=== PATIENT | female | born 1955 | race Hispanic/Latino ===

== ENCOUNTER 2019-04-10 11:15 | Emergency (ER) | payer OTHER ==
--- OUTSIDE RECORDS SUMMARY | 2019-04-10 11:18 | XMS REPORT ---
:1955 [facility] [address] [place] [address] Care Team Providers Name Role Phone HINA CAMACHO Primary Care Provider Unavailable HINA CAMACHO Unavailable Unavailable Problems This patient has no known problems. Allergies, Adverse Reactions, Alerts This patient has no known allergies or adverse reactions. Medications This patient has no known medications. Results Test Description Test Time Test Comments Text Results Atomic Results Result Comments Pro-Bnp 2017-05-02 22:42:00 Test Item Value Reference Range Comments NT ProBnp (test code=PBNP) SEE COMMENT pg/mL 0-124 PBNP=5.00 <Test..../OG Lipid [id number] 22:40:00 Test Item Value Reference Range Comments Cholesterol (test 124 mg/dL 0-200 code=CHOL) Triglycerides (test 100 mg/dL 9-200 code=TRIG) HDL (test code=HDL) 46 mg/dL 50-60 Chol/HDL (test 2.7 Ratio 0.0-4.4 code=CHOLPHDL) LDL, Calculated (test 58 mg/dL 0-130 (NOTE)RISK OF HEART code=LDLC) DISEASEPublished by Bulgar[place] Heart AssociationAnalyte Optimal Boderline Increased RiskCHOL <200 200-239 >240TRIG <150 150-199 >200HDL Male: >60 <40HDL Female: >60 <50LDL <100 130-159 >160LDL NEAR OPTIMAL IS 100-129 VLDL (test code=VLDL) 20 mg/dL 5-40 LDL/HDL (test code=LDLPHDL) 1 Comprehensive Metabolic [id number] 22:40:00 Test Item Value Reference Range Comments Sodium (test code=NA) 137 mmol/L 135-145 Potassium (test code=K) 4.4 mmol/L 3.5-5.1 Chloride (test code=CL) 98 mmol/L 98-105 Carbon Dioxide (test 26 mmol/L 22-29 code=CO2) Glucose (test code=GLU) 133 mg/dL 70-115 Blood Urea Nitrogen 11 mg/dL 8-23 (test code=BUN) Creatinine (test 0.5 mg/dL 0.5-0.9 code=CREAT) Calcium (test code=CA) 9.9 mg/dL 8.3-10.5 Prot Total (test 7.5 g/dL 6.4-8.3 code=TP) Albumin (test code=ALB) 4.7 g/dL 3.5-5.2 A/G Ratio (test 1.7 Ratio code=AGRATIO) Globulin (test 2.8 2.9-3.1 code=GLOB) Bili Total (test 0.4 mg/dL 0.1-0.9 code=TBIL) Alk Phos (test 87 U/L 35-104 code=APHOS) AST (test code=AST) 13 U/L 1-32 ALT (test code=ALT) 17 U/L 1-33 BUN/Creatinine Ratio 22.0 (test code=BCRATIO) Anion Gap (test 13 mmol/L 7-16 code=AGAP) Estimated GFR (test >60 mL/min/1.73m2 eGFR (estimated Glomerular code=GFR) Filtration Rate) is an estimated value,calculated from the patient's serum creatinine using the MDRD equation.It is NOT the patient's actual GFR. The eGFR provides a more clinicallyuseful measure of kidney disease than serum creatinine alone.This calculation takes sex and race into account, if the informationis provided. If the race is not provided, and the patient isAfrican-Bulgarian, multiply by 1.212. If sex is not provided, and thepatient is female, multiply by 0.742. Results for patients <18 years ofage have not been validated by the MDRD study and should be interpretedwith caution.eGFR Result Interpretation:eGFR > or=60 is in the Normal RangeeGFR < 60 may mean kidney diseaseeGFR < 15 may mean kidney failureRanges recommended by the National Kidney Foundation,http://nkdep.nih .gov Glycosylated [id number] 22:38:00 Test Item Value Reference Range Comments HBA1c (test code=HBA1C) 7.0 % 4.8-5.9 CBC with [id number] 22:17:00 Test Item Value Reference Range Comments WBC (test code=WBC) 8.6 K/cumm 4.4-10.5 RBC (test code=RBC) 4.06 M/cumm 3.75-5.20 Hemoglobin (test code=HGB) 12.6 gm/dL 12.2-14.8 Hematocrit (test code=HCT) 36.9 % 36.5-44.4 MCV (test code=MCV) 90.9 fL 80-100 MCH (test code=MCH) 30.9 pg 27.0-32.5 MCHC (test code=MCHC) 34.0 g/dL 32.0-37.5 RDW (test code=RDW) 12.3 % 11.5-14.5 Platelet Count (test code=PLTCT) 402 K/cumm 140-440 MPV (test code=MPV) 8.2 fL Diff Method (test code=DIFFM) Auto Neutrophil (test code=NEUT) 54.0 % 36-70 Lymphocyte (test code=LYMPH) 37.6 % 12-44 Monocyte (test code=MONO) 5.1 % 0-11 Eosinophil (test code=EOS) 2.5 % 0-7 Basophil (test code=BASO) 0.8 % 0-2 Neutro Abs (test code=ANEUT) 4.6 K/cumm 1.6-7.4 Lymph Abs (test code=ALYMPH) 3.2 K/cumm 0.5-4.6 Emmet Abs (test code=AMONO) 0.4 K/cumm 0.0-1.2 Eos Abs (test code=AEOS) 0.22 K/cumm 0.00-0.74 Baso Abs (test code=ABASO) 0.1 K/cumm 0.00-0.21
--- OUTSIDE RECORDS SUMMARY | 2019-04-10 11:18 | XMS REPORT ---
:1955 Author Organization eClinicalWorks Care Team Providers Name Role Phone Alex Crawford Provider Role Unavailable Allergies, Adverse Reactions, Alerts Substance Reaction Event Type N.K.D.A. Info Not Available Non Drug Allergy Problems Problem Type Condition Code Onset Dates Condition Status Assessment Cerebrovascular accident (CVA), I63.9 Active unspecified mechanism Assessment Type 2 diabetes mellitus without E11.9 Active complication, unspecified whether senior care insulin use Assessment Seasonal allergies J30.2 Active Assessment Hyperlipidemia, unspecified E78.5 Active hyperlipidemia type Problem Other chronic pain G89.29 Active Problem History of CVA with residual deficit I69.30 Active Problem Seasonal allergies J30.2 Active Problem Type 2 diabetes mellitus without E11.9 Active complication, unspecified whether senior care insulin use Problem Anxiety F41.9 Active Problem Cerebrovascular accident (CVA), I63.9 Active unspecified mechanism Problem Hyperlipidemia, unspecified E78.5 Active hyperlipidemia type Medications Medication Code Code Instructions Start End Status Dosage System Date Date Clopidogrel Bisulfate [facility] 36065622644 75 MG Orally Active 1 tablet Once a day Simvastatin [facility] 75442862337 40 MG Oral Active 1 tablet Once a day in the evening BD Pen Needle Gina [facility] 74578951873 32G X 4 MM SQ Active Use with U/F three times a insulin day Tresiba FlexTouch [facility] 47698758039 100 UNIT/ML Active INJECT 40 Subcutaneous UNITS UNDER THE SKIN QAM Metformin HCl [facility] 12655341711 500 MG Oral Active tk 1 t po Once a day at noon [facility] Victoza [facility] [address]-58 18 MG/3ML Nov Active 0.6mg Subcutaneous 18, daily 2018 OneTouch Delica [facility] 16335795369 - for Active TEST QID. Lancets 33G diabetes Fluticasone ND 58418418811 50 MCG/ACT Mar 20, Active 1 spray Propionate Nasally Once a 2018 in each day nostril Montelukast Sodium ND 36593007415 10 MG Orally Mar 20, Active 1 tablet Once a day 2018 Hydrochlorothiazide [facility] 82067938020 25 MG Oral Active TK 1 T PO QD IN THE MORNING Amitriptyline HCl [facility] 90853679940 25 MG Orally Active 1 tablet Once a day at bedtime Lisinopril [facility] 06662272858 30 MG Oral Active TK 1 T PO QD OneTouch Ultra Test [facility] 68124906884 - In Vitro Active TEST BS QID Results No Known Results Summary Purpose eClinicalWorks Submission
[2019-04-10] MEDS ORDERED: MORPHINE 2 MG/ML SYR ONE (11:59)
--- NOTE | 2019-04-10 12:08 | RAD REPORT ---
EXAM DESCRIPTION: RAD - Chest Single View - 04/10/2019 11:59 am CLINICAL HISTORY: CHEST PAIN Chest pain. COMPARISON: Chest Single View dated 04/03/2016; CHEST SINGLE VIEW dated 04/23/2013; CHEST SINGLE VIEW d ated 10/30/2012; CHEST SINGLE VIEW dated 12/20/2011 FINDINGS: Portable technique limits examination quality. The lungs are grossly clear. The heart is normal in size. No displaced fractures. IMPRESSION: No acute intrathoracic process suspected.
[2019-04-10 12:30] LABS: Absolute Lymphocytes (CBC) 2.5 K/uL (0.7-4.9); Basophils % 0.8 % (0-1.3); Hematocrit 35.7 % (36.0-45.0); MPV 8.6 fL (7.6-11.3); RBC Red Blood Cell Count 4.05 M/uL (3.86-4.86)
[2019-04-10 12:32] LABS: Protime INR 0.96
[2019-04-10 12:46] LABS: ALT/SGPT 27 U/L (12-78); AST/SGOT 18 U/L (15-37); Albumin 3.8 g/dL (3.4-5.0); Alkaline Phosphatase 77 U/L (45-117); BUN Blood Urea Nitrogen 12 mg/dL (7-18); Bicarbonate 28 mmol/L (21-32); Bilirubin Direct 0.1 mg/dL (0-0.2); Bilirubin Total 0.5 mg/dL (0.2-1.0); Glucose Level 101 mg/dL (74-106); Lipase 271 U/L (73-393); Magnesium 2.3 mg/dL (1.8-2.4); NT PRO-BNP 36 pg/mL (<125); Potassium 3.9 mmol/L (3.5-5.1); Protein, Total 7.3 g/dL (6.4-8.2); Sodium Level 141 mmol/L (136-145); Troponin (Emerg Dept Use Only) < 0.02 ng/mL (0.0-0.045)
--- NOTE | 2019-04-10 14:55 | ER ---
Nurse's Notes [facility] Name: Christa Spakrs Age: 64 yrs Sex: Female : 1955 Arrival Date: 04/10/2019 Time: 11:16 Bed 13 Private MD: Diagnosis: Chest pain, unspecified;Radiculopathy, cervical region Presentation: 04/10 11:21 Presenting complaint: Patient states: chest pain since this morning, midsternal through iw back, arms feel weak, hx of CVA, c/o nausea. Transition of care: patient was not received from another setting of care. Onset of symptoms was April 10, 2019. Risk Assessment: Do you want to hurt yourself or someone else? Patient reports no desire to harm self or others. Initial Sepsis Screen: Does the patient meet any 2 criteria? No. Patient's initial sepsis screen is negative. Does the patient have a suspected source of infection? No. Patient's initial sepsis screen is negative. Care prior to arrival: None. 11:21 Method Of Arrival: Ambulatory iw 11:21 Acuity: NICK 2 iw Historical: - Allergies: 11:24 NKA; iw - Home Meds: 11:24 aspirin 81 mg Oral TbEC 1 tab once daily [Active]; Novolog 100 unit/mL Sub-Q soln after iw meals and before bedtime [Active]; lisinopril-hydrochlorothiazide 20-25 mg Oral tab 1 tab once daily [Active]; simvastatin 40 mg Oral tab 1 tab once daily [Active]; - PMHx: 11:24 CVA; Diabetes - IDDM; High Cholesterol; Hypertension; iw - PSHx: 11:25 None; iw - Immunization history:: Adult Immunizations not up to date. - Social history:: Smoking status: Patient uses tobacco products, denies chronic smoking, but will smoke occasionally. - Ebola Screening: : Patient negative for fever greater than or equal to 101.5 degrees Fahrenheit, and additional compatible Ebola Virus Disease symptoms Patient denies exposure to infectious person Patient denies travel to an Ebola-affected area in the 21 days before illness onset No symptoms or risks identified at this time. Screenin:42 Abuse screen: Denies threats or abuse. Nutritional screening: No deficits noted. rb1 Tuberculosis screening: No symptoms or risk factors identified. Fall Risk None identified. Assessment: 11:42 Pain: Complains of pain in chest Pain radiates to right arm and back of neck Pain rb1 currently is 9 out of 10 on a pain scale. Pain began this morning. Neuro: Level of Consciousness is awake, alert, obeys commands, Oriented to person, place, time, situation, Lumber Buyer are equal bilaterally Moves all extremities. Gait is steady, Speech is normal, Facial symmetry appears normal, Pupils are PERRLA. Cardiovascular: Capillary refill < 3 seconds is brisk in bilateral fingers. Respiratory: Reports shortness of breath cough that is non-productive, Airway is patent Respiratory effort is even, unlabored, Respiratory pattern is regular, symmetrical. GI: Reports nausea. : No signs and/or symptoms were reported regarding the genitourinary system. Derm: Skin is pink, warm \T\ dry. Musculoskeletal: Range of motion: intact in all extremities. 11:42 Neuro: Reports headache frontal area. rb1 11:45 General: Appears in no apparent distress. comfortable, Behavior is calm, cooperative, rb1 Denies fever. 12:40 Reassessment: Patient appears in no apparent distress at this time. Patient and/or rb1 family updated on plan of care and expected duration. Pain level reassessed. Patient is alert, oriented x 3, equal unlabored respirations, skin warm/dry/pink. Patient denies pain at this time. 13:30 Reassessment: Patient appears in no apparent distress at this time. No changes from rb1 previously documented assessment. 14:30 Reassessment: Patient appears in no apparent distress at this time. Patient and/or rb1 family updated on plan of care and expected duration. Pain level reassessed. Patient is alert, oriented x 3, equal unlabored respirations, skin warm/dry/pink. Vital Signs: 11:24 BP 127 / 80; Pulse 73; Resp 16; Temp 98.4; Pulse Ox 97% on R/A; Weight 75.75 kg; Height iw 5 ft. 2 in. (157.48 cm); Pain 9/10; 12:40 BP 128 / 70; Pulse 72; Resp 14; Temp 98.1(O); Pulse Ox 97% on R/A; rb1 13:30 BP 140 / 65; Pulse 66; Resp 15; Pulse Ox 100% ; Pain 0/10; rb1 14:30 BP 136 / 64; Pulse 69; Resp 17; Pulse Ox 99% on R/A; Pain 0/10; rb1 11:24 Body Mass Index 30.54 (75.75 kg, 157.48 cm) ED Course: 11:16 Patient arrived in ED. as 11:22 Triage completed. iw 11:24 Arm band placed on. iw 11:42 Patient has correct armband on for positive identification. Bed in low position. Call rb1 light in reach. Side rails up X2. frog farmer on. Pulse ox on. NIBP on. Warm blanket given. 11:42 Patient maintains SpO2 saturation greater than 95% on room air. rb1 11:44 Bina Aguilar FNP-C is [facility]. snw 11:44 Rosaline Nieto MD is Attending Physician. snw 11:52 Anisa Gastelum, RN is Primary Nurse. rb1 11:52 EKG done, by ED staff, reviewed by Bina CINTRON. [facility] 11:59 XRAY Chest (1 view) In Process Unspecified. EDMS 12:02 Initial lab(s) drawn, by ia, sent to lab. Inserted saline lock: 20 gauge in right 3 antecubital area, using aseptic technique. Blood collected. 15:07 No provider procedures requiring assistance completed. IV discontinued, intact, rb1 bleeding controlled, No redness/swelling at site. Pressure dressing applied. Administered Medications: 12:07 Drug: morphine 2 mg Route: IVP; Site: right antecubital; rb1 12:30 Follow up: Response: No adverse reaction; Pain is decreased rb1 Point of Care Testing: Blood Glucose: 12:01 Blood Glucose: 110 mg/dL; rb1 Ranges: Outcome: 14:54 Discharge ordered by . snw 15:07 Discharged to home ambulatory, with family. rb1 15:07 Condition: stable 15:07 Discharge instructions given to patient, Instructed on discharge instructions, follow up and referral plans. medication usage, Demonstrated understanding of instructions, follow-up care, medications, Prescriptions given X 1. 15:09 Patient left the ED. rb1 Signatures: Dispatcher [employer] EDMS Bina Aguilar FNP-C FNP-Demetria Vela Irene, RN RN Anisa Gastelum, RN RN [facility] Corrections: (The following items were deleted from the chart) Presenting complaint: Patient states: chest pain since this morning, midsternal iw through back, arms feel weak, hx of CVA iw Acuity: NICK 3 iw iw
--- NOTE | 2019-04-10 14:55 | EDPHYS ---
Physician Documentation [facility] Name: Christa Sparks Age: 64 yrs Sex: Female : 1955 Arrival Date: 04/10/2019 Time: 11:16 Bed 13 Private MD: ED Physician Rosaline Nieto HPI: 04/10 11:49 This 64 yrs old Female presents to ER via Ambulatory with complaints of Chest snw Pain. 11:49 Onset: The symptoms/episode began/occurred gradually, this morning, and became snw persistent. Associated signs and symptoms: Pertinent positives: nausea, right arm and shoulder pain. Modifying factors: the patient symptoms are aggravated by smoking a whole pack of cigarettes last pm. It is unknown whether or not the patient has had similar symptoms in the past. The patient has been recently seen by a physician: the patient's primary care provider, Dr. Crawford. Pt states Dr. Crawford recently told her that her HbgA1c is high. Historical: - Allergies: 11:24 NKA; iw - Home Meds: 11:24 aspirin 81 mg Oral TbEC 1 tab once daily [Active]; Novolog 100 unit/mL Sub-Q soln after iw meals and before bedtime [Active]; lisinopril-hydrochlorothiazide 20-25 mg Oral tab 1 tab once daily [Active]; simvastatin 40 mg Oral tab 1 tab once daily [Active]; - PMHx: 11:24 CVA; Diabetes - IDDM; High Cholesterol; Hypertension; iw - PSHx: 11:25 None; iw - Immunization history:: Adult Immunizations not up to date. - Social history:: Smoking status: Patient uses tobacco products, denies chronic smoking, but will smoke occasionally. - Ebola Screening: : Patient negative for fever greater than or equal to 101.5 degrees Fahrenheit, and additional compatible Ebola Virus Disease symptoms Patient denies exposure to infectious person Patient denies travel to an Ebola-affected area in the 21 days before illness onset No symptoms or risks identified at this time. ROS: 11:49 Constitutional: Negative for fever, chills, and weight loss, Eyes: Negative for injury, snw pain, redness, and discharge, ENT: Negative for injury, pain, and discharge, Neck: Negative for injury, pain, and swelling. 11:49 Respiratory: Negative for shortness of breath, cough, wheezing, and pleuritic chest pain, Abdomen/GI: Negative for abdominal pain, nausea, vomiting, diarrhea, and constipation. 11:49 : Negative for injury, bleeding, discharge, and swelling. 11:49 Skin: Negative for injury, rash, and discoloration, Neuro: Negative for headache, weakness, numbness, tingling, and seizure, Psych: Negative for depression, anxiety, suicide ideation, homicidal ideation, and hallucinations. 11:49 Cardiovascular: Positive for chest pain, of the anterior aspect of left upper chest. 11:49 Back: Positive for radiated pain. 11:49 MS/extremity: Positive for c/o right arm pain with radiation to back. Exam: 11:49 Head/Face: Normocephalic, atraumatic. Eyes: Pupils equal round and reactive to light, snw extra-ocular motions intact. Lids and lashes normal. Conjunctiva and sclera are non-icteric and not injected. Cornea within normal limits. Periorbital areas with no swelling, redness, or edema. ENT: Nares patent. No nasal discharge, no septal abnormalities noted. Tympanic membranes are normal and external auditory canals are clear. Oropharynx with no redness, swelling, or masses, exudates, or evidence of obstruction, uvula midline. Mucous membranes moist. Neck: Trachea midline, no thyromegaly or masses palpated, and no cervical lymphadenopathy. Supple, full range of motion without nuchal rigidity, or vertebral point tenderness. No Meningismus. Chest/axilla: Normal chest wall appearance and motion. Nontender with no deformity. No lesions are appreciated. Cardiovascular: Regular rate and rhythm with a normal S1 and S2. No gallops, murmurs, or rubs. Normal PMI, no JVD. No pulse deficits. Respiratory: Lungs have equal breath sounds bilaterally, clear to auscultation and percussion. No rales, rhonchi or wheezes noted. No increased work of breathing, no retractions or nasal flaring. Abdomen/GI: Soft, non-tender, with normal bowel sounds. No distension or tympany. No guarding or rebound. No evidence of tenderness throughout. Back: No spinal tenderness. No costovertebral tenderness. Full range of motion. Skin: Warm, dry with normal turgor. Normal color with no rashes, no lesions, and no evidence of cellulitis. MS/ Extremity: Pulses equal, no cyanosis. Neurovascular intact. Full, normal range of motion. Neuro: Awake and alert, GCS 15, oriented to person, place, time, and situation. Cranial nerves II-XII grossly intact. Motor strength 5/5 in all extremities. Sensory grossly intact. Cerebellar exam normal. Normal gait. 11:49 Constitutional: The patient appears alert, awake, calm 11:49 Psych: pt states these s/s were probably brought on because she smoked a pack of cigarettes last pm, . 11:49 ECG was reviewed by the Attending Physician. snw Vital Signs: 11:24 BP 127 / 80; Pulse 73; Resp 16; Temp 98.4; Pulse Ox 97% on R/A; Weight 75.75 kg; Height iw 5 ft. 2 in. (157.48 cm); Pain 9/10; 12:40 BP 128 / 70; Pulse 72; Resp 14; Temp 98.1(O); Pulse Ox 97% on R/A; rb1 13:30 BP 140 / 65; Pulse 66; Resp 15; Pulse Ox 100% ; Pain 0/10; rb1 14:30 BP 136 / 64; Pulse 69; Resp 17; Pulse Ox 99% on R/A; Pain 0/10; rb1 11:24 Body Mass Index 30.54 (75.75 kg, 157.48 cm) iw MDM: 11:44 Patient medically screened. snw 14:41 Data reviewed: vital signs, nurses notes. Data interpreted: Pulse oximetry: on room air snw is 100 %. Interpretation: normal. Counseling: I had a detailed discussion with the patient and/or guardian regarding: the historical points, exam findings, and any diagnostic results supporting the discharge/admit diagnosis, lab results, radiology results. 14:42 ECG:. The patient was not given aspirin in the Emergency Department. Patient reports snw taking aspirin within the past 24 hours. 04/10 11:45 Order name: Basic Metabolic Panel; Complete Time: 12:48 snw 04/10 11:45 Order name: CBC with Diff; Complete Time: 12:34 snw 04/10 11:45 Order name: LFT's; Complete Time: 12:48 snw 04/10 11:45 Order name: Magnesium; Complete Time: 12:48 snw 04/10 11:45 Order name: NT PRO-BNP; Complete Time: 12:48 04/10 11:45 Order name: PT-INR; Complete Time: 12:34 04/10 11:45 Order name: Troponin (emerg Dept Use Only); Complete Time: 12:48 04/10 11:45 Order name: XRAY Chest (1 view); Complete Time: 12:10 04/10 11:45 Order name: EKG; Complete Time: 11:46 04/10 11:45 Order name: Cardiac monitoring; Complete Time: 11:53 04/10 11:45 Order name: EKG - Nurse/Tech; Complete Time: 11:53 04/10 11:45 Order name: IV Saline Lock; Complete Time: 12:06 04/10 11:45 Order name: Lipase; Complete Time: 12:48 04/10 11:45 Order name: Labs collected and sent; Complete Time: 12:06 04/10 11:45 Order name: O2 Per Protocol; Complete Time: 11:53 04/10 11:45 Order name: O2 Sat Monitoring; Complete Time: 11:53 04/10 11:45 Order name: FSBS; Complete Time: 12:05 04/10 14:00 Order name: Repeat Cardiac Enzymes at: 1445, repeat EKG at that time as well snw Administered Medications: 12:07 Drug: morphine 2 mg Route: IVP; Site: right antecubital; rb1 12:30 Follow up: Response: No adverse reaction; Pain is decreased rb1 Point of Care Testing: Blood Glucose: 12:01 Blood Glucose: 110 mg/dL; rb1 Ranges: Critical Glucose Levels:Adult <50 mg/dl or >400 mg/dl <40 mg/dl or >180 mg/dl Disposition: 18:50 Co-signature as Attending Physician, Rosaline Nieto MD. ma2 Disposition: 04/10/19 14:54 Discharged to Home. Impression: Chest pain, unspecified, Radiculopathy, cervical region. - Condition is Stable. - Discharge Instructions: Cervical Radiculopathy, Nonspecific Chest Pain, Gastroesophageal Reflux Disease, Adult, Hypertension, Aspirin and Your Heart. - Prescriptions for Protonix 40 mg Oral Tablet - take 1 tablet by ORAL route once daily; 30 tablet. - Work release form, Medication Reconciliation Form, Thank You Letter, Antibiotic Education, Prescription Opioid Use form. - Follow up: Private Physician; When: 2 - 3 days; Reason: Recheck today's complaints, Continuance of care, Re-evaluation by your physician. Follow up: Emergency Department; When: As needed; Reason: Worsening of condition. Signatures: Dispatcher [employer] EDFL Bina Aguilar, MELISA-C OPTICAL DESIGN ENGINEER-Csnw Mariya Fontenot, ZBIGNIEW RN iw Anisa Gastelum RN RN rb1 Rosaline Nieto MD MD ma2 Corrections: (The following items were deleted from the chart) 15:09 14:54 04/10/2019 14:54 Discharged to Home. Impression: Chest pain, unspecified; rb1 Radiculopathy, cervical region. Condition is Stable. Forms are Medication Reconciliation Form, Thank You Letter, Antibiotic Education, Prescription Opioid Use. Follow up: Private Physician; When: 2 - 3 days; Reason: Recheck today's complaints, Continuance of care, Re-evaluation by your physician. Follow up: Emergency Department; When: As needed; Reason: Worsening of condition. snw
[2019-04-10 15:31] VITALS: TEMP 98.1
[2019-04-10 15:35] VITALS: BP 136/64; O2SAT 99
--- NOTE | 2019-04-11 07:42 | EKG ---
Test Date: 2019-04-10 Test Time: 11:52:32 Systems Software Specialist: RANDOLPH MEASUREMENT RESULTS: Intervals: Rate: 73 MI: 152 QRSD: 84 QT: 390 QTc: 429 [place]: P: 30 MI: 152 QRS: 55 T: 52 INTERPRETIVE STATEMENTS: Normal sinus rhythm Normal ECG No previous ECG available for comparison Electronically Signed On 04-11-19 07:38:29 CDT by Parvez Hook
== END 2019-04-10 15:09 | disposition home or self-care (01) ==
LOC: ER 11:15
DX: M54.12 Radiculopathy, cervical region (principal); I10 Essential (primary) hypertension; E11.9 Type 2 diabetes mellitus without complications; E78.00 Pure hypercholesterolemia, unspecified
CPT/HCPCS: 93005; 85025; 80048; 36415; 83735; 85610; 82962; 80076; 84484; 83690; 83880; 71045; 96374; 99285; J2270

== ENCOUNTER 2019-10-05 20:24 | Emergency (ER) | payer OTHER ==
--- OUTSIDE RECORDS SUMMARY | 2019-10-05 20:25 | XMS REPORT ---
:1955 Author Organization eClinicalWorks Care Team Providers Name Role Phone Winnie Miller Provider Role Unavailable Allergies No Known Allergies Problems Problem Type Condition Code Onset Dates Condition Status Assessment Type 2 diabetes mellitus without E11.9 Active complication, unspecified whether fpc insulin use Problem Other chronic pain G89.29 Active Problem History of CVA with residual deficit I69.30 Active Problem Seasonal allergies J30.2 Active Problem Type 2 diabetes mellitus without E11.9 Active complication, unspecified whether fpc insulin use Problem Anxiety F41.9 Active Problem Cerebrovascular accident (CVA), I63.9 Active unspecified mechanism Problem Hyperlipidemia, unspecified E78.5 Active hyperlipidemia type Medications Medication Code Code Instructions Start End Date Status Dosage System Date Metformin HCl [facility] [id number] 500 MG Oral Once Active tk 1 t po a day at noon [facility] Results No Known Results Summary Purpose eClinicalWorks Submission
--- OUTSIDE RECORDS SUMMARY | 2019-10-05 20:25 | XMS REPORT ---
:1955 Author Organization eClinicalWorks Care Team Providers Name Role Phone Winnie Miller Provider Role Unavailable Allergies, Adverse Reactions, Alerts Substance Reaction Event Type Amitriptyline HCl hallucinations Drug Allergy Problems Problem Type Condition Code Onset Dates Condition Status Problem Type 2 diabetes mellitus without E11.9 Active complication, unspecified whether nursing home insulin use Problem Anxiety F41.9 Active Assessment Type 2 diabetes mellitus without E11.9 Active complication, unspecified whether nursing home insulin use Assessment Insomnia, unspecified type G47.00 Active Assessment Acquired hypothyroidism E03.9 Active Problem Insomnia, unspecified type G47.00 Active Problem Seasonal allergies J30.2 Active Problem Acquired hypothyroidism E03.9 Active Problem Cerebrovascular accident (CVA), I63.9 Active unspecified mechanism Problem Hyperlipidemia, unspecified E78.5 Active hyperlipidemia type Problem Other chronic pain G89.29 Active Problem History of CVA with residual deficit I69.30 Active Medications Medication Code Code Instructions Start End Status Dosage System Date Date Simvastatin [facility] 12196324396 40 MG Oral Active 1 tablet Once a day in the evening Trazodone HCl ND 76433146100 50 MG Orally Jun 17, Active 1 tablet Once a day 2018 at bedtime as needed Levothyroxine Sodium ND 74790404465 25 MCG Orally Jun 17, Active 1 tablet Once a day 2018 in the morning on an empty stomach Victoza [facility] 27942011102 18 MG/3ML October Active 0.6mg Subcutaneous , daily 2019 Montelukast Sodium ND 79355269848 10 MG Orally Mar 20, Active 1 tablet Once a day 2018 Amitriptyline HCl ND 06485750728 25 MG Orally Active 1 tablet Once a day at bedtime Mora Humphrey [facility] 81462582153 - for Active TEST QID. Lancets 33G diabetes Fluticasone ND 60025681028 50 MCG/ACT Mar 20, Active 1 spray Propionate Nasally Once a 2019 in each day nostril Lisinopril [facility] 62466843085 30 MG Orally Active 1 tablet Once a day Clonazepam [facility] 26098835896 1 MG Oral Active (Schedule IV Drug) TK 1 T PO BID Metformin HCl [facility] 06363138203 500 MG Oral Active tk 1 t po Once a day at noon [facility] Tresiba FlexTouch [facility] 98540208087 100 UNIT/ML Active inject 40 Subcutaneous units daily under the skin qam OneTouch Ultra Test [facility] 34375414319 - In Vitro Active TEST BS QID BD Pen Needle Gina [facility] 62409228175 32G X 4 MM SQ Active Use with U/F three times a insulin day Clopidogrel Bisulfate [facility] 61642203945 75 MG Orally Active 1 tablet Once a day Hydrochlorothiazide [facility] 06001389004 25 MG Orally Active tk 1 t po Once a day qd in the morning Results Name Result Date Reference Range Unit Abnormality Flag HEMOGLOBIN A1C ----A1C 6.4 [id number] Summary Purpose eClinicalWorks Submission
--- OUTSIDE RECORDS SUMMARY | 2019-10-05 20:25 | XMS REPORT ---
:1955 Author Organization e[employer]Works Care Team Providers Name Role Phone Alex Crawford Provider Role Unavailable Allergies, Adverse Reactions, Alerts Substance Reaction Event Type N.K.D.A. Info Not Available Non Drug Allergy Problems Problem Type Condition Code Onset Dates Condition Status Assessment Cerebrovascular accident (CVA), I63.9 Active unspecified mechanism Assessment Hyperlipidemia, unspecified E78.5 Active hyperlipidemia type Assessment Anxiety F41.9 Active Assessment History of CVA with residual deficit I69.30 Active Assessment Type 2 diabetes mellitus without E11.9 Active complication, unspecified whether [facility] insulin use Problem Other chronic pain G89.29 Active Problem History of CVA with residual deficit I69.30 Active Problem Seasonal allergies J30.2 Active Problem Type 2 diabetes mellitus without E11.9 Active complication, unspecified whether [facility] insulin use Problem Anxiety F41.9 Active Problem Cerebrovascular accident (CVA), I63.9 Active unspecified mechanism Problem Hyperlipidemia, unspecified E78.5 Active hyperlipidemia type Medications Medication Code Code Instructions Start End Status Dosage System Date Date OneTouch Ultra Test [facility] 78988632713 - In Vitro Active TEST BS QID Clopidogrel Bisulfate [facility] 00818312578 75 MG Orally Active 1 tablet Once a day BD Pen Needle Gina [facility] 54234892416 32G X 4 MM SQ Active Use with U/F three times a insulin day Montelukast Sodium ND 63420393259 10 MG Orally Mar 20, Active 1 tablet Once a day 2018 Amitriptyline HCl ND 85630337513 25 MG Orally Active 1 tablet Once a day at bedtime Simvastatin ND 19087787007 40 MG Oral Active 1 tablet Once a day in the evening OneTouch Delica [facility] 34860786342 - for Active TEST QID. Lancets 33G diabetes Lisinopril [facility] 57847474994 30 MG Orally Active 1 tablet Once a day Hydrochlorothiazide ND 39536497108 25 MG Orally Active tk 1 t po Once a day qd in the morning Fluticasone ND 15897865374 50 MCG/ACT Mar 20, Active 1 spray Propionate Nasally Once a 2018 in each day nostril Tresiba FlexTouch [facility] 93088849948 100 UNIT/ML Active inject 40 Subcutaneous units daily under the skin qam Victoza [facility] 84622867893 18 MG/3ML October Active 0.6mg Subcutaneous , daily 2019 Metformin HCl [facility] 70253177707 500 MG Oral Active tk 1 t po Once a day at noon [facility] Results No Known Results Summary Purpose eClinicalWorks Submission
--- OUTSIDE RECORDS SUMMARY | 2019-10-05 20:25 | XMS REPORT ---
:1955 [facility] Address [address] [place] [address] Care Team Providers Name Role Phone HINA [...] SEE COMMENT pg/mL 0-124 PBNP=5.00 <Test..../OG Lipid [id number] 22:40:00 Test Item Value Reference Range Comments Cholesterol (test 124 mg/dL 0-200 code=CHOL) Triglycerides (test 100 mg/dL 9-200 code=TRIG) HDL (test code=HDL) 46 mg/dL 50-60 Chol/HDL (test 2.7 Ratio 0.0-4.4 code=CHOLPHDL) LDL, Calculated (test 58 mg/dL 0-130 (NOTE)RISK OF HEART code=LDLC) DISEASEPublished by Mexican Heart AssociationAnalyte Optimal Boderline Increased RiskCHOL <200 200-239 >240TRIG <150 150-199 >200HDL Male: >60 <40HDL Female: >60 <50LDL <100 130-159 >160LDL NEAR OPTIMAL IS 100-129 VLDL (test code=VLDL) 20 mg/dL 5-40 LDL/HDL (test code=LDLPHDL) 1 Comprehensive Metabolic [id number] 22:40:00 Test Item Value Reference Range Comments [...] race is not provided, and the patient isAfrican-Mexican, multiply by 1.212. If sex is not provided, and thepatient is female, multiply by 0.742. Results for patients <18 years ofage have not been validated by the MDRD study and should be interpretedwith caution.eGFR Result Interpretation:eGFR > or=60 is in the Normal RangeeGFR < 60 may mean kidney diseaseeGFR < 15 may mean kidney failureRanges recommended by the National Kidney Foundation,http://nkdep.nih .gov Glycosylated [id number] 22:38:00 Test Item Value Reference Range Comments HBA1c (test code=HBA1C) 7.0 % 4.8-5.9 CBC with [id number] 22:17:00 Test Item Value Reference Range Comments [...] Lymph Abs (test code=ALYMPH) 3.2 K/cumm 0.5-4.6 Hemphill Abs (test code=AMONO) 0.4 K/cumm 0.0-1.2 Eos Abs (test code=AEOS) 0.22 K/cumm 0.00-0.74 Baso Abs (test code=ABASO) 0.1 K/cumm 0.00-0.21
--- OUTSIDE RECORDS SUMMARY | 2019-10-05 20:25 | XMS REPORT ---
:1955 Author Organization eClinicalWorks Care Team Providers Name Role Phone Winnie Miller Provider Role Unavailable Allergies, Adverse Reactions, Alerts Substance Reaction Event Type Amitriptyline HCl hallucinations Drug Allergy Problems Problem Type Condition Code Onset Dates Condition Status Problem Hyperlipidemia, unspecified E78.5 Active hyperlipidemia type Problem History of CVA with residual deficit I69.30 Active Problem Cerebrovascular accident (CVA), I63.9 Active unspecified mechanism Problem Reflux gastritis K29.60 Active Problem Acquired hypothyroidism E03.9 Active Problem Palpitations R00.2 Active Problem Other chronic pain G89.29 Active Problem Anxiety F41.9 Active Problem Insomnia, unspecified type G47.00 Active Problem Seasonal allergies J30.2 Active Assessment Reflux gastritis K29.60 Active Assessment Anxiety F41.9 Active Assessment Palpitations R00.2 Active Assessment Cerebrovascular accident (CVA), I63.9 Active unspecified mechanism Problem Type 2 diabetes mellitus without E11.9 Active complication, 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 65853210408 30 MG Orally Active 1 tablet Once a day BD Pen Needle Gina [facility] 01870299408 32G X 4 MM SQ Active Use with U/F three times a insulin day Tresiba FlexTouch [facility] 16804818316 100 UNIT/ML Active inject 40 Subcutaneous units daily under the skin qam Metformin HCl [facility] 61097480473 500 MG Oral Active tk 1 t po Once a day at noon [facility] Trazodone HCl ND 47764488935 50 MG Orally Jun 17, Active 1 tablet Once a day 2018 at bedtime as needed Clopidogrel Bisulfate ND 78138144913 75 MG Orally Active 1 tablet Once a day Montelukast Sodium ND 81828845423 10 MG Orally Mar 20, Active 1 tablet Once a day 2018 Fluticasone ND 32085246914 50 MCG/ACT Mar 20, Active 1 spray Propionate Nasally Once a 2019 in each day nostril Victoza [facility] 56657451413 18 MG/3ML October Active 0.6mg Subcutaneous 28, daily 2019 Hydrochlorothiazide ND 18654331806 25 MG Orally Active tk 1 t po Once a day qd in the morning Clonazepam [facility] 07973989894 1 MG Oral Active (Schedule IV Drug) TK 1 T PO BID Levothyroxine Sodium [facility] 15472856775 25 MCG Orally Jun 17, Active 1 tablet Once a day 2018 in the morning on an empty stomach OneTouch Delica [facility] 34935296025 - for Active TEST QID. Lancets 33G diabetes OneTouch Ultra Test [facility] 29851047389 - In Vitro Active TEST BS QID Simvastatin [facility] 42093599562 40 MG Oral Active 1 tablet Once a day in the evening Results Name Result Date Reference Range Unit Abnormality Flag EKG Complete Summary Purpose eClinicalWorks Submission
--- OUTSIDE RECORDS SUMMARY | 2019-10-05 20:26 | XMS REPORT ---
[...] Active Problem Seasonal allergies J30.2 Active Assessment Acquired hypothyroidism E03.9 Active Assessment Type 2 diabetes mellitus without E11.9 Active complication, unspecified whether manager long term care insulin use Assessment History of CVA with residual deficit I69.30 Active Assessment Insomnia, unspecified type G47.00 Active Problem Type 2 diabetes mellitus without E11.9 Active complication, unspecified whether manager long term care insulin use Medications Medication Code Code Instructions Start End Status Dosage System Date Date Tresiba FlexTouch [facility] 10172613741 100 UNIT/ML Active inject 40 Subcutaneous units daily under the skin qa Victoza [facility] 10361466052 18 MG/3ML October Active 0.6mg Subcutaneous 28, daily 2019 OneTouch Ultra Test [facility] 72004449874 - In Vitro Active TEST BS QID OneTouch Delica [facility] 21039112385 - for Active TEST QID. Lancets 33G diabetes Hydrochlorothiazide [facility] 51122656987 25 MG Orally Active tk 1 t po Once a day qd in the morning Lisinopril [facility] 54711281112 30 MG Orally Active 1 tablet Once a day Clopidogrel Bisulfate [facility] 57092645898 75 MG Orally Active 1 tablet Once a day Metformin HCl [facility] 66410546746 500 MG Oral Active tk 1 t po Once a day at noon [facility] Trazodone HCl [facility] 89047660267 100 MG Orally Edward 14, Active 1 tablet Once a day 2019 at bedtime BD Pen Needle Gina [facility] 19777935670 32G X 4 MM SQ Active Use with U/F three times a insulin day Simvastatin [facility] 31029908503 40 MG Oral Active 1 tablet Once a day in the evening Results Name Result Date Reference Range Unit Abnormality Flag TSH ----TSH 2.310 [id number] 0.450-4.500 uIU/mL Lipid Panel ----LDL Cholesterol Calc 48 49689234 0-99 mg/dL ----Cholesterol, Total 115 20190812 100-199 mg/dL ----Triglycerides 121 20190812 0-149 mg/dL ----HDL Cholesterol 43 59849804 >39 mg/dL ----VLDL Cholesterol Sergio 24 88197935 5-40 mg/dL Comp. Metabolic Panel (14) (CMP) ----Sodium 142 34396660 134-144 mmol/L ----BUN/Creatinine Ratio 15 20190812 12-28 ----Chloride 99 09550770 96-106 mmol/L ----Potassium 4.3 08511127 3.5-5.2 mmol/L ----Calcium 9.9 24518632 8.7-10.3 mg/dL ----Protein, Total 7.3 53911581 6.0-8.5 g/dL ----Carbon Dioxide, 24 03454961 20-29 mmol/L Total ----A/G Ratio 1.8 70124791 1.2-2.2 ----eGFR If NonAfricn Am 93 60311485 >59 mL/min/1.73 ----Bilirubin, Total 0.5 03064110 0.0-1.2 mg/dL ----eGFR If Africn Am 108 66183700 >59 mL/min/1.73 ----Albumin 4.7 21852685 3.6-4.8 g/dL ----BUN 10 62054428 8-27 mg/dL ----Globulin, Total 2.6 55182480 1.5-4.5 g/dL ----Creatinine 0.68 95659173 0.57-1.00 mg/dL ----ALT (SGPT) 11 20190812 0-32 IU/L ----Glucose 121 20190812 65-99 mg/dL H ----Alkaline Phosphatase 76 20190812 39-117 IU/L ----AST (SGOT) 13 20190812 0-40 IU/L Summary Purpose eClinicalWorks Submission
[2019-10-05] MEDS ORDERED: LORazepam 2 MG/ML VIAL ONE (20:40)
[2019-10-05 21:11] LABS: Basophils % 0.7 % (0-1.3); Hematocrit 37.3 % (36.0-45.0); Lymphocytes % 40.2 % (15.3-44.8); MPV 8.2 fL (7.6-11.3); RBC Red Blood Cell Count 4.16 M/uL (3.86-4.86)
[2019-10-05 21:12] LABS: Protime INR 0.99
[2019-10-05 21:22] LABS: ALT/SGPT 22 U/L (12-78); AST/SGOT 14 U/L (15-37); Albumin 3.8 g/dL (3.4-5.0); Alkaline Phosphatase 86 U/L (45-117); BUN Blood Urea Nitrogen 16 mg/dL (7-18); Bicarbonate 26 mmol/L (21-32); Bilirubin Direct < 0.1 mg/dL (0-0.2); Bilirubin Total 0.3 mg/dL (0.2-1.0); Glucose Level 203 mg/dL (74-106); NT PRO-BNP 47 pg/mL (<125); Potassium 3.7 mmol/L (3.5-5.1); Protein, Total 7.7 g/dL (6.4-8.2); Sodium Level 139 mmol/L (136-145); Troponin (Emerg Dept Use Only) < 0.02 ng/mL (0.0-0.045)
--- NOTE | 2019-10-05 21:59 | ER ---
Nurse's Notes [facility] Name: Christa Sparks Age: 64 yrs Sex: Female : 1955 Arrival Date: 10/05/2019 Time: 20:26 Bed 4 Private MD: Diagnosis: Emotional lability Presentation: 10/04 20:30 Chief complaint: EMS states: patient complaint of right sided non radiating chest pain, rr5 hyperventilating, syncopal episode after hearing bad news (family matter). V/S stable. 20:30 Coronavirus screen: The patient has NOT traveled to a country currently being monitored rr5 by the [facility] within the last 14 days. Proceed with normal triage procedures. Ebola Screen: Patient negative for fever greater than or equal to 101.5 degrees Fahrenheit, and additional compatible Ebola Virus Disease symptoms Patient denies exposure to infectious person. Patient denies travel to an Ebola-affected area in the 21 days before illness onset. Initial Sepsis Screen: Does the patient meet any 2 criteria? RR > 20 per min. No. Patient's initial sepsis screen is negative. Does the patient have a suspected source of infection? No. Patient's initial sepsis screen is negative. Risk Assessment: Do you want to hurt yourself or someone else? Patient reports no desire to harm self or others. 20:30 Method Of Arrival: EMS: [facility] rr5 20:30 Acuity: NICK 3 rr5 20:30 Onset of symptoms was October 05, 2019. rr5 Historical: - Allergies: 20:30 NKA; rr5 - Home Meds: 20:30 amitriptyline 50 mg Oral tab 1 tab once daily [Active]; aspirin 81 mg Oral TbEC 1 tab rr5 once daily [Active]; levamir insulin [Active]; lisinopril-hydrochlorothiazide 20-25 mg Oral tab 1 tab once daily [Active]; simvastatin 40 mg Oral tab 1 tab once daily [Active]; Nexium 40 mg Oral cpDR 1 cap once daily [Active]; Novolog 100 unit/mL Sub-Q soln after meals and before bedtime [Active]; Plavix Oral [Active]; Furosemide Oral [Active]; - PMHx: 20:30 CVA; Diabetes - IDDM; High Cholesterol; Hypertension; Anxiety; CHF; rr5 - PSHx: 20:30 breast cyst removal; Heart stents; rr5 - Immunization history:: Adult Immunizations not up to date. - Social history:: Smoking status: Patient reports the use of cigarette tobacco products, 1-2 sticks occasional, Patient uses alcohol, occasionally. stated drank 2 beers tonight. Patient/guardian denies using street drugs, Patient/guardian denies using alcohol, The patient lives with family. - Family history:: not pertinent. Screenin:42 Abuse screen: Denies threats or abuse. Denies injuries from another. Nutritional rr5 screening: No deficits noted. Tuberculosis screening: No symptoms or risk factors identified. Fall Risk IV access (20 points). Total Garcia Fall Scale indicates No Risk (0-24 pts). Assessment: 20:30 General: Appears in no apparent distress. uncomfortable, Behavior is anxious, crying. rr5 Pain: Complains of pain in anterior aspect of right upper chest Pain does not radiate. Pain currently is 8 out of 10 on a pain scale. Quality of pain is described as aching, Pain began suddenly, Is continuous. 20:30 Neuro: Level of Consciousness is awake, alert, obeys commands, Oriented to person, rr5 place, time, situation, Appropriate for age Reports a syncopal episode. Cardiovascular: Reports chest pain, Capillary refill < 3 seconds Patient's skin is warm and dry. Rhythm is sinus rhythm. Respiratory: Airway is patent Respiratory effort is even, Respiratory pattern is hyperventilation. GI: No signs and/or symptoms were reported involving the gastrointestinal system. : No signs and/or symptoms were reported regarding the genitourinary system. EENT: No signs and/or symptoms were reported regarding the EENT system. Derm: Skin is intact, is healthy with good turgor, Skin temperature is warm. Musculoskeletal: Circulation, motion, and sensation intact. Capillary refill < 3 seconds. 21:02 Neuro: Reports daughter of the patient reported did not hit patients head. when she rr5 fell down. able to catch her when she fell.. 21:05 Reassessment: NRM removed patient feels better. rr5 21:30 Reassessment: Patient appears in no apparent distress at this time. Patient is alert, rr5 oriented x 3, equal unlabored respirations, skin warm/dry/pink. Patient states feeling better. Patient states symptoms have improved. 22:05 Reassessment: Patient appears in no apparent distress at this time. Patient is alert, rr5 oriented x 3, equal unlabored respirations, skin warm/dry/pink. discharge instruction given and explained without complaints made. accompanied by family member. Vital Signs: 20:30 BP 186 / 76; Pulse 99; Resp 28; Temp 98; Pulse Ox 100% on Non-rebreather mask; Weight rr5 72.57 kg; Height 5 ft. 3 in. (160.02 cm); Pain 8/10; 20:44 BP 161 / 73; Pulse 93; Resp 20; Pulse Ox 100% ; rr5 21:40 BP 128 / 77; Pulse 80; Resp 16; Pulse Ox 99% on R/A; rr5 22:05 BP 136 / 79; Pulse 85; Resp 17; Temp 98; Pulse Ox 99% on R/A; rr5 20:30 Body Mass Index 28.34 (72.57 kg, 160.02 cm) rr5 20:30 hyperventilating, attached to non rebreather mask not hooked to oxygen rr5 ED Course: 20:26 Patient arrived in ED. ds1 20:26 Rosaline Nieto MD is Attending Physician. ma2 20:30 Patient has correct armband on for positive identification. Placed in gown. Bed in low rr5 position. Call light in reach. Side rails up X2. registered dental assistant on. Pulse ox on. NIBP on. 20:30 Warm blanket given. rr5 20:33 Daniel Donahue RN is Primary Nurse. rr5 20:35 Arm band placed on right wrist. EKG completed in triage. Results shown to MD. rr5 20:38 Triage completed. rr5 20:50 Inserted saline lock: 20 gauge in left antecubital area, using aseptic technique. rr5 ,using aseptic technique. inserted by rachel machine tool technology instructor. 22:06 No provider procedures requiring assistance completed. IV discontinued, intact, rr5 bleeding controlled, No redness/swelling at site. Pressure dressing applied. Administered Medications: 20:46 Drug: Ativan 1 mg Route: IVP; Site: left antecubital; rr5 21:30 Follow up: Response: No adverse reaction; RASS: Alert and Calm (0) rr5 Point of Care Testing: Blood Glucose: 20:42 Blood Glucose: 181 mg/dL; rr5 Ranges: Outcome: 21:58 Discharge ordered by . ma2 22:06 Discharged to home via wheelchair, with family. rr5 22:06 Discharge instructions given to patient, family, Instructed on discharge instructions, follow up and referral plans. Demonstrated understanding of instructions, follow-up care. 22:06 Condition: stable rr5 22:08 Patient left the ED. rr5 Signatures: Carly Krishna1 Rosaline Nieto MD MD ma2 Max Adame, RN RN rv Daniel Donahue RN RN rr5 Corrections: (The following items were deleted from the chart) 20:38 20:30 BP 186 / 76; Pulse 99bpm; Resp 28bpm; Pulse Ox 100% Non-rebreather mask; Temp rr5 98F; Pain 8/10; hyperventilating, attached to non rebreather mask not hooked to oxygen ; rr5 20:46 20:37 BP 186 / 76; Pulse 88bpm; Resp 17bpm; Pulse Ox 99% RA; Temp 98F; rv rr5
--- NOTE | 2019-10-05 21:59 | EDPHYS ---
Physician Documentation [facility] Name: Christa Sparks Age: 64 yrs Sex: Female : 1955 Arrival Date: 10/05/2019 Time: 20:26 Bed 4 Private MD: ED Physician Rosaline Nieto HPI: 10/04 21:56 This 64 yrs old Female presents to ER via EMS with complaints of Syncope. ma2 21:56 This 64 yrs old Female presents to ER via EMS with complaints of NERVUS ma2 BREAKDOWN. 21:56 Onset: The symptoms/episode began/occurred suddenly, 1 hour(s) ago. Associated signs ma2 and symptoms: Pertinent negatives: ataxia, chest pain, diaphoresis, diarrhea. Current symptoms: Currently, the patient is not experiencing any symptoms. The patient has not experienced similar symptoms in the past. her brother , she became nervus and hyperventilating, no chest pain or syncope or pressure . Historical: - Allergies: 20:30 NKA; rr5 - Home Meds: 20:30 amitriptyline 50 mg Oral tab 1 tab once daily [Active]; aspirin 81 mg Oral TbEC 1 tab rr5 once daily [Active]; levamir insulin [Active]; lisinopril-hydrochlorothiazide 20-25 mg Oral tab 1 tab once daily [Active]; simvastatin 40 mg Oral tab 1 tab once daily [Active]; Nexium 40 mg Oral cpDR 1 cap once daily [Active]; Novolog 100 unit/mL Sub-Q soln after meals and before bedtime [Active]; Plavix Oral [Active]; Furosemide Oral [Active]; - PMHx: 20:30 CVA; Diabetes - IDDM; High Cholesterol; Hypertension; Anxiety; CHF; rr5 - PSHx: 20:30 breast cyst removal; Heart stents; rr5 - Immunization history:: Adult Immunizations not up to date. - Social history:: Smoking status: Patient reports the use of cigarette tobacco products, 1-2 sticks occasional, Patient uses alcohol, occasionally. stated drank 2 beers tonight. Patient/guardian denies using street drugs, Patient/guardian denies using alcohol, The patient lives with family. - Family history:: not pertinent. ROS: 21:56 Constitutional: Negative for fever, chills, and weight loss. ma2 21:56 All other systems are negative. Exam: 21:56 Constitutional: This is a well developed, well nourished patient who is awake, alert, ma2 and in no acute distress. Eyes: Pupils equal round and reactive to light, extra-ocular motions intact. Lids and lashes normal. Conjunctiva and sclera are non-icteric and not injected. Cornea within normal limits. Periorbital areas with no swelling, redness, or edema. ENT: Nares patent. No nasal discharge, no septal abnormalities noted. Tympanic membranes are normal and external auditory canals are clear. Oropharynx with no redness, swelling, or masses, exudates, or evidence of obstruction, uvula midline. Mucous membranes moist. Neck: Trachea midline, no thyromegaly or masses palpated, and no cervical lymphadenopathy. Supple, full range of motion without nuchal rigidity, or vertebral point tenderness. No Meningismus. Chest/axilla: Normal chest wall appearance and motion. Nontender with no deformity. No lesions are appreciated. Cardiovascular: Regular rate and rhythm with a normal S1 and S2. No gallops, murmurs, or rubs. Normal PMI, no JVD. No pulse deficits. Respiratory: Lungs have equal breath sounds bilaterally, clear to auscultation and percussion. No rales, rhonchi or wheezes noted. No increased work of breathing, no retractions or nasal flaring. Abdomen/GI: Soft, non-tender, with normal bowel sounds. No distension or tympany. No guarding or rebound. No evidence of tenderness throughout. MS/ Extremity: Pulses equal, no cyanosis. Neurovascular intact. Full, normal range of motion. Neuro: Awake and alert, GCS 15, oriented to person, place, time, and situation. Cranial nerves II-XII grossly intact. Motor strength 5/5 in all extremities. Sensory grossly intact. Cerebellar exam normal. Normal gait. Vital Signs: 20:30 BP 186 / 76; Pulse 99; Resp 28; Temp 98; Pulse Ox 100% on Non-rebreather mask; Weight rr5 72.57 kg; Height 5 ft. 3 in. (160.02 cm); Pain 8/10; 20:44 BP 161 / 73; Pulse 93; Resp 20; Pulse Ox 100% ; rr5 21:40 BP 128 / 77; Pulse 80; Resp 16; Pulse Ox 99% on R/A; rr5 22:05 BP 136 / 79; Pulse 85; Resp 17; Temp 98; Pulse Ox 99% on R/A; rr5 20:30 Body Mass Index 28.34 (72.57 kg, 160.02 cm) rr5 20:30 hyperventilating, attached to non rebreather mask not hooked to oxygen rr5 MDM: 20:26 Patient medically screened. ma2 21:56 Differential Diagnosis: emotional response, pseudo seizure, vasovagal episode. Data ma2 reviewed: vital signs, nurses notes. Counseling: I had a detailed discussion with the patient and/or guardian regarding: the historical points, exam findings, and any diagnostic results supporting the discharge/admit diagnosis, the presence of at least one elevated blood pressure reading (>120/80) during this emergency department visit, the need for outpatient follow up. Response to treatment: the patient's symptoms have resolved after treatment. 10/04 20:26 Order name: Basic Metabolic Panel; Complete Time: 21:37 ma2 10/04 20:26 Order name: CBC with Diff; Complete Time: 21:37 ma2 10/04 20:26 Order name: LFT's; Complete Time: 21:37 ma2 10/04 20:26 Order name: Magnesium; Complete Time: 21:37 ma2 10/04 20:26 Order name: NT PRO-BNP; Complete Time: 21:37 ma2 10/04 20:26 Order name: PT-INR; Complete Time: 21:37 ma2 10/04 20:26 Order name: Troponin (emerg Dept Use Only); Complete Time: 21:37 ma2 10/04 20:26 Order name: EKG; Complete Time: 20:28 ma2 10/04 20:26 Order name: Cardiac monitoring; Complete Time: 20:33 ma2 10/04 20:26 Order name: EKG - Nurse/Tech; Complete Time: 20:33 ma2 10/04 20:26 Order name: IV Saline Lock; Complete Time: 20:33 ma2 10/04 20:26 Order name: Labs collected and sent; Complete Time: 20:33 ma2 10/04 20:56 Order name: Glucose, Ancillary Testing; Complete Time: 21:37 EDMS 10/04 20:26 Order name: O2 Per Protocol; Complete Time: 20:33 ma2 10/04 20:27 Order name: O2 Sat Monitoring; Complete Time: 20:33 ma2 Administered Medications: 20:46 Drug: Ativan 1 mg Route: IVP; Site: left antecubital; rr5 21:30 Follow up: Response: No adverse reaction; RASS: Alert and Calm (0) rr5 Point of Care Testing: Blood Glucose: 20:42 Blood Glucose: 181 mg/dL; rr5 Ranges: Critical Glucose Levels:Adult <50 mg/dl or >400 mg/dl <40 mg/dl or >180 mg/dl Disposition: 10/05/19 21:58 Discharged to Home. Impression: Emotional lability. - Condition is Stable. - Discharge Instructions: Generalized Anxiety Disorder. - Medication Reconciliation Form, Thank You Letter, Antibiotic Education, Prescription Opioid Use form. - Follow up: Private Physician; When: Tomorrow; Reason: Continuance of care. Signatures: Dispatcher [employer] EDMS Rosaline Nieto MD MD ma2 Daniel Donahue RN RN rr5 Corrections: (The following items were deleted from the chart) 22:08 21:58 10/05/2019 21:58 Discharged to Home. Impression: Emotional lability. Condition is rr5 Stable. Forms are Medication Reconciliation Form, Thank You Letter, Antibiotic Education, Prescription Opioid Use. Follow up: Private Physician; When: Tomorrow; Reason: Continuance of care. ma2
[2019-10-05 22:35] VITALS: TEMP 98
[2019-10-05 22:38] VITALS: O2SAT 99
[2019-10-05 22:39] VITALS: BP 136/79
--- NOTE | 2019-10-06 07:29 | EKG ---
Test Date: 2019-10-05 Test Time: 19:30:02 Mall Manager: RV MEASUREMENT RESULTS: Intervals: Rate: 83 TN: 134 QRSD: 80 QT: 366 QTc: 430 [place]: P: 32 TN: 134 QRS: 66 T: 57 INTERPRETIVE STATEMENTS: Normal sinus rhythm Normal ECG Compared to ECG 04/10/2019 11:52:32 No significant changes Electronically Signed On 10-06-19 07:28:43 CDT by Dimitri Gilmore
== END 2019-10-05 22:08 | disposition home or self-care (01) ==
LOC: ER 20:24
DX: R45.86 Emotional lability (principal); I10 Essential (primary) hypertension; E11.9 Type 2 diabetes mellitus without complications; E78.00 Pure hypercholesterolemia, unspecified; F41.9 Anxiety disorder, unspecified; I50.9 Heart failure, unspecified; Z72.0 Tobacco use; Z79.01 Long term (current) use of anticoagulants; Z79.82 Long term (current) use of aspirin; Z79.4 Long term (current) use of insulin; Z95.818 Presence of other cardiac implants and grafts
CPT/HCPCS: 36415; 80048; 80076; 82947; 83735; 83880; 84484; 85025; 85610; 93005; 96374; 99284

== ENCOUNTER 2021-12-16 10:54 | Emergency (ER) | payer OTHER ==
--- OUTSIDE RECORDS SUMMARY | 2021-12-16 10:56 | XMS REPORT | Continuity of Care Document ---
:1955 Author Organization [facility] t Address [address] [place] [address] Care Team Providers Name Role Phone HINA CAMACHO Primary Care Physician Unavailable Winnie Miller Attending Clinician Unavailable HALEY Attending Clinician Unavailable JESSICA ARAUZ Attending Clinician Unavailable Pob, Lab Main Attending Clinician Unavailable Aleks Arauz MD Attending Clinician Doctor Unassigned, Name Attending Clinician Unavailable Nic VINCENT Attending Clinician NIC Attending Clinician Unavailable DOUG Attending Clinician Unavailable HALEY Admitting Clinician Unavailable DOUG Admitting Clinician Unavailable Payers Payer Name Policy Type Policy Number Effective Date Expiration Date S [facility] [id number] 2015 00:00:00 PLUS Problems Condition Condition Condition Status Onset Resolution Last Treating Co mments Source Name Details Category Date Date Treatment Clinician Date Right arm Right arm Disease Active Uni vers pain pain 4-20 ity of 00:00: [address] Right Right Disease Active Univers ankle pain ankle pain 4-20 it y of 00:00: [address] Allergies, Adverse Reactions, Alerts Allergy Allergy Status Severity Reaction(s) Onset Inactive Treating Comm ents Source Name Type Date Date Clinician NO KNOWN Drug Active Univers ALLERGIE Class ity of S [facility] Amitript Adverse Active hallucinatio C ommon yline Reaction ns Spirit HCl - [facility] Social History Social Habit Start Date Stop Date Quantity Comments Source Exposure to Not sure [facility] SARS-CoV-2 (event) Medica l Branch Alcohol intake 2015-11-17 2015-11-17 [facility] 00:00:00 00:00:00 [facility] Branch Sex Ass[birth year] At [birth year] [facility] 00:00:00 00:00:00 [facility] Branch Smoking Status Start Date Stop Date Source Never smoker [facility] Medications Ordered Filled Start Stop Current Ordering Indication Dosage Frequency Signature Comments Components Source Medication Medication Date Date Medication? Clinician (SIG) Name Name acetaminoph 2019-07 2020- No 1{tbl} 1 tablet, Univers en-codeine 08-04 Oral, ity of (TYLENOL 19:00: 18:04 ONCE, 1 [place] #3) 300-30 00 :00 dose, Fri Medi pineda mg tablet 1 06/04/20 at anch tablet 1300, MINERVA cephALEXin 2019-07- No 500mg 500 mg, Un niko (KEFLEX) 08-04 Oral, ONCE ity of capsule 500 19:00: 18:04 NOW, 1 [place] as mg 00 :00 dose, Fri Medical 06/04/20 at Branch 1300, MINERVA
Re ason for Anti-Infec tive: Empiric Therapy for Suspected Infection< br>Empiric Therapy Site: Skin / Soft tissue
Duration of therapy: 7 days acetaminoph 2019-07- No 4647 1{tbl} Take 1 U nivers en-codeine 08-04 tablet by ity of 300-30 mg 00:00: 05:59 mouth [place] tablet 00 :00 every 6 Medical (six) Branch hours as needed for Pain (scale 4-6) for up to 7 days. Indication s: acute pain cephALEXin 2019-07- No [id number] 500mg Take 1 Univers (KEFLEX) 08-04 [id number] capsule by it y of 500 mg 00:00: 05:59 mouth 4 [place] capsule 00 :00 (four) Medical times Branch daily for 5 days. KISHA 100 Yes Univer s mg tablet -11 ity of 00:00: [place] 00 Medical Branch JANUVIA 100 Yes Univer s mg tablet 4-11 ity of 00:00: [place] 00 Medical Branch JANUVIA 100 Yes Univer s mg tablet 4-11 ity of 00:00: [place] 00 Medical Branch HYDROcodone Yes Univer s -acetaminop 4-04 ity of hen (NORCO) 00:00: [place] 10-325 mg 00 Medical tablet Branch naproxen Yes Univers (NAPROSYN) 4-04 ity of 500 mg 00:00: [place] tablet 00 Medical Branch HYDROcodone Yes Univer s -acetaminop 4-04 ity of hen (NORCO) 00:00: [place] 10-325 mg 00 Medical tablet Branch naproxen Yes Univers (NAPROSYN) 4-04 ity of 500 mg 00:00: [place] tablet 00 Medical Branch HYDROcodone Yes Univer s -acetaminop 4-04 ity of hen (NORCO) 00:00: [place] 10-325 mg 00 Medical tablet Branch naproxen Yes Univers (NAPROSYN) 4-04 ity of 500 mg 00:00: [place] tablet 00 Medical Branch fluticasone Yes Univer s 50 4-01 ity of mcg/actuati 00:00: [place] on nasal 00 Medical spray Branch fluticasone Yes Univer s 50 4-01 ity of mcg/actuati 00:00: [place] on nasal 00 Medical spray Branch fluticasone Yes Univer s 50 4-01 ity of mcg/actuati 00:00: [place] on nasal 00 Medical spray Branch amitriptyli Yes Univer s ne (ELAVIL) 3-31 ity of 50 mg 00:00: [place] tablet 00 Medical Branch clopidogrel Yes Univer s (PLAVIX) 75 3-31 ity of mg tablet 00:00: [place] 00 Medical Branch lisinopril- Yes Univer s hydrochloro 3-31 ity of thiazide 00:00: [place] (PRINZIDE,Z 00 Medical ESTORETIC) Branch 20-25 mg per tablet simvastatin Yes Univer s (ZOCOR) 40 3-31 ity of mg tablet 00:00: [place] 00 Medical Branch amitriptyli Yes Univer s ne (ELAVIL) 3-31 ity of 50 mg 00:00: [place] tablet 00 Medical Branch clopidogrel Yes Univer s (PLAVIX) 75 3-31 ity of mg tablet 00:00: [place] 00 Medical Branch lisinopril- Yes Univer s hydrochloro 3-31 ity of thiazide 00:00: [place] (PRINZIDE,Z 00 Medical ESTORETIC) Branch 20-25 mg per tablet simvastatin Yes Univer s (ZOCOR) 40 3-31 ity of mg tablet 00:00: [place] Medical [facility] amitriptyli Yes Univer s ne (ELAVIL) 3-31 ity of 50 mg 00:00: [place] tablet 00 Medical Branch clopidogrel Yes Univer s (PLAVIX) 75 3-31 ity of mg tablet 00:00: [place] [facility] lisinopril- Yes Univer s hydrochloro 3-31 ity of thiazide 00:00: [place] (PRINZIDE,Z 00 Medical ESTORETIC) Branch 20-25 mg per tablet simvastatin Yes Univer s (ZOCOR) 40 3-31 ity of mg tablet 00:00: [place] 00 Medical Branch metFORMIN Yes Univers (GLUCOPHAGE 3-05 ity of ) 500 mg 00:00: [place] tablet 00 Medical Branch metFORMIN Yes Univers (GLUCOPHAGE 3-05 ity of ) 500 mg 00:00: [place] tablet 00 Medical Branch metFORMIN Yes Univers (GLUCOPHAGE 3-05 ity of ) 500 mg 00:00: [place] tablet 00 Medical Branch NOVOLOG 0 Yes Univers FLEXPEN 100 2-02 ity of unit/mL 00:00: [place] injection 00 Medical Branch LEVEMIR 0 Yes Univers FLEXTOUCH 2-02 ity of 100 unit/mL 00:00: [place] (3 mL) 00 Medical injection Branch NOVOLOG 0 Yes Univers FLEXPEN 100 2-02 ity of unit/mL 00:00: [place] injection 00 Medical Branch LEVEMIR 0 Yes Univers FLEXTOUCH 2-02 ity of 100 unit/mL 00:00: [place] (3 mL) 00 Medical injection Branch NOVOLOG 0 Yes Univers FLEXPEN 100 2-02 ity of unit/mL 00:00: [place] injection 00 Medical Branch LEVEMIR 2016-0 Yes Univers FLEXTOUCH 2-02 ity of 100 unit/mL 00:00: [place] (3 mL) 00 Medical injection Branch Tresiba Tresiba Yes Winnie inject 40 Com mon FlexTouch FlexTouch [facility] units Spi rit under the - [facility] skin qam [facility] Simvastatin Simvastatin Yes Winnie 1 tablet Common [facility] in the Spirit evening [facility] Metformin Metformin Yes Winnie 1 tablet Common HCl HCl [facility] with a Spirit meal - [facility] Immunizations Ordered Filled Immunization Date Status Comments Sour e Immunization Name Name SARS-COV-2 COVID-19 2020-10-24 Completed Unive rsity of MODERNA VACCINE 00:00:00 [facility] [place] [facility] SARS-COV-2 COVID-19 2020-10-24 Completed Unive rsity of MODERNA VACCINE 00:00:00 [facility] [place] [facility] SARS-COV-2 COVID-19 2020-09-26 Completed Unive rsity of MODERNA VACCINE 00:00:00 [facility] [place] [facility] SARS-COV-2 COVID-19 2020-09-26 Completed Unive rsity of MODERNA VACCINE 00:00:00 [facility] [place] [facility] Vital Signs Vital Name Observation Time Observation Value Comments Source Systolic blood 2020-06-04 16:58:00 170 mm[Hg] Univer sity of pressure [facility] Diastolic blood 2020-06-04 16:58:00 87 mm[Hg] Unive rsity of pressure [facility] Heart rate 2020-06-04 16:58:00 73 /min [facility] Body temperature 2020-06-04 16:58:00 36.94 Apple [facility] Respiratory rate 2020-06-04 16:58:00 18 /min [facility] Body weight 2020-06-04 16:58:00 74.39 kg [facility] BMI 2020-06-04 16:58:00 30.00 kg/m2 [facility] Oxygen saturation in 2020-06-04 16:58:00 98 /min [facility] Arterial blood by [facility] Pulse oximetry Branch Systolic blood 2020-06-04 16:58:00 170 mm[Hg] Univer sity of pressure [facility] Diastolic blood 2020-06-04 16:58:00 87 mm[Hg] Unive rsity of [facility] Heart rate 2020-06-04 16:58:00 73 /min [facility] Body temperature 2020-06-04 16:58:00 36.94 Apple [facility] Respiratory rate 2020-06-04 16:58:00 18 /min [facility] Body weight 2020-06-04 16:58:00 74.39 kg [facility] BMI 2020-06-04 16:58:00 30.00 kg/m2 [facility] Oxygen saturation in 2020-06-04 16:58:00 98 /min [facility] Arterial blood by [facility] Pulse oximetry [place] Procedures Procedure Date / Time Performed Performing Clinician [facility] e ASSIGNMENT OF BENEFITS 2021-01-07 17:37:08 Doctor Unassigned, No General acute hospital XR SHOULDER <2 VW LEFT 2020-06-04 17:40:36 Elvis Lucero [facility] XR ELBOW >3 VW LEFT 2020-06-04 17:26:57 Elvis Lucero [facility] XR FOREARM 2 VW LEFT 2020-06-04 17:26:57 Elvis Lucero [facility] Encounters Start End Encounter Admission Attending Care Care Encounter Source Date/Time Date/Time Type Type Clinicians Facility Department ID 2021-12-07 Out[facility] STLMLC STLMLC [id number] Common 10:44:01 Winnie [facility] 2021-12-02 Outpatient [facility], STLMLC STLMLC [id number] Common 10:03:02 Winnie [facility] 2021-10-10 [facility], STLMLC STLMLC [id number] Common 13:33:01 Winnie [facility] 2021-08-24 Outpatient [facility], STLMLC STLMLC [id number] Common 14:25:22 Winnie [facility] 2021-08-24 Outpatient [facility], STLMLC STLMLC [id number] Common 12:53:57 Winnie 11884 [facility] 2021-08-24 Outpatient [facility], STLMLC STLMLC [id number] Common 12:22:21 Winnie 01211 [facility] 2021-08-24 Outpatient [facility], STLMLC STLMLC [id number] Common 11:35:37 Winnie 50048 [facility] 2021-08-24 Outpatient [facility], STLMLC STLMLC [id number] Common 11:17:39 Winnie 25089 [facility] 2021-08-24 Outpatient [facility], STLMLC STLMLC [id number] Common 11:01:31 Winnie [id number] [facility] 2021-08-24 Outpatient [facility], STLMLC STLMLC [id number] Common 11:00:26 Winnie [id number] [facility] 2021-08-24 Outpatient [facility], STLMLC STLMLC [id number] Common 10:58:28 Winnie 49324 [facility] 2021-12-14 2021-12-14 ambulatory STLMLC STLMLC [id number] Common 00:00:00 00:00:00 [facility] 2021-12-14 2021-12-14 ambulatory STLMLC STLMLC [id number] Common 00:00:00 00:00:00 [facility] 2021-12-06 2021-12-06 ambulatory STLMLC STLMLC [id number] Common 00:00:00 00:00:00 [facility] 2021-11-30 2021-11-30 ambulatory STLMLC STLMLC [id number] Common 00:00:00 00:00:00 [facility] 2021-11-02 2021-11-02 ambulatory STLMLC STLMLC [id number] Common 00:00:00 00:00:00 [facility] 2021-09-08 2021-09-08 ambulatory STLMLC STLMLC [id number] Common 00:00:00 00:00:00 [facility] 2021-07-11 2021-07-11 ambulatory STLMLC STLMLC [id number] Common 00:00:00 00:00:00 [facility] 2021-06-22 2021-06-22 Outpatient JESSI RAINES [address] [place] 04:57:00 04:57:00 HN 1124 da [facility] 2021-06-10 2021-06-10 ambulatory STLMLC STLMLC [id number] Common 00:00:00 00:00:00 [facility] 2021-04-13 2021-04-13 Outpatient STLMLC STLMLC [id number] Common 00:00:00 00:00:00 [facility] 2021-04-11 2021-04-11 Outpatient STLMLC STLMLC [id number] Common 00:00:00 00:00:00 [facility] 2021-04-05 2021-04-05 Outpatient STLMLC STLMLC [id number] Common 00:00:00 00:00:00 [facility] 2021-03-24 2021-03-24 Outpatient STLMLC STLMLC [id number] Common 00:00:00 00:00:00 [facility] 2021-03-24 2021-03-24 Outpatient STLMLC STLMLC [id number] Common 00:00:00 00:00:00 [facility] 2021-03-07 2021-03-07 Outpatient STLMLC STLMLC [id number] Common 00:00:00 00:00:00 [facility] 2021-01-07 2021-01-07 Outpatient R [facility] [id number] Univers 14:00:00 14:00:[id number] [facility] 2021-01-07 2021-01-07 Outpatient R REGLA [facility] [id number] Univers 14:00:00 14:00:00 JESSICA bebe [facility] 2021-01-07 2021-01-07 Relationship Associate Eleanor Mckeon Lab Main [facility] [id number] [facility] 12:44:37 12:59:37 Visit Jessica Arauz 350.1.1 3.10 [id number] Profess[place] [id number] Al dical [facility] [address] [facility] 2021-01-07 2021-01-07 Orders Doctor JACQUIE [id number] Univers 00:00:00 00:00:00 Only Unassigned, [place] [id number] ity of [facility] [id number] [place] as [id number] [facility] 009 Branch 2021-01-05 2021-01-05 Outpatient STLMLC STLMLC [id number] Common 00:00:00 00:00:00 [facility] 2020-12-08 2020-12-08 Outpatient STLMLC STLMLC [id number] Common 00:00:00 00:00:00 [facility] 2020-11-18 2020-11-18 Outpatient STLMLC STLMLC [id number] Common 00:00:00 00:00:00 [facility] 2020-11-15 2020-11-15 Outpatient STLMLC STLMLC [id number] Common 00:00:00 00:00:00 [facility] 2020-10-06 2020-10-06 Outpatient STLMLC STLMLC [id number] Common 00:00:00 00:00:00 [facility] 2020-09-29 2020-09-29 Outpatient STLMLC STLMLC [id number] Common 00:00:00 00:00:00 [facility] 2020-09-29 2020-09-29 Outpatient STLMLC STLMLC [id number] Common 00:00:00 00:00:00 [facility] 2020-08-17 2020-08-17 Outpatient STLMLC STLMLC [id number] Common 00:00:00 00:00:00 [facility] 2020-07-01 2020-07-01 Outpatient STLMLC STLMLC [id number] Common 00:00:00 00:00:00 [facility] 2020-06-04 2020-06-04 Emergency [facility] [id number] 11:01:00 12:17:00 Elvis Rascon [id number] [place] [id number] [place] [id number] [facility] 2020-06-04 2020-06-04 [facility] [id number] Univers 11:01:00 12:17:00 Elvis Rascon [id number] i ty of [place] [id number] [facility] [id number] [place] [id number] Branch 2020-06-04 2020-06-04 Emergency [facility] [id number] Univers 11:01:00 11:01:00 ELVIS ferrara [facility] 2020-05-12 2020-05-12 Outpatient STLMLC STLMLC [id number] Common 00:00:00 00:00:00 [facility] 2020-03-16 2020-03-16 [facility] [id number] Common 14:33:00 14:33:[address] [facility] 2020-03-10 2020-03-10 [facility] [id number] Common 17:01:00 17:01:00 [address] [employer] [address] [facility] 2020-02-10 2020-02-10 [facility] [id number] Common 10:40:00 10:40:[address] [facility] 2019-11-11 2019-11-11 [facility] [id number] Common 10:40:00 10:40:[address] [facility] 2019-08-12 2019-08-12 [facility] [id number] Common 13:00:00 13:00:[address] [facility] 2019-07-01 2019-07-01 [facility] [id number] Common 10:00:00 10:00:[address] [facility] 2019-06-17 2019-06-17 Outpatient Pelon Birdt [id number] Common 14:40:00 14:40:[address] [facility] [address] [facility] 2019-06-13 2019-06-13 Outpatient Pelon Foote [id number] Common 15:24:00 15:24:[address] [facility] [address] [facility] 2019-05-29 2019-05-29 Outpatient Pelon Foote [id number] Common 10:00:00 10:00:[address] [facility] [address] [facility] 2019-05-22 2019-05-22 Outpatient Pelon Foote [id number] Common 13:45:00 13:45:00 [facility] it Road [facility] 2019-03-20 2019-03-20 Outpatient Pelon Foote [id number] Common 10:00:00 10:00:00 [facility] it Road [facility] Results Test Description Test Time Test Comments Results Result Sour e Comments XR ELBOW >3 VW No acute bony Univer sity of LEFT 6 abnormality is [place] Med[facility] 17:55:25 present. EXAM: XR Branch SHOULDER <2 VW LEFT, EXAM: XR FOREARM 2 VW LEFT, EXAM: XR ELBOW >3 VW LEFT HISTORY: pain COMPARISON: None FINDINGS: Imaging of the shoulder, forearm and elbow demonstrates maintenance ofalignment. Joint spaces are preserved. A remote triquetral fracture causescortical irregularity over the dorsal proximal carpus.Osteopenia ispresent. [facility], Radiant Results Inft User - 06/04/2020 11:56 AM CSTEXAM:XR SHOULDER <2 VW LEFT,EXAM:XR FOREARM 2 VW LEFT,EXAM:XR ELBOW >3 VW LEFTHISTORY:pain COMPARISON:NoneFIND INGS: Imaging of the shoulder, forearm and elbow demonstrates maintenance ofalignment. Joint spaces are preserved. A remote triquetral fracture causescortical irregularity over the dorsal proximal carpus.Osteopenia ispresent.IMPRESSIO NNo acute bony abnormality is present. XR FOREARM 2 VW No acute bony Unive rsity of LEFT 6 abnormality is [place] Medi pined[facility] 17:55:25 present. EXAM: XR Branch SHOULDER <2 VW LEFT, EXAM: XR FOREARM 2 VW LEFT, EXAM: XR ELBOW >3 VW LEFT HISTORY: pain COMPARISON: None FINDINGS: Imaging of the shoulder, forearm and elbow demonstrates maintenance ofalignment. Joint spaces are preserved. A remote triquetral fracture causescortical irregularity over the dorsal proximal carpus.Osteopenia ispresent. [facility], Radiant Results Inft User - 06/04/2020 11:56 AM CSTEXAM:XR SHOULDER <2 VW LEFT,EXAM:XR FOREARM 2 VW LEFT,EXAM:XR ELBOW >3 VW LEFTHISTORY:pain COMPARISON:NoneFIND INGS: Imaging of the shoulder, forearm and elbow demonstrates maintenance ofalignment. Joint spaces are preserved. A remote triquetral fracture causescortical irregularity over the dorsal proximal carpus.Osteopenia ispresent.IMPRESSIO NNo acute bony abnormality is present. XR SHOULDER <2 No acute bony Univer sity of VW LEFT 6 abnormality is [facility] 17:55:25 present. EXAM: XR Branch SHOULDER <2 VW LEFT, EXAM: XR FOREARM 2 VW LEFT, EXAM: XR ELBOW >3 VW LEFT HISTORY: pain COMPARISON: None FINDINGS: Imaging of the shoulder, forearm and elbow demonstrates maintenance ofalignment. Joint spaces are preserved. A remote triquetral fracture causescortical irregularity over the dorsal proximal carpus.Osteopenia ispresent. [facility], Radiant Results Inft User - 06/04/2020 11:56 AM CSTEXAM:XR SHOULDER <2 VW LEFT,EXAM:XR FOREARM 2 VW LEFT,EXAM:XR ELBOW >3 VW LEFTHISTORY:pain COMPARISON:NoneFIND INGS: Imaging of the shoulder, forearm and elbow demonstrates maintenance ofalignment. Joint spaces are preserved. A remote triquetral fracture causescortical irregularity over the dorsal proximal carpus.Osteopenia ispresent.IMPRESSIO NNo acute bony abnormality is present. Pro-[facility] 2017-05-02 22:42:00 Test Item Value Reference Range Interpretation Comme nts NT ProBnp (test code = PBNP) SEE COMMENT pg/mL 0-124 N PBNP=5.00 <Test..../OG Comprehensive Metabolic [id number] 22:40:00 Test Item Value Reference Range Interpretation Comments Sodium (test code = 137 mmol/L 135-145 N NA) Potassium (test 4.4 mmol/L 3.5-5.1 N code = K) Chloride (test code 98 mmol/L 98-105 N = CL) Carbon Dioxide 26 mmol/L 22-29 N (test code = CO2) Glucose (test code 133 mg/dL 70-115 H = GLU) Blood Urea Nitrogen 11 mg/dL 8-23 N (test code = BUN) Creatinine (test 0.5 mg/dL 0.5-0.9 N code = CREAT) Calcium (test code 9.9 mg/dL 8.3-10.5 N = CA) Prot Total (test 7.5 g/dL 6.4-8.3 N code = TP) Albumin (test code 4.7 g/dL 3.5-5.2 N = ALB) A/G Ratio (test 1.7 Ratio code = AGRATIO) Globulin (test code 2.8 2.9-3.1 L = GLOB) Bili Total (test 0.4 mg/dL 0.1-0.9 N code = TBIL) Alk Phos (test code 87 U/L 35-104 N = APHOS) AST (test code = 13 U/L 1-32 N AST) ALT (test code = 17 U/L 1-33 N ALT) BUN/Creatinine 22.0 Ratio (test code = BCRATIO) Anion Gap (test 13 mmol/L 7-16 N code = AGAP) Estimated GFR (test >60 eGFR (es timated code = GFR) mL/min/1.73m2 Glomerular Shakir tration Rate) is an est imated value,calculate d from the patient's s bacilio creatinine usin g the MDRD equation.I t is NOT the patient 's actual GFR. The eGFR provides a more clinicallyusefu l measure of kidn ey disease than se rum creatinine alone.This calculation ruthann es sex and race into account, if the informationis provided. If th e race is not provided , and the patient isAfrican-Ameri can, multiply by 1.2 12. If sex is not prov ided, and thepatient is female, multipl y by 0.742. Results for patients <18 ye ars ofage have not been validated by th e MDRD study and shoul d be interpretedwith caution.eGFR Re sult Interpretation: eGFR > or = 60 is in t he Normal RangeeGF R < 60 may mean kidney diseaseeGFR < 1 5 may mean kidney failureRange s recommended by the National Kidney Foundation,http ://nkd ep.nih.gov Lipid [id number] 22:40:00 Test Item Value Reference Range Interpretation Comments Cholesterol (test 124 mg/dL 0-200 N code = CHOL) Triglycerides (test 100 mg/dL 9-200 N code = TRIG) HDL (test code = 46 mg/dL 50-60 L HDL) Chol/HDL (test code 2.7 Ratio 0.0-4.4 N = CHOLPHDL) LDL, Calculated 58 mg/dL 0-130 N (NOTE)RISK O F HEART (test code = LDLC) DISEASEPu blished by Citizen Of [place] Heart AssociationAnal yte Optim al Boderline Increased RiskC HOL <200 200-239 >240TRI G <150 150-199 >200HDL Male: >60 <40HDL Female: >60 <50 LDL < 100 130-15 9 >160 LDL NEAR OPTIMAL IS 100- 129 VLDL (test code = 20 mg/dL 5-40 N VLDL) LDL/HDL (test code = 1 LDLPHDL) Glycosylated [id number] 22:38:00 Test Item Value Reference Range Interpretation Comments HBA1c (test code = HBA1C) 7.0 % 4.8-5.9 H CBC with [id number] 22:17:00 Test Item Value Reference Range Interpretation Comments WBC (test code = WBC) 8.6 K/cumm 4.4-10.5 N RBC (test code = RBC) 4.06 M/cumm 3.75-5.20 N Hemoglobin (test code = HGB) 12.6 gm/dL 12.2-14.8 N Hematocrit (test code = HCT) 36.9 % 36.5-44.4 N MCV (test code = MCV) 90.9 fL 80-100 N MCH (test code = MCH) 30.9 pg 27.0-32.5 N MCHC (test code = MCHC) 34.0 g/dL 32.0-37.5 N RDW (test code = RDW) 12.3 % 11.5-14.5 N Platelet Count (test code = 402 K/cumm 140-440 N PLTCT) MPV (test code = MPV) 8.2 fL Diff Method (test code = DIFFM) Auto Neutrophil (test code = NEUT) 54.0 % 36-70 N Lymphocyte (test code = LYMPH) 37.6 % 12-44 N Monocyte (test code = MONO) 5.1 % 0-11 N Eosinophil (test code = EOS) 2.5 % 0-7 N Basophil (test code = BASO) 0.8 % 0-2 N Neutro Abs (test code = ANEUT) 4.6 K/cumm 1.6-7.4 N Lymph Abs (test code = ALYMPH) 3.2 K/cumm 0.5-4.6 N [place] Abs (test code = AMONO) 0.4 K/cumm 0.0-1.2 N Eos Abs (test code = AEOS) 0.22 K/cumm 0.00-0.74 N Baso Abs (test code = ABASO) 0.1 K/cumm 0.00-0.21 N
--- NOTE | 2021-12-16 13:11 | RAD REPORT ---
EXAM DESCRIPTION: RAD - Foot Right 3 View - 12/16/2021 12:34 pm CLINICAL HISTORY: traumato the first toe, history of diabetes COMPARISON: No comparisons FINDINGS: No fracture of the first toe identified. No fracture or acute finding elsewhere in the rig ht foot. No significant joint space degenerative change. No acute bone or joint finding identifiable. No plantar spur seen. Soft tissues of the first or not grossly abnormal. No air or foreign body seen. IMPRESSION: Negative right foot examination.
--- NOTE | 2021-12-16 13:20 | ER ---
Nurse's Notes [facility] Name: Christa Sparks Age: 66 yrs Sex: Female : 1955 Arrival Date: 12/16/2021 Time: 10:57 Bed 9 Private MD: Winnie Miller Diagnosis: Contusion of great toe without damage to nail-Right foot Presentation: 12/16 11:26 Chief complaint: Patient states: she was at the store yesterday when she dropped a ap3 bottle of Worcestershire sauce on her right great toe. patient is concerned about the toe injury due to being a diabetic. no open wound noted on nurses assessment, bruising is present on the right great toe. Coronavirus screen: At this time, the client does not indicate any symptoms associated with coronavirus-19. Ebola Screen: No symptoms or risks identified at this time. Initial Sepsis Screen: Does the patient meet any 2 criteria? No. Patient's initial sepsis screen is negative. Does the patient have a suspected source of infection? No. Patient's initial sepsis screen is negative. Risk Assessment: Do you want to hurt yourself or someone else? Patient reports no desire to harm self or others. Onset of symptoms was December 15, 2021. 11:26 Method Of Arrival: Ambulatory ap3 11:26 Acuity: NICK 4 ap3 Triage Assessment: 11:28 General: Appears in no apparent distress. Behavior is calm, cooperative. Pain: ap3 Complains of pain in right first toe Pain began suddenly, 1 day ago. Neuro: Level of Consciousness is awake, alert, obeys commands, Oriented to person, place, time, situation. Cardiovascular: Patient's skin is warm and dry. Respiratory: Airway is patent. Derm: Bruising that is dark purple, yellow, on right first toe. Historical: - Allergies: 11:27 NKA; ap3 - PMHx: 11:27 Anxiety; CHF; CVA; Diabetes - IDDM; High Cholesterol; Hypertension; ap3 - Immunization history:: Client reports receiving the 2nd dose of the Covid vaccine. - Social history:: Smoking status: Patient denies any tobacco usage or history of. Patient/guardian denies using alcohol, street drugs, The patient lives with family. - Family history:: not pertinent. Screenin:28 Abuse screen: Denies threats or abuse. Nutritional screening: No deficits noted. ap3 Tuberculosis screening: No symptoms or risk factors identified. 11:29 Fall Risk None identified. ap3 Assessment: 11:35 Reassessment: Patient appears in no apparent distress at this time. ss Vital Signs: 11:26 BP 140 / 61; Pulse 71; Temp 97.8; Pulse Ox 100% ; Weight 74.84 kg; Height 5 ft. 2 in. ap3 (157.48 cm); 11:26 Body Mass Index 30.18 (74.84 kg, 157.48 cm) ap3 ED Course: 10:57 Patient arrived in ED. mr 10:57 Winnie Miller is Private Physician. mr 11:27 Triage completed. ap3 11:29 Arm band placed on right wrist. ap3 11:29 Patient has correct armband on for positive identification. Bed in low position. Call ap3 light in reach. Pulse ox on. NIBP on. 11:31 Rosaline Nieto MD is Attending Physician. ma 11:35 Amanda Garcias, ZBIGNIEW is Primary Nurse. ss 12:38 XRAY Foot RIGHT 3 View In Process Unspecified. EDMS 13:48 No provider procedures requiring assistance completed. Patient did not have IV access ss during this emergency room visit. Administered Medications: No medications were administered Medication: 11:29 VIS not applicable for this client. ap3 Outcome: 13:19 Discharge ordered by . ma2 13:48 Discharged to home ambulatory. ss 13:48 Condition: good 13:48 Discharge instructions given to patient, Instructed on discharge instructions, follow up and referral plans. medication usage, Demonstrated understanding of instructions, follow-up care, medications, Prescriptions given X 1. 13:49 Patient left the ED. ss Signatures: Dispatcher [employer] EDOH Lilibeth Nassar mr Amanda Garcias, RN RN Rosaline Nieto MD MD ma2 Fani Arias RN RN ap3
--- NOTE | 2021-12-16 13:20 | EDPHYS ---
Physician Documentation [facility] Name: Christa Sparks Age: 66 yrs Sex: Female : 1955 Arrival Date: 12/16/2021 Time: 10:57 Bed 9 Private MD: Winnie Miller ED Physician Rosaline Nieto HPI: 12/16 12:28 This 66 yrs old Female presents to ER via Ambulatory with complaints of Toe ma2 Injury. 12:28 66-year-old female dropped a bottle on her right great toe 2 days ago presents with ma2 contusion to right great toe there is no abrasion or skin cuts, here with right toe pain for few days constant.. Historical: - Allergies: 11:27 NKA; ap3 - PMHx: 11:27 Anxiety; CHF; CVA; Diabetes - IDDM; High Cholesterol; Hypertension; ap3 - Immunization history:: Client reports receiving the 2nd dose of the Covid vaccine. - Social history:: Smoking status: Patient denies any tobacco usage or history of. Patient/guardian denies using alcohol, street drugs, The patient lives with family. - Family history:: not pertinent. ROS: 12:28 MS/extremity: Negative for abrasion, decreased range of motion, ecchymosis, laceration, ma2 tenderness, warmth. 12:28 All other systems are negative. 13:20 Constitutional: Negative for fever, chills, and weight loss. ma2 Exam: 12:28 Constitutional: This is a well developed, well nourished patient who is awake, alert, ma2 and in no acute distress. Head/Face: Normocephalic, atraumatic. Eyes: Pupils equal round and reactive to light, extra-ocular motions intact. Lids and lashes normal. Conjunctiva and sclera are non-icteric and not injected. Cornea within normal limits. Periorbital areas with no swelling, redness, or edema. ENT: Nares patent. No nasal discharge, no septal abnormalities noted. Tympanic membranes are normal and external auditory canals are clear. Oropharynx with no redness, swelling, or masses, exudates, or evidence of obstruction, uvula midline. Mucous membranes moist. Neck: Trachea midline, no thyromegaly or masses palpated, and no cervical lymphadenopathy. Supple, full range of motion without nuchal rigidity, or vertebral point tenderness. No Meningismus. Chest/axilla: Normal chest wall appearance and motion. Nontender with no deformity. No lesions are appreciated. Cardiovascular: Regular rate and rhythm with a normal S1 and S2. No gallops, murmurs, or rubs. Normal PMI, no JVD. No pulse deficits. Respiratory: Lungs have equal breath sounds bilaterally, clear to auscultation and percussion. No rales, rhonchi or wheezes noted. No increased work of breathing, no retractions or nasal flaring. Abdomen/GI: Soft, non-tender, with normal bowel sounds. No distension or tympany. No guarding or rebound. No evidence of tenderness throughout. Skin: Warm, dry with normal turgor. Normal color with no rashes, no lesions, and no evidence of cellulitis. MS/ Extremity: Lesion at DIP, no skin cuts or abrasion. Pulses equal, no cyanosis. Neurovascular intact. Full, normal range of motion. Neuro: Awake and alert, GCS 15, oriented to person, place, time, and situation. Cranial nerves II-XII grossly intact. Motor strength 5/5 in all extremities. Sensory grossly intact. Cerebellar exam normal. Normal gait. Vital Signs: 11:26 BP 140 / 61; Pulse 71; Temp 97.8; Pulse Ox 100% ; Weight 74.84 kg; Height 5 ft. 2 in. ap3 (157.48 cm); 11:26 Body Mass Index 30.18 (74.84 kg, 157.48 cm) ap3 MDM: 11:48 Patient medically screened. ga2 12:28 Differential diagnosis: fracture, sprain, foreign body, arthritis. Data reviewed: vital ma2 signs, nurses notes. Counseling: I had a detailed discussion with the patient and/or guardian regarding: the historical points, exam findings, and any diagnostic results supporting the discharge/admit diagnosis, the presence of at least one elevated blood pressure reading (>120/80) during this emergency department visit, the need for outpatient follow up. Response to treatment: the patient's symptoms have markedly improved after treatment. 12/16 11:32 Order name: XRAY Foot RIGHT 3 View; Complete Time: 13:19 ma2 Administered Medications: No medications were administered Disposition Summary: 12/16/21 13:19 Discharge Ordered Location: Home ma2 Condition: Stable ma2 Diagnosis - Contusion of great toe without damage to nail - Right foot ma2 Followup: ma2 - With: Private Physician - When: Tomorrow - Reason: If symptoms return, Continuance of care Discharge Instructions: - Discharge Summary Sheet ma2 - Contusion, [id number] ma2 Forms: - Medication Reconciliation Form ma2 - Thank You Letter ma2 - Antibiotic Education ma2 - Prescription Opioid Use ma2 Prescriptions: - Toradol 10 mg - take 1 tablet by ORAL route 3 times per day; 21 tablet; Refills: 0, Product ma2 Selection Permitted Signatures: Dispatcher [employer] EDRosaline Turner MD MD ma2 Fani Arias RN RN ap3
[2021-12-16 13:55] VITALS: BP 140/61; TEMP 97.8; O2SAT 100
== END 2021-12-16 13:49 | disposition home or self-care (01) ==
LOC: ER 10:54
DX: S90.111A Contusion of right great toe without damage to nail, initial encounter (principal); W22.8XXA Striking against or struck by other objects, initial encounter; E11.9 Type 2 diabetes mellitus without complications; I10 Essential (primary) hypertension
CPT/HCPCS: 99283

== ENCOUNTER 2022-11-21 13:44 | Observation (INO) | payer OTHER ==
--- OUTSIDE RECORDS SUMMARY | 2022-11-21 13:51 | XMS REPORT | Continuity of Care Document ---
:1955 Author Organization [facility] t Address [address] [place] [address] Care Team Providers Name Role Phone HINA CAMACHO Primary Care Physician Unavailable Winnie Miller Attending Clinician Unavailable HALEY Attending Clinician Unavailable JESSICA ARAUZ Attending Clinician Unavailable Pob, [facility] Attending Clinician Unavailable Jessica Arauz MD Attending Clinician Doctor Unassigned, [place] Attending Clinician Unavailable Elvis Pineda Attending Clinician ELVIS LUCERO Attending Clinician Unavailable HINA CAMACHO Attending Clinician Unavailable HALEY Admitting Clinician Unavailable HINA CAMACHO Admitting Clinician Unavailable Payers Payer Name Policy Type Policy Number Effective Date Expiration Date S [place] [address] [id number] 2020 Common HEALTHCARE 00:00:00 [facility] - [facility] MEDICARE NOVITAS MB [id number] [facility] MEDICARE NOVITAS MB [id number] [facility] MEDICARE NOVITAS MB [id number] [facility] MEDICARE NOVITAS MB [id number] [facility] MEDICARE NOVITAS MB [id number] [facility] MEDICARE NOVITAS MB [id number] [facility] MEDICARE NOVITAS [id number] [facility] [id number] 2015 PLUS 00:00:00 Problems Condition Condition Condition Status Onset Resolution Last Treating Co mments Source Name Details Category Date Date Treatment Clinician Date Right arm Right arm Disease Active Uni vers pain pain 4-20 ity of 00:00: [place] [address] Medical Branch Right Right Disease Active Univers ankle pain ankle pain 4-20 it y of 00:00: [address] Acquired Acquired Problem Commo n hypothyroi hypothyroi Sp janey dism dism [facility] [id number] Vertigo Problem Commo n [facility] Anxiety Anxiety Problem Common [facility] [id number] Other Problem Common chronic Spirit pain [facility] [id number] Seasonal Problem Comm on allergies [facility] [id number] Unsteady Problem Commo n gait [facility] [id number] Type 2 Problem Common diabetes Spirit mellitus - [facility] with other [facility] Medical complicati Center ons [id number] History of Problem Co mmon CVA with Spirit residual - [facility] deficit [facility] [id number] Essential Problem Comm on hypertensi Spirit on [facility] [id number] Hyperlipid Problem Com mon emia, Spirit unspecifie - CHI d hyperlipid [facility] emia [facility] [id number] Insomnia, Problem Com mon unspecifie Spirit d type [facility] [id number] Palpitatio Problem Com mon ns Spirit [facility] [id number] Reflux Problem Common gastritis [facility] [id number] 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 SARS-CoV-2 (event) Medica l Branch History of Tobacco [facility] - [facility] Use [facility] Sex Assigned At Common Sp janey - [facility] Alcohol intake 2015-11-17 2015-11-17 [facility] 00:00:00 00:00:00 Medical Branch Smoking Status Start Date Stop Date Source Former Smoker 2022-06-16 00:00:00 2022-06-16 00:00:00 Common S pirit - [facility] Never smoker [facility] Medications Ordered Filled Start Stop Current Ordering Indication Dosage Frequency Signature Comments Components Source Medication Medication Date Date Medication? Clinician (SIG) Name Name Jonathan Castillo 2021-07 No Jonathan Ganga 14 Ganga 14 1-18 Ganga 14 Day Sensor Day Sensor 00:00: Day Sensor - - 00 - Levothyroxi Levothyroxi No QD Levothyrox ne Sodium ne Sodium 2-15 ine Sodium 25 MCG 25 MCG 00:00: 25 MCG 00 Docusate Docusate 2021- No 1{capsu QD Docusate Sodium 100 Sodium 100 2-15 03-17 le_as_n Sodium 100 MG MG 00:00: 00:00 eeded} MG 00 :00 Montelukast Montelukast No 1{table QD Montelukas Sodium 10 Sodium 10 9-15 t} t Sodium MG MG 00:00: 10 MG 00 Montelukast Montelukast 0 No 1{table QD Montelukas Sodium 10 Sodium 10 9-15 t} t Sodium MG MG 00:00: 10 MG 00 Montelukast Montelukast 0 No 1{table QD Montelukas Sodium 10 Sodium 10 9-15 t} t Sodium MG MG 00:00: 10 MG 00 Montelukast Montelukast 2020-0 No 1{table QD Montelukas Sodium 10 Sodium 10 9-15 t} t Sodium MG MG 00:00: 10 MG 00 Montelukast Montelukast 0 No 1{table QD Montelukas Sodium 10 Sodium 10 9-15 t} t Sodium MG MG 00:00: 10 MG 00 Montelukast Montelukast 2020-0 No 1{table QD Montelukas Sodium 10 Sodium 10 9-15 t} t Sodium MG MG 00:00: 10 MG 00 Montelukast Montelukast 2020-0 No 1{table QD Montelukas Sodium 10 Sodium 10 9-15 t} t Sodium MG MG 00:00: 10 MG 00 Montelukast Montelukast 2020-0 No 1{table QD Montelukas Sodium 10 Sodium 10 9-15 t} t Sodium MG MG 00:00: 10 MG 00 Montelukast Montelukast 2020-0 No 1{table QD Montelukas Sodium 10 Sodium 10 9-15 t} t Sodium MG MG 00:00: 10 MG 00 Montelukast Montelukast 2020-0 No 1{table QD Montelukas Sodium 10 Sodium 10 9-15 t} t Sodium MG MG 00:00: 10 MG 00 Montelukast Montelukast 2020-0 No 1{table QD Montelukas Sodium 10 Sodium 10 9-15 t} t Sodium MG MG 00:00: 10 MG 00 Montelukast Montelukast 2020-0 No 1{table QD Montelukas Sodium 10 Sodium 10 9-15 t} t Sodium MG MG 00:00: 10 MG 00 Montelukast Montelukast 2020-0 No 1{table QD Montelukas Sodium 10 Sodium 10 9-15 t} t Sodium MG MG 00:00: 10 MG 00 Montelukast Montelukast 2020-0 No 1{table QD Montelukas Sodium 10 Sodium 10 9-15 t} t Sodium MG MG 00:00: 10 MG 00 Montelukast Montelukast 2020-0 No 1{table QD Montelukas Sodium 10 Sodium 10 9-15 t} t Sodium MG MG 00:00: 10 MG 00 Montelukast Montelukast 2020-0 No 1{table QD Montelukas Sodium 10 Sodium 10 9-15 t} t Sodium MG MG 00:00: 10 MG 00 acetaminoph 2019-07 2020- No 1{tbl} 1 tablet, Univers en-codeine - 11-06 Oral, ity of (TYLENOL 19:00: 18:04 ONCE, 1 [place] #3) 300-30 00 :00 dose, Fri Medi pineda mg tablet 1 06/04/20 at Br anch tablet 1300, MINERVA cephALEXin 2019-07 No 500mg 500 mg, Un niko (KEFLEX) [...] Indication s: acute pain cephALEXin 2019-07- No [id number] 500mg Take 1 Univers (KEFLEX) 08-04 [id number] capsule by it y of 500 mg 00:00: 05:59 mouth 4 [place] capsule 00 :00 (four) Medical times Branch daily for 5 days. NovoLOG 100 NovoLOG 100 2020-0 No NovoLOG UNIT/ML UNIT/ML 11-10 100 00:00: UNIT/ML 00 NovoLOG 100 NovoLOG 100 2020-0 No NovoLOG UNIT/ML UNIT/ML 11-10 100 00:00: UNIT/ML 00 NovoLOG 100 NovoLOG 100 2020-0 No NovoLOG UNIT/ML UNIT/ML 11-10 100 00:00: UNIT/ML 00 NovoLOG 100 NovoLOG 100 2020-0 No NovoLOG UNIT/ML UNIT/ML - 100 00:00: UNIT/ML 00 NovoLOG 100 NovoLOG 100 2020-0 No TID NovoLOG UNIT/ML UNIT/ML - 100 00:00: UNIT/ML 00 NovoLOG 100 NovoLOG 100 2020-0 No TID NovoLOG UNIT/ML UNIT/ML - 100 00:00: UNIT/ML 00 NovoLOG 100 NovoLOG 100 2020-0 No TID NovoLOG UNIT/ML UNIT/ML 11-10 100 00:00: UNIT/ML 00 NovoLOG 100 NovoLOG 100 2020-0 No TID NovoLOG UNIT/ML UNIT/ML 11-10 100 00:00: UNIT/ML 00 NovoLOG 100 NovoLOG 100 2020-0 No TID NovoLOG UNIT/ML UNIT/ML 11-10 100 00:00: UNIT/ML 00 NovoLOG 100 NovoLOG 100 2020-0 No TID NovoLOG UNIT/ML UNIT/ML 11-10 100 00:00: UNIT/ML 00 NovoLOG 100 NovoLOG 100 2020-0 No TID NovoLOG UNIT/ML UNIT/ML 11-10 100 00:00: UNIT/ML 00 NovoLOG 100 NovoLOG 100 2020-0 No TID NovoLOG UNIT/ML UNIT/ML 11-10 100 00:00: UNIT/ML 00 NovoLOG 100 NovoLOG 100 2020-0 No TID NovoLOG UNIT/ML UNIT/ML 11-10 100 00:00: UNIT/ML 00 NovoLOG 100 NovoLOG 100 2020-0 No TID NovoLOG UNIT/ML UNIT/ML 11-10 100 00:00: UNIT/ML 00 NovoLOG 100 NovoLOG 100 2020-0 No TID NovoLOG UNIT/ML UNIT/ML 11-10 100 00:00: UNIT/ML 00 NovoLOG 100 NovoLOG 100 2020-0 No TID NovoLOG UNIT/ML UNIT/ML 11-10 100 00:00: UNIT/ML 00 NovoLOG 100 NovoLOG 100 2020-0 No TID NovoLOG UNIT/ML UNIT/ML 11-10 100 00:00: UNIT/ML 00 NovoLOG 100 NovoLOG 100 2020-0 No TID NovoLOG UNIT/ML UNIT/ML 11-10 100 00:00: UNIT/ML 00 NovoLOG 100 NovoLOG 100 2020-0 No TID NovoLOG UNIT/ML UNIT/ML 11-10 100 00:00: UNIT/ML 00 NovoLOG 100 NovoLOG 100 2020-0 No TID NovoLOG UNIT/ML UNIT/ML 11-10 100 00:00: UNIT/ML 00 NovoLOG 100 NovoLOG 100 2020-0 No NovoLOG UNIT/ML UNIT/ML 11-10 100 00:00: UNIT/ML JANUVIA 100 2015-0 Yes Univer s mg tablet 4- ity of 00:00: [address] 100 2015-0 Yes Univer s mg tablet 4-11 ity of 00:00: [place] [facility] 100 2016-0 Yes Univer s mg tablet 4-11 ity [...] [place] on nasal 00 Medical spray Branch lisinopril- Yes Univer s hydrochloro 3-31 [...] 00:00: [place] tablet 00 Medical Branch NOVOLOG Yes Univers FLEXPEN 100 2-02 ity of unit/mL 00:00: [place] injection 00 Medical Branch LEVEMIR Yes Univers FLEXTOUCH 2-02 ity of 100 unit/mL 00:00: [place] (3 mL) 00 Medical injection Branch NOVOLOG Yes Univers FLEXPEN 100 2-02 ity of unit/mL 00:00: [place] injection 00 Medical Branch LEVEMIR Yes Univers FLEXTOUCH 2-02 ity of 100 unit/mL 00:00: [place] (3 mL) 00 Medical injection Branch NOVOLOG Yes Univers FLEXPEN 100 2-02 ity of unit/mL 00:00: [place] injection 00 Medical Branch LEVEMIR Yes Univers FLEXTOUCH 2-02 ity of 100 unit/mL 00:00: [place] (3 mL) 00 Medical injection Branch Tresiba Tresiba Yes [place] inject 40 Com mon FlexTouch FlexTouch [place] units Spi rit under the - CHI skin qam [facility] Simvastatin Simvastatin Yes [place] 1 tablet Common [place] in the Spirit evening - [facility] Metformin Metformin Yes [place] 1 tablet Common HCl HCl [place] with a Spirit meal - [facility] BD Pen BD Pen No TID BD Pen Needle Gina Needle Gina Needle U/F 32G X 4 U/F 32G X 4 Gina U/F MM MM 32G X 4 MM Victoza 18 Victoza 18 No QD Victoza 18 MG/3ML MG/3ML MG/3ML OneTouch OneTouch No BID OneTouch Ultra Test Ultra Test Ultra Test - - - Tresiba Tresiba No QD Tresiba FlexTouch FlexTouch FlexTouch 100 UNIT/ML 100 UNIT/ML 100 UNIT/ML OneTouch OneTouch No OneTouch Delica Delica Delica Lancets 33G Lancets 33G Lancets - - 33G - Clopidogrel Clopidogrel No 1{table QD Clopidogre Bisulfate Bisulfate t} l 75 MG 75 MG Bisulfate 75 MG OneTouch OneTouch No OneTouch Delica Plus Delica Plus Delica Amsezq70B - Tghhwe85B - Plus Vhokdz39X - Lisinopril Lisinopril No 1{table QD Lisinopril 30 MG 30 MG t} 30 MG metFORMIN metFORMIN No 1{table BID metFORMIN HCl 500 MG HCl 500 MG t_with_ HCl 500 MG a_meal} Simvastatin Simvastatin No Simvastati 40 MG 40 MG n 40 MG BD Pen BD Pen No TID BD Pen Needle Gina Needle Gina Needle U/F 32G X 4 U/F 32G X 4 Gina U/F MM MM 32G X 4 MM Victoza 18 Victoza 18 No QD Victoza 18 MG/3ML MG/3ML MG/3ML OneTouch OneTouch No BID OneTouch Ultra Test Ultra Test Ultra Test - - - Tresiba Tresiba No QD Tresiba FlexTouch FlexTouch FlexTouch 100 UNIT/ML 100 UNIT/ML 100 UNIT/ML OneTouch OneTouch No OneTouch Delica Delica Delica Lancets 33G Lancets 33G Lancets - - 33G - Clopidogrel Clopidogrel No 1{table QD Clopidogre Bisulfate Bisulfate t} l 75 MG 75 MG Bisulfate 75 MG OneTouch OneTouch No OneTouch Delica Plus Delica Plus Delica Jmntyk13R - Ozuwhr14O - Plus Unmglo46X - Tresiba Tresiba No QD Tresiba FlexTouch FlexTouch FlexTouch 100 UNIT/ML 100 UNIT/ML 100 UNIT/ML Lisinopril Lisinopril No Lisinopril 30 MG 30 MG 30 MG Simvastatin Simvastatin No Simvastati 40 MG 40 MG n 40 MG OneTouch OneTouch No OneTouch Delica Plus Delica Plus Delica Azmhoo72X - Aaxvtm12T - Plus Nysyxs50V - BD Pen BD Pen No TID BD Pen Needle Gina Needle Gina Needle U/F 32G X 4 U/F 32G X 4 Gina U/F MM MM 32G X 4 MM metFORMIN metFORMIN No 1{table BID metFORMIN HCl 500 MG HCl 500 MG t_with_ HCl 500 MG a_meal} Clopidogrel Clopidogrel No 1{table QD Clopidogre Bisulfate Bisulfate t} l 75 MG 75 MG Bisulfate 75 MG OneTouch OneTouch No OneTouch Delica Delica Delica Lancets 33G Lancets 33G Lancets - - 33G - Victoza 18 Victoza 18 No QD Victoza 18 MG/3ML MG/3ML MG/3ML OneTouch OneTouch No BID OneTouch Ultra Test Ultra Test Ultra Test - - - Tresiba Tresiba No QD Tresiba FlexTouch FlexTouch FlexTouch 100 UNIT/ML 100 UNIT/ML 100 UNIT/ML metFORMIN metFORMIN No 1{table BID metFORMIN HCl 500 MG HCl 500 MG t_with_ HCl 500 MG a_meal} Simvastatin Simvastatin No Simvastati 40 MG 40 MG n 40 MG BD Pen BD Pen No TID BD Pen Needle Gina Needle Gina Needle U/F 32G X 4 U/F 32G X 4 Gina U/F MM MM 32G X 4 MM Victoza 18 Victoza 18 No QD Victoza 18 MG/3ML MG/3ML MG/3ML OneTouch OneTouch No BID OneTouch Ultra Test Ultra Test Ultra Test - - - Lisinopril Lisinopril No Lisinopril 30 MG 30 MG 30 MG OneTouch OneTouch No OneTouch Delica Delica Delica Lancets 33G Lancets 33G Lancets - - 33G - Clopidogrel Clopidogrel No 1{table QD Clopidogre Bisulfate Bisulfate t} l 75 MG 75 MG Bisulfate 75 MG OneTouch OneTouch No OneTouch Delica Plus Delica Plus Delica Powusd34H - Trhvfm99N - Plus Sjfvpx18J - Lisinopril Lisinopril No QD Lisinopril 30 MG 30 MG 30 MG Clopidogrel Clopidogrel No 1{table QD Clopidogre Bisulfate Bisulfate t} l 75 MG 75 MG Bisulfate 75 MG Simvastatin Simvastatin No QD Simvastati 40 MG 40 MG n 40 MG OneTouch OneTouch No BID OneTouch Delica Plus Delica Plus Delica Bjjaox48H - Pwfmgd13E - Plus Bnqelq14P - BD Pen BD Pen No TID BD Pen Needle Gina Needle Gina Needle U/F 32G X 4 U/F 32G X 4 Gina U/F MM MM 32G X 4 MM Tresiba Tresiba No QD Tresiba FlexTouch FlexTouch FlexTouch 100 UNIT/ML 100 UNIT/ML 100 UNIT/ML metFORMIN metFORMIN No 1{table BID metFORMIN HCl 500 MG HCl 500 MG t_with_ HCl 500 MG a_meal} OneTouch OneTouch No OneTouch Delica Delica Delica Lancets 33G Lancets 33G Lancets - - 33G - OneTouch OneTouch No BID OneTouch Ultra Test Ultra Test Ultra Test - - - Simvastatin Simvastatin No Simvastati 40 MG 40 MG n 40 MG Clopidogrel Clopidogrel No Clopidogre Bisulfate Bisulfate l 75 MG 75 MG Bisulfate 75 MG Tresiba Tresiba No Tresiba FlexTouch FlexTouch FlexTouch 100 UNIT/ML 100 UNIT/ML 100 UNIT/ML BD Pen BD Pen No TID BD Pen Needle Gina Needle Gina Needle U/F 32G X 4 U/F 32G X 4 Gina U/F MM MM 32G X 4 MM Lisinopril Lisinopril No QD Lisinopril 30 MG 30 MG 30 MG metFORMIN metFORMIN No 1{table BID metFORMIN HCl 500 MG HCl 500 MG t_with_ HCl 500 MG a_meal} OneTouch OneTouch No OneTouch Delica Delica Delica Lancets 33G Lancets 33G Lancets - - 33G - OneTouch OneTouch No BID OneTouch Ultra Test Ultra Test Ultra Test - - - OneTouch OneTouch No OneTouch Delica Plus Delica Plus Delica Aiuwxw91I - Ehtqsn21J - Plus Zzmmoc01U - OneTouch OneTouch No OneTouch Delica Delica Delica Lancets 33G Lancets 33G Lancets - - 33G - Victoza 18 Victoza 18 No Victoza 18 MG/3ML MG/3ML MG/3ML OneTouch OneTouch No OneTouch Delica Plus Delica Plus Delica Ponkzo82H - Hpnwov05V - Plus Naczwl25L - Tresiba Tresiba No Tresiba FlexTouch FlexTouch FlexTouch 100 UNIT/ML 100 UNIT/ML 100 UNIT/ML metFORMIN metFORMIN No 1{table BID metFORMIN HCl 500 MG HCl 500 MG t_with_ HCl 500 MG a_meal} Simvastatin Simvastatin No Simvastati 40 MG 40 MG n 40 MG Lisinopril Lisinopril No Lisinopril 30 MG 30 MG 30 MG BD Pen BD Pen No TID BD Pen Needle Gina Needle Gina Needle U/F 32G X 4 U/F 32G X 4 Gina U/F MM MM 32G X 4 MM Clopidogrel Clopidogrel No Clopidogre Bisulfate Bisulfate l 75 MG 75 MG Bisulfate 75 MG OneTouch OneTouch No OneTouch Ultra - Ultra - Ultra - Simvastatin Simvastatin No Simvastati 40 MG 40 MG n 40 MG Clopidogrel Clopidogrel No Clopidogre Bisulfate Bisulfate l 75 MG 75 MG Bisulfate 75 MG metFORMIN metFORMIN No metFORMIN HCl 500 MG HCl 500 MG HCl 500 MG Tresiba Tresiba No Tresiba FlexTouch FlexTouch FlexTouch 100 UNIT/ML 100 UNIT/ML 100 UNIT/ML OneTouch OneTouch No OneTouch Delica Delica Delica Lancets 33G Lancets 33G Lancets - - 33G - Victoza 18 Victoza 18 No Victoza 18 MG/3ML MG/3ML MG/3ML OneTouch OneTouch No OneTouch Ultra - Ultra - Ultra - OneTouch OneTouch No OneTouch Delica Plus Delica Plus Delica Irizrd20R - Jdmnyn15S - Plus Yegrnv21X - BD Pen BD Pen No BD Pen Needle Gina Needle Gina Needle 2nd Gen 32G 2nd Gen 32G Gina 2nd X 4 MM X 4 MM Gen 32G X 4 MM Lisinopril Lisinopril No Lisinopril 30 MG 30 MG 30 MG OneTouch OneTouch No OneTouch Delica Delica Delica Lancets 33G Lancets 33G Lancets - - 33G - Lisinopril Lisinopril No Lisinopril 30 MG 30 MG 30 MG Simvastatin Simvastatin No 1{table QD Simvastati 40 MG 40 MG t_in_th n 40 MG e_eveni ng} Victoza 18 Victoza 18 No Victoza 18 MG/3ML MG/3ML MG/3ML Microlet Microlet No Microlet Lancets - Lancets - Lancets - OneTouch OneTouch No OneTouch Delica Plus Delica Plus Delica Mcojbb75C - Gdarhy51T - Plus Cmgnpf23K - metFORMIN metFORMIN No metFORMIN HCl 500 MG HCl 500 MG HCl 500 MG OneTouch OneTouch No OneTouch Ultra - Ultra - Ultra - BD Pen BD Pen No BD Pen Needle Gina Needle Gina Needle 2nd Gen 32G 2nd Gen 32G Gina 2nd X 4 MM X 4 MM Gen 32G X 4 MM Tresiba Tresiba No Tresiba FlexTouch FlexTouch FlexTouch 100 UNIT/ML 100 UNIT/ML 100 UNIT/ML Clopidogrel Clopidogrel No Clopidogre Bisulfate Bisulfate l 75 MG 75 MG Bisulfate 75 MG Levothyroxi Levothyroxi No QD Levothyrox ne Sodium ne Sodium ine Sodium 25 MCG 25 MCG 25 MCG BD Pen BD Pen No BD Pen Needle Gina Needle Gina Needle 2nd Gen 32G 2nd Gen 32G Gina 2nd X 4 MM X 4 MM Gen 32G X 4 MM OneTouch OneTouch No OneTouch Delica Plus Delica Plus Delica Sduzpq91X - Txnoxb11R - Plus Mxbwvi00G - Lisinopril Lisinopril No Lisinopril 30 MG 30 MG 30 MG OneTouch OneTouch No OneTouch Ultra - Ultra - Ultra - metFORMIN metFORMIN No metFORMIN HCl 500 MG HCl 500 MG HCl 500 MG OneTouch OneTouch No OneTouch Delica Delica Delica Lancets 33G Lancets 33G Lancets - - 33G - Levothyroxi Levothyroxi No QD Levothyrox ne Sodium ne Sodium ine Sodium 25 MCG 25 MCG 25 MCG Victoza 18 Victoza 18 No Victoza 18 MG/3ML MG/3ML MG/3ML Simvastatin Simvastatin No 1{table QD Simvastati 40 MG 40 MG t_in_th n 40 MG e_eveni ng} Tresiba Tresiba No Tresiba FlexTouch FlexTouch FlexTouch 100 UNIT/ML 100 UNIT/ML 100 UNIT/ML Microlet Microlet No Microlet Lancets - Lancets - Lancets - Clopidogrel Clopidogrel No 1{table QD Clopidogre Bisulfate Bisulfate t} l 75 MG 75 MG Bisulfate 75 MG OneTouch OneTouch No OneTouch Ultra - Ultra - Ultra - Lisinopril Lisinopril No Lisinopril 30 MG 30 MG 30 MG OneTouch OneTouch No OneTouch Delica Plus Delica Plus Delica Qnwadf07J - Tixsfb31Z - Plus Mbdnee70L - Microlet Microlet No Microlet Lancets - Lancets - Lancets - Tresiba Tresiba No Tresiba FlexTouch FlexTouch FlexTouch 100 UNIT/ML 100 UNIT/ML 100 UNIT/ML Victoza 18 Victoza 18 No Victoza 18 MG/3ML MG/3ML MG/3ML BD Pen BD Pen No BD Pen Needle Gina Needle Gina Needle 2nd Gen 32G 2nd Gen 32G Gina 2nd X 4 MM X 4 MM Gen 32G X 4 MM OneTouch OneTouch No OneTouch Delica Delica Delica Lancets 33G Lancets 33G Lancets - - 33G - Clopidogrel Clopidogrel No 1{table QD Clopidogre Bisulfate Bisulfate t} l 75 MG 75 MG Bisulfate 75 MG Levothyroxi Levothyroxi No QD Levothyrox ne Sodium ne Sodium ine Sodium 25 MCG 25 MCG 25 MCG metFORMIN metFORMIN No metFORMIN HCl 500 MG HCl 500 MG HCl 500 MG Simvastatin Simvastatin No 1{table QD Simvastati 40 MG 40 MG t_in_th n 40 MG e_eveni ng} metFORMIN metFORMIN No metFORMIN HCl 500 MG HCl 500 MG HCl 500 MG Victoza 18 Victoza 18 No Victoza 18 MG/3ML MG/3ML MG/3ML Microlet Microlet No Microlet Lancets - Lancets - Lancets - OneTouch OneTouch No OneTouch Ultra - Ultra - Ultra - OneTouch OneTouch No OneTouch Delica Plus Delica Plus Delica Weuuqk74K - Mqnopv39U - Plus Aizeah86L - OneTouch OneTouch No OneTouch Delica Delica Delica Lancets 33G Lancets 33G Lancets - - 33G - Tresiba Tresiba No Tresiba FlexTouch FlexTouch FlexTouch 100 UNIT/ML 100 UNIT/ML 100 UNIT/ML BD Pen BD Pen No BD Pen Needle Gina Needle Gina Needle 2nd Gen 32G 2nd Gen 32G Gina 2nd X 4 MM X 4 MM Gen 32G X 4 MM Clopidogrel Clopidogrel No 1{table QD Clopidogre Bisulfate Bisulfate t} l 75 MG 75 MG Bisulfate 75 MG Levothyroxi Levothyroxi No QD Levothyrox ne Sodium ne Sodium ine Sodium 25 MCG 25 MCG 25 MCG Lisinopril Lisinopril No Lisinopril 30 MG 30 MG 30 MG Simvastatin Simvastatin No 1{table QD Simvastati 40 MG 40 MG t_in_th n 40 MG e_eveni ng} metFORMIN metFORMIN No metFORMIN HCl 500 MG HCl 500 MG HCl 500 MG Victoza 18 Victoza 18 No Victoza 18 MG/3ML MG/3ML MG/3ML Microlet Microlet No Microlet Lancets - Lancets - Lancets - OneTouch OneTouch No OneTouch Ultra - Ultra - Ultra - OneTouch OneTouch No OneTouch Delica Plus Delica Plus Delica Kerwak18J - Rgjsyk86O - Plus Iacjat25L - OneTouch OneTouch No OneTouch Delica Delica Delica Lancets 33G Lancets 33G Lancets - - 33G - Tresiba Tresiba No Tresiba FlexTouch FlexTouch FlexTouch 100 UNIT/ML 100 UNIT/ML 100 UNIT/ML BD Pen BD Pen No BD Pen Needle Gina Needle Gina Needle 2nd Gen 32G 2nd Gen 32G Gina 2nd X 4 MM X 4 MM Gen 32G X 4 MM Clopidogrel Clopidogrel No 1{table QD Clopidogre Bisulfate Bisulfate t} l 75 MG 75 MG Bisulfate 75 MG Levothyroxi Levothyroxi No QD Levothyrox ne Sodium ne Sodium ine Sodium 25 MCG 25 MCG 25 MCG Lisinopril Lisinopril No Lisinopril 30 MG 30 MG 30 MG Simvastatin Simvastatin No 1{table QD Simvastati 40 MG 40 MG t_in n 40 MG e_eveni ng} BD Pen BD Pen No BD Pen Needle Gina Needle Gina Needle 2nd Gen 32G 2nd Gen 32G Gina 2nd X 4 MM X 4 MM Gen 32G X 4 MM Victoza 18 Victoza 18 No Victoza 18 MG/3ML MG/3ML MG/3ML Microlet Microlet No Microlet Lancets - Lancets - Lancets - OneTouch OneTouch No OneTouch Ultra - Ultra - Ultra - OneTouch OneTouch No OneTouch Delica Plus Delica Plus Delica Sjrpmu28Q - Ivhqwr44W - Plus Xmruoo27M - OneTouch OneTouch No OneTouch Delica Delica Delica Lancets 33G Lancets 33G Lancets - - 33G - metFORMIN metFORMIN No metFORMIN HCl 500 MG HCl 500 MG HCl 500 MG Tresiba Tresiba No Tresiba FlexTouch FlexTouch FlexTouch 100 UNIT/ML 100 UNIT/ML 100 UNIT/ML Lisinopril Lisinopril No Lisinopril 30 MG 30 MG 30 MG Simvastatin Simvastatin No 1{table QD Simvastati 40 MG 40 MG t_in_ n 40 MG e_eveni ng} Levothyroxi Levothyroxi No QD Levothyrox ne Sodium ne Sodium ine Sodium 25 MCG 25 MCG 25 MCG Clopidogrel Clopidogrel No Clopidogre Bisulfate Bisulfate l 75 MG 75 MG Bisulfate 75 MG BD Pen BD Pen No BD Pen Needle Gina Needle Gina Needle 2nd Gen 32G 2nd Gen 32G Gina 2nd X 4 MM X 4 MM Gen 32G X 4 MM Tresiba Tresiba No Tresiba FlexTouch FlexTouch FlexTouch 100 UNIT/ML 100 UNIT/ML 100 UNIT/ML metFORMIN metFORMIN No metFORMIN HCl 500 MG HCl 500 MG HCl 500 MG OneTouch OneTouch No OneTouch Ultra - Ultra - Ultra - Microlet Microlet No Microlet Lancets - Lancets - Lancets - OneTouch OneTouch No OneTouch Delica Delica Delica Lancets 33G Lancets 33G Lancets - - 33G - Victoza 18 Victoza 18 No Victoza 18 MG/3ML MG/3ML MG/3ML Simvastatin Simvastatin No 1{table QD Simvastati 40 MG 40 MG t_in_th n 40 MG e_eveni ng} Lisinopril Lisinopril No Lisinopril 30 MG 30 MG 30 MG OneTouch OneTouch No OneTouch Delica Plus Delica Plus Delica Zrztnd50T - Hlatyr14H - Plus Idedlr22A - Clopidogrel Clopidogrel No Clopidogre Bisulfate Bisulfate l 75 MG 75 MG Bisulfate 75 MG BD Pen BD Pen No BD Pen Needle Gina Needle Gina Needle 2nd Gen 32G 2nd Gen 32G Gina 2nd X 4 MM X 4 MM Gen 32G X 4 MM Tresiba Tresiba No Tresiba FlexTouch FlexTouch FlexTouch 100 UNIT/ML 100 UNIT/ML 100 UNIT/ML metFORMIN metFORMIN No metFORMIN HCl 500 MG HCl 500 MG HCl 500 MG OneTouch OneTouch No OneTouch Ultra - Ultra - Ultra - Microlet Microlet No Microlet Lancets - Lancets - Lancets - OneTouch OneTouch No OneTouch Delica Delica Delica Lancets 33G Lancets 33G Lancets - - 33G - Victoza 18 Victoza 18 No Victoza 18 MG/3ML MG/3ML MG/3ML Simvastatin Simvastatin No 1{table QD Simvastati 40 MG 40 MG t_in_th n 40 MG e_eveni ng} Lisinopril Lisinopril No Lisinopril 30 MG 30 MG 30 MG OneTouch OneTouch No OneTouch Delica Plus Delica Plus Delica [id number] - [id number] - Plus [id number] - Clopidogrel Clopidogrel No Clopidogre Bisulfate Bisulfate l 75 MG 75 MG Bisulfate 75 MG Lisinopril Lisinopril No Lisinopril 30 MG 30 MG 30 MG Tresiba Tresiba No Tresiba FlexTouch FlexTouch FlexTouch 100 UNIT/ML 100 UNIT/ML 100 UNIT/ML BD Pen BD Pen No BD Pen Needle Gina Needle Gina Needle 2nd Gen 32G 2nd Gen 32G Gina 2nd X 4 MM X 4 MM Gen 32G X 4 MM OneTouch OneTouch No OneTouch Delica Delica Delica Lancets 33G Lancets 33G Lancets - - 33G - Victoza 18 Victoza 18 No Victoza 18 MG/3ML MG/3ML MG/3ML OneTouch OneTouch No OneTouch Ultra - Ultra - Ultra - metFORMIN metFORMIN No metFORMIN HCl 500 MG HCl 500 MG HCl 500 MG Microlet Microlet No Microlet Lancets - Lancets - Lancets - Simvastatin Simvastatin No 1{table QD Simvastati 40 MG 40 MG t_in_th n 40 MG e_eveni ng} OneTouch OneTouch No OneTouch Delica Plus Delica Plus Delica [id number] - [id number] - Plus [id number] - Clopidogrel Clopidogrel No Clopidogre Bisulfate Bisulfate l 75 MG 75 MG Bisulfate 75 MG Lisinopril Lisinopril No Lisinopril 30 MG 30 MG 30 MG Tresiba Tresiba No Tresiba FlexTouch FlexTouch FlexTouch 100 UNIT/ML 100 UNIT/ML 100 UNIT/ML BD Pen BD Pen No BD Pen Needle Gina Needle Gina Needle 2nd Gen 32G 2nd Gen 32G Gina 2nd X 4 MM X 4 MM Gen 32G X 4 MM OneTouch OneTouch No OneTouch Delica Delica Delica Lancets 33G Lancets 33G Lancets - - 33G - Victoza 18 Victoza 18 No Victoza 18 MG/3ML MG/3ML MG/3ML OneTouch OneTouch No OneTouch Ultra - Ultra - Ultra - metFORMIN metFORMIN No metFORMIN HCl 500 MG HCl 500 MG HCl 500 MG Microlet Microlet No Microlet Lancets - Lancets - Lancets - Simvastatin Simvastatin No 1{table QD Simvastati 40 MG 40 MG t_in_th n 40 MG e_eveni ng} OneTouch OneTouch No OneTouch Delica Plus Delica Plus Delica [id number] - [id number] - Plus [id number] - Clopidogrel Clopidogrel No Clopidogre Bisulfate Bisulfate l 75 MG 75 MG Bisulfate 75 MG Lisinopril Lisinopril No Lisinopril 30 MG 30 MG 30 MG metFORMIN metFORMIN No metFORMIN HCl 500 MG HCl 500 MG HCl 500 MG Victoza 18 Victoza 18 No Victoza 18 MG/3ML MG/3ML MG/3ML Simvastatin Simvastatin No Simvastati 40 MG 40 MG n 40 MG OneTouch OneTouch No OneTouch Ultra - Ultra - Ultra - Clopidogrel Clopidogrel No Clopidogre Bisulfate Bisulfate l 75 MG 75 MG Bisulfate 75 MG BD Pen BD Pen No BD Pen Needle Gina Needle Gina Needle 2nd Gen 32G 2nd Gen 32G Gina 2nd X 4 MM X 4 MM Gen 32G X 4 MM OneTouch OneTouch No OneTouch Delica Plus Delica Plus Delica [id number] - [id number] - Plus [id number] - Tresiba Tresiba No Tresiba FlexTouch FlexTouch FlexTouch 100 UNIT/ML 100 UNIT/ML 100 UNIT/ML Levothyroxi Levothyroxi No Levothyrox ne Sodium ne Sodium ine Sodium 25 MCG 25 MCG 25 MCG OneTouch OneTouch No OneTouch Delica Delica Delica Lancets 33G Lancets 33G Lancets - - 33G - Microlet Microlet No Microlet Lancets - Lancets - Lancets - OneTouch OneTouch No OneTouch Delica Plus Delica Plus Delica Ymdoqa58Q - [id number] - Plus [id number] - Lisinopril Lisinopril No Lisinopril 30 MG 30 MG 30 MG Microlet Microlet No Microlet Lancets - Lancets - Lancets - BD Pen BD Pen No BD Pen Needle Gina Needle Gina Needle 2nd Gen 32G 2nd Gen 32G Gina 2nd X 4 MM X 4 MM Gen 32G X 4 MM Simvastatin Simvastatin No Simvastati 40 MG 40 MG n 40 MG OneTouch OneTouch No OneTouch Delica Delica Delica Lancets 33G Lancets 33G Lancets - - 33G - OneTouch OneTouch No OneTouch Ultra - Ultra - Ultra - metFORMIN metFORMIN No metFORMIN HCl 500 MG HCl 500 MG HCl 500 MG Tresiba Tresiba No Tresiba FlexTouch FlexTouch FlexTouch 100 UNIT/ML 100 UNIT/ML 100 UNIT/ML Clopidogrel Clopidogrel No Clopidogre Bisulfate Bisulfate l 75 MG 75 MG Bisulfate 75 MG Levothyroxi Levothyroxi No Levothyrox ne Sodium ne Sodium ine Sodium 25 MCG 25 MCG 25 MCG Lisinopril Lisinopril No 1{table QD Lisinopril 30 MG 30 MG t} 30 MG Simvastatin Simvastatin No 1{table QD Simvastati 40 MG 40 MG t_in_th n 40 MG e_eveni ng} Victoza 18 Victoza 18 No Victoza 18 MG/3ML MG/3ML MG/3ML OneTouch OneTouch No OneTouch Delica Plus Delica Plus Delica Pikvur03G - Ofdgfo67P - Plus Vvqwjs94C - BD Pen BD Pen No TID BD Pen Needle Gina Needle Gina Needle U/F 32G X 4 U/F 32G X 4 Gina U/F MM MM 32G X 4 MM metFORMIN metFORMIN No 1{table BID metFORMIN HCl 500 MG HCl 500 MG t_with_ HCl 500 MG a_meal} Tresiba Tresiba No QD Tresiba FlexTouch FlexTouch FlexTouch 100 UNIT/ML 100 UNIT/ML 100 UNIT/ML OneTouch OneTouch No OneTouch Delica Delica Delica Lancets 33G Lancets 33G Lancets - - 33G - Clopidogrel Clopidogrel No 1{table QD Clopidogre Bisulfate Bisulfate t} l 75 MG 75 MG Bisulfate 75 MG OneTouch OneTouch No BID OneTouch Ultra Test Ultra Test Ultra Test - - - Lisinopril Lisinopril No 1{table QD Lisinopril 30 MG 30 MG t} 30 MG metFORMIN metFORMIN No 1{table BID metFORMIN HCl 500 MG HCl 500 MG t_with_ HCl 500 MG a_meal} Simvastatin Simvastatin No Simvastati 40 MG 40 MG n 40 MG Victoza 18 Victoza 18 2020- No QD Victoza 18 MG/3ML MG/3ML 12-14 MG/3ML 00:00 :00 Victoza 18 Victoza 18 2020- No QD Victoza 18 MG/3ML MG/3ML 12-14 MG/3ML 00:00 :00 Immunizations Ordered Filled Immunization Date Status Comments [facility] [place] [facility]-07 [facility] (Low Dose Vaccine (Low Dose 10:30:[address] [facility] Booster) Booster) [facility] [address] COVID19 2021-07-07 Completed [facility] - Vaccine (Low Dose Vaccine (Low Dose 10:30:[address] [facility] Booster) Booster) [facility] COVID19 [facility] [place] COVID19 2021-07-07 Completed [facility] - Vaccine (Low Dose Vaccine (Low Dose 10:30:[address] [facility] Booster) Booster) [facility] [address] [facility]07 Com[facility] Vaccine (Low Dose Vaccine (Low Dose 10:30:[address] [facility] Booster) Booster) [facility] [address] [facility]-07 Com[facility] Vaccine (Low Dose Vaccine (Low Dose 10:30:[address] [facility] Booster) Booster) [facility] [address] [facility]-07 Com[facility] Vaccine (Low Dose Vaccine (Low Dose 10:30:[address] [facility] Booster) Booster) [facility] [address] [facility]-07 Com[facility] Vaccine (Low Dose Vaccine (Low Dose 10:30:[address] [facility] Booster) Booster) [facility] [facility]-07 Com[facility] Vaccine (Low Dose Vaccine (Low Dose 10:30:[address] [facility] Booster) Booster) [facility] [address] [facility]-07 Com[facility] Vaccine (Low Dose Vaccine (Low Dose 10:30:[address] [facility] Booster) Booster) [facility] [facility]-07 Com[facility] Vaccine (Low Dose Vaccine (Low Dose 10:30:[address] [facility] Booster) Booster) [facility] [address] [facility]-07 Com[facility] Vaccine (Low Dose Vaccine (Low Dose 10:30:[address] [facility] Booster) Booster) [facility] [address] [facility]-07 Com[facility] Vaccine (Low Dose Vaccine (Low Dose 10:30:[address] [facility] Booster) Booster) [facility] [address] [facility]-07 Com[facility] Vaccine (Low Dose Vaccine (Low Dose 10:30:[address] [facility] Booster) Booster) [facility] [address] [facility]-07 Com[facility] - Vaccine (Low Dose Vaccine (Low Dose 10:30:00 [facility] FLUZONE HIGH DOSE 2021-06-13 [facility] - OVER 65 OVER 65 10:28:00 [facility] Prevnar 13 (PCV13) Prevnar 13 (PCV13) 2021-06-13 Completed [facility] - 10:28:00 [facility] FLUZONE HIGH DOSE FLUZONE HIGH DOSE 2021-06-13 Completed [facility] - OVER 65 OVER 65 10:28:00 [facility] Prevnar 13 (PCV13) Prevnar 13 (PCV13) 2021-06-13 Completed [facility] 10:28:00 [facility] FLUZONE HIGH DOSE FLUZONE HIGH DOSE 2021-06-13 Completed [facility] - OVER 65 OVER 65 10:28:00 [facility] Prevnar 13 (PCV13) Prevnar 13 (PCV13) 2021-06-13 Completed [facility] - 10:28:00 [facility] FLUZONE HIGH DOSE FLUZONE HIGH DOSE 2021-06-13 Completed [facility] - OVER 65 OVER 65 10:28:00 [facility] Prevnar 13 (PCV13) Prevnar 13 (PCV13) 2021-06-13 Completed [facility] - 10:28:00 [facility] FLUZONE HIGH DOSE FLUZONE HIGH DOSE 2021-06-13 Completed [facility] - OVER 65 OVER 65 10:28:00 [facility] Prevnar 13 (PCV13) Prevnar 13 (PCV13) 2021-06-13 Completed [facility] - 10:28:00 [facility] FLUZONE HIGH DOSE FLUZONE HIGH DOSE 2021-06-13 Completed [facility] - OVER 65 OVER 65 10:28:00 [facility] Prevnar 13 (PCV13) Prevnar 13 (PCV13) 2021-06-13 Completed [facility] - 10:28:00 [facility] FLUZONE HIGH DOSE FLUZONE HIGH DOSE 2021-06-13 Completed [facility] - OVER 65 OVER 65 10:28:00 [facility] Prevnar 13 (PCV13) Prevnar 13 (PCV13) 2021-06-13 Completed [facility] - 10:28:00 [facility] FLUZONE HIGH DOSE FLUZONE HIGH DOSE 2021-06-13 Completed [facility] - OVER 65 OVER 65 10:28:00 [facility] Prevnar 13 (PCV13) Prevnar 13 (PCV13) 2021-06-13 Completed [facility] - 10:28:00 [facility] FLUZONE HIGH DOSE FLUZONE HIGH DOSE 2021-06-13 Completed [facility] - OVER 65 OVER 65 10:28:00 [facility] Prevnar 13 (PCV13) Prevnar 13 (PCV13) 2021-06-13 Completed [facility] - 10:28:00 [facility] FLUZONE HIGH DOSE FLUZONE HIGH DOSE 2021-06-13 Completed [facility] - OVER 65 OVER 65 10:28:00 [facility] Prevnar 13 (PCV13) Prevnar 13 (PCV13) 2021-06-13 Completed [facility] - 10:28:00 [facility] FLUZONE HIGH DOSE FLUZONE HIGH DOSE 2021-06-13 Completed [facility] - OVER 65 OVER 65 10:28:00 [facility] Prevnar 13 (PCV13) Prevnar 13 (PCV13) 2021-06-13 Completed [facility] - 10:28:00 [facility] FLUZONE HIGH DOSE FLUZONE HIGH DOSE 2021-06-13 Completed [facility] - OVER 65 OVER 65 10:28:00 [facility] Prevnar 13 (PCV13) Prevnar 13 (PCV13) 2021-06-13 Completed [facility] - 10:28:00 [facility] FLUZONE HIGH DOSE FLUZONE HIGH DOSE 2021-06-13 Completed [facility] - OVER 65 OVER 65 10:28:00 [facility] Prevnar 13 (PCV13) Prevnar 13 (PCV13) 2021-06-13 Completed [facility] - 10:28:00 [facility] FLUZONE HIGH DOSE FLUZONE HIGH DOSE 2021-06-13 Completed [facility] - OVER 65 OVER 65 10:28:00 [facility] Prevnar 13 (PCV13) Prevnar 13 (PCV13) 2021-06-13 Completed [facility] - 10:28:00 [facility] SARS-COV-2 COVID-19 2020-10-24 Completed [facility] VACCINE 00:00:00 [facility] SARS-COV-2 COVID-19 2020-10-24 Completed [facility] VACCINE 00:00:00 [facility] SARS-COV-2 COVID-19 2020-09-26 Completed [facility] VACCINE 00:00:00 [facility] SARS-COV-2 COVID-19 2020-09-26 Completed [facility]ER[facility] VACCINE 00:00:00 [facility] Moderna COVID-19 Moderna COVID-19 2020-09-20 Completed [facility] - Vaccine Vaccine 10:32:00 [facility] Moderna COVID-19 Moderna COVID-19 2020-09-20 Completed [facility] - Vaccine Vaccine 10:32:00 [facility] Moderna COVID-19 Moderna COVID-19 2020-09-20 Completed [facility] - Vaccine Vaccine 10:32:00 [facility] Moderna COVID-19 Moderna COVID-19 2020-09-20 Completed [facility] - Vaccine Vaccine 10:32:00 [facility] Moderna COVID-19 Moderna COVID-19 2020-09-20 Completed [facility] - Vaccine Vaccine 10:32:00 [facility] Moderna COVID-19 Moderna COVID-19 2020-09-20 Completed [facility] - Vaccine Vaccine 10:32:00 [facility] Moderna COVID-19 Moderna COVID-19 2020-09-20 Completed [facility] - Vaccine Vaccine 10:32:00 [facility] Moderna COVID-19 Moderna COVID-19 2020-09-20 Completed [facility] - Vaccine Vaccine 10:32:00 [facility] Moderna COVID-19 Moderna COVID-19 2020-09-20 Completed [facility] - Vaccine Vaccine 10:32:00 [facility] Moderna COVID-19 Moderna COVID-19 2020-09-20 Completed [facility] - Vaccine Vaccine 10:32:00 [facility] Moderna COVID-19 Moderna COVID-19 2020-09-20 Completed [facility] - Vaccine Vaccine 10:32:00 [facility] Moderna COVID-19 Moderna COVID-19 2020-09-20 Completed [facility] - Vaccine Vaccine 10:32:00 [facility] Moderna COVID-19 Moderna COVID-19 2020-09-20 Completed [facility] - Vaccine Vaccine 10:32:00 [facility] Moderna COVID-19 Moderna COVID-19 2020-09-20 Completed [facility] - Vaccine Vaccine 10:32:00 [facility] Moderna COVID-19 Moderna COVID-19 2020-08-30 Completed [facility] - Vaccine Vaccine 10:31:00 [facility] Moderna COVID-19 Moderna COVID-19 2020-08-30 Completed [facility] - Vaccine Vaccine 10:31:00 [facility] Moderna COVID-19 Moderna COVID-19 2020-08-30 Completed [facility] - Vaccine Vaccine 10:31:00 [facility] Moderna COVID-19 Moderna COVID-19 2020-08-30 Completed [facility] - Vaccine Vaccine 10:31:00 [facility] Moderna COVID-19 Moderna COVID-19 2020-08-30 Completed [facility] - Vaccine Vaccine 10:31:00 [facility] Moderna COVID-19 Moderna COVID-19 2020-08-30 Completed [facility] - Vaccine Vaccine 10:31:00 [facility] Moderna COVID-19 Moderna COVID-19 2020-08-30 Completed [facility] - Vaccine Vaccine 10:31:00 [facility] Moderna COVID-19 Moderna COVID-19 2020-08-30 Completed [facility] - Vaccine Vaccine 10:31:00 [facility] Moderna COVID-19 Moderna COVID-19 2020-08-30 Completed [facility] - Vaccine Vaccine 10:31:00 [facility] Moderna COVID-19 Moderna COVID-19 2020-08-30 Completed [facility] - Vaccine Vaccine 10:31:00 [facility] Moderna COVID-19 Moderna COVID-19 2020-08-30 Completed [facility] - Vaccine Vaccine 10:31:00 [facility] Moderna COVID-19 Moderna COVID-19 2020-08-30 Completed [facility] - Vaccine Vaccine 10:31:00 [facility] Moderna COVID-19 Moderna COVID-19 2020-08-30 Completed [facility] - Vaccine Vaccine 10:31:00 [facility] Moderna COVID-19 Moderna COVID-19 2020-08-30 Completed [facility] - Vaccine Vaccine 10:31:00 [facility] Afluria single dose Afluria single dose 2020-03-31 Completed [facility] - 17:57:00 [facility] Afluria single dose Afluria single dose 2020-03-31 Completed [facility] - 17:57:00 [facility] Afluria single dose Afluria single dose 2020-03-31 Completed [facility] - 17:57:00 [facility] Afluria single dose Afluria single dose 2020-03-31 Completed [facility] - 17:57:00 [facility] Afluria single dose Afluria single dose 2020-03-31 Completed [facility] - 17:57:00 [facility] Afluria single dose Afluria single dose 2020-03-31 Completed [facility] - 17:57:00 [facility] Afluria single dose Afluria single dose 2020-03-31 Completed [facility] - 17:57:00 [facility] Afluria single dose Afluria single dose 2020-03-31 Completed [facility] - 17:57:00 [facility] Afluria single dose Afluria single dose 2020-03-31 Completed [facility] - 17:57:00 [facility] Afluria single dose Afluria single dose 2020-03-31 Completed [facility] - 17:57:00 [facility] Afluria single dose Afluria single dose 2020-03-31 Completed [facility] - 17:57:00 [facility] Afluria single dose Afluria single dose 2020-03-31 Completed [facility] - 17:57:00 [facility] Afluria single dose Afluria single dose 2020-03-31 Completed [facility] - 17:57:00 [facility] Afluria single dose Afluria single dose 2020-03-31 Completed [facility] - 17:57:00 [facility] Afluria single dose Afluria single dose 2020-03-31 Completed [facility] - 17:57:00 [facility] Afluria single dose Afluria single dose 2020-03-31 Completed [facility] - 17:57:00 [facility] Afluria single dose Afluria single dose 2020-03-31 Completed [facility] - 17:57:00 [facility] Afluria single dose Afluria single dose 2020-03-31 Completed [facility] - 17:57:00 [facility] Afluria single dose Afluria single dose 2020-03-31 Completed [facility] - 17:57:00 [facility] Afluria single dose Afluria single dose 2020-03-31 Completed [facility] - 17:57:00 [facility] Afluria single dose Afluria single dose 2020-03-31 Completed [facility] - 17:57:00 [facility] Vital Signs Vital Name Observation Time Observation Value Comments Source height 2022-06-16 08:40:00 63.5 [in_i] [facility] weight 2022-06-16 08:40:00 163.2 [lb_av] [facility] temperature 2022-06-16 08:40:00 97.6 [degF] [facility] bmi 2022-06-16 08:40:00 28.45 kg/m2 [facility] oximetry 2022-06-16 08:40:00 96 % [facility] respiratory rate 2022-06-16 08:40:00 16 /min Comm on [facility] blood pressure 2022-06-16 08:40:00 136 mm[Hg] [facility] - systolic [facility] blood pressure 2022-06-16 08:40:00 70 mm[Hg] [facility] - diastolic [facility] height 2022-03-10 10:00:00 63.5 [in_i] [facility] weight 2022-03-10 10:00:00 163.2 [lb_av] [facility] temperature 2022-03-10 10:00:00 97.9 [degF] [facility] bmi 2022-03-10 10:00:00 28.45 kg/m2 [facility] oximetry 2022-03-10 10:00:00 95 [facility] respiratory rate 2022-03-10 10:00:00 17 /min Comm on [facility] blood pressure 2022-03-10 10:00:00 136 mm[Hg] [facility] systolic [facility] blood pressure 2022-03-10 10:00:00 69 mm[Hg] [facility] - diastolic [facility] height 2022-03-10 09:00:00 63.5 [in_i] [facility] weight 2022-03-10 09:00:00 163.2 [lb_av] [facility] temperature 2022-03-10 09:00:00 97.9 [degF] [facility] bmi 2022-03-10 09:00:00 28.45 [facility] oximetry 2022-03-10 09:00:00 95 % [facility] respiratory rate 2022-03-10 09:00:00 17 /min Comm on [facility] blood pressure 2022-03-10 09:00:00 136 mm[Hg] [facility] systolic [facility] blood pressure 2022-03-10 09:00:00 69 mm[Hg] [facility] - diastolic [facility] height 2021-12-06 08:40:00 63.5 [in_i] [facility] weight 2021-12-06 08:40:00 164 [lb_av] [facility] temperature 2021-12-06 08:40:00 97.4 [degF] [facility] bmi 2021-12-06 08:40:00 28.59 kg/m2 [facility] oximetry 2021-12-06 08:40:00 95 % [facility] respiratory rate 2021-12-06 08:40:00 16 /min Comm on [facility] blood pressure 2021-12-06 08:40:00 135 mm[Hg] [facility] - systolic [facility] blood pressure 2021-12-06 08:40:00 72 mm[Hg] [facility] - diastolic [facility] height 2021-07-11 10:20:00 63.5 [in_i] [facility] weight 2021-07-11 10:20:00 168 [lb_av] [facility] temperature 2021-07-11 10:20:00 97.3 [degF] [facility] bmi 2021-07-11 10:20:00 29.29 kg/m2 [facility] oximetry 2021-07-11 10:20:00 97 % [facility] respiratory rate 2021-07-11 10:20:00 16 /min Comm on [facility] blood pressure 2021-07-11 10:20:00 137 mm[Hg] [facility] systolic [facility] blood pressure 2021-07-11 10:20:00 61 mm[Hg] [facility] - diastolic [facility] height 2021-04-13 15:40:00 63.5 [in_i] [facility] weight 2021-04-13 15:40:00 167 [lb_av] [facility] temperature 2021-04-13 15:40:00 97.1 [degF] [facility] bmi 2021-04-13 15:40:00 29.12 kg/m2 [facility] oximetry 2021-04-13 15:40:00 98 % [facility] respiratory rate 2021-04-13 15:40:00 16 /min [facility] blood pressure 2021-04-13 15:40:00 134 mm[Hg] [facility] - systolic [facility] blood pressure 2021-04-13 15:40:00 65 mm[Hg] [facility] - diastolic [facility] Systolic blood 2020-06-04 16:58:00 170 mm[Hg] [facility] pressure [facility] Diastolic blood 2020-06-04 16:58:00 87 mm[Hg] [facility] pressure [facility] Heart rate 2020-06-04 16:58:00 73 /min [facility] Body temperature 2020-06-04 16:58:00 36.94 [place] [facility] Respiratory rate 2020-06-04 16:58:00 18 /min [facility] Body weight 2020-06-04 16:58:00 74.39 kg [facility] BMI 2020-06-04 16:58:00 30.00 kg/m2 [facility] Oxygen saturation in 2020-06-04 16:58:00 98 /min [facility] Arterial blood by [facility] Pulse oximetry Branch Systolic blood 2020-06-04 16:58:00 170 mm[Hg] [facility] pressure [facility] Diastolic blood 2020-06-04 16:58:00 87 mm[Hg] [facility] pressure [facility] Heart rate 2020-06-04 16:58:00 73 /min [facility] Body temperature 2020-06-04 16:58:00 36.94 [place] [facility] Respiratory rate 2020-06-04 16:58:00 18 /min [facility] Body weight 2020-06-04 16:58:00 74.39 kg [facility] BMI 2020-06-04 16:58:00 30.00 kg/m2 [facility] Oxygen saturation in 2020-06-04 16:58:00 98 /min [facility] blood by [facility] Pulse oximetry Branch Procedures Procedure Date / Time Performed Performing Clinician Shannan obrien ASSIGNMENT OF BENEFITS 2021-01-07 17:37:08 Doctor Unassigned, No [facility] Name [facility] Branch XR SHOULDER <2 VW LEFT 2020-06-04 17:40:36 Elvis Lucero [facility] XR ELBOW >3 VW LEFT 2020-06-04 17:26:57 Elvis Lucero [facility] XR FOREARM 2 VW LEFT 2020-06-04 17:26:57 Elvis Lucero [facility] Encounters Start End Encounter Admission Attending Care Care Encounter Source Date/Time Date/Time Type Type Clinicians Facility Department ID 2022-10-17 Outpatient [place], STLMLC STLMLC [id number] Common 11:57:00 Winnie [id number] [facility] 2022-06-14 Outpatient [place], STLMLC STLMLC [id number] Common 13:53:00 Winnie [id number] [facility] 2022-03-02 Outpatient [place], STLMLC STLMLC [id number] Common 08:15:00 Winnie [facility] 2021-12-07 Outpatient [place], STLMLC STLMLC [id number] Common 10:44:01 Winnie [facility] 2021-12-02 Outpatient [place], STLMLC STLMLC [id number] Common 10:03:02 Winnie [facility] 2021-10-10 Outpatient [place], STLMLC STLMLC [id number] Common 13:33:01 Winnie [facility] 2021-08-24 Outpatient [place], STLMLC STLMLC [id number] Common 14:25:22 Winnie 88437 [facility] 2021-08-24 Outpatient [place], STLMLC STLMLC [id number] Common 12:53:57 Winnie 68832 [facility] 2021-08-24 Outpatient [place], STLMLC STLMLC [id number] Common 12:22:21 Winnie 73789 [facility] 2021-08-24 Outpatient [place], STLMLC STLMLC [id number] Common 11:35:37 Winnie 92997 [facility] 2021-08-24 Outpatient [place], STLMLC STLMLC [id number] Common 11:17:39 Winnie 95944 [facility] 2021-08-24 Outpatient [place], STLMLC STLMLC [id number] Common 11:01:31 Winnie 45951 [facility] 2021-08-24 Outpatient [place], STLMLC STLMLC [id number] Common 11:00:26 Winnie 63104 [facility] 2021-08-24 Outpatient [place], STLMLC STLMLC [id number] Common 10:58:28 Winnie 16408 [facility] 2022-06-16 2022-06-16 OFFICE STLMLC STLMLC [id number] Co mmon 00:00:00 00:00:00 VISIT [facility] PT - CHI LEVEL 4 [facility] 2022-05-09 2022-05-09 (TEL) STLMLC STLMLC [id number] Co mmon 00:00:00 00:00:00 [facility] 2022-03-10 2022-03-10 OFFICE STLMLC STLMLC [id number] Co mmon 00:00:00 00:00:00 VISIT EST [facility] it PT LEVEL 3 - CHI [facility] 2022-03-10 2022-03-10 SUB ANNUAL STLMLC STLMLC [id number] Common 00:00:00 00:00:00 MCR [facility] VISIT [facility] 2022-01-25 2022-01-25 (TEL) STLMLC STLMLC [id number] Co mmon 00:00:00 00:00:00 [facility] 2022-01-22 2022-01-22 (TEL) STLMLC STLMLC [id number] Co mmon 00:00:00 00:00:00 [facility] 2022-01-03 2022-01-03 (TEL) STLMLC STLMLC [id number] Co mmon 00:00:00 00:00:00 [facility] 2021-12-14 2021-12-14 (TEL) STLMLC STLMLC [id number] Co mmon 00:00:00 00:00:00 [facility] 2021-12-14 2021-12-14 (TEL) STLMLC STLMLC [id number] Co mmon 00:00:00 00:00:00 [facility] 2021-12-06 2021-12-06 OFFICE STLMLC STLMLC [id number] Co mmon 00:00:00 00:00:00 VISIT [facility] PT - CHI LEVEL 4 [facility] 2021-11-30 2021-11-30 (TEL) STLMLC STLMLC [id number] Co mmon 00:00:00 00:00:00 [facility] 2021-11-02 2021-11-02 (TEL) STLMLC STLMLC [id number] Co mmon 00:00:00 00:00:00 [facility] 2021-09-08 2021-09-08 (TEL) STLMLC STLMLC [id number] Co mmon 00:00:00 00:00:00 [facility] 2021-07-11 2021-07-11 OFFICE STLMLC STLMLC [id number] Co mmon 00:00:00 00:00:00 VISIT [facility] PT - CHI LEVEL 4 [facility] 2021-06-22 2021-06-22 Outpatient JESSI RAINES [id number] [place] 04:57:00 04:57:00 HN [id number] [facility] 2021-06-10 2021-06-10 (TEL) STLMLC STLMLC [id number] Co mmon 00:00:00 00:00:00 [facility] 2021-04-13 2021-04-13 OFFICE STLMLC STLMLC [id number] Co mmon 00:00:00 00:00:00 VISIT EST Spir it PT LEVEL 3 [facility] 2021-04-11 2021-04-11 (TEL) STLMLC STLMLC [id number] Co mmon 00:00:00 00:00:00 [facility] 2021-04-05 2021-04-05 (TEL) STLMLC STLMLC [id number] Co mmon 00:00:00 00:00:00 [facility] 2021-03-24 2021-03-24 (TEL) STLMLC STLMLC [id number] Co mmon 00:00:00 00:00:00 [facility] 2021-03-24 2021-03-24 (TEL) STLMLC STLMLC [id number] Co mmon 00:00:00 00:00:00 [facility] 2021-03-07 2021-03-07 (TEL) STLMLC STLMLC [id number] Co mmon 00:00:00 00:00:00 [facility] 2021-01-07 2021-01-07 Outpatient J Luis ARAUZ [facility] [id number] Univers 14:00:00 14:00:00 JESSICA ferrara [facility] 2021-01-07 2021-01-07 Harp Regulator Linda, Adc [facility] [id number] Univers 12:44:37 12:59:37 Visit Jessica Arauz 350.1.1 3.10 [facility] [id number] [id number] Ne dical [facility] 2021-01-07 2021-01-07 Orders Doctor JACQUIE [id number] Univers 00:00:00 00:00:00 Only Unassigned, SALVADOR [id number] [facility] [id number] Albert as [phone] [address] 2021-01-05 2021-01-05 Outpatient STLMLC STLMLC [id number] Common 00:00:00 00:00:00 [facility] 2020-12-08 2020-12-08 Outpatient STLMLC STLMLC [id number] Common 00:00:00 00:00:00 [facility] 2020-11-18 2020-11-18 Outpatient STLMLC STLMLC [id number] Common 00:00:00 00:00:00 [facility] 2020-11-15 2020-11-15 Outpatient STLMLC STLMLC [id number] Common 00:00:00 00:00:00 [facility] 2020-10-06 2020-10-06 Outpatient STLMLC STLMLC [id number] Common 00:00:00 00:00:00 [facility] 2020-09-29 2020-09-29 Outpatient STLMLC STLMLC [id number] Common 00:00:00 00:00:00 [facility] 2020-09-29 2020-09-29 Outpatient STLMLC STLMLC [id number] Common 00:00:00 00:00:00 [facility] 2020-08-17 2020-08-17 Outpatient STLMLC STLMLC [id number] Common 00:00:00 00:00:00 [facility] 2020-07-01 2020-07-01 Outpatient STLMLC STLMLC [id number] Common 00:00:00 00:00:00 [facility] 2020-06-04 2020-06-04 [facility] [id number] Univers 11:01:00 12:17:00 Elvis Rascon [id number] i ty of [place] [id number] [facility] [id number] [address] 2020-06-04 2020-06-04 [facility] [id number] 11:01:00 12:17:00 Elvis Rascon [id number] [place] [id number] [place] [address] [id number] [facility] 2020-06-04 2020-06-04 Emergency X [facility] ERT [id number] Univers 11:01:00 11:01:00 ELVIS ferrara [facility] 2020-05-12 2020-05-12 Outpatient STLMLC STLMLC [id number] Common 00:00:00 00:00:00 [facility] 2020-03-16 2020-03-16 [facility] [id number] Common 14:33:00 14:33:[address] [facility] 2020-03-10 2020-03-10 [facility] [id number] Common 17:01:00 17:01:[address] [facility] 2020-02-10 2020-02-10 [facility] [id number] Common 10:40:00 10:40:[address] [facility] 2019-11-11 2019-11-11 [facility] [id number] Common 10:40:00 10:40:[address] [facility] 2019-08-12 2019-08-12 [facility] [id number] Common 13:00:00 13:00:[address] [facility] 2019-07-01 2019-07-01 [facility] [id number] Common 10:00:00 10:00:[address] [facility] 2019-06-17 2019-06-17 [facility] [id number] Common 14:40:00 14:40:[address] [facility] 2019-06-13 2019-06-13 [facility] [id number] Common 15:24:00 15:24:[address] [facility] 2019-05-29 2019-05-29 [facility] [id number] Common 10:00:00 10:00:[address] [facility] 2019-05-22 2019-05-22 [facility] [id number] Common 13:45:00 13:45:[address] [facility] 2019-03-20 2019-03-20 Outpatient Pelon Foote [id number] Common 10:00:00 10:00:[address] [facility] Results Test Description Test Time Test Comments Results Result Comments Source HEMOGLOBIN A1C 2021-12-06 00:00:00 Test Item Value Reference Range Interpretation Comme nts A1C (test code = 4548-4) 6.6 HEMOGLOBIN [id number] 00:00:00 Test Item Value Reference Range Interpretation Comments A1C (test code = 4548-4) 7.0 HEMOGLOBIN [id number] 00:00:00 Test Item Value Reference Range Interpretation Comments A1C (test code = 4548-4) 7.4 XR ELBOW >3 VW [id number] 17:55:25 No acute bony abnormality is present. EXAM: XR SHOULDER <2 VW LEFT, EXAM: XR FOREARM 2 VW LEFT, EXAM: XR ELBOW >3 VW LEFT HISTORY: pain COMPARISON: None FINDINGS: Imaging of the shoulder, forearm and elbow demonstrates maintenance ofalignment. Joint spaces are preserved. A remote triquetral fracture causescortical irregularity over the dorsal proximal carpus.Osteopenia ispresent. [facility], [employer] [facility] 06/04/2020 11:56 AM CSTEXAM:XR SHOULDER <2 VW LEFT,EXAM:XR FOREARM 2 VW LEFT,EXAM:XR ELBOW >3 VW LEFTHISTORY:pain COMPARISON:NoneFINDINGS: Imaging of the shoulder, forearm andelbow demonstrates maintenance ofalignment. Joint spaces are preserved. A remote triquetral fracturecausescortical irregularity over the dorsal proximal carpus.Osteopenia ispresent.IMPRESSIONNo acute bony abnormality is present.[facility] 2020-06-04 17:55:25 No acute bony abnormality is present. EXAM: XR SHOULDER <2 VW LEFT, EXAM: XR FOREARM 2 VW LEFT, EXAM: XR ELBOW >3 VW LEFT HISTORY: pain COMPARISON: None FINDINGS: Imaging of the shoulder, forearm and elbow demonstrates maintenance ofalignment. Joint spaces are preserved. A remote triquetral fracture causescortical irregularity over the dorsal proximal carpus.Osteopenia ispresent. [facility], [employer] [facility] User - 06/04/2020 11:56 AM CSTEXAM:XR SHOULDER <2 VW LEFT,EXAM:XR FOREARM 2 VW LEFT,EXAM:XR ELBOW >3 VW LEFTHISTORY:pain COMPARISON:NoneFINDINGS: Imaging of the shoulder, forearm andelbow demonstrates maintenance ofalignment. Joint spaces are preserved. A remote triquetral fracturecausescortical irregularity over the dorsal proximal carpus.Osteopenia ispresent.IMPRESSIONNo acute bony abnormality is present.[facility] <2 VW [id number] 17:55:25 No acute bony abnormality is present. EXAM: XR SHOULDER <2 VW LEFT, EXAM: XR FOREARM 2 VW LEFT, EXAM: XR ELBOW >3 VW LEFT HISTORY: pain COMPARISON: None FINDINGS: Imaging of the shoulder, forearm and elbow demonstrates maintenance ofalignment. Joint spaces are preserved. A remote triquetral fracture causescortical irregularity over the dorsal proximal carpus.Osteopenia ispresent. [facility] - 06/04/2020 11:56 AM CSTEXAM:XR SHOULDER <2 VW LEFT,EXAM:XR FOREARM 2 VW LEFT,EXAM:XR ELBOW >3 VW LEFTHISTORY:pain COMPARISON:NoneFINDINGS: Imaging of the shoulder, forearm andelbow demonstrates maintenance ofalignment. Joint spaces are preserved. A remote triquetral fracturecausescortical irregularity over the dorsal proximal carpus.Osteopenia ispresent.IMPRESSIONNo acute bony abnormality is present.[facility] Hospital[facility]-[id number] 22:42:00 Test Item Value Reference Range Interpretation Comments NT ProBnp (test SEE COMMENT pg/mL 0-124 N PBNP=5. 00 code = PBNP) <Test..../OG Lipid [id number] 22:40:00 Test Item Value Reference Range Interpretation Comments Cholesterol (test 124 mg/dL 0-200 N code = CHOL) Triglycerides (test 100 mg/dL 9-200 N code = TRIG) HDL (test code = 46 mg/dL 50-60 L HDL) Chol/HDL (test code 2.7 Ratio 0.0-4.4 N = CHOLPHDL) LDL, Calculated 58 mg/dL 0-130 N (NOTE)RISK O F HEART (test code = LDLC) DISEASEPu blished by [place] Heart AssociationAnal yte Optimal Boderli ne Increased RiskC HOL <200 200-239 >240TRI G <150 150-199 >200HDL Male: >60 <40HDL Fema le: >60 <50LDL <100 130 -159 >160LDL NEAR OP TIMAL IS 100-129 VLDL (test code = 20 mg/dL 5-40 N VLDL) LDL/HDL (test code = 1 LDLPHDL) Comprehensive Metabolic [id number] 22:40:00 Test Item Value Reference Range Interpretation [...] validated by th e MDRD study and cirilo d be interpretedwith caution.eGFR Re sult Interpretation: eGFR > or = 60 is in t he Normal RangeeGF R < 60 may mean kidney diseaseeGFR < 1 5 may mean kidney failureRange s recommended by the National Kidney Foundation,http ://nkd ep.nih.gov Glycosylated [id number] 22:38:00 Test Item Value Reference Range Interpretation Comments HBA1c (test code = HBA1C) 7.0 % 4.8-5.9 H CBC with [id number] 22:17:00 Test Item Value Reference Range Interpretation [...] code = ALYMPH) 3.2 K/cumm 0.5-4.6 N Wilbarger Abs (test code = AMONO) 0.4 K/cumm 0.0-1.2 N Eos Abs (test code = AEOS) 0.22 K/cumm 0.00-0.74 N Baso Abs (test code = ABASO) 0.1 K/cumm 0.00-0.21 N
--- NOTE | 2022-11-21 14:46 | RAD REPORT ---
EXAM DESCRIPTION: CT - Ct Stroke Brain Wo Cont - 11/21/2022 2:34 pm CLINICAL HISTORY: STROKE ALERT Headache, drowsiness, CVA symptomology COMPARISON: Ct Stroke Brain Wo Cont dated 04/03/2016; Head Brain Wo Cont dated 10/27/2015 TECHNIQUE: All CT scans are performed using dose optimization technique as appropriate and may inclu de automated exposure control or mA/KV adjustment according to patient size. FINDINGS: No intracranial hemorrhage, hydrocephalus or extra-axial fluid collection.No areas of brai n edema or evidence of midline shift. The paranasal sinuses and mastoids are clear. The calvarium is intact. IMPRESSION: No acute intracranial abnormality. If there is continued clinical concern for CVA, MR imaging of the brain would be recommended. The findings were discussed with Dr. Enriquez in the ER On 11/21/2022 at 2:35 p.m. by telephone.
--- NOTE | 2022-11-21 15:10 | RAD REPORT ---
EXAM DESCRIPTION: CT - Head angio - 11/21/2022 3:00 pm CLINICAL HISTORY: STROKE ALERT CVA symptomology COMPARISON: <Comparisons> TECHNIQUE: CT angiography of the head was performed with MIPs. All CT scans are performed using dose optimization technique as appropriate and may include automated exposure control or mA/KV adjustment according to patient size. FINDINGS: No evidence of large vessel occlusion. No evidence of aneurysm is detected. No flow-limiti ng stenosis or vascular malformation identified. Antegrade flow is seen in the vertebral arteries. The vertebral arteries are codominant. The visualized dural venous sinuses are patent. IMPRESSION: No significant flow abnormality is detected.
[2022-11-21 15:12] LABS: Absolute Lymphocytes (CBC) 3.1 K/uL (0.7-4.9); Hematocrit 38.4 % (36.0-45.0); Lymphocytes % 36.6 % (15.3-44.8); MCV 91.1 fL (80-100); MPV 7.9 fL (7.6-11.3); RBC Red Blood Cell Count 4.22 M/uL (3.86-4.86)
[2022-11-21 15:20] LABS: Protime INR 0.96
--- NOTE | 2022-11-21 15:20 | RAD REPORT ---
EXAM DESCRIPTION: CT - Neck Angio - 11/21/2022 3:00 pm CLINICAL HISTORY: stroke alert Headache, CVA symptomology COMPARISON: <Comparisons> TECHNIQUE: CT angiography of the neck vessels was performed with MIPs. All CT scans are performed using dose optimization technique as appropriate and may include automated exposure control or mA/KV adjustment according to patient size. FINDINGS: A left aortic arch is identified with normal three vessel configuration of the great vesse ls. No significant flow abnormality is seen of the common carotid bilaterally. There is moderate hard plaque left carotid bulb resulting in moderate stenosis estimated at 50-70% ba sed on NASCET criteria. There is mild soft plaque seen right carotid bulb. No visible flow is seen in both proximal aspects of the vertebral arteries. The mid and distal portio ns of both vertebral arteries are seen and appear normal. IMPRESSION: Nonvisualization of either proximal vertebral artery. It is unclear the etiology and cli nical significance of this finding, given that the mid and distal vertebral arteries appear normal an d patent. Moderate hard plaque left carotid bulb resulting in 50-70% stenosis.
[2022-11-21 15:35] LABS: Albumin 3.8 g/dL (3.4-5.0); Bilirubin Direct 0.1 mg/dL (0-0.2); Bilirubin Total 0.5 mg/dL (0.2-1.0); Magnesium 2.3 mg/dL (1.6-2.4); Potassium 4.2 mEq/L (3.5-5.1); Protein, Total 7.8 g/dL (6.4-8.2); Troponin High Sensitivity 3.6 pg/mL (<58.9)
--- NOTE | 2022-11-21 16:09 | ER ---
Nurse's Notes [facility] Name: Christa Sparks Age: 67 yrs Sex: Female : 1955 Arrival Date: 11/21/2022 Time: 13:44 Bed 14 Private MD: Diagnosis: Acute ischemic stroke;Hypertensive urgency Presentation: 11/21 14:20 Chief complaint: Patient states: right sided neck pain that started approx one week ap3 ago, but that it got worse last night. patient also complains of right sided tingling and numbness that started at approx 10pm last night. Patient reports a hx of multiple strokes with right sided deficits. Coronavirus screen: At this time, the client does not indicate any symptoms associated with coronavirus-19. Ebola Screen: No symptoms or risks identified at this time. Initial Sepsis Screen: Does the patient meet any 2 criteria?. Risk Assessment: Do you want to hurt yourself or someone else? Patient reports no desire to harm self or others. Onset of symptoms was November 20, 2022 at 22:00. 14:20 Method Of Arrival: Wheelchair ap3 14:26 Acuity: NICK 2 ap3 20:13 Initial Sepsis Screen: Does the patient have a suspected source of infection? No. vc1 Patient's initial sepsis screen is negative. Historical: - Allergies: 14:25 tramadol; ap3 14:25 Toradol; ap3 - PMHx: 14:25 Anxiety; CHF; CVA; Diabetes - IDDM; High Cholesterol; Hypertension; ap3 - Immunization history:: Client reports receiving the 2nd dose of the Covid vaccine. - Social history:: Smoking status: Patient reports the use of cigarette tobacco products, denies chronic smoking, but will smoke occasionally. Screenin:09 [facility] ED Fall Risk Assessment (Adult) History of falling in the last 3 months, kc6 including since admission No falls in past 3 months (0 pts) Confusion or Disorientation No (0 pts) Intoxicated or Sedated No (0 pts) Impaired Gait No (0 pts) Mobility Assist Device Used No (0 pt) Altered Elimination No (0 pt) Score/Fall Risk Level 0 - 2 = Low Risk Oriented to surroundings, Maintained a safe environment, Educated pt \T\ family on fall prevention, incl call for assistance when getting out of bed, Assessed \T\ reinforced patient's understanding of fall precautions, Hourly rounding (assess needs \T\ fall precautionary measures) done. Abuse screen: Denies threats or abuse. Denies injuries from another. Nutritional screening: No deficits noted. Tuberculosis screening: No symptoms or risk factors identified. Assessment: 15:09 General: Appears in no apparent distress. comfortable, Behavior is calm, cooperative, kc6 appropriate for age. Pain: Complains of pain in right arm, neck Pain does not radiate. Pain currently is 10 out of 10 on a pain scale. Quality of pain is described as numb, Pain began 1 day ago. Is continuous, Alleviated by nothing. Aggravated by increased activity, repositioning, Noted to be resistant to movement, Also complains of no other associated symptoms. 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 Weakness in right hand(s) arm(s) leg(s) foot/feet Gait is unsteady, Speech is normal, Facial symmetry appears normal, Pupils are PERRLA, Reports dizziness. Cardiovascular: Heart tones S1 S2 present Capillary refill < 3 seconds. Respiratory: Airway is patent Trachea midline Respiratory effort is even, unlabored, Respiratory pattern is regular, symmetrical, Breath sounds are clear bilaterally. GI: No signs and/or symptoms were reported involving the gastrointestinal system. : No signs and/or symptoms were reported regarding the genitourinary system. EENT: No signs and/or symptoms were reported regarding the EENT system. Derm: No signs and/or symptoms reported regarding the dermatologic system. Skin is intact, Skin is pink, warm \T\ dry. Musculoskeletal: No signs and/or symptoms reported regarding the musculoskeletal system. Circulation, motion, and sensation intact. Capillary refill < 3 seconds, Range of motion: intact in all extremities. 16:09 Reassessment: Patient appears in no apparent distress at this time. No changes from kc6 previously documented assessment. Patient and/or family updated on plan of care and expected duration. Pain level reassessed. Patient is alert, oriented x 3, equal unlabored respirations, skin warm/dry/pink. 17:09 Reassessment: Patient appears in no apparent distress at this time. No changes from kc6 previously documented assessment. Patient and/or family updated on plan of care and expected duration. Pain level reassessed. Patient is alert, oriented x 3, equal unlabored respirations, skin warm/dry/pink. 18:05 Reassessment: pt appears to be weak on the right side when ambulating to the bathroom. kc6 pt reports dizziness and continued neck pain. pt is alert and oriented but appears to have a foggy memory. MEHNAZ Gabriel notified. order received for MRI. 18:09 Reassessment: Patient appears in no apparent distress at this time. No changes from kc6 previously documented assessment. Patient and/or family updated on plan of care and expected duration. Pain level reassessed. Patient is alert, oriented x 3, equal unlabored respirations, skin warm/dry/pink. Vital Signs: 14:26 BP 191 / 79; Pulse 79; Pulse Ox 98% ; Weight 75.75 kg; Pain 10/10; ap3 15:24 BP 179 / 79; Pulse 72; Resp 18 S; Pulse Ox 100% on R/A; Pain 10/10; kc6 16:40 BP 163 / 63; Pulse 82; Resp 14 S; Pulse Ox 99% on R/A; kc6 18:20 BP 168 / 63; Pulse 68; Resp 13 S; Pulse Ox 94% on R/A; kc6 14:26 Pain Scale: Adult ap3 15:24 Pain Scale: Adult kc6 NIH Stroke Scale Scores: 14:40 NIHSS Score: 6 [facility] ED Course: 13:47 Patient arrived in ED. rg4 14:04 [facility] jh7 14:04 Nicho Enriquez MD is Attending Physician. 7 14:26 Triage completed. ap3 14:27 Arm band placed on right wrist. ap3 14:35 CT Stroke Brain w/o Contrast In Process Unspecified. EDMS 15:[address] In Process Unspecified. EDMS 15:[address] In Process Unspecified. EDMS 15:04 CT completed. Patient tolerated procedure well. Note: 22g diffusics to lt ac and labs sj drawn by anju in ct and sent. Patient moved to CT Patient moved back from CT. 15:07 Gearldine Castro, ZBIGNIEW is Primary Nurse. kc6 15:09 Patient has correct armband on for positive identification. Placed in gown. Bed in low kc6 position. Call light in reach. Side rails up X2. Adult w/ patient. 16:00 Stroke CXR 1 View In Process Unspecified. EDMS 16:07 Daniel Enriquez MD is Hospitalizing Provider. [facility] 20:12 No provider procedures requiring assistance completed. Patient admitted, IV remains in vc1 place. Administered Medications: 16:16 Drug: hydrALAZINE IVP 10 mg Route: IVP; Site: left antecubital; kc6 16:42 Follow up: Response: No adverse reaction; Blood pressure is lowered kc6 16:16 Drug: morphine IVP or IV 4 mg Route: IVP; Infused Over: 4 mins; Site: left antecubital; kc6 16:42 Follow up: Response: No adverse reaction; Pain is decreased; RASS: Alert and Calm (0) kc6 16:16 Drug: Ondansetron IVP 4 mg Route: IVP; Site: left antecubital; kc6 16:42 Follow up: Response: No adverse reaction [facility] Medication: 20:13 VIS not applicable for this client. [facility] Outcome: 16:08 Decision to Hospitalize by Provider. [facility] 20:12 Admitted to Med/surg accompanied by tech, via wheelchair, room 220, Report called to 1 ZBIGNIEW C[place] 20:12 Condition: good 20:12 Instructed on the need for admit. 20:13 Patient left the ED. [facility] NIH Stroke Scale - NIH Stroke Score Date: 11/21/2022 Time: 14:40 Total Score = 6 10. Dysarthria (speech clarity - read or repeat words) - 0(Normal) 11. Extinction and Inattention (visual/tactile/auditory/spatial/personal) - 1(Present) 1a. Level of Consciousness (LOC) - 0(Alert) 1b. Level of Consciousness (LOC) (Month \T\ Age) - 0(Both) 1c. LOC Commands (Open \T\ Closes Eyes/Stores Naval) - 0(Both) 2. Best Gaze (Lateral Gaze Paresis) - 0(Normal) 3. Visual Field Loss - 0(No visual loss) 4. Facial Palsy - 0(Normal) 5a. Left Arm: Motor (10-second hold) - 0(No drift) 5b. Right Arm: Motor (10-second hold) - 1(Drift) 6a. Left Leg: Motor (5-second hold - always test supine) - 0(No drift) 6b. Right Leg: Motor (5-second hold - always test supine) - 1(Drift) 7. Limb Ataxia (finger/nose \T\ heel/kirk - test with eyes open) - 2(Present in two limbs) 8. Sensory Loss (pinprick arms/legs/face) - 1(Mild to moderate loss) 9. Best Language: Aphasia (description/naming/reading) - 0(No aphasia) Initials: 7 Signatures: Dispatcher [employer] Anju Pierce Rubi rg4 Fani Arias RN RN ap3 Manuela George RN RN 1 Nery Jiang, VICE PRESIDENT OF INSTRUCTION VICE PRESIDENT OF INSTRUCTION 7 Geraldine Castro, RN RN kc6 Corrections: (The following items were deleted from the chart) 14:26 14:25 Allergies: NKA; ap3 ap3
--- NOTE | 2022-11-21 16:09 | EDPHYS ---
Physician Documentation [facility] Name: Christa Sparks Age: 67 yrs Sex: Female : 1955 Arrival Date: 11/21/2022 Time: 13:44 Bed 14 Private MD: ED Physician Nicho Enriquez HPI: 11/21 14:25 This 67 yrs old Female presents to ER via Wheelchair with complaints of Neck jh7 Pain, <24hrs Old, Numbness. 14:25 67-year-old female reports right-sided neck pain for the past 3 to 4 days. She states jh7 that last night at 10 PM her right arm and leg became increasingly numb with tingling. She also reports increased weakness of her right arm and left leg. She has a history of 2 strokes in 2005 and states that although she does have right-sided deficits, her weakness has increased. History of hypertension and diabetes. Reports that her blood sugar has been fluctuating lately and was 50 earlier today.. Historical: - Allergies: 14:25 tramadol; ap3 14:25 Toradol; ap3 - PMHx: 14:25 Anxiety; CHF; CVA; Diabetes - IDDM; High Cholesterol; Hypertension; ap3 - Immunization history:: Client reports receiving the 2nd dose of the Covid vaccine. - Social history:: Smoking status: Patient reports the use of cigarette tobacco products, denies chronic smoking, but will smoke occasionally. ROS: 14:25 Neck: Positive for pain with movement, stiffness. jh7 14:25 Neuro: Positive for dizziness, gait disturbance, numbness, tingling, weakness, Negative for altered mental status, headache. 14:25 Constitutional: Negative for fever, chills, and weight loss, Eyes: Negative for injury, jh7 pain, redness, and discharge, ENT: Negative for injury, pain, and discharge, Cardiovascular: Negative for chest pain, palpitations, and edema, Respiratory: Negative for shortness of breath, cough, wheezing, and pleuritic chest pain, Abdomen/GI: Negative for abdominal pain, nausea, vomiting, diarrhea, and constipation, Back: Negative for injury and pain, MS/Extremity: Negative for injury and deformity, Skin: Negative for injury, rash, and discoloration. 14:25 All other systems are negative. Exam: 14:25 Head/Face: Normocephalic, atraumatic. Eyes: Pupils equal round and reactive to light, jh7 extra-ocular motions intact. Lids and lashes normal. Conjunctiva and sclera are non-icteric and not injected. Cornea within normal limits. Periorbital areas with no swelling, redness, or edema. Neck: Trachea midline, no thyromegaly or masses palpated, and no cervical lymphadenopathy. Supple, full range of motion without nuchal rigidity, or vertebral point tenderness. No Meningismus. Pain with lateral flexion to the L. Cardiovascular: Regular rate and rhythm with a normal S1 and S2. No gallops, murmurs, or rubs. Normal PMI, no JVD. No pulse deficits. Respiratory: Lungs have equal breath sounds bilaterally, clear to auscultation and percussion. No rales, rhonchi or wheezes noted. No increased work of breathing, no retractions or nasal flaring. Abdomen/GI: Soft, non-tender, with normal bowel sounds. No distension or tympany. No guarding or rebound. No evidence of tenderness throughout. Back: No spinal tenderness. No costovertebral tenderness. Full range of motion. Skin: Warm, dry with normal turgor. Normal color with no rashes, no lesions, and no evidence of cellulitis. 14:25 Constitutional: The patient appears alert, awake, uncomfortable. 14:25 Musculoskeletal/extremity: Circulation is intact in all extremities. the right arm and right leg Tingling of extremity. numbness. 14:25 Neuro: Orientation: is normal, Mentation: is normal, Memory: is normal, Cranial nerves: CN I not tested, CN II- XII are normal as tested, Cerebellar function: dysmetria is noted on the right, the patient is unable to track right heel to left kirk, Motor: strength is 4/5 in the right arm and right leg, Sensation: numbness, that is mild, of the right arm and right leg, Gait: is unsteady. Vital Signs: 14:26 BP 191 / 79; Pulse 79; Pulse Ox 98% ; Weight 75.75 kg; Pain 10/10; ap3 15:24 BP 179 / 79; Pulse 72; Resp 18 S; Pulse Ox 100% on R/A; Pain 10/10; kc6 16:40 BP 163 / 63; Pulse 82; Resp 14 S; Pulse Ox 99% on R/A; 6 18:20 BP 168 / 63; Pulse 68; Resp 13 S; Pulse Ox 94% on R/A; kc6 14:26 Pain Scale: Adult ap3 15:24 Pain Scale: Adult kc6 NIH Stroke Scale Scores: 14:40 NIHSS Score: 6 [facility] MDM: 14:04 Patient medically screened. [facility] 16:45 Differential diagnosis: Cervical Disc Herniation Cervical Raiculopathy Spinal Cord [facility] Compression Acute CVA. Data reviewed: vital signs, nurses notes, lab test result(s), EKG, radiologic studies, CT scan, plain films. Consideration of Admission/Observation Patient was admitted/placed on observation. 16:45 Management of patient was discussed with the following: Building Energy Consultant: Dr. Davis, [facility] neurology. Relayed patient presentation, imaging results, and lab work to Dr. Davis. He advised inpatient admission and treatment with aspirin, Plavix, folic acid, and a statin.. I considered the following discharge prescriptions or medication management in the emergency department Medications were administered in the Emergency Department. See MAR. Independent interpretation of the following test(s) in the Emergency Department EKG: See my EKG interpretation above X-Ray: My interpretation is no acute findings. Care significantly affected by the following chronic conditions: Diabetes, Hypertension, stroke x 2. Counseling: I had a detailed discussion with the patient and/or guardian regarding: the historical points, exam findings, and any diagnostic results supporting the discharge/admit diagnosis, the need for further work-up and treatment in the hospital. 11/21 14:28 Order name: Basic Metabolic Panel; Complete Time: 15:36 [facility] 11/21 14:28 Order name: CBC with Diff; Complete Time: 15:36 [facility] 11/21 14:28 Order name: Hepatic Function; Complete Time: 15:36 [facility] 11/21 14:28 Order name: High Sensitivity Troponin; Complete Time: 15:36 [facility] 11/21 14:28 Order name: Magnesium; Complete Time: 15:36 [facility] 11/21 14:28 Order name: Protime (+inr); Complete Time: 15:36 [facility] 11/21 14:28 Order name: Ptt, Activated; Complete Time: 15:36 [facility] 11/21 15:20 Order name: CREATININE WHOLE BLOOD; Complete Time: 15:36 [facility] 11/21 19:58 Order name: Phosphorus [facility] 11/21 19:58 Order name: T4 Free [facility] 11/21 19:58 Order name: Magnesium [facility] 11/21 19:58 Order name: Thyroid Stimulating Hormone [facility] 11/21 14:28 Order name: CT Stroke Brain w/o Contrast; Complete Time: 15:02 [facility] 11/21 14:28 Order name: Stroke CXR 1 View; Complete Time: 16:36 [facility] 11/21 14:35 Order name: Head Angio CT; Complete Time: 15:36 [facility] 11/21 14:35 Order name: Neck Angio CT; Complete Time: 15:36 [facility] 11/21 18:15 Order name: MRI Stroke Protocol [facility] 11/21 14:28 Order name: EKG; Complete Time: 14:29 [facility] 11/21 14:28 Order name: Accucheck; Complete Time: 15:21 [facility] 11/21 14:28 Order name: Cardiac monitoring; Complete Time: 15:21 [facility] 11/21 14:28 Order name: EKG - Nurse/Tech; Complete Time: 15:21 [facility] 11/21 14:28 Order name: IV Saline Lock; Complete Time: 15:07 [facility] 11/21 14:28 Order name: Labs collected and sent; Complete Time: 15:07 [facility] 11/21 14:28 Order name: NPO; Complete Time: 15:07 [facility] 11/21 14:28 Order name: O2 Per Protocol; Complete Time: 15:07 [facility] 11/21 14:28 Order name: O2 Sat Monitoring; Complete Time: 15:07 [facility] 11/21 14:28 Order name: Stroke Swallow Screen; Complete Time: 15:21 [facility] EC:25 Rate is 70 beats/min. Rhythm is regular. QRS [place] is Normal. [place] interval is normal at 7 152 msec. QRS interval is normal at 94 msec. QT interval is normal at 394 msec. No Q waves. T waves are Inverted in leads aVR, V1. Clinical impression: NSR w/ Non-specific ST/T Changes. Administered Medications: 16:16 Drug: hydrALAZINE IVP 10 mg Route: IVP; Site: left antecubital; [facility] 16:42 Follow up: Response: No adverse reaction; Blood pressure is lowered [facility] 16:16 Drug: morphine IVP or IV 4 mg Route: IVP; Infused Over: 4 mins; Site: left antecubital; kc6 16:42 Follow up: Response: No adverse reaction; Pain is decreased; RASS: Alert and Calm (0) [facility] 16:16 Drug: Ondansetron IVP 4 mg Route: IVP; Site: left antecubital; kc6 16:42 Follow up: Response: No adverse reaction [facility] Disposition: 11/22 17:15 Co-signature as Attending Physician, Nicho Enriquez MD I reviewed the patient's care rn provided by the Advanced Practice Provider and agree with the diagnosis and treatment plan. Disposition Summary: 11/21/22 16:08 Hospitalization Ordered Hospitalization Status: Inpatient Admission [facility] Provider: Daniel Enriquez Kristel Location: Telemetry/MedSurg (Inpatient) [facility] Condition: Fair [facility] Problem: chronic [facility] Symptoms: have worsened [facility] Bed/Room Type: Standard [facility] Room Assignment: 220(11/21/22 19:17) eb1 Diagnosis - Acute ischemic stroke [facility] - Hypertensive urgency [facility] Forms: - Medication Reconciliation Form [facility] - SBAR form [facility] NIH Stroke Scale - NIH Stroke Score Date: 11/21/2022 Time: 14:40 Total Score = 6 10. Dysarthria (speech clarity - read or repeat words) - 0(Normal) 11. Extinction and Inattention (visual/tactile/auditory/spatial/personal) - 1(Present) 1a. Level of Consciousness (LOC) - 0(Alert) 1b. Level of Consciousness (LOC) (Month \T\ Age) - 0(Both) 1c. LOC Commands (Open \T\ Closes Eyes/Jet Worker) - 0(Both) 2. Best Gaze (Lateral Gaze Paresis) - 0(Normal) 3. Visual Field Loss - 0(No visual loss) 4. Facial Palsy - 0(Normal) 5a. Left Arm: Motor (10-second hold) - 0(No drift) 5b. Right Arm: Motor (10-second hold) - 1(Drift) 6a. Left Leg: Motor (5-second hold - always test supine) - 0(No drift) 6b. Right Leg: Motor (5-second hold - always test supine) - 1(Drift) 7. Limb Ataxia (finger/nose \T\ heel/kirk - test with eyes open) - 2(Present in two limbs) 8. Sensory Loss (pinprick arms/legs/face) - 1(Mild to moderate loss) 9. Best Language: Aphasia (description/naming/reading) - 0(No aphasia) Initials: [facility] Signatures: Dispatcher [employer] EDMS Nicho Enriquez MD MD rn Prokisch, Amanda RN RN ap3 Jessica Rod RN RN eb1 Nery Jiang, SOFTWARE DEVELOPMENT ANALYST SOFTWARE DEVELOPMENT ANALYST [facility] Geraldine Castro RN RN kc6 Corrections: (The following items were deleted from the chart) 11/21 14:26 14:25 Allergies: NKA; ap3 ap3 18:46 14:25 Neuro: Positive for numbness, weakness, [place] [id number] 18:52 14:25 Head/Face: Normocephalic, atraumatic. Eyes: Pupils equal round and [facility] reactive to light, extra-ocular motions intact. Lids and lashes normal. Conjunctiva and sclera are non-icteric and not injected. Cornea within normal limits. Periorbital areas with no swelling, redness, or edema. Neck: Trachea midline, no thyromegaly or masses palpated, and no cervical lymphadenopathy. Supple, full range of motion without nuchal rigidity, or vertebral point tenderness. No Meningismus. Cardiovascular: Regular rate and rhythm with a normal S1 and S2. No gallops, murmurs, or rubs. Normal PMI, no JVD. No pulse deficits. Respiratory: Lungs have equal breath sounds bilaterally, clear to auscultation and percussion. No rales, rhonchi or wheezes noted. No increased work of breathing, no retractions or nasal flaring. Abdomen/GI: Soft, non-tender, with normal bowel sounds. No distension or tympany. No guarding or rebound. No evidence of tenderness throughout. Back: No spinal tenderness. No costovertebral tenderness. Full range of motion. Skin: Warm, dry with normal turgor. Normal color with no rashes, no lesions, and no evidence of cellulitis. [facility] 18:53 16:45 Consideration of Admission/Observation Patient was admitted/placed on [facility] observation. [facility] 19:17 16:08 [facility] eb1
[2022-11-21] MEDS ORDERED: HYDRALAZINE HCL 20 MG/ML VIAL ONE (16:12)
[2022-11-21] MEDS ORDERED: ONDANSETRON 4 MG/2 ML VIAL ONE (16:12)
[2022-11-21] MEDS ORDERED: MORPHINE 4 MG/ML SYR ONE (16:12)
--- NOTE | 2022-11-21 16:29 | RAD REPORT ---
EXAM DESCRIPTION: RAD - Chest Single View - 11/21/2022 3:58 pm CLINICAL HISTORY: MALAISE Chest pain. COMPARISON: <Comparisons> FINDINGS: Portable technique limits examination quality. The lungs are grossly clear. The heart is normal in size. No displaced fractures. IMPRESSION: No acute intrathoracic process suspected.
[2022-11-21] MEDS ORDERED: TRAMADOL HCL 50 MG TAB PO PRN (18:54)
[2022-11-21] MEDS ORDERED: ACETAMINOPHEN 325 MG TABLET PO PRN (18:54)
[2022-11-21] MEDS ORDERED: ONDANSETRON 4 MG/2 ML VIAL IV PRN (18:56)
[2022-11-21] MEDS ORDERED: GLUCAGON 1 MG/VIAL IM PRN (19:01)
[2022-11-21] MEDS ORDERED: D50W 25 GM/50 ML SYRINGE IV PRN (19:01)
--- NOTE | 2022-11-21 19:02 | P.HP ---
Certification for Inpatient Patient admitted to: Inpatient With expected LOS: >2 Midnights Patient will require the following post-hospital care: None Practitioner: I am a practitioner with admitting privileges, knowledge of patient current condition, hospital course, and medical plan of care. Services: Services provided to patient in accordance with Admission requirements found in Title 42 Section 412.3 of the Code of Federal Regulations Patient History Date of Service: 11/21/22 Reason for admission: Neck pain and right-sided numbness History of Present Illness: Patient is a 67-year-old female with a past medical history significant for anxiety disorder, CVA with right-sided weakness, DM 2, HLD, hypertension who presents with complaint of neck pain and right-sided numbness onset 4 days ago. Patient rated pain as 10/10 in severity and described pain as sharp in quality. Patient indicated that pain radiates to her right shoulder. Patient reported that she has right-sided weakness from previous stroke. Patient reports that right-sided weakness became worse yesterday with associated signs and symptoms of right-sided tingling. Patient reported that this morning she had episode of nausea and vomiting. Patient also reported hypoglycemia this morning. Patient reported associated signs and symptoms of headache. Patient denies any other signs and symptoms. Symptoms are aggravated or relieved by nothing. Patient decided to present to the hospital for medical evaluation. Allergies ketorolac [From Toradol] Allergy (Verified 11/21/22 21:01) Hives tramadol Allergy (Verified 11/21/22 21:01) Hives Home Medications: Amitriptyline HCl 75 mg PO BEDTIME 04/23/13 Clopidogrel Bisulfate [Plavix*] 75 mg PO DAILY 04/23/13 Insulin Detemir [Levemir*] 10 unit SQ BID 04/23/13 Lisinopril/Hydrochlorothiazide [Zestoretic 20-12.5 Tablet] 1 each PO DAILY 04/23/13 Metformin HCl [Glucophage*] 500 mg PO BIDWM 04/23/13 Simvastatin [Zocor*] 40 mg PO BEDTIME 04/23/13 Sitagliptin Phosphate [Januvia*] 50 mg PO DAILY 04/23/13 - Past Medical/Surgical History Diabetic: Yes -: htn -: cva -: hyperlipidemia -: insomnia -: left neck stent - Social History Smoking Status: Current every day smoker Counseled patient to stop smoking for: less than 10 minutes Smoking therapy provided: Yes Alcohol use: No CD- Drugs: No Caffeine use: Yes Place of Residence: Home Review of Systems General: Weakness Eyes: Unremarkable ENT: Unremarkable Respiratory: Unremarkable Cardiovascular: Unremarkable Gastrointestinal: Nausea, Vomiting Genitourinary: Unremarkable Musculoskeletal: Neck Pain, Shoulder Pain Integumentary: Unremarkable Neurological: Numbness, Other (Headache, right-sided tingling ) Lymphatics: Unremarkable Physical Examination - Physical Exam General: Alert, In no apparent distress, Oriented x3, Cooperative HEENT: Atraumatic, PERRLA, Mucous membr. moist/pink, EOMI, Sclerae nonicteric Neck: Supple, 2+ carotid pulse no bruit, No LAD, Without JVD or thyroid abnormality Respiratory: Clear to auscultation bilaterally, Normal air movement Cardiovascular: No edema, Regular rate/rhythm, Normal S1 S2 Capillary refill: <2 Seconds Gastrointestinal: Normal bowel sounds, Soft and benign, No tenderness Musculoskeletal: No clubbing, No swelling, No tenderness Integumentary: No rashes, No breakdown Neurological: Normal speech, Normal tone, Normal affect, Abnormal gait, Abnormal strength Lymphatics: No axilla or inguinal lymphadenopathy - Studies Laboratory Data (last 24 hrs) 11/21/22 15:00: PT 10.6, INR 0.96, APTT 34.1 11/21/22 15:00: WBC 8.60, Hgb 13.0, Hct 38.4, Plt Count 346 11/21/22 15:00: Sodium 137, Potassium 4.2, BUN 12, Creatinine 0.69, Glucose 131 H, Magnesium 2.3, Total Bilirubin 0.5, AST 13 L, ALT 23, Alkaline Phosphatase 77 Assessment and Plan - Plan -- Right-sided numbness\\paresthesia. Patient has a history of CVA with deficit of right-sided weakness. Patient reported increasing weakness in the right side. MRI brain, MRA head does not indicate any acute findings. CTA neck indicates "moderate hard plaque left carotid bulb resulting in 50-70% stenosis" however MRA neck indicates "No significant carotid stenosis identified" neurology consulted. Continue aspirin, folic acid and statin. Further management per neurologist. --History of CVA with right-sided weakness. Continue aspirin and statin --DM2. BS monitoring with sliding scale insulin. --Anxiety disorder. Continue home medication. --Hypertension. We will allow for permissive hypertension. We will continue to monitor blood pressure levels. Hydralazine as needed for SBP greater than 200 mmHg. We will await further recommendation from neurologist. --Hyperlipidemia. Continue statin. --Nausea and vomiting. Antiemetics on board. Continue supportive care. --Cervicalgia. Patient reports excruciating neck pain with radiation to the right shoulder. CT cervical spine pending for further evaluation. We will manage pain with current pain medication regimen. --Nicotine dependence. Patient counseled on tobacco cessation. Refuses nicotine patch --DVT prophylaxis with Lovenox subQ Discharge Plan: Home Plan to discharge in: Greater than 2 days - Advance Directives Does patient have a Living Will: No Does patient have a Durable POA for Healthcare: No - Code Status/Comfort Care Code Status Assessed: Yes Physician Review: Patient Assessed, Agree with Above Assessment and Plan Critical Care: No
[2022-11-21] MEDS ORDERED: D10W 125 ML IV PRN (19:06)
[2022-11-21 19:57] LABS: Magnesium 2.3 mg/dL (1.6-2.4); Thyroid Stimulating Hormone 2.11 uIU/mL (0.358-3.740)
--- NOTE | 2022-11-21 20:44 | RAD REPORT ---
EXAM DESCRIPTION: MRI - Brain W/Wo Cont - 11/21/2022 8:30 pm CLINICAL HISTORY: STROKE ALERT Headache, CVA symptomology COMPARISON: MRA Head Wo Cont dated 11/21/2022; Head angio dated 11/21/2022; Ct Stroke Brain Wo Cont da jessee 11/21/2022 TECHNIQUE: Multi-sequence, multiplanar MR imaging of the brain was performed with contrast. FINDINGS: No intracranial hemorrhage, hydrocephalus, or extra-axial fluid collection.Gliosis is seen medial right cerebellar hemisphere. No edema or shift of midline structures. No intracranial mass. D WI is negative for acute CVA. The midline structures are normally formed. Mastoid air cells and paranasal sinuses are clear. Post-contrast images show no abnormal enhancement to suggest tumor or infection. IMPRESSION: No acute process.
--- NOTE | 2022-11-21 20:46 | RAD REPORT ---
EXAM DESCRIPTION: MRI - MRA Head Wo Cont - 11/21/2022 8:30 pm CLINICAL HISTORY: STROKE ALERT CVA COMPARISON: <Comparisons> FINDINGS: 3D noncontrast [id number] MR angiography of the [place] of [place] was performed. No evidence of large vessel occlusion. No aneurysm, flow-limiting stenosis or vascular malformation i s seen. Forward flow seen in codominant vertebral arteries. The visualized dural venous sinuses appear patent. IMPRESSION: No significant flow abnormality of the [place] of [place] is identified.
--- NOTE | 2022-11-21 20:48 | RAD REPORT ---
EXAM DESCRIPTION: MRI - MRA Neck W/Wo Cont - 11/21/2022 8:30 pm CLINICAL HISTORY: STROKE ALERT COMPARISON: <Comparisons> FINDINGS: Contrast enhance 2D [id number] MR angiography of the neck vessels was performed. A left aortic arch is noted. Great vessel origin pattern is normal. Both common for reason subclavian arteries are patent bilaterally. Mild narrowing of both carotid bulbs is seen, greater on the left. Left carotid bulb focal narrowing estimated at 50% or less based on NASCET criteria. Antegrade flow is seen in vertebral arteries. IMPRESSION: No significant carotid stenosis identified.
[2022-11-21] MEDS: INSULIN -REGULAR HUMAN 50 UNIT/0.5 ML ML SQ SCH (21:00)
[2022-11-21] MEDS: HYDROCODONE/APAP 10/325 TAB PO PRN (22:49)
[2022-11-21] MEDS: ENOXAPARIN 40 MG/0.4 ML SQ SCH (22:49)
[2022-11-21] MEDS ORDERED: HYDRALAZINE HCL 20 MG/ML VIAL IV PRN (22:59)
[2022-11-22 00:14] VITALS: O2SAT 96; BMI 30.5
[2022-11-22 04:10] LABS: Absolute Lymphocytes (CBC) 4.4 K/uL (0.7-4.9); Hematocrit 34.8 % (36.0-45.0); Lymphocytes % 48.9 % (15.3-44.8); MCV 90.2 fL (80-100); MPV 7.9 fL (7.6-11.3); RBC Red Blood Cell Count 3.86 M/uL (3.86-4.86)
[2022-11-22 04:34] LABS: Potassium 4.1 mEq/L (3.5-5.1)
--- NOTE | 2022-11-22 07:14 | P.PN ---
Date of Service: 11/22/22 Subjective: neck pain persists and radiates towards right shoulder; worse at night complains of headache no nausea / vomiting today ROS: 10 point ROS as noted above, otherwise negative Physical Exam: GEN: Alert, oriented, NAD HEENT: Normal conjunctiva, sclera anicteric CV: Regular rate and rhythm, no edema Pulm: Nonlabored respirations on room air ABD: Soft, nontender, nondistended MSK: moderate tenderness of cervical spine on palpation Neuro: Abnormal gait, Abnormal strength, normal affect vitals reviewed Problem List: Right-sided numbness\\paresthesia History of CVA with right-sided weakness Cervicalgia DM2 Anxiety disorder Hypertension Hyperlipidemia Nausea / Vomiting Nicotine dependence Right-sided numbness\\paresthesia History of CVA with right-sided weakness Patient has a history of CVA with deficit of right-sided weakness. MRI brain, MRA head negative CTA neck indicates "moderate hard plaque left carotid bulb resulting in 50-70% stenosis" however MRA neck indicates "No significant carotid stenosis identified" neurology consulted Continue aspirin, folic acid and statin PT consult Cervicalgia Patient reports excruciating neck pain with radiation to the right shoulder. CT cervical spine 11/22 - Possible small right posterolateral disc herniation C6- 7 MRI pending Pain medication as needed DM2 continue sliding scale insulin Anxiety disorder Continue home medication Hypertension We will allow for permissive hypertension. Hydralazine as needed for SBP greater than 200 Hyperlipidemia Continue statin Nausea / Vomiting Continue antiemetics Nicotine dependence Patient counseled on tobacco cessation. Refuses nicotine patch VTE: Lovenox subQ Code: Full Dispo: Home ~2-3days
[2022-11-22] MEDS: INSULIN -REGULAR HUMAN 50 UNIT/0.5 ML ML SQ SCH ×3 (07:30→16:30)
[2022-11-22] MEDS: ENOXAPARIN 40 MG/0.4 ML SQ SCH (08:18)
--- NOTE | 2022-11-22 08:24 | RAD REPORT ---
EXAM DESCRIPTION: CT - C Spine Wo Con - 11/22/2022 8:01 am CLINICAL HISTORY: Radiculopathy/neck COMPARISON: None TECHNIQUE: Computed axial tomography of the cervical spine were obtained with sagittal and coronal r econstruction images generated and reviewed. All CT scans are performed using dose optimization technique as appropriate and may include automated exposure control or mA/KV adjustment according to patient size. FINDINGS: A cervical fracture is not seen. No dislocation. Slight anterior subluxation C3 on C4, C4 on C5 and C5 on C6. Slight posterior subluxation of C6 on C7 . All of this is likely chronic. Possible small right posterolateral disc herniation C6-7. Disc space narrowing. Osteophytes. Vacuum p henomena. Moderate narrowing right neural foramina IMPRESSION: A cervical fracture is not seen. Possible small right posterolateral disc herniation C6-7. This in combination with spondylosis result in moderate right foraminal stenosis If the patient continues have symptoms to suggest spinal cord/spinal canal/ neural foraminal patholog y then MRI would be recommended.
[2022-11-22] MEDS ORDERED: FOLIC ACID 1 MG in NA CHLORIDE 0.9% 50 ML IV SCH (09:00)
[2022-11-22] MEDS ORDERED: ASPIRIN 81 MG CHEWABLE TABLET PO SCH (09:00)
--- NOTE | 2022-11-22 13:50 | RAD REPORT ---
EXAM DESCRIPTION: MRI - C Spine Wo Cont - 11/22/2022 1:38 pm CLINICAL HISTORY: evaluate c-spine stenosis, right-sided radiculopathy COMPARISON: No comparisons TECHNIQUE: Sagittal T1-weighted, T2-weighted and T2-STIR sequences were obtained as well as axial T2 medic sequence obtained. FINDINGS: Cervical vertebral bodies are normal in height and alignment. No suspicious marrow edema o r marrow replacing process. Cerebellar tonsils and mid-line skull base show no suspicious finding. No significant finding at the C1 and C2 levels. C2-3 level: No significant findings. C3-4 level: Central disc protrusion contacts the ventral aspect of the cord resulting in mild central spinal stenosis. Also noted is trace anterolisthesis of C3 on C4. No significant neural foraminal na rrowing. C4-5 level: Mild posterior disc osteophyte complex without significant neural foraminal narrowing but mild central spinal stenosis. C5-6 level: Posterior disc osteophyte complex uncovertebral joint hypertrophy results in moderate rig ht and mild left neural foraminal narrowing and mild central spinal stenosis. C6-7 level: Posterior disc osteophyte complex with uncovertebral joint and facet hypertrophy that is eccentric to the right resulting in severe right and moderate left neural foraminal narrowing and mod erate central spinal stenosis. C7-T1 level: No significant findings. Cervical cord shows no focal narrowing, expansion or signal abnormality. IMPRESSION: Multilevel cervical spondylosis. The findings are most advanced at C6-7 where a combinat ion of factors results in moderate central spinal stenosis and severe right neural foraminal narrowin g which could explain a right-sided radiculopathy. Moderate right neural foraminal narrowing is also present at C5-6. Central spinal stenosis is mild at other levels.
[2022-11-22] MEDS: HYDROCODONE/APAP 10/325 TAB PO PRN (14:09)
[2022-11-22] MEDS ORDERED: GABAPENTIN 300 MG CAP PO ONE (14:30)
--- NOTE | 2022-11-22 16:47 | EKG ---
Test Date: 2022-11-21 Test Time: 15:17:44 Collections Rep: NAYLA MEASUREMENT RESULTS: Intervals: Rate: 70 NE: 152 QRSD: 94 QT: 394 QTc: 425 [place]: P: 35 NE: 152 QRS: 75 T: 54 INTERPRETIVE STATEMENTS: Normal sinus rhythm Normal ECG Compared to ECG 10/05/2019 19:30:02 No significant changes Electronically Signed On 11-22-22 16:46:26 CDT by Mati Tierney
--- NOTE | 2022-11-22 17:44 | P.DS ---
Admission Date: 11/21/22 Discharge Date: 11/22/22 Disposition: ROUTINE DISCHARGE Reason for Admission: Neck pain and right-sided numbness Consultations: Neurology - Dr. Davis Brief History of Present Illness: 67yo F, PMH: anxiety, CVA with right sided weakness, IDDM2, HTN, HLD Presented to ED due to neck pain and right-sided paresthesias. Patient rated pain as 10/10 in severity and described pain as sharp in quality. Patient indicated that pain radiates to her right shoulder. Patient reported that she has right-sided weakness from previous stroke. Patient reports that right-sided weakness became worse yesterday with associated signs and symptoms of right- sided tingling. Patient also reported hypoglycemia this morning. Patient reported associated signs and symptoms of headache. Patient denies any other signs and symptoms. Symptoms are aggravated or relieved by nothing. Patient decided to present to the hospital for medical evaluation. Hospital Course: Problem List: RUE paresthesias and radiculopathy secondary to moderate-severe right neural foraminal narrowing of c5-c7 History of CVA with right-sided weakness Cervicalgia IDDM2 Anxiety disorder Hypertension Hyperlipidemia Nicotine dependence Patient presented with complaints of neck pain and right-sided numbness onset 4 days prior to admission. MRI brain, MRA head were negative. CTA neck indicates "moderate hard plaque left carotid bulb resulting in 50-70% stenosis" however MRA neck indicated "No significant carotid stenosis identified". Cervical spine MRI & CT indicated possible small right posterolateral disc herniation C6-7. MRI c-spine: Multilevel cervical spondylosis. The findings are most advanced at C6-7 where a combination of factors results in moderate central spinal stenosis and severe right neural foraminal narrowing which could explain a right-sided radiculopathy. Moderate right neural foraminal narrowing is also present at C5- 6. Central spinal stenosis is mild at other levels. Neurology was consulted. Dr. Davis recommended increase in Gabapentin to 600mg BID and continue pain medication / follow up with pain clinic. Follow up with Neurology for further evaluation of nerve conduction studies, EMGs. Follow up with neurosurgery / spine for evaluation if any procedure can be done. Follow up: PCP within 3-5 days Neurology ~1month Physical Exam: GEN: Alert, oriented, NAD HEENT: Normal conjunctiva, sclera anicteric CV: Regular rate and rhythm, no edema Pulm: Nonlabored respirations on room air ABD: Soft, nontender, nondistended MSK: mild tenderness of cervical spine on palpation, +Spurling's maneuver on right Neuro: Abnormal gait, Abnormal strength, normal affect Vital Signs/Physical Exam: Temp Pulse Resp BP Pulse Ox 98.3 F 72 18 158/68 H 98 11/22/22 12:00 11/22/22 12:00 11/22/22 12:00 11/22/22 12:00 11/22/22 12:00 Laboratory Data at Discharge: WBC 9.00 thou/uL (4.3-10.9) 11/22/22 03:31 Hgb 11.8 g/dL (12.0-15.0) L D 11/22/22 03:31 Hct 34.8 % (36.0-45.0) L 11/22/22 03:31 Plt Count 309 thou/uL (152-406) 11/22/22 03:31 PT 10.6 SECONDS (9.5-12.5) 11/21/22 15:00 INR 0.96 11/21/22 15:00 APTT 34.1 SECONDS (24.3-36.9) 11/21/22 15:00 Sodium 139 mEq/L (136-145) 11/22/22 03:31 Potassium 4.1 mEq/L (3.5-5.1) 11/22/22 03:31 BUN 14 mg/dL (7-18) 11/22/22 03:31 Creatinine 0.64 mg/dL (0.55-1.02) 11/22/22 03:31 Glucose 83 mg/dL (74-106) 11/22/22 03:31 Phosphorus 4.0 mg/dL (2.5-4.9) 11/21/22 15:00 Magnesium 2.3 mg/dL (1.6-2.4) 11/21/22 15:00 Magnesium 2.3 mg/dL (1.6-2.4) 11/21/22 15:00 Total Bilirubin 0.5 mg/dL (0.2-1.0) 11/21/22 15:00 AST 13 U/L (15-37) L 11/21/22 15:00 ALT 23 U/L (13-56) 11/21/22 15:00 Alkaline Phosphatase 77 U/L (45-117) 11/21/22 15:00 Triglycerides 159 mg/dL (<150) H 11/22/22 03:31 Cholesterol 127 mg/dL (<200) 11/22/22 03:31 HDL Cholesterol 43 mg/dL (40-60) 11/22/22 03:31 Cholesterol/HDL Ratio 2.95 11/22/22 03:31 Home Medications: Clopidogrel Bisulfate [Plavix*] 75 mg PO DAILY 04/23/13 Lisinopril/Hydrochlorothiazide [Zestoretic 20-12.5 Tablet] 1 each PO DAILY 04/23/13 Metformin HCl [Glucophage*] 500 mg PO BIDWM 04/23/13 Simvastatin [Zocor*] 40 mg PO BEDTIME 04/23/13 Aspirin [Aspirin EC 81 MG] 81 mg PO DAILY 11/21/22 Hydrocodone 10/APAP 325 [[place] 10/325*] 1 tab PO BID 11/21/22 Insulin Degludec [Tresiba Flextouch U-100] 40 units SQ DAILY 11/21/22 Levothyroxine Sodium [Levothyroxine] 25 mcg PO DAILY 11/21/22 Gabapentin 600 mg PO BID #60 cap 11/22/22 New Medications: Gabapentin 600 mg PO BID #60 cap Physician Discharge Instructions: Patient presented with complaints of neck pain and right-sided numbness onset 4 days prior to admission. MRI brain, MRA head were negative. CTA neck indicates "moderate hard plaque left carotid bulb resulting in 50-70% stenosis" however MRA neck indicated "No significant carotid stenosis identified". Cervical spine MRI & CT indicated possible small right posterolateral disc herniation C6-7. MRI c-spine: Multilevel cervical spondylosis. The findings are most advanced at C6-7 where a combination of factors results in moderate central spinal stenosis and severe right neural foraminal narrowing which could explain a right-sided radiculopathy. Moderate right neural foraminal narrowing is also present at C5- 6. Central spinal stenosis is mild at other levels. Neurology was consulted. Dr. Davis recommended increase in Gabapentin to 600mg BID and continue pain medication / follow up with pain clinic. Follow up with Neurology for further evaluation of nerve conduction studies, EMGs. Follow up with neurosurgery / spine for evaluation if any procedure can be done. Follow up: PCP within 3-5 days Neurology ~1month Followup: NONE,NONE [Primary Care Provider] - Time spent managing pt's care (in minutes): 45
[2022-11-22 19:14] VITALS: BP 156/70; TEMP 97.8
--- NOTE | 2022-11-22 19:46 | CON ---
Reason For Consultation: Consultation called because of neck pain and right-sided numbness and weakn ess. History Of Present Illness: Ms. Sparks is a 67-year-old patient with diabetes mellitus, hypertens ion, dyslipidemia, and chronic cervical pain who comes to [facility] with progressive pain i n the neck radiating into the upper arm of several months' duration. The pain was rated 10 on a 10. She is seeing Dr. Wang, field applications specialist and was started on narcotics, but the patient said that the pain has worsened. At [facility], she was evaluated initially as a patient w ith possible stroke. MRI of the brain done on 11/21/2022 showed no evidence of an acute ischemic or hemorrhagic stroke. There was gliosis seen from the medial right cerebellar hemisphere from a chroni c stroke, which the patient does admit that there was a prior stroke and that she did have some right leg and arm incoordination and weakness. A subsequent MRI of the cervical spine done on 11/22 ident ified multilevel cervical spondylosis, most advanced at C6-7 where there was moderate spinal stenosis and severe right foraminal stenosis, which could explain the patient's right-sided radiculopathy. T here was moderate right neuroforaminal stenosis at C5-6 and mild spinal stenosis at other levels. Wh ile in hospital, she received tramadol 50 mg every 4 hours. She had gabapentin, which at home she wa s on 300 mg twice daily and it was recommended that it go to 600 mg twice daily. In addition, she wa s placed on stroke prophylaxis with aspirin 81 mg daily, folic acid 1 mg daily, and Lipitor 40 mg at bedtime. In addition to Ultram actually for pain, she had [place] 10/325 every 6 hours along with regu lar Tylenol. The patient's pain did mitigate somewhat, but was still significant. However, by disch arge it was rated at 4/10, down from 10/10. Past Medical History: As noted hypertension, diabetes mellitus, dyslipidemia, and diabetic periphera l neuropathy. Allergies: KETOROLAC AND TRAMADOL, ALTHOUGH SHE HAS RECEIVED TRAMADOL IN HOSPITAL WITHOUT ANY ISSUES . Past Surgical History: She has a left carotid stent. Social History: The patient smokes cigarettes daily and denies alcohol use. Drinks caffeinated beve rages. Family History: Noncontributory. Medications: Amitriptyline 75 mg at bedtime, Plavix 75 mg daily, Levemir 10 units subcutaneously twi ce daily, Zestoretic 10/12.5 daily, metformin 500 mg twice daily, Zocor 40 mg at bedtime, and Januvia 50 mg daily. Review of Systems: As noted, pain in the right neck radiating into the right arm and tingling and pins and needle sensat ion in the feet. Otherwise, some headache and nausea and at times vomiting because of pain and diffu se weakness. Otherwise, no ENT complaints. No respiratory complaints. No cardiovascular complaints . No genitourinary complaints. No dermatological complaints and no complaints in the lymphatic syst em. Physical Examination: Vital Signs: Blood pressure 158/68, pulse 72, respiratory rate 18, temperature 98.3, and oxygen satu ration 98%. General: Ms. Sparks is resting in bed. She is in no significant distress as the pain has improve d in the neck. HEENT: She is normocephalic, atraumatic. Sclerae anicteric. Oropharynx is pink and moist. Neck: Supple. Chest: Clear. Heart: Regular. Extremities: No significant clubbing, cyanosis, or edema. Neurologic: She does have a stocking-glove loss to light touch and temperature in the legs and arms. Strength is limited by pain in the right upper extremity, but no focal weakness identified. There is some incoordination in the right upper and lower extremity. Dense dysmetria on [id number] and hpye-ob-[id number] has some difficulty. The patient was able to stand and ambulate with some tendency to drift slightly to the right. Laboratory Studies: Complete blood count with differential is unremarkable. Coagulation panel shows a normal panel. Basic metabolic panel is normal. Blood glucose ranged from 81 to 136. Total wayne sterol 127, triglycerides 159, LDL cholesterol 52, HDL cholesterol 43, cholesterol HDL ratio 2.95. T SH 2.11, free T4 1.04. Note, her MRA of head and neck unremarkable. Assessment: Ms. Sparks is a 67-year-old patient with severe right C6-7 nerve root compression pro ducing significant pain that is radiating from the neck into the upper extremity on the right. She h as diabetes and mild diabetic peripheral neuropathy. She has hypertension and dyslipidemia and she i s seen by field applications specialist, Dr. Wang. Plan: She may be discharged and follow up with Dr. Wang. Gabapentin 600 mg twice daily. Contin ue aggressive management of diabetes mellitus. Continue Lipitor for dyslipidemia and folic acid 1 mg daily along with aspirin 81 mg daily for stroke risk reduction. Continue aggressive management of h ypertension. She may follow up if need be in Dr. Davis's clinic within the month. BERE/DEXTER Voice ID: [id number] Report ID: [id number]
[2022-11-22] MEDS ORDERED: GABAPENTIN 300 MG CAP PO SCH (21:00)
[2022-11-22] MEDS ORDERED: ATORVASTATIN 40 MG TAB PO SCH (21:00)
== END 2022-11-22 17:40 | disposition home or self-care (01) ==
LOC: ER 13:44 → ERHOLD 18:52 → 2ND 19:25
PROVIDERS: ADMIT Hospitalist; ATTEND Hospitalist
DX: R20.2 Paresthesia of skin (principal); G54.2 Cervical root disorders, not elsewhere classified; M54.12 Radiculopathy, cervical region; M48.02 Spinal stenosis, cervical region; F41.9 Anxiety disorder, unspecified; E11.9 Type 2 diabetes mellitus without complications; I10 Essential (primary) hypertension; E78.5 Hyperlipidemia, unspecified; R11.2 Nausea with vomiting, unspecified; M54.2 Cervicalgia; F17.200 Nicotine dependence, unspecified, uncomplicated; Z86.73 Personal history of transient ischemic attack (TIA), and cerebral infarction without residual deficits; E11.40 Type 2 diabetes mellitus with diabetic neuropathy, unspecified
CPT/HCPCS: 93005; 85025 ×2; 80048 ×2; 36415; 83735 ×2; 84100; 85610; 80061; 82565; 82947 ×3; 80076; 85730; 84443; 84484; 84439; 72125; 70496; 70498; 70450; 71045; 72141; 70553; 70544; 70549; 96375; 96374; 99285; Q9967; A9577; J0360; J1650 ×2; J2405; G0378

== ENCOUNTER → 2023-07-24 | Emergency (ER) | payer OTHER ==
--- OUTSIDE RECORDS SUMMARY | 2023-07-24 15:23 | XMS REPORT | Continuity of Care Document ---
Author Name Unknown Address [address] [facility] [address] [place] [address] [facility] Address [address] [facility] [address] [place] [address] Care Team Providers Care Pediatric Licensed Practical Nurse Name Role Phone HINA CAMACHO Primary Care Physician Unavailab Winnie Singleton Attending Clinician Unavailable HERMES BAEZ Attending Clinician Katelynn vashayeble HALEY Attending Clinician Unavailable Ailyn Pineda Attending Clinician BIENVENIDO LUCAS Attending Clinician Unavailable GISELLE CLEANING Attending Clinician Unavailable MANDY CARTER Attending Clinician Unavailable RAJINDER MELISSA Attending Clinician Unavailable SONI WERNER Attending Clinician Unavailable JESSICA OLIVO Attending Clinician Unavailable HINA CAMACHO Attending Clinician Unavailable ROBIN MENDOZA Attending Clinician Unavail able ART SAAVEDRA Attending Clinician Unavailab DENAE Wahl Attending Clinician Unavailable Jeronimo Kitchen I. Attending Clinician UnavailHINA Ty Attending Clinician Unavailable NORA BESS Attending Clinician UnaOVI taylor BA Attending Clinician Unavailable CHIP HERNANDEZ Attending Clinician Un available SIENNA DAVILA Attending Clinician UnavailPRIYANKA Drew Attending Clinician Unavailable SANTI CASTILLO" Attending Clinician Unava ilMONTANA TempleD Attending Clinician Unavailable RDAHA ANDERSON Attending Clinician Unavailable YAHAIRA JURADO Attending Clinician Unavailable LETITIA PARRA Attending Clinician Unavailailyn DE LEON Admitting Clinician Unavailable HINA CAMACHO Admitting Clinician Unavailable Payers Payer Name Policy Type Policy Number Effective Date Expirati on Date Source [facility] 53 [id number] 2020 00:00:00 [id number] [facility] MEDICARE NOV[place] MB [id number] [facility] MEDICARE NOVITAS MB [id number] [facility] MEDICARE NOVITAS MB [id number] [facility] MEDICARE NOVITAS MB [id number] [facility] MEDICARE NOVITAS MB [id number] [facility] MEDICARE NOVITAS MB [id number] [facility] Problems Condition Name Condition Details Condition Category Status Onset Date Resolution Date Last Treatment Date Treating Clinician Comments Source Acquired hypothyroi dism Acquired hypothyroi dism Problem [facility] [id number] Vertigo Problem [facility] [id number] Neuropathy Problem [facility] Microalbum inuria Microalbum inuria Problem [facility] [id number] Diabetic polyneurop athy associated with type 2 diabetes mellitus Problem [facility] [id number] Headache, unspecifie d Problem [facility] [id number] Decreased muscle strength Problem [facility] 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 Hemiparesi s affecting right side as late effect of stroke Problem [facility] [id number] Intractabl e episodic cluster headache Problem [facility] [id number] Injury of right shoulder, initial encounter Problem [facility] [id number] Anticoagul ant long-term use Problem [facility] [id number] terminal carman (current) use of oral hypoglycem ic drugs Problem [facility] [id number] Long-term (current) use of injectable non-insuli n antidiabet ic drugs Problem [facility] Anxiety Anxiety Problem [facility] [id number] Other chronic pain Problem [facility] [id number] Seasonal allergies Problem [facility] [id number] Unsteady gait Problem [facility] [id number] Type 2 diabetes mellitus with other singer and unloader y complicati ons Problem [facility] [id number] History of CVA with residual deficit Problem [facility] [id number] Essential hypertensi on Problem [facility] [id number] Hyperlipid emia, unspecifie d hyperlipid emia type Problem [facility] [id number] Insomnia, unspecifie d type Problem [facility] [id number] Palpitatio ns Problem [facility] [id number] Reflux gastritis Problem [facility] [id number] shelter (current) use of insulin Problem [facility] Allergies, Adverse Reactions, Alerts Allergy Name Allergy Type Status Severity Reaction(s) Onset Date Inactive Date Treating Clinician Comments Source amitript yline amitript yline Active hallucinatio ns [facility] Social History Social Habit Start Date Stop Date Quantity Comments Source History of Tobacco Use [facility] Sex Assigned At [facility] Smoking Status Start Date Stop Date Source Never Smoker [facility] Former Smoker 2022-06-16 00:00:00 2022-06-16 00:00:00 [facility] Medications Ordered Medication Name Filled Medication Name Start Date Stop Date Current Medication? Ordering Clinician Indication Dosage Frequency Signature (SIG) Comments Components Source FreeStyle Ganga 3 Sensor - FreeStyle Ganga 3 Sensor - 2023-1 0-11 00:00: 00 No FreeStyle Ganga 3 Sensor - FreeStyle Ganga 3 Sensor - FreeStyle Ganga 3 Sensor - 2023-1 0-11 00:00: 00 No FreeStyle Ganga 3 Sensor - FreeStyle Ganga 3 Sensor - FreeStyle Ganga 3 Sensor - 2023-1 0-11 00:00: 00 No FreeStyle Ganga 3 Sensor - FreeStyle Ganga 3 Sensor - FreeStyle Ganga 3 Sensor - 2023-1 0-11 00:00: 00 No FreeStyle Ganga 3 Sensor - FreeStyle Ganga 3 Sensor - FreeStyle Ganga 3 Sensor - 2023-1 0-11 00:00: 00 No FreeStyle Ganga 3 Sensor - FreeStyle Ganga 3 Sensor - FreeStyle Ganga 3 Sensor - 2023-1 0-11 00:00: 00 No FreeStyle Ganga 3 Sensor - FreeStyle Ganga 3 Sensor - FreeStyle Ganga 3 Sensor - 2023-1 0-11 00:00: 00 No FreeStyle Ganga 3 Sensor - FreeStyle Ganga 3 Sensor - FreeStyle Ganga 3 Sensor - 2023-1 0-11 00:00: 00 No FreeStyle Ganga 3 Sensor - FreeStyle Ganga 3 Sensor - FreeStyle Ganga 3 Sensor - 2023-1 0-11 00:00: 00 No FreeStyle Ganga 3 Sensor - FreeStyle Ganga 3 Sensor - FreeStyle Ganga 3 Sensor - 2023-1 0-11 00:00: 00 No FreeStyle Ganga 3 Sensor - FreeStyle Ganga 3 Sensor - FreeStyle Gagna 3 Sensor - 2023-1 0-11 00:00: 00 No FreeStyle Ganga 3 Sensor - FreeStyle Ganga 3 Sensor - FreeStyle Ganga 3 Sensor - 2023-1 0-11 00:00: 00 No FreeStyle Ganga 3 Sensor - FreeStyle Ganga 3 Sensor - FreeStyle Ganga 3 Sensor - 2023-1 0-11 00:00: 00 No FreeStyle Ganga 3 Sensor - FreeStyle Ganga 3 Sensor - FreeStyle Ganga 3 Sensor - 2023-1 0-11 00:00: 00 No FreeStyle Ganga 3 Sensor - metFORMIN HCl 500 MG metFORMIN HCl 500 MG 2023-0 8-14 00:00: 00 No 1{table t_with_ a_meal} BID metFORMIN HCl 500 MG metFORMIN HCl 500 MG metFORMIN HCl 500 MG 2023-0 8-14 00:00: 00 No 1{table t_with_ a_meal} BID metFORMIN HCl 500 MG metFORMIN HCl 500 MG metFORMIN HCl 500 MG 2023-0 8-14 00:00: 00 No 1{table t_with_ a_meal} BID metFORMIN HCl 500 MG metFORMIN HCl 500 MG metFORMIN HCl 500 MG 2023-0 8-14 00:00: 00 No 1{table t_with_ a_meal} BID metFORMIN HCl 500 MG FreeStyle Ganga 3 Sensor - FreeStyle Ganga 3 Sensor - 2023-0 7-06 00:00: 00 No FreeStyle Ganga 3 Sensor - FreeStyle Ganga 3 Sensor - FreeStyle Ganga 3 Sensor - 2023-0 7-06 00:00: 00 No FreeStyle Ganga 3 Sensor - FreeStyle Ganga 3 Sensor - FreeStyle Ganga 3 Sensor - 2023-0 7-06 00:00: 00 No FreeStyle Ganga 3 Sensor - FreeStyle Ganga 3 Sensor - FreeStyle Ganga 3 Sensor - 2023-0 7-06 00:00: 00 No FreeStyle Ganga 3 Sensor - FreeStyle Ganga 3 Sensor - FreeStyle Ganga 3 Sensor - 2023-0 7-06 00:00: 00 No FreeStyle Ganga 3 Sensor - FreeStyle Ganga 3 Sensor - FreeStyle Ganga 3 Sensor - 2023-0 7-06 00:00: 00 No FreeStyle Ganga 3 Sensor - FreeStyle Ganga 3 Sensor - FreeStyle Ganga 3 Sensor - 2023-0 7-06 00:00: 00 No FreeStyle Ganga 3 Sensor - FreeStyle Ganga 3 Sensor - FreeStyle Ganga 3 Sensor - 2023-0 7-06 00:00: 00 No FreeStyle Ganga 3 Sensor - FreeStyle Ganga 3 Sensor - FreeStyle Ganga 3 Sensor - 2023-0 7-06 00:00: 00 No FreeStyle Ganga 3 Sensor - FreeStyle Ganga 3 Sensor - FreeStyle Ganga 3 Sensor - 2023-0 7-06 00:00: 00 No FreeStyle Ganga 3 Sensor - FreeStyle Ganga 3 Sensor - FreeStyle Ganga 3 Sensor - 2023-0 7-06 00:00: 00 No FreeStyle Ganga 3 Sensor - FreeStyle Ganga 3 Sensor - FreeStyle Ganga 3 Sensor - 2023-0 7-06 00:00: 00 No FreeStyle Ganga 3 Sensor - FreeStyle Ganga 3 Sensor - FreeStyle Ganga 3 Sensor - 2023-0 7-06 00:00: 00 No FreeStyle Ganga 3 Sensor - FreeStyle Ganga 3 Sensor - FreeStyle Ganga 3 Sensor - 2023-0 7-06 00:00: 00 No FreeStyle Ganga 3 Sensor - FreeStyle Ganga 14 Day Sensor - FreeStyle Ganga 14 Day Sensor - 2022-1 1-18 00:00: 00 No FreeStyle Ganga 14 Day Sensor - Levothyroxi ne Sodium 25 MCG Levothyroxi ne Sodium 25 MCG 2-0 2-15 00:00: 00 No QD Levothyrox ine Sodium 25 MCG Docusate Sodium 100 MG Docusate Sodium 100 MG 2-0 2-15 00:00: 00 2021- 03-17 00:00 :00 No 1{capsu le_as_n eeded} QD Docusate Sodium 100 MG Montelukast Sodium 10 MG Montelukast Sodium 10 MG 1-0 9-15 00:00: 00 No 1{table t} QD Montelukas t Sodium 10 MG Montelukast Sodium 10 MG Montelukast Sodium 10 MG 1-0 9-15 00:00: 00 No 1{table t} QD Montelukas t Sodium 10 MG Montelukast Sodium 10 MG Montelukast Sodium 10 MG 2021-0 9-15 00:00: 00 No 1{table t} QD Montelukas t Sodium 10 MG Montelukast Sodium 10 MG Montelukast Sodium 10 MG 2021-0 9-15 00:00: 00 No 1{table t} QD Montelukas t Sodium 10 MG Montelukast Sodium 10 MG Montelukast Sodium 10 MG 2021-0 9-15 00:00: 00 No 1{table t} QD Montelukas t Sodium 10 MG Montelukast Sodium 10 MG Montelukast Sodium 10 MG 2021-0 9-15 00:00: 00 No 1{table t} QD Montelukas t Sodium 10 MG Montelukast Sodium 10 MG Montelukast Sodium 10 MG 2021-0 9-15 00:00: 00 No 1{table t} QD Montelukas t Sodium 10 MG Montelukast Sodium 10 MG Montelukast Sodium 10 MG 2021-0 9-15 00:00: 00 No 1{table t} QD Montelukas t Sodium 10 MG Montelukast Sodium 10 MG Montelukast Sodium 10 MG 2021-0 9-15 00:00: 00 No 1{table t} QD Montelukas t Sodium 10 MG Montelukast Sodium 10 MG Montelukast Sodium 10 MG 2021-0 9-15 00:00: 00 No 1{table t} QD Montelukas t Sodium 10 MG Montelukast Sodium 10 MG Montelukast Sodium 10 MG 2021-0 9-15 00:00: 00 No 1{table t} QD Montelukas t Sodium 10 MG Montelukast Sodium 10 MG Montelukast Sodium 10 MG 2021-0 9-15 00:00: 00 No 1{table t} QD Montelukas t Sodium 10 MG Montelukast Sodium 10 MG Montelukast Sodium 10 MG 2021-0 9-15 00:00: 00 No 1{table t} QD Montelukas t Sodium 10 MG Montelukast Sodium 10 MG Montelukast Sodium 10 MG 2021-0 9-15 00:00: 00 No 1{table t} QD Montelukas t Sodium 10 MG Montelukast Sodium 10 MG Montelukast Sodium 10 MG 2021-0 9-15 00:00: 00 No 1{table t} QD Montelukas t Sodium 10 MG Montelukast Sodium 10 MG Montelukast Sodium 10 MG 2021-0 9-15 00:00: 00 No 1{table t} QD Montelukas t Sodium 10 MG NovoLOG 100 UNIT/ML NovoLOG 100 UNIT/ML 2019-0 4-14 00:00: 00 No NovoLOG 100 UNIT/ML NovoLOG 100 UNIT/ML NovoLOG 100 UNIT/ML 0 4-14 00:00: 00 No TID NovoLOG 100 UNIT/ML NovoLOG 100 UNIT/ML NovoLOG 100 UNIT/ML 0 4-14 00:00: 00 No NovoLOG 100 UNIT/ML NovoLOG 100 UNIT/ML NovoLOG 100 UNIT/ML 2019-0 4-14 00:00: 00 No NovoLOG 100 UNIT/ML NovoLOG 100 UNIT/ML NovoLOG 100 UNIT/ML 0 414 00:00: 00 No NovoLOG 100 UNIT/ML NovoLOG 100 UNIT/ML NovoLOG 100 UNIT/ML 0 14 00:00: 00 No TID NovoLOG 100 UNIT/ML NovoLOG 100 UNIT/ML NovoLOG 100 UNIT/ML 0 14 00:00: 00 No TID NovoLOG 100 UNIT/ML NovoLOG 100 UNIT/ML NovoLOG 100 UNIT/ML 0 14 00:00: 00 No TID NovoLOG 100 UNIT/ML NovoLOG 100 UNIT/ML NovoLOG 100 UNIT/ML 0 14 00:00: 00 No TID NovoLOG 100 UNIT/ML NovoLOG 100 UNIT/ML NovoLOG 100 UNIT/ML 0 14 00:00: 00 No TID NovoLOG 100 UNIT/ML NovoLOG 100 UNIT/ML NovoLOG 100 UNIT/ML 0 14 00:00: 00 No TID NovoLOG 100 UNIT/ML NovoLOG 100 UNIT/ML NovoLOG 100 UNIT/ML 0 14 00:00: 00 No TID NovoLOG 100 UNIT/ML NovoLOG 100 UNIT/ML NovoLOG 100 UNIT/ML 0 14 00:00: 00 No TID NovoLOG 100 UNIT/ML NovoLOG 100 UNIT/ML NovoLOG 100 UNIT/ML 0 414 00:00: 00 No TID NovoLOG 100 UNIT/ML NovoLOG 100 UNIT/ML NovoLOG 100 UNIT/ML 0 414 00:00: 00 No TID NovoLOG 100 UNIT/ML NovoLOG 100 UNIT/ML NovoLOG 100 UNIT/ML 0 14 00:00: 00 No TID NovoLOG 100 UNIT/ML NovoLOG 100 UNIT/ML NovoLOG 100 UNIT/ML 0 414 00:00: 00 No TID NovoLOG 100 UNIT/ML NovoLOG 100 UNIT/ML NovoLOG 100 UNIT/ML 0 4-14 00:00: 00 No TID NovoLOG 100 UNIT/ML NovoLOG 100 UNIT/ML NovoLOG 100 UNIT/ML 0 4-14 00:00: 00 No TID NovoLOG 100 UNIT/ML NovoLOG 100 UNIT/ML NovoLOG 100 UNIT/ML 0 4-14 00:00: 00 No TID NovoLOG 100 UNIT/ML NovoLOG 100 UNIT/ML NovoLOG 100 UNIT/ML 0 4-14 00:00: 00 No TID NovoLOG 100 UNIT/ML NovoLOG 100 UNIT/ML NovoLOG 100 UNIT/ML 0 4-14 00:00: 00 No TID NovoLOG 100 UNIT/ML NovoLOG 100 UNIT/ML NovoLOG 100 UNIT/ML 0 4-14 00:00: 00 No TID NovoLOG 100 UNIT/ML NovoLOG 100 UNIT/ML NovoLOG 100 UNIT/ML 0 14 00:00: 00 No TID NovoLOG 100 UNIT/ML NovoLOG 100 UNIT/ML NovoLOG 100 UNIT/ML 0 14 00:00: 00 No TID NovoLOG 100 UNIT/ML NovoLOG 100 UNIT/ML NovoLOG 100 UNIT/ML 0 414 00:00: 00 No TID NovoLOG 100 UNIT/ML NovoLOG 100 UNIT/ML NovoLOG 100 UNIT/ML 0 414 00:00: 00 No TID NovoLOG 100 UNIT/ML NovoLOG 100 UNIT/ML NovoLOG 100 UNIT/ML 0 414 00:00: 00 No TID NovoLOG 100 UNIT/ML NovoLOG 100 UNIT/ML NovoLOG 100 UNIT/ML 0 4-14 00:00: 00 No TID NovoLOG 100 UNIT/ML NovoLOG 100 UNIT/ML NovoLOG 100 UNIT/ML 0 414 00:00: 00 No TID NovoLOG 100 UNIT/ML NovoLOG 100 UNIT/ML NovoLOG 100 UNIT/ML 0 4-14 00:00: 00 No TID NovoLOG 100 UNIT/ML NovoLOG 100 UNIT/ML NovoLOG 100 UNIT/ML 0 4-14 00:00: 00 No NovoLOG 100 UNIT/ML NovoLOG 100 UNIT/ML NovoLOG 100 UNIT/ML 0 4-14 00:00: 00 No TID NovoLOG 100 UNIT/ML NovoLOG 100 UNIT/ML NovoLOG 100 UNIT/ML 11-10 00:00: 00 No TID NovoLOG 100 UNIT/ML NovoLOG 100 UNIT/ML NovoLOG 100 UNIT/ML 11-10 00:00: 00 No TID NovoLOG 100 UNIT/ML Tresiba FlexTouch Tresiba FlexTouch Yes Winnie Miller inject 40 units under the skin qam [facility] Simvastatin Simvastatin Yes Winnie Bennettok 1 tablet in the evening [facility] Metformin HCl Metformin HCl Yes Winnie Bennettok 1 tablet with a meal [facility] BD Pen Needle Gina U/F 32G X 4 MM BD Pen Needle Gina U/F 32G X 4 MM No TID BD Pen Needle Gina U/F 32G X 4 MM Niharika Niharika No Niharika Lisinopril 30 MG Lisinopril 30 MG No Lisinopril 30 MG OneTouch Delica Lancets 33G - OneTouch Delica Lancets 33G - No OneTouch Delica Lancets 33G - Ozempic (1 MG/DOSE) 4 MG/3ML Ozempic (1 MG/DOSE) 4 MG/3ML No Ozempic (1 MG/DOSE) 4 MG/3ML Levothyroxi ne Sodium 25 MCG Levothyroxi ne Sodium 25 MCG No QD Levothyrox ine Sodium 25 MCG FreeStyle Ganga 14 Day Sensor - FreeStyle Ganga 14 Day Sensor - No FreeStyle Ganga 14 Day Sensor - Victoza 18 MG/3ML Victoza 18 MG/3ML No QD Victoza 18 MG/3ML OneTouch Delica Plus [id number] - OneTouch Delica Plus [id number] - No OneTouch Delica Plus Stqtls56J - Lipitor 40 MG Lipitor 40 MG No 1{table t} QD Lipitor 40 MG OneTouch Ultra - OneTouch Ultra - No OneTouch Ultra - Insulin Lispro (1 Unit Dial) 100 UNIT/ML Insulin Lispro (1 Unit Dial) 100 UNIT/ML No Insulin Lispro (1 Unit Dial) 100 UNIT/ML One A Day Women 50 Plus - One A Day Women 50 Plus - No One A Day Women 50 Plus - HYDROcodone -Acetaminop hen 7.5-325 MG HYDROcodone -Acetaminop hen 7.5-325 MG No 1{table t_as_ne eded} QID HYDROcodon e-Acetamin ophen 7.5-325 MG BD Pen Needle Gina 2nd Gen 32G X 4 MM BD Pen Needle Gina 2nd Gen 32G X 4 MM No BD Pen Needle Gina 2nd Gen 32G X 4 MM Gabapentin 300 MG Gabapentin 300 MG No 2{capsu le} QD Gabapentin 300 MG OneTouch Ultra Test - OneTouch Ultra Test - No BID OneTouch Ultra Test - Aspirin 81 MG Aspirin 81 MG No 1{capsu le} QD Aspirin 81 MG metFORMIN HCl 500 MG metFORMIN HCl 500 MG No metFORMIN HCl 500 MG Montelukast Sodium 10 MG Montelukast Sodium 10 MG No 1{table t} QD Montelukas t Sodium 10 MG Clopidogrel Bisulfate 75 MG Clopidogrel Bisulfate 75 MG No Clopidogre l Bisulfate 75 MG Tresiba FlexTouch 100 UNIT/ML Tresiba FlexTouch 100 UNIT/ML No Tresiba FlexTouch 100 UNIT/ML Microlet Lancets - Microlet Lancets - No Microlet Lancets - Tresiba FlexTouch 100 UNIT/ML Tresiba FlexTouch 100 UNIT/ML No QD Tresiba FlexTouch 100 UNIT/ML OneTouch Delica Lancets 33G - OneTouch Delica Lancets 33G - No OneTouch Delica Lancets 33G - Clopidogrel Bisulfate 75 MG Clopidogrel Bisulfate 75 MG No 1{table t} QD Clopidogre l Bisulfate 75 MG OneTouch Delica Plus [id number] - OneTouch Delica Plus [id number] - No OneTouch Delica Plus [id number] - Lisinopril 30 MG Lisinopril 30 MG No 1{table t} QD Lisinopril 30 MG metFORMIN HCl 500 MG metFORMIN HCl 500 MG No 1{table t_with_ a_meal} BID metFORMIN HCl 500 MG Simvastatin 40 MG Simvastatin 40 MG No Simvastati n 40 MG BD Pen Needle Gina U/F 32G X 4 MM BD Pen Needle Gina U/F 32G X 4 MM No TID BD Pen Needle Gina U/F 32G X 4 MM Victoza 18 MG/3ML Victoza 18 MG/3ML No QD Victoza 18 MG/3ML OneTouch Ultra Test - OneTouch Ultra Test - No BID OneTouch Ultra Test - Tresiba FlexTouch 100 UNIT/ML Tresiba FlexTouch 100 UNIT/ML No QD Tresiba FlexTouch 100 UNIT/ML OneTouch Delica Lancets 33G - OneTouch Delica Lancets 33G - No OneTouch Delica Lancets 33G - Clopidogrel Bisulfate 75 MG Clopidogrel Bisulfate 75 MG No 1{table t} QD Clopidogre l Bisulfate 75 MG OneTouch Delica Plus Mxdhue64A - OneTouch Delica Plus Yxhfst75O - No OneTouch Delica Plus Kszuyo78K - Tresiba FlexTouch 100 UNIT/ML Tresiba FlexTouch 100 UNIT/ML No QD Tresiba FlexTouch 100 UNIT/ML Lisinopril 30 MG Lisinopril 30 MG No Lisinopril 30 MG Simvastatin 40 MG Simvastatin 40 MG No Simvastati n 40 MG OneTouch Delica Plus Hyeapw79J - OneTouch Delica Plus Qzjwwd99Z - No OneTouch Delica Plus Fdzmpb23J - BD Pen Needle Gina U/F 32G X 4 MM BD Pen Needle Gina U/F 32G X 4 MM No TID BD Pen Needle Gina U/F 32G X 4 MM metFORMIN HCl 500 MG metFORMIN HCl 500 MG No 1{table t_with_ a_meal} BID metFORMIN HCl 500 MG Clopidogrel Bisulfate 75 MG Clopidogrel Bisulfate 75 MG No 1{table t} QD Clopidogre l Bisulfate 75 MG OneTouch Delica Lancets 33G - OneTouch Delica Lancets 33G - No OneTouch Delica Lancets 33G - Victoza 18 MG/3ML Victoza 18 MG/3ML No QD Victoza 18 MG/3ML OneTouch Ultra Test - OneTouch Ultra Test - No BID OneTouch Ultra Test - Tresiba FlexTouch 100 UNIT/ML Tresiba FlexTouch 100 UNIT/ML No QD Tresiba FlexTouch 100 UNIT/ML metFORMIN HCl 500 MG metFORMIN HCl 500 MG No 1{table t_with_ a_meal} BID metFORMIN HCl 500 MG Simvastatin 40 MG Simvastatin 40 MG No Simvastati n 40 MG BD Pen Needle Gina U/F 32G X 4 MM BD Pen Needle Gina U/F 32G X 4 MM No TID BD Pen Needle Gina U/F 32G X 4 MM Victoza 18 MG/3ML Victoza 18 MG/3ML No QD Victoza 18 MG/3ML OneTouch Ultra Test - OneTouch Ultra Test - No BID OneTouch Ultra Test - Lisinopril 30 MG Lisinopril 30 MG No Lisinopril 30 MG OneTouch Delica Lancets 33G - OneTouch Delica Lancets 33G - No OneTouch Delica Lancets 33G - Clopidogrel Bisulfate 75 MG Clopidogrel Bisulfate 75 MG No 1{table t} QD Clopidogre l Bisulfate 75 MG OneTouch Delica Plus Ekuomj39F - OneTouch Delica Plus Emeqla48G - No OneTouch Delica Plus Qfrowx50I - Lisinopril 30 MG Lisinopril 30 MG No QD Lisinopril 30 MG Clopidogrel Bisulfate 75 MG Clopidogrel Bisulfate 75 MG No 1{table t} QD Clopidogre l Bisulfate 75 MG Simvastatin 40 MG Simvastatin 40 MG No QD Simvastati n 40 MG OneTouch Delica Plus Bltrrg59Y - OneTouch Delica Plus Rylvju16R - No BID OneTouch Delica Plus Khatou86Q - BD Pen Needle Gina U/F 32G X 4 MM BD Pen Needle Gina U/F 32G X 4 MM No TID BD Pen Needle Gina U/F 32G X 4 MM Tresiba FlexTouch 100 UNIT/ML Tresiba FlexTouch 100 UNIT/ML No QD Tresiba FlexTouch 100 UNIT/ML metFORMIN HCl 500 MG metFORMIN HCl 500 MG No 1{table t_with_ a_meal} BID metFORMIN HCl 500 MG OneTouch Delica Lancets 33G - OneTouch Delica Lancets 33G - No OneTouch Delica Lancets 33G - OneTouch Ultra Test - OneTouch Ultra Test - No BID OneTouch Ultra Test - Simvastatin 40 MG Simvastatin 40 MG No Simvastati n 40 MG Clopidogrel Bisulfate 75 MG Clopidogrel Bisulfate 75 MG No Clopidogre l Bisulfate 75 MG Tresiba FlexTouch 100 UNIT/ML Tresiba FlexTouch 100 UNIT/ML No Tresiba FlexTouch 100 UNIT/ML BD Pen Needle Gina U/F 32G X 4 MM BD Pen Needle Gina U/F 32G X 4 MM No TID BD Pen Needle Gina U/F 32G X 4 MM Lisinopril 30 MG Lisinopril 30 MG No QD Lisinopril 30 MG metFORMIN HCl 500 MG metFORMIN HCl 500 MG No 1{table t_with_ a_meal} BID metFORMIN HCl 500 MG OneTouch Delica Lancets 33G - OneTouch Delica Lancets 33G - No OneTouch Delica Lancets 33G - OneTouch Ultra Test - OneTouch Ultra Test - No BID OneTouch Ultra Test - OneTouch Delica Plus Xstxpy71D - OneTouch Delica Plus Euizvu25X - No OneTouch Delica Plus Vhdrtt62C - OneTouch Delica Lancets 33G - OneTouch Delica Lancets 33G - No OneTouch Delica Lancets 33G - Victoza 18 MG/3ML Victoza 18 MG/3ML No Victoza 18 MG/3ML OneTouch Delica Plus Nltoyy26V - OneTouch Delica Plus Znlslj26X - No OneTouch Delica Plus Wrtwxw91B - Tresiba FlexTouch 100 UNIT/ML Tresiba FlexTouch 100 UNIT/ML No Tresiba FlexTouch 100 UNIT/ML metFORMIN HCl 500 MG metFORMIN HCl 500 MG No 1{table t_with_ a_meal} BID metFORMIN HCl 500 MG Simvastatin 40 MG Simvastatin 40 MG No Simvastati n 40 MG Lisinopril 30 MG Lisinopril 30 MG No Lisinopril 30 MG BD Pen Needle Gina U/F 32G X 4 MM BD Pen Needle Gina U/F 32G X 4 MM No TID BD Pen Needle Gina U/F 32G X 4 MM Clopidogrel Bisulfate 75 MG Clopidogrel Bisulfate 75 MG No Clopidogre l Bisulfate 75 MG OneTouch Ultra - OneTouch Ultra - No OneTouch Ultra - Simvastatin 40 MG Simvastatin 40 MG No Simvastati n 40 MG Clopidogrel Bisulfate 75 MG Clopidogrel Bisulfate 75 MG No Clopidogre l Bisulfate 75 MG metFORMIN HCl 500 MG metFORMIN HCl 500 MG No metFORMIN HCl 500 MG Tresiba FlexTouch 100 UNIT/ML Tresiba FlexTouch 100 UNIT/ML No Tresiba FlexTouch 100 UNIT/ML OneTouch Delica Lancets 33G - OneTouch Delica Lancets 33G - No OneTouch Delica Lancets 33G - Victoza 18 MG/3ML Victoza 18 MG/3ML No Victoza 18 MG/3ML OneTouch Ultra - OneTouch Ultra - No OneTouch Ultra - OneTouch Delica Plus Nmwgol82C - OneTouch Delica Plus Mlndgp44P - No OneTouch Delica Plus Vrilzv74S - BD Pen Needle Gina 2nd Gen 32G X 4 MM BD Pen Needle Gina 2nd Gen 32G X 4 MM No BD Pen Needle Gina 2nd Gen 32G X 4 MM Lisinopril 30 MG Lisinopril 30 MG No Lisinopril 30 MG OneTouch Delica Lancets 33G - OneTouch Delica Lancets 33G - No OneTouch Delica Lancets 33G - Lisinopril 30 MG Lisinopril 30 MG No Lisinopril 30 MG Simvastatin 40 MG Simvastatin 40 MG No 1{table t_in_th e_eveni ng} QD Simvastati n 40 MG Victoza 18 MG/3ML Victoza 18 MG/3ML No Victoza 18 MG/3ML Microlet Lancets - Microlet Lancets - No Microlet Lancets - OneTouch Delica Plus Bocurr83Z - OneTouch Delica Plus Svfsna97V - No OneTouch Delica Plus Tbagyg76T - metFORMIN HCl 500 MG metFORMIN HCl 500 MG No metFORMIN HCl 500 MG OneTouch Ultra - OneTouch Ultra - No OneTouch Ultra - BD Pen Needle Gina 2nd Gen 32G X 4 MM BD Pen Needle Gina 2nd Gen 32G X 4 MM No BD Pen Needle Gina 2nd Gen 32G X 4 MM Tresiba FlexTouch 100 UNIT/ML Tresiba FlexTouch 100 UNIT/ML No Tresiba FlexTouch 100 UNIT/ML Clopidogrel Bisulfate 75 MG Clopidogrel Bisulfate 75 MG No Clopidogre l Bisulfate 75 MG Levothyroxi ne Sodium 25 MCG Levothyroxi ne Sodium 25 MCG No QD Levothyrox ine Sodium 25 MCG BD Pen Needle Gina 2nd Gen 32G X 4 MM BD Pen Needle Gina 2nd Gen 32G X 4 MM No BD Pen Needle Gina 2nd Gen 32G X 4 MM OneTouch Delica Plus Rvmrye24V - OneTouch Delica Plus Vaadbx05N - No OneTouch Delica Plus Smnisn92J - Lisinopril 30 MG Lisinopril 30 MG No Lisinopril 30 MG OneTouch Ultra - OneTouch Ultra - No OneTouch Ultra - metFORMIN HCl 500 MG metFORMIN HCl 500 MG No metFORMIN HCl 500 MG OneTouch Delica Lancets 33G - OneTouch Delica Lancets 33G - No OneTouch Delica Lancets 33G - Levothyroxi ne Sodium 25 MCG Levothyroxi ne Sodium 25 MCG No QD Levothyrox ine Sodium 25 MCG Victoza 18 MG/3ML Victoza 18 MG/3ML No Victoza 18 MG/3ML Simvastatin 40 MG Simvastatin 40 MG No 1{table t_in e_eveni ng} QD Simvastati n 40 MG Tresiba FlexTouch 100 UNIT/ML Tresiba FlexTouch 100 UNIT/ML No Tresiba FlexTouch 100 UNIT/ML Microlet Lancets - Microlet Lancets - No Microlet Lancets - Clopidogrel Bisulfate 75 MG Clopidogrel Bisulfate 75 MG No 1{table t} QD Clopidogre l Bisulfate 75 MG OneTouch Ultra - OneTouch Ultra - No OneTouch Ultra - Lisinopril 30 MG Lisinopril 30 MG No Lisinopril 30 MG OneTouch Delica Plus [id number] - OneTouch Delica Plus Epeizb44Z - No OneTouch Delica Plus [id number] - Microlet Lancets - Microlet Lancets - No Microlet Lancets - Tresiba FlexTouch 100 UNIT/ML Tresiba FlexTouch 100 UNIT/ML No Tresiba FlexTouch 100 UNIT/ML Victoza 18 MG/3ML Victoza 18 MG/3ML No Victoza 18 MG/3ML BD Pen Needle Gina 2nd Gen 32G X 4 MM BD Pen Needle Gina 2nd Gen 32G X 4 MM No BD Pen Needle Gina 2nd Gen 32G X 4 MM OneTouch Delica Lancets 33G - OneTouch Delica Lancets 33G - No OneTouch Delica Lancets 33G - Clopidogrel Bisulfate 75 MG Clopidogrel Bisulfate 75 MG No 1{table t} QD Clopidogre l Bisulfate 75 MG Levothyroxi ne Sodium 25 MCG Levothyroxi ne Sodium 25 MCG No QD Levothyrox ine Sodium 25 MCG metFORMIN HCl 500 MG metFORMIN HCl 500 MG No metFORMIN HCl 500 MG Simvastatin 40 MG Simvastatin 40 MG No 1{table t_in e_eveni ng} QD Simvastati n 40 MG metFORMIN HCl 500 MG metFORMIN HCl 500 MG No metFORMIN HCl 500 MG Victoza 18 MG/3ML Victoza 18 MG/3ML No Victoza 18 MG/3ML Microlet Lancets - Microlet Lancets - No Microlet Lancets - OneTouch Ultra - OneTouch Ultra - No OneTouch Ultra - OneTouch Delica Plus [id number] - OneTouch Delica Plus Duiplg51O - No OneTouch Delica Plus [id number] - OneTouch Delica Lancets 33G - OneTouch Delica Lancets 33G - No OneTouch Delica Lancets 33G - Tresiba FlexTouch 100 UNIT/ML Tresiba FlexTouch 100 UNIT/ML No Tresiba FlexTouch 100 UNIT/ML BD Pen Needle Gina 2nd Gen 32G X 4 MM BD Pen Needle Gina 2nd Gen 32G X 4 MM No BD Pen Needle Gina 2nd Gen 32G X 4 MM Clopidogrel Bisulfate 75 MG Clopidogrel Bisulfate 75 MG No 1{table t} QD Clopidogre l Bisulfate 75 MG Levothyroxi ne Sodium 25 MCG Levothyroxi ne Sodium 25 MCG No QD Levothyrox ine Sodium 25 MCG Lisinopril 30 MG Lisinopril 30 MG No Lisinopril 30 MG Simvastatin 40 MG Simvastatin 40 MG No 1{table t_in_th e_eveni ng} QD Simvastati n 40 MG metFORMIN HCl 500 MG metFORMIN HCl 500 MG No metFORMIN HCl 500 MG Victoza 18 MG/3ML Victoza 18 MG/3ML No Victoza 18 MG/3ML Microlet Lancets - Microlet Lancets - No Microlet Lancets - OneTouch Ultra - OneTouch Ultra - No OneTouch Ultra - OneTouch Delica Plus Cbmovz23B - OneTouch Delica Plus Mhbjjq54N - No OneTouch Delica Plus Fvrpgn07W - OneTouch Delica Lancets 33G - OneTouch Delica Lancets 33G - No OneTouch Delica Lancets 33G - Tresiba FlexTouch 100 UNIT/ML Tresiba FlexTouch 100 UNIT/ML No Tresiba FlexTouch 100 UNIT/ML BD Pen Needle Gina 2nd Gen 32G X 4 MM BD Pen Needle Gina 2nd Gen 32G X 4 MM No BD Pen Needle Gina 2nd Gen 32G X 4 MM Clopidogrel Bisulfate 75 MG Clopidogrel Bisulfate 75 MG No 1{table t} QD Clopidogre l Bisulfate 75 MG Levothyroxi ne Sodium 25 MCG Levothyroxi ne Sodium 25 MCG No QD Levothyrox ine Sodium 25 MCG Lisinopril 30 MG Lisinopril 30 MG No Lisinopril 30 MG Simvastatin 40 MG Simvastatin 40 MG No 1{table t_in e_eveni ng} QD Simvastati n 40 MG BD Pen Needle Gina 2nd Gen 32G X 4 MM BD Pen Needle Gina 2nd Gen 32G X 4 MM No BD Pen Needle Gina 2nd Gen 32G X 4 MM Victoza 18 MG/3ML Victoza 18 MG/3ML No Victoza 18 MG/3ML Microlet Lancets - Microlet Lancets - No Microlet Lancets - OneTouch Ultra - OneTouch Ultra - No OneTouch Ultra - OneTouch Delica Plus [id number] - OneTouch Delica Plus Usyxqn63T - No OneTouch Delica Plus Urcucc05F - OneTouch Delica Lancets 33G - OneTouch Delica Lancets 33G - No OneTouch Delica Lancets 33G - metFORMIN HCl 500 MG metFORMIN HCl 500 MG No metFORMIN HCl 500 MG Tresiba FlexTouch 100 UNIT/ML Tresiba FlexTouch 100 UNIT/ML No Tresiba FlexTouch 100 UNIT/ML Lisinopril 30 MG Lisinopril 30 MG No Lisinopril 30 MG Simvastatin 40 MG Simvastatin 40 MG No 1{table t_in e_eveni ng} QD Simvastati n 40 MG Levothyroxi ne Sodium 25 MCG Levothyroxi ne Sodium 25 MCG No QD Levothyrox ine Sodium 25 MCG Clopidogrel Bisulfate 75 MG Clopidogrel Bisulfate 75 MG No Clopidogre l Bisulfate 75 MG BD Pen Needle Gina 2nd Gen 32G X 4 MM BD Pen Needle Gina 2nd Gen 32G X 4 MM No BD Pen Needle Gina 2nd Gen 32G X 4 MM Tresiba FlexTouch 100 UNIT/ML Tresiba FlexTouch 100 UNIT/ML No Tresiba FlexTouch 100 UNIT/ML metFORMIN HCl 500 MG metFORMIN HCl 500 MG No metFORMIN HCl 500 MG OneTouch Ultra - OneTouch Ultra - No OneTouch Ultra - Microlet Lancets - Microlet Lancets - No Microlet Lancets - OneTouch Delica Lancets 33G - OneTouch Delica Lancets 33G - No OneTouch Delica Lancets 33G - Victoza 18 MG/3ML Victoza 18 MG/3ML No Victoza 18 MG/3ML Simvastatin 40 MG Simvastatin 40 MG No 1{table t_in e_eveni ng} QD Simvastati n 40 MG Lisinopril 30 MG Lisinopril 30 MG No Lisinopril 30 MG OneTouch Delica Plus Qnarae44S - OneTouch Delica Plus Cjbdrd12N - No OneTouch Delica Plus Bcktwo15S - Clopidogrel Bisulfate 75 MG Clopidogrel Bisulfate 75 MG No Clopidogre l Bisulfate 75 MG BD Pen Needle Gina 2nd Gen 32G X 4 MM BD Pen Needle Gina 2nd Gen 32G X 4 MM No BD Pen Needle Gina 2nd Gen 32G X 4 MM Tresiba FlexTouch 100 UNIT/ML Tresiba FlexTouch 100 UNIT/ML No Tresiba FlexTouch 100 UNIT/ML metFORMIN HCl 500 MG metFORMIN HCl 500 MG No metFORMIN HCl 500 MG OneTouch Ultra - OneTouch Ultra - No OneTouch Ultra - Microlet Lancets - Microlet Lancets - No Microlet Lancets - OneTouch Delica Lancets 33G - OneTouch Delica Lancets 33G - No OneTouch Delica Lancets 33G - Victoza 18 MG/3ML Victoza 18 MG/3ML No Victoza 18 MG/3ML Simvastatin 40 MG Simvastatin 40 MG No 1{table t_in e_eveni ng} QD Simvastati n 40 MG Lisinopril 30 MG Lisinopril 30 MG No Lisinopril 30 MG OneTouch Delica Plus [id number] - OneTouch Delica Plus Axwbua27F - No OneTouch Delica Plus Ossnkf04J - Clopidogrel Bisulfate 75 MG Clopidogrel Bisulfate 75 MG No Clopidogre l Bisulfate 75 MG Lisinopril 30 MG Lisinopril 30 MG No Lisinopril 30 MG Tresiba FlexTouch 100 UNIT/ML Tresiba FlexTouch 100 UNIT/ML No Tresiba FlexTouch 100 UNIT/ML BD Pen Needle Gina 2nd Gen 32G X 4 MM BD Pen Needle Gina 2nd Gen 32G X 4 MM No BD Pen Needle Gina 2nd Gen 32G X 4 MM OneTouch Delica Lancets 33G - OneTouch Delica Lancets 33G - No OneTouch Delica Lancets 33G - Victoza 18 MG/3ML Victoza 18 MG/3ML No Victoza 18 MG/3ML OneTouch Ultra - OneTouch Ultra - No OneTouch Ultra - metFORMIN HCl 500 MG metFORMIN HCl 500 MG No metFORMIN HCl 500 MG Microlet Lancets - Microlet Lancets - No Microlet Lancets - Simvastatin 40 MG Simvastatin 40 MG No 1{table t_in e_eveni ng} QD Simvastati n 40 MG OneTouch Delica Plus Apbsit37H - OneTouch Delica Plus Nopmhy78O - No OneTouch Delica Plus Rdewnc02W - Clopidogrel Bisulfate 75 MG Clopidogrel Bisulfate 75 MG No Clopidogre l Bisulfate 75 MG Lisinopril 30 MG Lisinopril 30 MG No Lisinopril 30 MG Tresiba FlexTouch 100 UNIT/ML Tresiba FlexTouch 100 UNIT/ML No Tresiba FlexTouch 100 UNIT/ML BD Pen Needle Gina 2nd Gen 32G X 4 MM BD Pen Needle Gina 2nd Gen 32G X 4 MM No BD Pen Needle Gina 2nd Gen 32G X 4 MM OneTouch Delica Lancets 33G - OneTouch Delica Lancets 33G - No OneTouch Delica Lancets 33G - Victoza 18 MG/3ML Victoza 18 MG/3ML No Victoza 18 MG/3ML OneTouch Ultra - OneTouch Ultra - No OneTouch Ultra - metFORMIN HCl 500 MG metFORMIN HCl 500 MG No metFORMIN HCl 500 MG Microlet Lancets - Microlet Lancets - No Microlet Lancets - Simvastatin 40 MG Simvastatin 40 MG No 1{table t_in e_eveni ng} QD Simvastati n 40 MG OneTouch Delica Plus Emkcqy95B - OneTouch Delica Plus Rwxswb65Y - No OneTouch Delica Plus Mfydgt64H - Clopidogrel Bisulfate 75 MG Clopidogrel Bisulfate 75 MG No Clopidogre l Bisulfate 75 MG Lisinopril 30 MG Lisinopril 30 MG No Lisinopril 30 MG metFORMIN HCl 500 MG metFORMIN HCl 500 MG No metFORMIN HCl 500 MG Victoza 18 MG/3ML Victoza 18 MG/3ML No Victoza 18 MG/3ML Simvastatin 40 MG Simvastatin 40 MG No Simvastati n 40 MG OneTouch Ultra - OneTouch Ultra - No OneTouch Ultra - Clopidogrel Bisulfate 75 MG Clopidogrel Bisulfate 75 MG No Clopidogre l Bisulfate 75 MG BD Pen Needle Gina 2nd Gen 32G X 4 MM BD Pen Needle Gina 2nd Gen 32G X 4 MM No BD Pen Needle Gina 2nd Gen 32G X 4 MM OneTouch Delica Plus Monblf37Z - OneTouch Delica Plus Dktaim33O - No OneTouch Delica Plus Tpdwph35A - Tresiba FlexTouch 100 UNIT/ML Tresiba FlexTouch 100 UNIT/ML No Tresiba FlexTouch 100 UNIT/ML Levothyroxi ne Sodium 25 MCG Levothyroxi ne Sodium 25 MCG No Levothyrox ine Sodium 25 MCG OneTouch Delica Lancets 33G - OneTouch Delica Lancets 33G - No OneTouch Delica Lancets 33G - Microlet Lancets - Microlet Lancets - No Microlet Lancets - OneTouch Delica Plus Zdokgp92M - OneTouch Delica Plus Hxysde33N - No OneTouch Delica Plus Vxvxpx59A - Lisinopril 30 MG Lisinopril 30 MG No Lisinopril 30 MG Microlet Lancets - Microlet Lancets - No Microlet Lancets - BD Pen Needle Gina 2nd Gen 32G X 4 MM BD Pen Needle Gina 2nd Gen 32G X 4 MM No BD Pen Needle Gina 2nd Gen 32G X 4 MM Simvastatin 40 MG Simvastatin 40 MG No Simvastati n 40 MG OneTouch Delica Lancets 33G - OneTouch Delica Lancets 33G - No OneTouch Delica Lancets 33G - OneTouch Ultra - OneTouch Ultra - No OneTouch Ultra - metFORMIN HCl 500 MG metFORMIN HCl 500 MG No metFORMIN HCl 500 MG Tresiba FlexTouch 100 UNIT/ML Tresiba FlexTouch 100 UNIT/ML No Tresiba FlexTouch 100 UNIT/ML Clopidogrel Bisulfate 75 MG Clopidogrel Bisulfate 75 MG No Clopidogre l Bisulfate 75 MG Levothyroxi ne Sodium 25 MCG Levothyroxi ne Sodium 25 MCG No Levothyrox ine Sodium 25 MCG One A Day Women 50 Plus - One A Day Women 50 Plus - No One A Day Women 50 Plus - Insulin Lispro (1 Unit Dial) 100 UNIT/ML Insulin Lispro (1 Unit Dial) 100 UNIT/ML No Insulin Lispro (1 Unit Dial) 100 UNIT/ML Niharika Niharika No Niharika Ozempic (1 MG/DOSE) 4 MG/3ML Ozempic (1 MG/DOSE) 4 MG/3ML No Ozempic (1 MG/DOSE) 4 MG/3ML Levothyroxi ne Sodium 25 MCG Levothyroxi ne Sodium 25 MCG No QD Levothyrox ine Sodium 25 MCG FreeStyle Ganga 14 Day Sensor - FreeStyle Ganga 14 Day Sensor - No FreeStyle Ganga 14 Day Sensor - Microlet Lancets - Microlet Lancets - No Microlet Lancets - OneTouch Delica Plus Dhlanq77X - OneTouch Delica Plus Cqnhec74Q - No OneTouch Delica Plus Uwszaw85I - Clopidogrel Bisulfate 75 MG Clopidogrel Bisulfate 75 MG No 1{table t} QD Clopidogre l Bisulfate 75 MG Tresiba FlexTouch 100 UNIT/ML Tresiba FlexTouch 100 UNIT/ML No Tresiba FlexTouch 100 UNIT/ML Gabapentin 300 MG Gabapentin 300 MG No 2{capsu le} QD Gabapentin 300 MG Lisinopril 30 MG Lisinopril 30 MG No QD Lisinopril 30 MG OneTouch Delica Lancets 33G - OneTouch Delica Lancets 33G - No OneTouch Delica Lancets 33G - HYDROcodone -Acetaminop hen 7.5-325 MG HYDROcodone -Acetaminop hen 7.5-325 MG No 1{table t_as_ne eded} QID HYDROcodon e-Acetamin ophen 7.5-325 MG BD Pen Needle Gina 2nd Gen 32G X 4 MM BD Pen Needle Gina 2nd Gen 32G X 4 MM No BD Pen Needle Gina 2nd Gen 32G X 4 MM OneTouch Ultra - OneTouch Ultra - No OneTouch Ultra - Montelukast Sodium 10 MG Montelukast Sodium 10 MG No 1{table t} QD Montelukas t Sodium 10 MG Lipitor 40 MG Lipitor 40 MG No 1{table t} QD Lipitor 40 MG Aspirin 81 MG Aspirin 81 MG No 1{capsu le} QD Aspirin 81 MG One A Day Women 50 Plus - One A Day Women 50 Plus - No One A Day Women 50 Plus - Insulin Lispro (1 Unit Dial) 100 UNIT/ML Insulin Lispro (1 Unit Dial) 100 UNIT/ML No Insulin Lispro (1 Unit Dial) 100 UNIT/ML Niharika Niharika No Niharika Ozempic (1 MG/DOSE) 4 MG/3ML Ozempic (1 MG/DOSE) 4 MG/3ML No Ozempic (1 MG/DOSE) 4 MG/3ML Levothyroxi ne Sodium 25 MCG Levothyroxi ne Sodium 25 MCG No QD Levothyrox ine Sodium 25 MCG FreeStyle Ganga 14 Day Sensor - FreeStyle Ganga 14 Day Sensor - No FreeStyle Ganga 14 Day Sensor - Microlet Lancets - Microlet Lancets - No Microlet Lancets - OneTouch Delica Plus Ubepvg70H - OneTouch Delica Plus Stpnzh83W - No OneTouch Delica Plus Vlgggv43W - Clopidogrel Bisulfate 75 MG Clopidogrel Bisulfate 75 MG No 1{table t} QD Clopidogre l Bisulfate 75 MG Tresiba FlexTouch 100 UNIT/ML Tresiba FlexTouch 100 UNIT/ML No Tresiba FlexTouch 100 UNIT/ML Gabapentin 300 MG Gabapentin 300 MG No 2{capsu le} QD Gabapentin 300 MG Lisinopril 30 MG Lisinopril 30 MG No QD Lisinopril 30 MG OneTouch Delica Lancets 33G - OneTouch Delica Lancets 33G - No OneTouch Delica Lancets 33G - HYDROcodone -Acetaminop hen 7.5-325 MG HYDROcodone -Acetaminop hen 7.5-325 MG No 1{table t_as_ne eded} QID HYDROcodon e-Acetamin ophen 7.5-325 MG BD Pen Needle Gina 2nd Gen 32G X 4 MM BD Pen Needle Gina 2nd Gen 32G X 4 MM No BD Pen Needle Gina 2nd Gen 32G X 4 MM OneTouch Ultra - OneTouch Ultra - No OneTouch Ultra - Montelukast Sodium 10 MG Montelukast Sodium 10 MG No 1{table t} QD Montelukas t Sodium 10 MG Lipitor 40 MG Lipitor 40 MG No 1{table t} QD Lipitor 40 MG Aspirin 81 MG Aspirin 81 MG No 1{capsu le} QD Aspirin 81 MG One A Day Women 50 Plus - One A Day Women 50 Plus - No One A Day Women 50 Plus - Insulin Lispro (1 Unit Dial) 100 UNIT/ML Insulin Lispro (1 Unit Dial) 100 UNIT/ML No Insulin Lispro (1 Unit Dial) 100 UNIT/ML Niharika Niharika No Niharika Ozempic (1 MG/DOSE) 4 MG/3ML Ozempic (1 MG/DOSE) 4 MG/3ML No Ozempic (1 MG/DOSE) 4 MG/3ML Levothyroxi ne Sodium 25 MCG Levothyroxi ne Sodium 25 MCG No QD Levothyrox ine Sodium 25 MCG FreeStyle Ganga 14 Day Sensor - FreeStyle Ganga 14 Day Sensor - No FreeStyle Ganga 14 Day Sensor - Microlet Lancets - Microlet Lancets - No Microlet Lancets - OneTouch Delica Plus Msiihs91F - OneTouch Delica Plus Oslqss77Q - No OneTouch Delica Plus Wvqout29L - Clopidogrel Bisulfate 75 MG Clopidogrel Bisulfate 75 MG No 1{table t} QD Clopidogre l Bisulfate 75 MG Tresiba FlexTouch 100 UNIT/ML Tresiba FlexTouch 100 UNIT/ML No Tresiba FlexTouch 100 UNIT/ML Gabapentin 300 MG Gabapentin 300 MG No 2{capsu le} QD Gabapentin 300 MG Lisinopril 30 MG Lisinopril 30 MG No QD Lisinopril 30 MG OneTouch Delica Lancets 33G - OneTouch Delica Lancets 33G - No OneTouch Delica Lancets 33G - HYDROcodone -Acetaminop hen 7.5-325 MG HYDROcodone -Acetaminop hen 7.5-325 MG No 1{table t_as_ne eded} QID HYDROcodon e-Acetamin ophen 7.5-325 MG BD Pen Needle Gina 2nd Gen 32G X 4 MM BD Pen Needle Gina 2nd Gen 32G X 4 MM No BD Pen Needle Gina 2nd Gen 32G X 4 MM OneTouch Ultra - OneTouch Ultra - No OneTouch Ultra - Montelukast Sodium 10 MG Montelukast Sodium 10 MG No 1{table t} QD Montelukas t Sodium 10 MG Lipitor 40 MG Lipitor 40 MG No 1{table t} QD Lipitor 40 MG Aspirin 81 MG Aspirin 81 MG No 1{capsu le} QD Aspirin 81 MG One A Day Women 50 Plus - One A Day Women 50 Plus - No One A Day Women 50 Plus - Insulin Lispro (1 Unit Dial) 100 UNIT/ML Insulin Lispro (1 Unit Dial) 100 UNIT/ML No Insulin Lispro (1 Unit Dial) 100 UNIT/ML Niharika Niharika No Niharika Ozempic (1 MG/DOSE) 4 MG/3ML Ozempic (1 MG/DOSE) 4 MG/3ML No Ozempic (1 MG/DOSE) 4 MG/3ML Levothyroxi ne Sodium 25 MCG Levothyroxi ne Sodium 25 MCG No QD Levothyrox ine Sodium 25 MCG FreeStyle Ganga 14 Day Sensor - FreeStyle Ganga 14 Day Sensor - No FreeStyle Ganga 14 Day Sensor - Microlet Lancets - Microlet Lancets - No Microlet Lancets - OneTouch Delica Plus [id number] - OneTouch Delica Plus Bmnmbh34H - No OneTouch Delica Plus Ffuqyz89K - Clopidogrel Bisulfate 75 MG Clopidogrel Bisulfate 75 MG No 1{table t} QD Clopidogre l Bisulfate 75 MG Tresiba FlexTouch 100 UNIT/ML Tresiba FlexTouch 100 UNIT/ML No Tresiba FlexTouch 100 UNIT/ML Gabapentin 300 MG Gabapentin 300 MG No 2{capsu le} QD Gabapentin 300 MG Lisinopril 30 MG Lisinopril 30 MG No QD Lisinopril 30 MG OneTouch Delica Lancets 33G - OneTouch Delica Lancets 33G - No OneTouch Delica Lancets 33G - HYDROcodone -Acetaminop hen 7.5-325 MG HYDROcodone -Acetaminop hen 7.5-325 MG No 1{table t_as_ne eded} QID HYDROcodon e-Acetamin ophen 7.5-325 MG BD Pen Needle Gina 2nd Gen 32G X 4 MM BD Pen Needle Gina 2nd Gen 32G X 4 MM No BD Pen Needle Gina 2nd Gen 32G X 4 MM OneTouch Ultra - OneTouch Ultra - No OneTouch Ultra - Montelukast Sodium 10 MG Montelukast Sodium 10 MG No 1{table t} QD Montelukas t Sodium 10 MG Lipitor 40 MG Lipitor 40 MG No 1{table t} QD Lipitor 40 MG Aspirin 81 MG Aspirin 81 MG No 1{capsu le} QD Aspirin 81 MG Insulin Lispro (1 Unit Dial) 100 UNIT/ML Insulin Lispro (1 Unit Dial) 100 UNIT/ML No Insulin Lispro (1 Unit Dial) 100 UNIT/ML Aspirin 81 MG Aspirin 81 MG No 1{capsu le} QD Aspirin 81 MG Levothyroxi ne Sodium 25 MCG Levothyroxi ne Sodium 25 MCG No QD Levothyrox ine Sodium 25 MCG Lipitor 40 MG Lipitor 40 MG No 1{table t} QD Lipitor 40 MG One A Day Women 50 Plus - One A Day Women 50 Plus - No One A Day Women 50 Plus - OneTouch Delica Plus Hetfdc00T - OneTouch Delica Plus Jndybb83N - No OneTouch Delica Plus Qpfxog80J - Niharika Niharika No Niharika Lisinopril 30 MG Lisinopril 30 MG No Lisinopril 30 MG OneTouch Ultra - OneTouch Ultra - No OneTouch Ultra - Gabapentin 300 MG Gabapentin 300 MG No 2{capsu le} QD Gabapentin 300 MG Ozempic (1 MG/DOSE) 4 MG/3ML Ozempic (1 MG/DOSE) 4 MG/3ML No Ozempic (1 MG/DOSE) 4 MG/3ML metFORMIN HCl 500 MG metFORMIN HCl 500 MG No metFORMIN HCl 500 MG HYDROcodone -Acetaminop hen 7.5-325 MG HYDROcodone -Acetaminop hen 7.5-325 MG No 1{table t_as_ne eded} QID HYDROcodon e-Acetamin ophen 7.5-325 MG BD Pen Needle Gina 2nd Gen 32G X 4 MM BD Pen Needle Gina 2nd Gen 32G X 4 MM No BD Pen Needle Gina 2nd Gen 32G X 4 MM FreeStyle Ganga 14 Day Sensor - FreeStyle Ganga 14 Day Sensor - No FreeStyle Ganga 14 Day Sensor - Tresiba FlexTouch 100 UNIT/ML Tresiba FlexTouch 100 UNIT/ML No Tresiba FlexTouch 100 UNIT/ML Microlet Lancets - Microlet Lancets - No Microlet Lancets - OneTouch Delica Lancets 33G - OneTouch Delica Lancets 33G - No OneTouch Delica Lancets 33G - Montelukast Sodium 10 MG Montelukast Sodium 10 MG No 1{table t} QD Montelukas t Sodium 10 MG Clopidogrel Bisulfate 75 MG Clopidogrel Bisulfate 75 MG No 1{table t} QD Clopidogre l Bisulfate 75 MG Niharika Niharika No Niharika Lisinopril 30 MG Lisinopril 30 MG No Lisinopril 30 MG OneTouch Delica Lancets 33G - OneTouch Delica Lancets 33G - No OneTouch Delica Lancets 33G - Ozempic (1 MG/DOSE) 4 MG/3ML Ozempic (1 MG/DOSE) 4 MG/3ML No Ozempic (1 MG/DOSE) 4 MG/3ML Levothyroxi ne Sodium 25 MCG Levothyroxi ne Sodium 25 MCG No QD Levothyrox ine Sodium 25 MCG OneTouch Ultra - OneTouch Ultra - No OneTouch Ultra - OneTouch Delica Plus [id number] - OneTouch Delica Plus Ghozxx32N - No OneTouch Delica Plus Njqfht14Q - FreeStyle Ganga 14 Day Sensor - FreeStyle Ganga 14 Day Sensor - No FreeStyle Ganga 14 Day Sensor - Lipitor 40 MG Lipitor 40 MG No 1{table t} QD Lipitor 40 MG Insulin Lispro (1 Unit Dial) 100 UNIT/ML Insulin Lispro (1 Unit Dial) 100 UNIT/ML No Insulin Lispro (1 Unit Dial) 100 UNIT/ML One A Day Women 50 Plus - One A Day Women 50 Plus - No One A Day Women 50 Plus - HYDROcodone -Acetaminop hen 7.5-325 MG HYDROcodone -Acetaminop hen 7.5-325 MG No 1{table t_as_ne eded} QID HYDROcodon e-Acetamin ophen 7.5-325 MG BD Pen Needle Gina 2nd Gen 32G X 4 MM BD Pen Needle Gina 2nd Gen 32G X 4 MM No BD Pen Needle Gina 2nd Gen 32G X 4 MM Gabapentin 300 MG Gabapentin 300 MG No 2{capsu le} QD Gabapentin 300 MG Aspirin 81 MG Aspirin 81 MG No 1{capsu le} QD Aspirin 81 MG metFORMIN HCl 500 MG metFORMIN HCl 500 MG No metFORMIN HCl 500 MG Montelukast Sodium 10 MG Montelukast Sodium 10 MG No 1{table t} QD Montelukas t Sodium 10 MG Clopidogrel Bisulfate 75 MG Clopidogrel Bisulfate 75 MG No 1{table t} QD Clopidogre l Bisulfate 75 MG Tresiba FlexTouch 100 UNIT/ML Tresiba FlexTouch 100 UNIT/ML No Tresiba FlexTouch 100 UNIT/ML Microlet Lancets - Microlet Lancets - No Microlet Lancets - Niharika Niharika No Niharika Lisinopril 30 MG Lisinopril 30 MG No Lisinopril 30 MG OneTouch Delica Lancets 33G - OneTouch Delica Lancets 33G - No OneTouch Delica Lancets 33G - Ozempic (1 MG/DOSE) 4 MG/3ML Ozempic (1 MG/DOSE) 4 MG/3ML No Ozempic (1 MG/DOSE) 4 MG/3ML Levothyroxi ne Sodium 25 MCG Levothyroxi ne Sodium 25 MCG No QD Levothyrox ine Sodium 25 MCG OneTouch Ultra - OneTouch Ultra - No OneTouch Ultra - OneTouch Delica Plus [id number] - OneTouch Delica Plus Hvxxwv83D - No OneTouch Delica Plus Fexenb95U - FreeStyle Ganga 14 Day Sensor - FreeStyle Ganga 14 Day Sensor - No FreeStyle Ganga 14 Day Sensor - Lipitor 40 MG Lipitor 40 MG No 1{table t} QD Lipitor 40 MG Insulin Lispro (1 Unit Dial) 100 UNIT/ML Insulin Lispro (1 Unit Dial) 100 UNIT/ML No Insulin Lispro (1 Unit Dial) 100 UNIT/ML One A Day Women 50 Plus - One A Day Women 50 Plus - No One A Day Women 50 Plus - HYDROcodone -Acetaminop hen 7.5-325 MG HYDROcodone -Acetaminop hen 7.5-325 MG No 1{table t_as_ne eded} QID HYDROcodon e-Acetamin ophen 7.5-325 MG BD Pen Needle Gina 2nd Gen 32G X 4 MM BD Pen Needle Gina 2nd Gen 32G X 4 MM No BD Pen Needle Gina 2nd Gen 32G X 4 MM Gabapentin 300 MG Gabapentin 300 MG No 2{capsu le} QD Gabapentin 300 MG Aspirin 81 MG Aspirin 81 MG No 1{capsu le} QD Aspirin 81 MG metFORMIN HCl 500 MG metFORMIN HCl 500 MG No metFORMIN HCl 500 MG Montelukast Sodium 10 MG Montelukast Sodium 10 MG No 1{table t} QD Montelukas t Sodium 10 MG Clopidogrel Bisulfate 75 MG Clopidogrel Bisulfate 75 MG No 1{table t} QD Clopidogre l Bisulfate 75 MG Tresiba FlexTouch 100 UNIT/ML Tresiba FlexTouch 100 UNIT/ML No Tresiba FlexTouch 100 UNIT/ML Microlet Lancets - Microlet Lancets - No Microlet Lancets - Niharika Niharika No Niharika Lisinopril 30 MG Lisinopril 30 MG No Lisinopril 30 MG OneTouch Delica Lancets 33G - OneTouch Delica Lancets 33G - No OneTouch Delica Lancets 33G - Ozempic (1 MG/DOSE) 4 MG/3ML Ozempic (1 MG/DOSE) 4 MG/3ML No Ozempic (1 MG/DOSE) 4 MG/3ML Levothyroxi ne Sodium 25 MCG Levothyroxi ne Sodium 25 MCG No QD Levothyrox ine Sodium 25 MCG OneTouch Ultra - OneTouch Ultra - No OneTouch Ultra - OneTouch Delica Plus Ecuoqh90I - OneTouch Delica Plus Ftlkbz86E - No OneTouch Delica Plus Ozhncw55B - FreeStyle Ganga 14 Day Sensor - FreeStyle Ganga 14 Day Sensor - No FreeStyle Ganga 14 Day Sensor - Lipitor 40 MG Lipitor 40 MG No 1{table t} QD Lipitor 40 MG Insulin Lispro (1 Unit Dial) 100 UNIT/ML Insulin Lispro (1 Unit Dial) 100 UNIT/ML No Insulin Lispro (1 Unit Dial) 100 UNIT/ML One A Day Women 50 Plus - One A Day Women 50 Plus - No One A Day Women 50 Plus - HYDROcodone -Acetaminop hen 7.5-325 MG HYDROcodone -Acetaminop hen 7.5-325 MG No 1{table t_as_ne eded} QID HYDROcodon e-Acetamin ophen 7.5-325 MG BD Pen Needle Gina 2nd Gen 32G X 4 MM BD Pen Needle Gina 2nd Gen 32G X 4 MM No BD Pen Needle Gina 2nd Gen 32G X 4 MM Gabapentin 300 MG Gabapentin 300 MG No 2{capsu le} QD Gabapentin 300 MG Aspirin 81 MG Aspirin 81 MG No 1{capsu le} QD Aspirin 81 MG metFORMIN HCl 500 MG metFORMIN HCl 500 MG No metFORMIN HCl 500 MG Montelukast Sodium 10 MG Montelukast Sodium 10 MG No 1{table t} QD Montelukas t Sodium 10 MG Clopidogrel Bisulfate 75 MG Clopidogrel Bisulfate 75 MG No 1{table t} QD Clopidogre l Bisulfate 75 MG Tresiba FlexTouch 100 UNIT/ML Tresiba FlexTouch 100 UNIT/ML No Tresiba FlexTouch 100 UNIT/ML Microlet Lancets - Microlet Lancets - No Microlet Lancets - Niharika Niharika No Niharika Lisinopril 30 MG Lisinopril 30 MG No Lisinopril 30 MG OneTouch Delica Lancets 33G - OneTouch Delica Lancets 33G - No OneTouch Delica Lancets 33G - Ozempic (1 MG/DOSE) 4 MG/3ML Ozempic (1 MG/DOSE) 4 MG/3ML No Ozempic (1 MG/DOSE) 4 MG/3ML Levothyroxi ne Sodium 25 MCG Levothyroxi ne Sodium 25 MCG No QD Levothyrox ine Sodium 25 MCG FreeStyle Ganga 14 Day Sensor - FreeStyle Ganga 14 Day Sensor - No FreeStyle Ganga 14 Day Sensor - OneTouch Delica Plus [id number] - OneTouch Delica Plus [id number] - No OneTouch Delica Plus [id number] - Lipitor 40 MG Lipitor 40 MG No 1{table t} QD Lipitor 40 MG OneTouch Ultra - OneTouch Ultra - No OneTouch Ultra - Insulin Lispro (1 Unit Dial) 100 UNIT/ML Insulin Lispro (1 Unit Dial) 100 UNIT/ML No Insulin Lispro (1 Unit Dial) 100 UNIT/ML One A Day Women 50 Plus - One A Day Women 50 Plus - No One A Day Women 50 Plus - HYDROcodone -Acetaminop hen 7.5-325 MG HYDROcodone -Acetaminop hen 7.5-325 MG No 1{table t_as_ne eded} QID HYDROcodon e-Acetamin ophen 7.5-325 MG Lisinopril 30 MG Lisinopril 30 MG No 1{table t} QD Lisinopril 30 MG BD Pen Needle Gina 2nd Gen 32G X 4 MM BD Pen Needle Gina 2nd Gen 32G X 4 MM No BD Pen Needle Gina 2nd Gen 32G X 4 MM Gabapentin 300 MG Gabapentin 300 MG No 2{capsu le} QD Gabapentin 300 MG Aspirin 81 MG Aspirin 81 MG No 1{capsu le} QD Aspirin 81 MG metFORMIN HCl 500 MG metFORMIN HCl 500 MG No metFORMIN HCl 500 MG Montelukast Sodium 10 MG Montelukast Sodium 10 MG No 1{table t} QD Montelukas t Sodium 10 MG Clopidogrel Bisulfate 75 MG Clopidogrel Bisulfate 75 MG No Clopidogre l Bisulfate 75 MG Tresiba FlexTouch 100 UNIT/ML Tresiba FlexTouch 100 UNIT/ML No Tresiba FlexTouch 100 UNIT/ML Microlet Lancets - Microlet Lancets - No Microlet Lancets - Simvastatin 40 MG Simvastatin 40 MG No 1{table t_in_th e_eveni ng} QD Simvastati n 40 MG Niharika Niharika No Niharika Lisinopril 30 MG Lisinopril 30 MG No Lisinopril 30 MG OneTouch Delica Lancets 33G - OneTouch Delica Lancets 33G - No OneTouch Delica Lancets 33G - Ozempic (1 MG/DOSE) 4 MG/3ML Ozempic (1 MG/DOSE) 4 MG/3ML No Ozempic (1 MG/DOSE) 4 MG/3ML Levothyroxi ne Sodium 25 MCG Levothyroxi ne Sodium 25 MCG No QD Levothyrox ine Sodium 25 MCG FreeStyle Ganga 14 Day Sensor - FreeStyle Ganga 14 Day Sensor - No FreeStyle Ganga 14 Day Sensor - OneTouch Delica Plus [id number] - OneTouch Delica Plus [id number] - No OneTouch Delica Plus [id number] - Lipitor 40 MG Lipitor 40 MG No 1{table t} QD Lipitor 40 MG OneTouch Ultra - OneTouch Ultra - No OneTouch Ultra - Insulin Lispro (1 Unit Dial) 100 UNIT/ML Insulin Lispro (1 Unit Dial) 100 UNIT/ML No Insulin Lispro (1 Unit Dial) 100 UNIT/ML One A Day Women 50 Plus - One A Day Women 50 Plus - No One A Day Women 50 Plus - HYDROcodone -Acetaminop hen 7.5-325 MG HYDROcodone -Acetaminop hen 7.5-325 MG No 1{table t_as_ne eded} QID HYDROcodon e-Acetamin ophen 7.5-325 MG Victoza 18 MG/3ML Victoza 18 MG/3ML No Victoza 18 MG/3ML BD Pen Needle Gina 2nd Gen 32G X 4 MM BD Pen Needle Gina 2nd Gen 32G X 4 MM No BD Pen Needle Gina 2nd Gen 32G X 4 MM Gabapentin 300 MG Gabapentin 300 MG No 2{capsu le} QD Gabapentin 300 MG Aspirin 81 MG Aspirin 81 MG No 1{capsu le} QD Aspirin 81 MG metFORMIN HCl 500 MG metFORMIN HCl 500 MG No metFORMIN HCl 500 MG Montelukast Sodium 10 MG Montelukast Sodium 10 MG No 1{table t} QD Montelukas t Sodium 10 MG Clopidogrel Bisulfate 75 MG Clopidogrel Bisulfate 75 MG No Clopidogre l Bisulfate 75 MG Tresiba FlexTouch 100 UNIT/ML Tresiba FlexTouch 100 UNIT/ML No Tresiba FlexTouch 100 UNIT/ML Microlet Lancets - Microlet Lancets - No Microlet Lancets - OneTouch Delica Plus [id number] - OneTouch Delica Plus [id number] - No OneTouch Delica Plus [id number] - Niharika Niharika No Niharika BD Pen Needle Gina U/F 32G X 4 MM BD Pen Needle Gina U/F 32G X 4 MM No TID BD Pen Needle Gina U/F 32G X 4 MM Lisinopril 30 MG Lisinopril 30 MG No Lisinopril 30 MG OneTouch Delica Lancets 33G - OneTouch Delica Lancets 33G - No OneTouch Delica Lancets 33G - Ozempic (1 MG/DOSE) 4 MG/3ML Ozempic (1 MG/DOSE) 4 MG/3ML No Ozempic (1 MG/DOSE) 4 MG/3ML Levothyroxi ne Sodium 25 MCG Levothyroxi ne Sodium 25 MCG No QD Levothyrox ine Sodium 25 MCG FreeStyle Ganga 14 Day Sensor - FreeStyle Ganga 14 Day Sensor - No FreeStyle Ganga 14 Day Sensor - OneTouch Delica Plus [id number] - OneTouch Delica Plus [id number] - No OneTouch Delica Plus [id number] - Lipitor 40 MG Lipitor 40 MG No 1{table t} QD Lipitor 40 MG OneTouch Ultra - OneTouch Ultra - No OneTouch Ultra - Insulin Lispro (1 Unit Dial) 100 UNIT/ML Insulin Lispro (1 Unit Dial) 100 UNIT/ML No Insulin Lispro (1 Unit Dial) 100 UNIT/ML metFORMIN HCl 500 MG metFORMIN HCl 500 MG No 1{table t_with_ a_meal} BID metFORMIN HCl 500 MG One A Day Women 50 Plus - One A Day Women 50 Plus - No One A Day Women 50 Plus - HYDROcodone -Acetaminop hen 7.5-325 MG HYDROcodone -Acetaminop hen 7.5-325 MG No 1{table t_as_ne eded} QID HYDROcodon e-Acetamin ophen 7.5-325 MG BD Pen Needle Gina 2nd Gen 32G X 4 MM BD Pen Needle Gina 2nd Gen 32G X 4 MM No BD Pen Needle Gina 2nd Gen 32G X 4 MM Gabapentin 300 MG Gabapentin 300 MG No 2{capsu le} QD Gabapentin 300 MG Aspirin 81 MG Aspirin 81 MG No 1{capsu le} QD Aspirin 81 MG metFORMIN HCl 500 MG metFORMIN HCl 500 MG No metFORMIN HCl 500 MG Montelukast Sodium 10 MG Montelukast Sodium 10 MG No 1{table t} QD Montelukas t Sodium 10 MG Clopidogrel Bisulfate 75 MG Clopidogrel Bisulfate 75 MG No Clopidogre l Bisulfate 75 MG Tresiba FlexTouch 100 UNIT/ML Tresiba FlexTouch 100 UNIT/ML No Tresiba FlexTouch 100 UNIT/ML Tresiba FlexTouch 100 UNIT/ML Tresiba FlexTouch 100 UNIT/ML No QD Tresiba FlexTouch 100 UNIT/ML Microlet Lancets - Microlet Lancets - No Microlet Lancets - OneTouch Delica Lancets 33G - OneTouch Delica Lancets 33G - No OneTouch Delica Lancets 33G - Niharika Niharika No Niharika Lisinopril 30 MG Lisinopril 30 MG No Lisinopril 30 MG Clopidogrel Bisulfate 75 MG Clopidogrel Bisulfate 75 MG No 1{table t} QD Clopidogre l Bisulfate 75 MG OneTouch Delica Lancets 33G - OneTouch Delica Lancets 33G - No OneTouch Delica Lancets 33G - Ozempic (1 MG/DOSE) 4 MG/3ML Ozempic (1 MG/DOSE) 4 MG/3ML No Ozempic (1 MG/DOSE) 4 MG/3ML Levothyroxi ne Sodium 25 MCG Levothyroxi ne Sodium 25 MCG No QD Levothyrox ine Sodium 25 MCG FreeStyle Ganga 14 Day Sensor - FreeStyle Ganga 14 Day Sensor - No FreeStyle Ganga 14 Day Sensor - OneTouch Delica Plus [id number] - OneTouch Delica Plus [id number] - No OneTouch Delica Plus [id number] - Lipitor 40 MG Lipitor 40 MG No 1{table t} QD Lipitor 40 MG OneTouch Ultra - OneTouch Ultra - No OneTouch Ultra - Insulin Lispro (1 Unit Dial) 100 UNIT/ML Insulin Lispro (1 Unit Dial) 100 UNIT/ML No Insulin Lispro (1 Unit Dial) 100 UNIT/ML One A Day Women 50 Plus - One A Day Women 50 Plus - No One A Day Women 50 Plus - OneTouch Ultra Test - OneTouch Ultra Test - No BID OneTouch Ultra Test - HYDROcodone -Acetaminop hen 7.5-325 MG HYDROcodone -Acetaminop hen 7.5-325 MG No 1{table t_as_ne eded} QID HYDROcodon e-Acetamin ophen 7.5-325 MG BD Pen Needle Gina 2nd Gen 32G X 4 MM BD Pen Needle Gina 2nd Gen 32G X 4 MM No BD Pen Needle Gina 2nd Gen 32G X 4 MM Gabapentin 300 MG Gabapentin 300 MG No 2{capsu le} QD Gabapentin 300 MG Aspirin 81 MG Aspirin 81 MG No 1{capsu le} QD Aspirin 81 MG metFORMIN HCl 500 MG metFORMIN HCl 500 MG No metFORMIN HCl 500 MG Montelukast Sodium 10 MG Montelukast Sodium 10 MG No 1{table t} QD Montelukas t Sodium 10 MG Clopidogrel Bisulfate 75 MG Clopidogrel Bisulfate 75 MG No Clopidogre l Bisulfate 75 MG Tresiba FlexTouch 100 UNIT/ML Tresiba FlexTouch 100 UNIT/ML No Tresiba FlexTouch 100 UNIT/ML Microlet Lancets - Microlet Lancets - No Microlet Lancets - Lisinopril 30 MG Lisinopril 30 MG No 1{table t} QD Lisinopril 30 MG Niharika Niharika No Niharika Lisinopril 30 MG Lisinopril 30 MG No Lisinopril 30 MG OneTouch Delica Lancets 33G - OneTouch Delica Lancets 33G - No OneTouch Delica Lancets 33G - Ozempic (1 MG/DOSE) 4 MG/3ML Ozempic (1 MG/DOSE) 4 MG/3ML No Ozempic (1 MG/DOSE) 4 MG/3ML Levothyroxi ne Sodium 25 MCG Levothyroxi ne Sodium 25 MCG No QD Levothyrox ine Sodium 25 MCG FreeStyle Ganga 14 Day Sensor - FreeStyle Ganga 14 Day Sensor - No FreeStyle Ganga 14 Day Sensor - OneTouch Delica Plus [id number] - OneTouch Delica Plus [id number] - No OneTouch Delica Plus [id number] - metFORMIN HCl 500 MG metFORMIN HCl 500 MG No 1{table t_with_ a_meal} BID metFORMIN HCl 500 MG Lipitor 40 MG Lipitor 40 MG No 1{table t} QD Lipitor 40 MG OneTouch Ultra - OneTouch Ultra - No OneTouch Ultra - Insulin Lispro (1 Unit Dial) 100 UNIT/ML Insulin Lispro (1 Unit Dial) 100 UNIT/ML No Insulin Lispro (1 Unit Dial) 100 UNIT/ML One A Day Women 50 Plus - One A Day Women 50 Plus - No One A Day Women 50 Plus - HYDROcodone -Acetaminop hen 7.5-325 MG HYDROcodone -Acetaminop hen 7.5-325 MG No 1{table t_as_ne eded} QID HYDROcodon e-Acetamin ophen 7.5-325 MG BD Pen Needle Gina 2nd Gen 32G X 4 MM BD Pen Needle Gina 2nd Gen 32G X 4 MM No BD Pen Needle Gina 2nd Gen 32G X 4 MM Gabapentin 300 MG Gabapentin 300 MG No 2{capsu le} QD Gabapentin 300 MG Aspirin 81 MG Aspirin 81 MG No 1{capsu le} QD Aspirin 81 MG Simvastatin 40 MG Simvastatin 40 MG No Simvastati n 40 MG metFORMIN HCl 500 MG metFORMIN HCl 500 MG No metFORMIN HCl 500 MG Montelukast Sodium 10 MG Montelukast Sodium 10 MG No 1{table t} QD Montelukas t Sodium 10 MG Clopidogrel Bisulfate 75 MG Clopidogrel Bisulfate 75 MG No Clopidogre l Bisulfate 75 MG Tresiba FlexTouch 100 UNIT/ML Tresiba FlexTouch 100 UNIT/ML No Tresiba FlexTouch 100 UNIT/ML Microlet Lancets - Microlet Lancets - No Microlet Lancets - Victoza 18 MG/3ML Victoza 18 MG/3ML 07-12 00:00 :00 No QD Victoza 18 MG/3ML Victoza 18 MG/3ML Victoza 18 MG/3ML 07-12 00:00 :00 No QD Victoza 18 MG/3ML Immunizations Ordered Immunization Name Filled Immunization Name Date Status Comments Source Moderna COVID-19 Vaccine (Low Dose Booster) Moderna COVID-19 Vaccine (Low Dose Booster) 2021-07-07 10:30:00 Completed [facility] Moderna COVID-19 Vaccine (Low Dose Booster) Moderna COVID-19 Vaccine (Low Dose Booster) 2021-07-07 10:30:00 Completed [facility] Moderna COVID-19 Vaccine (Low Dose Booster) Moderna COVID-19 Vaccine (Low Dose Booster) 2021-07-07 10:30:00 Completed [facility] Moderna COVID-19 Vaccine (Low Dose Booster) Moderna COVID-19 Vaccine (Low Dose Booster) 2021-07-07 10:30:00 Completed [facility] Moderna COVID-19 Vaccine (Low Dose Booster) Moderna COVID-19 Vaccine (Low Dose Booster) 2021-07-07 10:30:00 Completed [facility] Moderna COVID-19 Vaccine (Low Dose Booster) Moderna COVID-19 Vaccine (Low Dose Booster) 2021-07-07 10:30:00 Completed [facility] Moderna COVID-19 Vaccine (Low Dose Booster) Moderna COVID-19 Vaccine (Low Dose Booster) 2021-07-07 10:30:00 Completed [facility] Moderna COVID-19 Vaccine (Low Dose Booster) Moderna COVID-19 Vaccine (Low Dose Booster) 2021-07-07 10:30:00 Completed [facility] Moderna COVID-19 Vaccine (Low Dose Booster) Moderna COVID-19 Vaccine (Low Dose Booster) 2021-07-07 10:30:00 Completed [facility] Moderna COVID-19 Vaccine (Low Dose Booster) Moderna COVID-19 Vaccine (Low Dose Booster) 2021-07-07 10:30:00 Completed [facility] Moderna COVID-19 Vaccine (Low Dose Booster) Moderna COVID-19 Vaccine (Low Dose Booster) 2021-07-07 10:30:00 Completed [facility] Moderna COVID-19 Vaccine (Low Dose Booster) Moderna COVID-19 Vaccine (Low Dose Booster) 2021-07-07 10:30:00 Completed [facility] Moderna COVID-19 Vaccine (Low Dose Booster) Moderna COVID-19 Vaccine (Low Dose Booster) 2021-07-07 10:30:00 Completed [facility] Moderna COVID-19 Vaccine (Low Dose Booster) Moderna COVID-19 Vaccine (Low Dose Booster) 2021-07-07 10:30:00 Completed [facility] FLUZONE HIGH DOSE OVER 65 FLUZONE HIGH DOSE OVER 65 2021-06-13 10:28:00 Completed [facility] Prevnar 13 (PCV13) Prevnar 13 (PCV13) 2021-06-13 10:28:00 Completed [facility] FLUZONE HIGH DOSE OVER 65 FLUZONE HIGH DOSE OVER 65 2021-06-13 10:28:00 Completed [facility] Prevnar 13 (PCV13) Prevnar 13 (PCV13) 2021-06-13 10:28:00 Completed [facility] FLUZONE HIGH DOSE OVER 65 FLUZONE HIGH DOSE OVER 65 2021-06-13 10:28:00 Completed [facility] Prevnar 13 (PCV13) Prevnar 13 (PCV13) 2021-06-13 10:28:00 Completed [facility] FLUZONE HIGH DOSE OVER 65 FLUZONE HIGH DOSE OVER 65 2021-06-13 10:28:00 Completed [facility] Prevnar 13 (PCV13) Prevnar 13 (PCV13) 2021-06-13 10:28:00 Completed [facility] FLUZONE HIGH DOSE OVER 65 FLUZONE HIGH DOSE OVER 65 2021-06-13 10:28:00 Completed [facility] Prevnar 13 (PCV13) Prevnar 13 (PCV13) 2021-06-13 10:28:00 Completed [facility] FLUZONE HIGH DOSE OVER 65 FLUZONE HIGH DOSE OVER 65 2021-06-13 10:28:00 Completed [facility] Prevnar 13 (PCV13) Prevnar 13 (PCV13) 2021-06-13 10:28:00 Completed [facility] FLUZONE HIGH DOSE OVER 65 FLUZONE HIGH DOSE OVER 65 2021-06-13 10:28:00 Completed [facility] Prevnar 13 (PCV13) Prevnar 13 (PCV13) 2021-06-13 10:28:00 Completed [facility] FLUZONE HIGH DOSE OVER 65 FLUZONE HIGH DOSE OVER 65 2021-06-13 10:28:00 Completed [facility] Prevnar 13 (PCV13) Prevnar 13 (PCV13) 2021-06-13 10:28:00 Completed [facility] FLUZONE HIGH DOSE OVER 65 FLUZONE HIGH DOSE OVER 65 2021-06-13 10:28:00 Completed [facility] Prevnar 13 (PCV13) Prevnar 13 (PCV13) 2021-06-13 10:28:00 Completed [facility] FLUZONE HIGH DOSE OVER 65 FLUZONE HIGH DOSE OVER 65 2021-06-13 10:28:00 Completed [facility] Prevnar 13 (PCV13) Prevnar 13 (PCV13) 2021-06-13 10:28:00 Completed [facility] FLUZONE HIGH DOSE OVER 65 FLUZONE HIGH DOSE OVER 65 2021-06-13 10:28:00 Completed [facility] Prevnar 13 (PCV13) Prevnar 13 (PCV13) 2021-06-13 10:28:00 Completed [facility] FLUZONE HIGH DOSE OVER 65 FLUZONE HIGH DOSE OVER 65 2021-06-13 10:28:00 Completed [facility] Prevnar 13 (PCV13) Prevnar 13 (PCV13) 2021-06-13 10:28:00 Completed [facility] FLUZONE HIGH DOSE OVER 65 FLUZONE HIGH DOSE OVER 65 2021-06-13 10:28:00 Completed [facility] Prevnar 13 (PCV13) Prevnar 13 (PCV13) 2021-06-13 10:28:00 Completed [facility] FLUZONE HIGH DOSE OVER 65 FLUZONE HIGH DOSE OVER 65 2021-06-13 10:28:00 Completed [facility] Prevnar 13 (PCV13) Prevnar 13 (PCV13) 2021-06-13 10:28:00 Completed [facility] Moderna COVID-19 Vaccine Moderna COVID-19 Vaccine 2020-09-20 10:32:00 Completed [facility] Moderna COVID-19 Vaccine Moderna COVID-19 Vaccine 2020-09-20 10:32:00 Completed [facility] Moderna COVID-19 Vaccine Moderna COVID-19 Vaccine 2020-09-20 10:32:00 Completed [facility] Moderna COVID-19 Vaccine Moderna COVID-19 Vaccine 2020-09-20 10:32:00 Completed [facility] Moderna COVID-19 Vaccine Moderna COVID-19 Vaccine 2020-09-20 10:32:00 Completed [facility] Moderna COVID-19 Vaccine Moderna COVID-19 Vaccine 2020-09-20 10:32:00 Completed [facility] Moderna COVID-19 Vaccine Moderna COVID-19 Vaccine 2020-09-20 10:32:00 Completed [facility] Moderna COVID-19 Vaccine Moderna COVID-19 Vaccine 2020-09-20 10:32:00 Completed [facility] Moderna COVID-19 Vaccine Moderna COVID-19 Vaccine 2020-09-20 10:32:00 Completed [facility] Moderna COVID-19 Vaccine Moderna COVID-19 Vaccine 2020-09-20 10:32:00 Completed [facility] Moderna COVID-19 Vaccine Moderna COVID-19 Vaccine 2020-09-20 10:32:00 Completed [facility] Moderna COVID-19 Vaccine Moderna COVID-19 Vaccine 2020-09-20 10:32:00 Completed [facility] Moderna COVID-19 Vaccine Moderna COVID-19 Vaccine 2020-09-20 10:32:00 Completed [facility] Moderna COVID-19 Vaccine Moderna COVID-19 Vaccine 2020-09-20 10:32:00 Completed [facility] Moderna COVID-19 Vaccine Moderna COVID-19 Vaccine 2020-08-30 10:31:00 Completed [facility] Moderna COVID-19 Vaccine Moderna COVID-19 Vaccine 2020-08-30 10:31:00 Completed [facility] Moderna COVID-19 Vaccine Moderna COVID-19 Vaccine 2020-08-30 10:31:00 Completed [facility] Moderna COVID-19 Vaccine Moderna COVID-19 Vaccine 2020-08-30 10:31:00 Completed [facility] Moderna COVID-19 Vaccine Moderna COVID-19 Vaccine 2020-08-30 10:31:00 Completed [facility] Moderna COVID-19 Vaccine Moderna COVID-19 Vaccine 2020-08-30 10:31:00 Completed [facility] Moderna COVID-19 Vaccine Moderna COVID-19 Vaccine 2020-08-30 10:31:00 Completed [facility] Moderna COVID-19 Vaccine Moderna COVID-19 Vaccine 2020-08-30 10:31:00 Completed [facility] Moderna COVID-19 Vaccine Moderna COVID-19 Vaccine 2020-08-30 10:31:00 Completed [facility] Moderna COVID-19 Vaccine Moderna COVID-19 Vaccine 2020-08-30 10:31:00 Completed [facility] Moderna COVID-19 Vaccine Moderna COVID-19 Vaccine 2020-08-30 10:31:00 Completed [facility] Moderna COVID-19 Vaccine Moderna COVID-19 Vaccine 2020-08-30 10:31:00 Completed [facility] Moderna COVID-19 Vaccine Moderna COVID-19 Vaccine 2020-08-30 10:31:00 Completed [facility] Moderna COVID-19 Vaccine Moderna COVID-19 Vaccine 2020-08-30 10:31:00 Completed [facility] Afluria single dose Afluria single dose 17:57:00 Completed [facility] Afluria single dose Afluria single dose 17:57:00 Completed [facility] Afluria single dose Afluria single dose 17:57:00 Completed [facility] Afluria single dose Afluria single dose 17:57:00 Completed [facility] Afluria single dose Afluria single dose 17:57:00 Completed [facility] Afluria single dose Afluria single dose 17:57:00 Completed [facility] Afluria single dose Afluria single dose 17:57:00 Completed [facility] Afluria single dose Afluria single dose 17:57:00 Completed [facility] Afluria single dose Afluria single dose 17:57:00 Completed [facility] Afluria single dose Afluria single dose 17:57:00 Completed [facility] Afluria single dose Afluria single dose 17:57:00 Completed [facility] Afluria single dose Afluria single dose 17:57:00 Completed [facility] Afluria single dose Afluria single dose 17:57:00 Completed [facility] Afluria single dose Afluria single dose 17:57:00 Completed [facility] Afluria single dose Afluria single dose 17:57:00 Completed [facility] Afluria single dose Afluria single dose 17:57:00 Completed [facility] Afluria single dose Afluria single dose 17:57:00 Completed [facility] Afluria single dose Afluria single dose 17:57:00 Completed [facility] Afluria single dose Afluria single dose 17:57:00 Completed [facility] Afluria single dose Afluria single dose 17:57:00 Completed [facility] Afluria single dose Afluria single dose 17:57:00 Completed [facility] Prevnar 13 (PCV13) Prevnar 13 (PCV13) Unknown Completed [facility] Moderna COVID-19 Vaccine (Low Dose Booster) Moderna COVID-19 Vaccine (Low Dose Booster) Unknown Completed [facility] Moderna COVID-19 Vaccine Moderna COVID-19 Vaccine Unknown Completed [facility] Moderna COVID-19 Vaccine Moderna COVID-19 Vaccine Unknown Completed [facility] Afluria (IIV4) - 3 years and older - SDS - 0.5mL Afluria (IIV4) - 3 years and older - SDS - 0.5mL Unknown Completed [facility] FLUZONE HIGH DOSE OVER 65 FLUZONE HIGH DOSE OVER 65 Unknown Completed [facility] Prevnar 13 (PCV13) Prevnar 13 (PCV13) Unknown Completed [facility] Moderna COVID-19 Vaccine (Low Dose Booster) Moderna COVID-19 Vaccine (Low Dose Booster) Unknown Completed [facility] Moderna COVID-19 Vaccine Moderna COVID-19 Vaccine Unknown Completed [facility] Moderna COVID-19 Vaccine Moderna COVID-19 Vaccine Unknown Completed [facility] Afluria single dose Afluria single dose Unknown Completed [facility] FLUZONE HIGH DOSE OVER 65 FLUZONE HIGH DOSE OVER 65 Unknown Completed [facility] Prevnar 13 (PCV13) Prevnar 13 (PCV13) Unknown Completed [facility] Moderna COVID-19 Vaccine (Low Dose Booster) Moderna COVID-19 Vaccine (Low Dose Booster) Unknown Completed [facility] Moderna COVID-19 Vaccine Moderna COVID-19 Vaccine Unknown Completed [facility] Moderna COVID-19 Vaccine Moderna COVID-19 Vaccine Unknown Completed [facility] Afluria single dose Afluria single dose Unknown Completed [facility] FLUZONE HIGH DOSE OVER 65 FLUZONE HIGH DOSE OVER 65 Unknown Completed [facility] Prevnar 13 (PCV13) Prevnar 13 (PCV13) Unknown Completed [facility] Moderna COVID-19 Vaccine (Low Dose Booster) Moderna COVID-19 Vaccine (Low Dose Booster) Unknown Completed [facility] Moderna COVID-19 Vaccine Moderna COVID-19 Vaccine Unknown Completed [facility] Moderna COVID-19 Vaccine Moderna COVID-19 Vaccine Unknown Completed [facility] Afluria single dose Afluria single dose Unknown Completed [facility] FLUZONE HIGH DOSE OVER 65 FLUZONE HIGH DOSE OVER 65 Unknown Completed [facility] Prevnar 13 (PCV13) Prevnar 13 (PCV13) Unknown Completed [facility] Moderna COVID-19 Vaccine (Low Dose Booster) Moderna COVID-19 Vaccine (Low Dose Booster) Unknown Completed [facility] Moderna COVID-19 Vaccine Moderna COVID-19 Vaccine Unknown Completed [facility] Moderna COVID-19 Vaccine Moderna COVID-19 Vaccine Unknown Completed [facility] Afluria single dose Afluria single dose Unknown Completed [facility] FLUZONE HIGH DOSE OVER 65 FLUZONE HIGH DOSE OVER 65 Unknown Completed [facility] Prevnar 13 (PCV13) Prevnar 13 (PCV13) Unknown Completed [facility] Moderna COVID-19 Vaccine (Low Dose Booster) Moderna COVID-19 Vaccine (Low Dose Booster) Unknown Completed [facility] Moderna COVID-19 Vaccine Moderna COVID-19 Vaccine Unknown Completed [facility] Moderna COVID-19 Vaccine Moderna COVID-19 Vaccine Unknown Completed [facility] Afluria single dose Afluria single dose Unknown Completed [facility] FLUZONE HIGH DOSE OVER 65 FLUZONE HIGH DOSE OVER 65 Unknown Completed [facility] Prevnar 13 (PCV13) Prevnar 13 (PCV13) Unknown Completed [facility] Moderna COVID-19 Vaccine (Low Dose Booster) Moderna COVID-19 Vaccine (Low Dose Booster) Unknown Completed [facility] Moderna COVID-19 Vaccine Moderna COVID-19 Vaccine Unknown Completed [facility] Moderna COVID-19 Vaccine Moderna COVID-19 Vaccine Unknown Completed [facility] Afluria single dose Afluria single dose Unknown Completed [facility] FLUZONE HIGH DOSE OVER 65 FLUZONE HIGH DOSE OVER 65 Unknown Completed [facility] Prevnar 13 (PCV13) Prevnar 13 (PCV13) Unknown Completed [facility] Moderna COVID-19 Vaccine (Low Dose Booster) Moderna COVID-19 Vaccine (Low Dose Booster) Unknown Completed [facility] Moderna COVID-19 Vaccine Moderna COVID-19 Vaccine Unknown Completed [facility] Moderna COVID-19 Vaccine Moderna COVID-19 Vaccine Unknown Completed [facility] Afluria single dose Afluria single dose Unknown Completed [facility] FLUZONE HIGH DOSE OVER 65 FLUZONE HIGH DOSE OVER 65 Unknown Completed [facility] Prevnar 13 (PCV13) Prevnar 13 (PCV13) Unknown Completed [facility] Moderna COVID-19 Vaccine (Low Dose Booster) Moderna COVID-19 Vaccine (Low Dose Booster) Unknown Completed [facility] Moderna COVID-19 Vaccine Moderna COVID-19 Vaccine Unknown Completed [facility] Moderna COVID-19 Vaccine Moderna COVID-19 Vaccine Unknown Completed [facility] Afluria single dose Afluria single dose Unknown Completed [facility] FLUZONE HIGH DOSE OVER 65 FLUZONE HIGH DOSE OVER 65 Unknown Completed [facility] Prevnar 13 (PCV13) Prevnar 13 (PCV13) Unknown Completed [facility] Moderna COVID-19 Vaccine (Low Dose Booster) Moderna COVID-19 Vaccine (Low Dose Booster) Unknown Completed [facility] Moderna COVID-19 Vaccine Moderna COVID-19 Vaccine Unknown Com[facility] [facility] COVID-[facility] Vaccine Moderna COVID-19 Vaccine Unknown Completed [facility] Afluria (IIV4) - 3 years and older - SDS - 0.5mL Afluria (IIV4) - 3 years and older - SDS - 0.5mL Unknown Completed [facility] FLUZONE HIGH DOSE OVER 65 FLUZONE HIGH DOSE OVER 65 Unknown Completed [facility] Prevnar 13 (PCV13) Prevnar 13 (PCV13) Unknown Completed [facility] Moderna COVID-19 Vaccine (Low Dose Booster) Moderna COVID-19 Vaccine (Low Dose Booster) Unknown Completed [facility] Moderna COVID-19 Vaccine Moderna COVID-19 Vaccine Unknown Completed [facility] Moderna COVID-19 Vaccine Moderna COVID-19 Vaccine Unknown Completed [facility] Afluria (IIV4) - 3 years and older - SDS - 0.5mL Afluria (IIV4) - 3 years and older - SDS - 0.5mL Unknown Completed [facility] FLUZONE HIGH DOSE OVER 65 FLUZONE HIGH DOSE OVER 65 Unknown Completed [facility] Prevnar 13 (PCV13) Prevnar 13 (PCV13) Unknown Completed [facility] Moderna COVID-19 Vaccine (Low Dose Booster) Moderna COVID-19 Vaccine (Low Dose Booster) Unknown Completed [facility] Moderna COVID-19 Vaccine Moderna COVID-19 Vaccine Unknown Completed [facility] Moderna COVID-19 Vaccine Moderna COVID-19 Vaccine Unknown Completed [facility] Afluria (IIV4) - 3 years and older - SDS - 0.5mL Afluria (IIV4) - 3 years and older - SDS - 0.5mL Unknown Completed [facility] FLUZONE HIGH DOSE OVER 65 FLUZONE HIGH DOSE OVER 65 Unknown Completed [facility] Prevnar 13 (PCV13) Prevnar 13 (PCV13) Unknown Completed [facility] Moderna COVID-19 Vaccine (Low Dose Booster) Moderna COVID-19 Vaccine (Low Dose Booster) Unknown Completed [facility] Moderna COVID-19 Vaccine Moderna COVID-19 Vaccine Unknown Completed [facility] Moderna COVID-19 Vaccine Moderna COVID-19 Vaccine Unknown Completed [facility] Afluria (IIV4) - 3 years and older - SDS - 0.5mL Afluria (IIV4) - 3 years and older - SDS - 0.5mL Unknown Completed [facility] FLUZONE HIGH DOSE OVER 65 FLUZONE HIGH DOSE OVER 65 Unknown Completed [facility] Prevnar 13 (PCV13) Prevnar 13 (PCV13) Unknown Completed [facility] Moderna COVID-19 Vaccine (Low Dose Booster) Moderna COVID-19 Vaccine (Low Dose Booster) Unknown Completed [facility] Moderna COVID-19 Vaccine Moderna COVID-19 Vaccine Unknown Completed [facility] Moderna COVID-19 Vaccine Moderna COVID-19 Vaccine Unknown Completed [facility] Afluria (IIV4) - 3 years and older - SDS - 0.5mL Afluria (IIV4) - 3 years and older - SDS - 0.5mL Unknown Completed [facility] FLUZONE HIGH DOSE OVER 65 FLUZONE HIGH DOSE OVER 65 Unknown Completed [facility] Vital Signs Vital Name Observation Time Observation Value Comments S tameka height 2023-03-28 14:40:00 63.5 [in_i] Comm on [facility] weight 2023-03-28 14:40:00 159.6 [facility]23[facility]-28 14:40:00 97.2 [degF] Com [facility] bmi 2023-03-28 14:40:00 27.83 kg/m2 Comm on [facility] oximetry 2023-03-28 14:40:00 96 % Commo n [facility] respiratory rate 2023-03-28 14:40:00 16 /min [facility] blood pressure systolic 2023-03-28 14:40:00 141 mm[Hg] [facility] blood pressure diastolic 2023-03-28 14:40:00 73 mm[Hg] [facility] height 2023-03-28 14:40:00 63.5 [in_i] Comm on [facility] weight 2023-03-28 14:40:00 159.6 [lb_av] Co mmon [facility] temperature 2023-03-28 14:40:00 97.2 [degF] Com [facility] bmi 2023-03-28 14:40:00 27.83 kg/m2 Comm on [facility] oximetry 2023-03-28 14:40:00 96 % Commo n [facility] respiratory rate 2023-03-28 14:40:00 16 /min [facility] blood pressure systolic 2023-03-28 14:40:00 141 mm[Hg] Common [facility] blood pressure diastolic 2023-03-28 14:40:00 73 mm[Hg] [facility] height 2023-03-12 08:20:00 63.5 [in_i] Comm on [facility] weight 2023-03-12 08:20:00 165.0 [lb_av] Co mmon [facility] temperature 2023-03-12 08:20:00 97.0 [degF] Com [facility] 2023-03-12 08:20:00 28.77 kg/m2 Comm on [facility] oximetry 2023-03-12 08:20:00 96 % Commo n [facility] respiratory rate 2023-03-12 08:20:00 16 /min [facility] blood pressure systolic 2023-03-12 08:20:00 136 mm[Hg] [facility] blood pressure diastolic 2023-03-12 08:20:00 76 mm[Hg] Common [facility] height 2023-02-01 16:00:00 63.5 [in_i] Comm on [facility] weight 2023-02-01 16:00:00 168.4 [lb_av] Co mmon [facility] temperature 2023-02-01 16:00:00 97.0 [degF] Com mon [facility] bmi 2023-02-01 16:00:00 29.36 kg/m2 Comm on [facility] oximetry 2023-02-01 16:00:00 95 % Commo n [facility] respiratory rate 2023-02-01 16:00:00 16 /min [facility] blood pressure systolic 2023-02-01 16:00:00 119 mm[Hg] [facility] blood pressure diastolic 2023-02-01 16:00:00 79 mm[Hg] Common [facility] height 2022-10-19 08:40:00 63.5 [in_i] Comm on [facility] weight 2022-10-19 08:40:00 165.2 [lb_av] Co mmon [facility] temperature 2022-10-19 08:40:00 96.8 [degF] Com mon [facility] bmi 2022-10-19 08:40:00 28.8 kg/m2 Commo n [facility] oximetry 2022-10-19 08:40:00 95 % Commo n [facility] respiratory rate 2022-10-19 08:40:00 18 /min Common [facility] blood pressure systolic 2022-10-19 08:40:00 138 mm[Hg] Common [facility] blood pressure diastolic 2022-10-19 08:40:00 78 mm[Hg] Common [facility] height 2022-06-16 08:40:00 63.5 [in_i] Comm on [facility] weight 2022-06-16 08:40:00 163.2 [lb_av] Co on [facility] temperature 2022-06-16 08:40:00 97.6 [degF] Com [facility] 2022-06-16 08:40:00 28.45 kg/m2 Comm on [facility] oximetry 2022-06-16 08:40:00 96 % Commo n [facility] respiratory rate 2022-06-16 08:40:00 16 /min Common [facility] blood pressure systolic 2022-06-16 08:40:00 136 mm[Hg] Common [facility] blood pressure diastolic 2022-06-16 08:40:00 70 mm[Hg] [facility] height 2022-03-10 10:00:00 63.5 [in_i] Comm on [facility] weight 2022-03-10 10:00:00 163.2 [lb_av] Co mmon [facility] temperature 2022-03-10 10:00:00 97.9 [degF] Com [facility] 2022-03-10 10:00:00 28.45 kg/m2 Comm on [facility] oximetry 2022-03-10 10:00:00 95 % Commo n [facility] respiratory rate 2022-03-10 10:00:00 17 /min Common [facility] blood pressure systolic 2022-03-10 10:00:00 136 mm[Hg] [facility] blood pressure diastolic 2022-03-10 10:00:00 69 mm[Hg] Common [facility] height 2022-03-10 09:00:00 63.5 [in_i] Comm on [facility] weight 2022-03-10 09:00:00 163.2 [lb_av] Co mmon [facility] temperature 2022-03-10 09:00:00 97.9 [degF] Com [facility] 2022-03-10 09:00:00 28.45 kg/m2 Comm on [facility] oximetry 2022-03-10 09:00:00 95 % Commo n [facility] respiratory rate 2022-03-10 09:00:00 17 /min Common [facility] blood pressure systolic 2022-03-10 09:00:00 136 mm[Hg] Common [facility] blood pressure diastolic 2022-03-10 09:00:00 69 mm[Hg] [facility] height 2021-12-06 08:40:00 63.5 [in_i] Comm on [facility] weight 2021-12-06 08:40:00 164 [lb_av] Comm on [facility] temperature 2021-12-06 08:40:00 97.4 [degF] Com mon [facility] bmi 2021-12-06 08:40:00 28.59 kg/m2 Comm on [facility] oximetry 2021-12-06 08:40:00 95 % Commo n [facility] respiratory rate 2021-12-06 08:40:00 16 /min Common [facility] blood pressure systolic 2021-12-06 08:40:00 135 mm[Hg] [facility] blood pressure diastolic 2021-12-06 08:40:00 72 mm[Hg] Common [facility] height 2021-07-11 10:20:00 63.5 [in_i] Comm on [facility] weight 2021-07-11 10:20:00 168 [lb_av] Comm on [facility] temperature 2021-07-11 10:20:00 97.3 [degF] Com [facility] 2021-07-11 10:20:00 29.29 kg/m2 Comm on [facility] oximetry 2021-07-11 10:20:00 97 % Commo n [facility] respiratory rate 2021-07-11 10:20:00 16 /min [facility] blood pressure systolic 2021-07-11 10:20:00 137 mm[Hg] [facility] blood pressure diastolic 2021-07-11 10:20:00 61 mm[Hg] Common [facility] height 2021-04-13 15:40:00 63.5 [in_i] Comm on [facility] weight 2021-04-13 15:40:00 167 [lb_av] Comm on [facility] temperature 2021-04-13 15:40:00 97.1 [degF] Com [facility] 2021-04-13 15:40:00 29.12 kg/m2 Comm on [facility] oximetry 2021-04-13 15:40:00 98 % Commo n [facility] respiratory rate 2021-04-13 15:40:00 16 /min [facility] blood pressure systolic 2021-04-13 15:40:00 134 mm[Hg] [facility] blood pressure diastolic 2021-04-13 15:40:00 65 mm[Hg] [facility] Encounters Start Date/Time End Date/Time Encounter Type Admission Type Attending [facility] Care Department Encounter ID Source 2022-10-17 11:57:00 Outpatient Winnie Miller STLMLC STLMLC [id number] [facility] 2022-06-14 13:53:00 Outpatient Winnie Miller STLMLC STLMLC [id number] [facility] 2022-03-02 08:15:00 Outpatient Winnie Miller STLMLC STLMLC [id number] [facility] 2021-12-07 10:44:01 Outpatient Winnie Miller STLMLC STLMLC [id number] [facility] 2021-12-02 10:03:02 Outpatient Winnie Miller STLMLC STLMLC [id number] [facility] 2021-10-10 13:33:01 Outpatient Winnie Miller STLMLC STLMLC [id number] [facility] 2021-08-24 14:25:22 Outpatient Winnie Miller STLMLC STLMLC [id number] [facility] 2021-08-24 12:53:57 Outpatient Winnie Miller STLMLC STLMLC [id number] [facility] 2021-08-24 12:22:21 Outpatient Winnie Miller STLMLC STLMLC [id number] [facility] 2021-08-24 11:35:37 Outpatient Winnie Miller STLMLC STLMLC [id number] [facility] 2021-08-24 11:17:39 Outpatient Winnie Miller STLMLC STLMLC [id number] [facility] 2021-08-24 11:01:31 Outpatient Winnie Miller STLMLC STLMLC [id number] [facility] 2021-08-24 11:00:26 Outpatient Winnie Miller STLMLC STLMLC [id number] [facility] 2021-08-24 10:58:28 Outpatient Winnie Miller STLMLC STLC [id number] [facility] 2023-04-26 09:17:00 2023-04-26 10:57:00 Emergency ER HERMES BAEZ [facility] [id number] [facility] 2023-03-28 00:00:00 2023-03-28 00:00:00 OFFICE VISIT ESTAB PT LEVEL 3 STLMLC STLMLC [id number] [facility] 2023-03-28 00:00:00 2023-03-28 00:00:00 (TEL) STLMLC STLMLC [id number] [facility] 2023-03-28 00:00:00 2023-03-28 00:00:00 SUB ANNUAL [facility] VISIT STLMLC STLMLC [id number] [facility] 2023-03-28 00:00:00 2023-03-28 00:00:00 (TEL) STLMLC STLMLC [id number] [facility] 2023-03-26 00:00:00 2023-03-26 00:00:00 (TEL) STLMLC STLMLC [id number] [facility] 2023-03-12 00:00:00 2023-03-12 00:00:00 OFFICE VISIT ESTAB PT LEVEL 3 STLMLC STLMLC [id number] [facility] 2023-02-15 00:00:00 2023-02-15 00:00:00 (TEL) STLMLC STLMLC [id number] [facility] 2023-02-01 00:00:00 2023-02-01 00:00:00 OFFICE VISIT ESTAB PT LEVEL 4 STLMLC STLMLC [id number] [facility] 2022-12-22 00:00:00 2022-12-22 00:00:00 (TEL) STLMLC STLMLC [id number] [facility] 2022-11-28 00:00:00 2022-11-28 00:00:00 (TEL) STLMLC STLMLC [id number] [facility] 2022-10-23 00:00:00 2022-10-23 00:00:00 (TEL) STLMLC STLMLC [id number] [facility] 2022-10-19 00:00:00 2022-10-19 00:00:00 OFFICE VISIT ESTAB PT LEVEL 4 STLMLC STLMLC [id number] [facility] 2022-09-29 00:00:00 2022-09-29 00:00:00 (TEL) STLMLC STLMLC [id number] [facility] 2022-09-13 00:00:00 2022-09-13 00:00:00 (TEL) STLMLC STLMLC [id number] [facility] 2022-06-16 00:00:00 2022-06-16 00:00:00 OFFICE VISIT ESTAB PT LEVEL 4 STLMLC STLMLC [id number] [facility] 2022-05-09 00:00:00 2022-05-09 00:00:00 (TEL) STLMLC STLMLC [id number] [facility] 2022-03-10 00:00:00 2022-03-10 00:00:00 OFFICE VISIT EST PT LEVEL 3 STLMLC STLMLC [id number] [facility] 2022-03-10 00:00:00 2022-03-10 00:00:00 SUB ANNUAL [facility] WELLNESS VISIT STLMLC STLMLC [id number] [facility] 2022-01-25 00:00:00 2022-01-25 00:00:00 (TEL) STLMLC STLMLC [id number] [facility] 2022-01-22 00:00:00 2022-01-22 00:00:00 (TEL) STLMLC STLMLC [id number] [facility] 2022-01-03 00:00:00 2022-01-03 00:00:00 (TEL) STLMLC STLMLC [id number] [facility] 2021-12-14 00:00:00 2021-12-14 00:00:00 (TEL) STLMLC STLMLC [id number] [facility] 2021-12-14 00:00:00 2021-12-14 00:00:00 (TEL) STLMLC STLMLC [id number] [facility] 2021-12-06 00:00:00 2021-12-06 00:00:00 OFFICE VISIT ESTAB PT LEVEL 4 STLMLC STLMLC [id number] [facility] 2021-11-30 00:00:00 2021-11-30 00:00:00 (TEL) STLMLC STLMLC [id number] [facility] 2021-11-02 00:00:00 2021-11-02 00:00:00 (TEL) STLMLC STLMLC [id number] [facility] 2021-09-08 00:00:00 2021-09-08 00:00:00 (TEL) STLMLC STLMLC [id number] [facility] 2021-07-11 00:00:00 2021-07-11 00:00:00 OFFICE VISIT ESTAB PT LEVEL 4 STLMLC STLMLC [id number] [facility] 2021-06-22 04:57:00 2021-06-22 04:57:00 Outpatient JESSI RAINES [id number] [facility] 2021-06-10 00:00:00 2021-06-10 00:00:00 (TEL) STLMLC STLMLC [id number] [facility] 2021-04-13 00:00:00 2021-04-13 00:00:00 OFFICE VISIT EST PT LEVEL 3 STLMLC STLMLC [id number] [facility] 2021-04-11 00:00:00 2021-04-11 00:00:00 (TEL) STLMLC STLMLC [id number] [facility] 2021-04-05 00:00:00 2021-04-05 00:00:00 (TEL) STLMLC STLMLC [id number] [facility] 2021-03-24 00:00:00 2021-03-24 00:00:00 (TEL) STLMLC STLMLC [id number] [facility] 2021-03-24 00:00:00 2021-03-24 00:00:00 (TEL) STLMLC STLMLC [id number] [facility] 2021-03-07 00:00:00 2021-03-07 00:00:00 (TEL) STLMLC STLMLC [id number] [facility] 2021-01-05 00:00:00 2021-01-05 00:00:00 Outpatient STLMLC STLMLC [id number] [facility] 2020-12-08 00:00:00 2020-12-08 00:00:00 Outpatient STLMLC STLMLC [id number] [facility] 2020-11-18 00:00:00 2020-11-18 00:00:00 Outpatient STLMLC STLMLC [id number] [facility] 2020-11-15 00:00:00 2020-11-15 00:00:00 Outpatient STLMLC STLMLC [id number] [facility] 2020-10-06 00:00:00 2020-10-06 00:00:00 Outpatient STLMLC STLMLC [id number] [facility] 2020-09-29 00:00:00 2020-09-29 00:00:00 Outpatient STLMLC STLMLC [id number] [facility] 2020-09-29 00:00:00 2020-09-29 00:00:00 Outpatient STLMLC STLMLC [id number] [facility] 2020-08-17 00:00:00 2020-08-17 00:00:00 Outpatient STLMLC STLMLC [id number] [facility] 2020-07-01 00:00:00 2020-07-01 00:00:00 Outpatient STLMLC STLMLC [id number] [facility] 2020-06-04 11:01:00 2020-06-04 12:17:00 Emergency [facility] [id number] 2020-05-12 00:00:00 2020-05-12 00:00:00 Outpatient STLMLC STLMLC [id number] [facility] 2020-03-16 14:33:00 2020-03-16 14:33:[address] [facility] [id number] [facility] 2020-03-10 17:01:00 2020-03-10 17:01:00 [facility] [id number] [facility] 2020-02-10 10:40:00 2020-02-10 10:40:00 [facility] [id number] [facility] 2019-11-11 10:40:00 2019-11-11 10:40:00 [facility] [id number] [facility] 2019-08-12 13:00:00 2019-08-12 13:00:00 [facility] [id number] [facility] 2019-07-01 10:00:00 2019-07-01 10:00:[address] [facility] [facility] [id number] [facility] 2019-06-17 14:40:00 2019-06-17 14:40:[address] [facility] [facility] [address] [facility] [id number] [facility] 2019-06-13 15:24:00 2019-06-13 15:24:[address] [facility] [id number] [facility] 2019-05-29 10:00:00 2019-05-29 10:00:00 [facility] [id number] [facility] 2019-05-26 10:48:00 2019-05-26 10:48:00 Outpatient BIENVENIDO CHANDRA [facility] [id number] [facility] 2019-05-22 13:45:00 2019-05-22 13:45:[address] [facility] [id number] [facility] 2019-03-20 10:00:00 2019-03-20 10:00:00 [facility] [id number] [facility] 2019-02-02 15:18:00 2019-02-02 16:17:00 Emergency ER GISELLE CLEANING [facility] [id number] [facility] 2018-10-16 07:22:00 2018-10-16 09:24:00 Emergency ER MANDY CARTRE [facility] [id number] [facility] 2017-11-18 22:35:00 2017-11-19 01:58:00 Emergency ER RAJINDER MELISSA [facility] [id number] [facility] 2017-11-17 10:17:00 2017-11-17 12:53:00 Emergency ER SONI WERNER [facility] [id number] [facility] 2017-08-23 08:13:00 2017-08-23 08:13:00 Outpatient JESSICA SALAZAR [facility] [id number] [facility] 2017-06-10 19:24:00 2017-06-10 22:30:00 Emergency ER SONI WERNER [facility] [id number] [facility] 2017-04-24 09:09:00 2017-04-24 10:18:00 Emergency ER ROBIN MENDOZA [facility] [id number] [facility] 2017-04-02 11:25:00 2017-04-02 13:51:00 Emergency ER ART SAAVEDRA [facility] [id number] [facility] 2017-03-22 09:14:00 2017-03-22 09:14:00 Outpatient JESSICA SALAZAR [facility] [id number] [facility] 2017-03-13 23:23:00 2017-03-14 01:18:00 Emergency ER DENAE RAY [facility] [id number] [facility] 2014-02-18 15:47:00 2014-02-18 15:47:00 Outpatient Jeronimo Farmer [facility] [id number] [facility] 2014-01-22 11:52:00 2014-01-22 11:52:00 Outpatient HINA TURCIOS [facility] [id number] [facility] 2013-10-07 15:57:00 2013-10-07 15:57:00 Outpatient Jeronimo Farmer [facility] [id number] [facility] 2011-01-27 01:41:00 2011-01-27 04:05:00 Emergency ER ART SAAVEDRA [facility] [id number] [facility] 2010-11-28 10:24:00 2010-11-28 10:24:00 Outpatient LEXI HINA CAMACHO [facility] [id number] [facility] 2009-08-14 03:34:00 2009-08-14 06:22:00 Emergency ER IMMARAJ, PREMSWARUP [facility] [id number] [facility] 2008-05-09 18:28:00 2008-05-09 20:38:00 Emergency ER ART SAAVEDRA [facility] [id number] [facility] 2007-12-08 16:46:00 2007-12-08 18:33:00 Emergency ER OVI NOEL [facility] [id number] [facility] 2007-09-18 04:36:00 2007-09-18 07:40:00 Emergency ER IMMSAURABH, PREMSWARUP [facility] [id number] [facility] 2007-04-04 00:17:00 2007-04-04 02:15:00 Emergency ER BANDAR SAAVEDRARENEE [facility] [id number] [facility] 2007-01-31 23:15:00 2007-02-01 01:06:00 Emergency ER CHIP METZ [facility] [id number] [facility] 2007-01-15 18:42:00 2007-01-15 22:50:00 Emergency ER CHIP METZ [facility] [id number] [facility] 2006-11-25 05:35:00 2006-11-25 10:15:00 Emergency ER SIENNA DAVILA [facility] [id number] [facility] 2006-11-05 08:14:00 2006-11-05 08:14:00 Outpatient PRIYANKA VALLE [facility] [id number] [facility] 2006-07-13 20:48:00 2006-07-13 23:05:00 Emergency ER BA, OVI [facility] [id number] [facility] 2006-06-13 13:46:00 2006-06-13 17:38:00 Emergency ER CHIP EMTZ [facility] [id number] [facility] 2006-05-25 11:34:00 2006-05-25 11:34:00 Outpatient SNATI NORMAN "HUANG" [facility] [id number] [facility] 2006-05-24 11:50:00 2006-05-24 15:20:00 Emergency ER SADIE, OVI [facility] [id number] [facility] [facility] 2006-05-16 11:19:00 2006-05-16 13:25:00 Emergency ER BA, OVI [facility] [id number] [facility] 2006-05-01 04:41:00 2006-05-01 13:15:00 Emergency ER SIENNA DAVILA [facility] [id number] [facility] 2005-07-04 22:43:00 2005-07-05 00:18:00 Emergency ER RHEA KENT [facility] [id number] [facility] 2004-01-18 17:24:00 2004-01-18 18:23:00 Emergency ER RADHA ANDERSON [facility] [id number] [facility] 2003-01-31 22:36:00 2003-02-01 02:05:00 Emergency ER YAHAIRA JURADO [facility] [id number] [facility] 2002-11-15 21:10:00 2002-11-15 23:10:00 Emergency ER AIDA LETITIA [facility] [id number] [facility] 2001-11-15 02:08:00 2001-11-15 05:10:00 Emergency ER ART SAAVEDRA [facility] [id number] [facility] Results Test Description Test Time Test Comments Results Result Co mments Source HEMOGLOBIN [id number] 00:00:00* Test Item Value Reference Range Interpretation Comme nts A1C (test code = 4548-4) 6.7 HEMOGLOBIN [id number] 00:00:00* Test Item Value Reference Range Interpretation Comme nts A1C (test code = 4548-4) 6.6 HEMOGLOBIN [id number] 00:00:00* Test Item Value Reference Range Interpretation Comme nts A1C (test code = 4548-4) 7.0 HEMOGLOBIN [id number] 00:00:00* Test Item Value Reference Range Interpretation Comme nts A1C (test code = 4548-4) 7.4 [id number] 22:42:00* Test Item Value Reference Range Interpretation Comme nts NT ProBnp (test code = PBNP) SEE COMMENT pg/mL 0-124 N PBNP=5.00 <Test..../OG Lipid [id number] 22:40:00* Test Item Value Reference Range Interpretation Comme nts Cholesterol (test code = CHOL) 124 mg/dL 0-200 N Triglycerides (test code = TRIG) 100 mg/dL 9-200 N HDL (test code = HDL) 46 mg/dL 50-60 L Chol/HDL (test code = CHOLPHDL) 2.7 Ratio 0.0-4.4 N LDL, Calculated (test code = LDLC) 58 mg/dL 0-130 N (NOTE)RISK OF HEART DISEASEPublished by [place] Heart AssociationAnalyte Optimal Boderline Increased RiskCHOL <200 200-239 >240TRIG <150 150-199 >200HDL Male: >60 <40HDL Female: >60 <50LDL <100 130-159 >160LDL NEAR OPTIMAL IS 100-129 VLDL (test code = VLDL) 20 mg/dL 5-40 N LDL/HDL (test code = LDLPHDL) 1 Comprehensive Metabolic [id number] 22:40:00* Test Item Value Reference Range Interpretation Comme nts Sodium (test code = NA) 137 mmol/L 135-145 N Potassium (test code = K) 4.4 mmol/L 3.5-5.1 N Chloride (test code = CL) 98 mmol/L 98-105 N Carbon Dioxide (test code = CO2) 26 mmol/L 22-29 N Glucose (test code = GLU) 133 mg/dL 70-115 H Blood Urea Nitrogen (test code = BUN) 11 mg/dL 8-23 N Creatinine (test code = CREAT) 0.5 mg/dL 0.5-0.9 N Calcium (test code = CA) 9.9 mg/dL 8.3-10.5 N Prot Total (test code = TP) 7.5 g/dL 6.4-8.3 N Albumin (test code = ALB) 4.7 g/dL 3.5-5.2 N A/G Ratio (test code = AGRATIO) 1.7 Ratio Globulin (test code = GLOB) 2.8 2.9-3.1 L Bili Total (test code = TBIL) 0.4 mg/dL 0.1-0.9 N Alk Phos (test code = APHOS) 87 U/L 35-104 N AST (test code = AST) 13 U/L 1-32 N ALT (test code = ALT) 17 U/L 1-33 N BUN/Creatinine Ratio (test code = BCRATIO) 22.0 Anion Gap (test code = AGAP) 13 mmol/L 7-16 N Estimated GFR (test code = GFR) >60 mL/min/1.73m2 eGFR (estimated Glomerular Filtration Rate) is an estimated value,calculated from the patient's serum creatinine using the MDRD equation.It is NOT the patient's actual GFR. The eGFR provides a more clinicallyuseful measure of kidney disease than serum creatinine alone.This calculation takes sex and race into account, if the informationis provided. If the race is not provided, and the patient isAfrican-Panamanian, multiply by 1.212. If sex is not provided, and thepatient is female, multiply by 0.742. Results for patients <18 years ofage have not been validated by the MDRD study and should be interpretedwith caution.eGFR Result Interpretation:eGFR > or = 60 is in the Normal RangeeGFR < 60 may mean kidney diseaseeGFR < 15 may mean kidney failureRanges recommended by the National Kidney Foundation,http://nkdep .nih.gov Glycosylated [id number] 22:38:00* Test Item Value Reference Range Interpretation Comme nts HBA1c (test code = HBA1C) 7.0 % 4.8-5.9 H CBC with [id number] 22:17:00* Test Item Value Reference Range Interpretation Comme nts WBC (test code = WBC) 8.6 K/cumm [...] 11.5-14.5 N Platelet Count (test code = PLTCT) 402 K/cumm 140-440 N MPV (test code = MPV) 8.2 fL [...] code = ALYMPH) 3.2 K/cumm 0.5-4.6 N [place] Abs (test code = AMONO) 0.4 K/cumm 0.0-1.2 N Eos Abs (test code = AEOS) 0.22 K/cumm 0.00-0.74 N Baso Abs (test code = ABASO) 0.1 K/cumm 0.00-0.21 N
--- NOTE | 2023-07-24 16:29 | RAD REPORT ---
EXAM DESCRIPTION: RAD - Foot Right 3 View - 07/24/2023 4:22 pm CLINICAL HISTORY: PAIN COMPARISON: Foot Right 3 View dated 12/16/2021 FINDINGS/IMPRESSION: No acute fracture. No malalignment. No significant focal degenerative changes.
--- NOTE | 2023-07-24 17:36 | EDPHYS ---
Physician Documentation [facility] Name: Christa Sparks Age: 68 yrs Sex: Female : 1955 Arrival Date: 07/24/2023 Time: 15:14 Bed IW1 Private MD: ED Physician Leonidas Donahue HPI: 07/24 15:37 This 68 yrs old Female presents to ER via Ambulatory with complaints of Foot ec2 Pain. 15:37 Patient arrives today for evaluation of atraumatic right foot pain. States that she is ec2 having pain at the plantar aspect of the foot, states that she has no injuries or trauma, no redness or discharge from the area, states that she has a history of diabetes and has issues with sensation in general. Patient reports that she is on gabapentin chronically. Patient reports no leg swelling. Denies any other concerns.. Historical: - Allergies: 15:28 Toradol; ll1 15:28 tramadol; ll1 - PMHx: 15:28 CHF; CVA; High Cholesterol; Diabetes - IDDM; Anxiety; Hypertension; ll1 - Immunization history:: Adult Immunizations up to date. - Social history:: Smoking status: Patient denies any tobacco usage or history of. ROS: 15:37 Constitutional: as per hpi ec2 Exam: 15:37 Constitutional: GEN: NAD Head: atraumatic Eyes: EOMI Ears: External ears are ec2 normal. CV: regular rate LUNGS: no respiratory distress ABD: non-distended SKIN: no evidence of rashes MSK: no evidence of trauma, plantar aspect of the right foot with TTP, no deformities or crepitus, no erythema, no ecchymosis NEURO: moves all extremities equally Vital Signs: 15:33 BP 154 / 82; Pulse 84; Resp 16; Temp 98.1; Pulse Ox 100% ; Pain 10/10; ll1 15:33 Pain Scale: Adult ll1 MDM: 15:30 Patient medically screened. ec2 15:37 Data reviewed: vital signs. ED course: Patient arrives today for evaluation of right ec2 foot pain. Examination remarkable for MSK findings as noted above. Will obtain foot x-ray and reassess patient. Currently considering process shows sprain, low suspicion for fracture, will suspicion for gout, will suspicion for cellulitis or osteomyelitis.. 16:50 ED course: Foot x-ray shows no bony fracture. Will discharge home and have her ec2 follow-up with her primary care doctor. Possible plantar fasciitis causing the patient's symptoms. Low suspicion for acute emergent process, will discharge home have follow-up with primary care doctor.. 07/24 15:37 Order name: Foot Right 3 View XRAY; Complete Time: 16:50 ec2 Administered Medications: No medications were administered Disposition Summary: 07/24/23 17:35 Discharge Ordered Notes: Location: Home ec2 Problem: new ec2 Symptoms: are unchanged ec2 Condition: Stable ec2 Diagnosis - Sprain of foot ec2 Followup: ec2 - With: Private Physician - When: - Reason: Recheck today's complaints Discharge Instructions: - Discharge Summary Sheet ec2 - Foot Sprain ec2 Forms: - Medication Reconciliation Form ec2 - Thank You Letter ec2 - Antibiotic Education ec2 - Prescription Opioid Use ec2 - Patient Portal Instructions ec2 - Leadership Thank You Letter ec2 Signatures: Dispatcher [employer] Jeff Serrato RN RN 1 Leonidas Donahue MD MD ec2 Corrections: (The following items were deleted from the chart) 16:16 16:16 Patient medically screened. ec2 ec2
--- NOTE | 2023-07-24 17:36 | ER ---
Nurse's Notes [facility] Name: Christa Sparks Age: 68 yrs Sex: Female : 1955 Arrival Date: 07/24/2023 Time: 15:14 Bed IW1 Private MD: Diagnosis: Sprain of foot Presentation: 07/24 15:33 Chief complaint: Patient states: R foot pain for 1 week. No trauma or falls. ll1 Coronavirus screen: Client denies travel out of the [place] in the last 14 days. At this time, the client does not indicate any symptoms associated with coronavirus-19. Ebola Screen: Patient denies travel to an Ebola-affected area in the 21 days before illness onset. Initial Sepsis Screen: Does the patient meet any 2 criteria? No. Patient's initial sepsis screen is negative. Does the patient have a suspected source of infection? Yes: Bone or joint infection. Risk Assessment: Do you want to hurt yourself or someone else? Patient reports no desire to harm self or others. Onset of symptoms was July 17, 2023. 15:33 Method Of Arrival: Ambulatory ll1 15:33 Acuity: NICK 4 ll1 Triage Assessment: 15:34 General: Appears uncomfortable, Behavior is calm, cooperative, appropriate for age. ll1 Pain: Complains of pain in right foot Quality of pain is described as aching. Musculoskeletal: Circulation, motion, and sensation intact. Capillary refill < 3 seconds, Reports pain in right foot. Historical: - Allergies: 15:28 Toradol; ll1 15:28 tramadol; ll1 - PMHx: 15:28 CHF; CVA; High Cholesterol; Diabetes - IDDM; Anxiety; Hypertension; ll1 - Immunization history:: Adult Immunizations up to date. - Social history:: Smoking status: Patient denies any tobacco usage or history of. Assessment: 17:38 Reassessment: No changes from previously documented assessment. Patient and/or family ll1 updated on plan of care and expected duration. Pain level reassessed. Vital Signs: 15:33 BP 154 / 82; Pulse 84; Resp 16; Temp 98.1; Pulse Ox 100% ; Pain 10/10; ll1 15:33 Pain Scale: Adult ll1 ED Course: 15:17 Patient arrived in ED. mg5 15:24 Leonidas Donahue MD is Attending Physician. ec2 15:28 Arm band placed on. ll1 15:34 Triage completed. ll1 16:24 Foot Right 3 View XRAY In Process Unspecified. EDMS Administered Medications: No medications were administered Outcome: 17:35 Discharge ordered by . ec2 17:38 Discharged to home ambulatory, ll1 17:38 Condition: stable 17:38 Discharge instructions given to patient, Instructed on discharge instructions, follow up and referral plans. Demonstrated understanding of instructions, follow-up care, 17:39 Patient left the ED. ll1 Signatures: Dispatcher [employer] Jeff Serrato RN RN 1 Nadia Ceja mg5 Leonidas Donahue MD MD ec2
[2023-07-24 21:29] VITALS: BP 154/82; TEMP 98.1; O2SAT 100
== END ==
LOC: ER 15:14
DX: S93.601A Unspecified sprain of right foot, initial encounter (principal)
CPT/HCPCS: 99282

== ENCOUNTER → 2023-08-08 | Emergency (ER) | payer OTHER ==
--- OUTSIDE RECORDS SUMMARY | 2023-08-08 10:47 | XMS REPORT | Continuity of Care Document ---
Author Name Unknown Address [address] [facility] [address] [place] [address] [facility] Address [address] [facility] [address] [place] [address] Care Team Providers Care Principal Trainer Name Role Phone HINA CAMACHO Primary Care [...] Clinician Unava ilMONTANA TempleD Attending Clinician Unavailable RADHA ANDERSON Attending Clinician Unavailable YAHAIRA JURADO Attending Clinician Unavailable LETITIA PARRA Attending Clinician Unavailailyn DE LEON Admitting Clinician Unavailable HINA CAMACHO Admitting Clinician Unavailable Payers Payer Name Policy Type Policy Number Effective Date Expirati on Date Source [place] [id number] 2020 00:00:00 [id number] [facility] MEDICARE [place] [id number] [facility] MEDICARE [place] MB [id number] [facility] MEDICARE [place] [id number] [facility] MEDICARE [place] [id number] [facility] MEDICARE [place] [id number] [facility] MEDICARE [place] [id number] C [facility] Problems Condition Name Condition Details Condition Category Status Onset Date Resolution Date Last Treatment Date Treating Clinician Comments Source [id number] Diabetic polyneurop athy associated with type 2 diabetes mellitus Problem [facility] [id number] Headache, unspecifie d Problem [facility] [id number] Decreased muscle strength Problem [facility] 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 Hemiparesi s affecting right side as late effect of stroke Problem [facility] [id number] Intractabl e episodic cluster headache Problem [facility] [id number] Injury of right shoulder, initial encounter Problem [facility] [id number] Anticoagul ant long-term use Problem [facility] [id number] 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 ic 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 Problem [facility] [id number] Long-term (current) use of injectable non-insuli n antidiabet ic drugs Problem [facility] Anxiety Anxiety Problem [facility] [id number] Other chronic pain Problem [facility] [id number] Seasonal allergies Problem [facility] [id number] Unsteady gait Problem [facility] [id number] Type 2 diabetes mellitus with other busher helper y complicati ons Problem [facility] [id number] History of CVA with residual deficit Problem [facility] [id number] Essential hypertensi on Problem [facility] [id number] Hyperlipid emia, unspecifie d hyperlipid emia type Problem [facility] [id number] Insomnia, unspecifie d type Problem [facility] [id number] Palpitatio ns Problem [facility] [id number] Reflux gastritis Problem [facility] [id number] 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 Problem [facility] Acquired hypothyroi dism Acquired hypothyroi dism Problem [facility] [id number] Vertigo Problem [facility] [id number] Neuropathy Problem [facility] Microalbum inuria Microalbum inuria Problem [facility] Allergies, Adverse Reactions, Alerts Allergy Name Allergy Type Status Severity Reaction(s) Onset Date Inactive Date Treating Clinician Comments Source amitript yline amitript yline Active hallucinatio ns [facility] Social History Social Habit Start Date Stop Date Quantity Comments Source History of Tobacco Use [facility] Sex Assigned At [facility] Smoking Status Start Date Stop Date Source Never Smoker [facility] Former Smoker 2022-06-16 00:00:00 2022-06-16 00:00:00 [facility] Medications Ordered Medication Name Filled [...] - 2023-1 0-11 00:00: 00 No FreeStyle Gnaga 3 Sensor - FreeStyle Ganga 3 Sensor [...] Sodium 100 MG 2-0 2-15 00:00: 00 -17 00:00 :00 No 1{capsu le_as_n eeded} QD [...] Sodium 10 MG Montelukast Sodium 10 MG 2020-0 -15 00:00: 00 No 1{table t} QD Montelukas t Sodium 10 MG Montelukast Sodium 10 MG Montelukast Sodium 10 MG 2020-0 -15 00:00: 00 No 1{table t} QD Montelukas t Sodium 10 MG NovoLOG 100 UNIT/ML NovoLOG 100 UNIT/ML 2019-0 4-14 00:00: 00 No NovoLOG 100 UNIT/ML NovoLOG 100 UNIT/ML NovoLOG 100 UNIT/ML 2019-0 4-14 00:00: 00 No TID NovoLOG 100 UNIT/ML NovoLOG 100 UNIT/ML NovoLOG 100 UNIT/ML 2019-0 4-14 00:00: 00 No TID NovoLOG 100 UNIT/ML NovoLOG 100 UNIT/ML NovoLOG 100 UNIT/ML 2019-0 4-14 00:00: 00 No TID NovoLOG 100 [...] 100 UNIT/ML 2019-0 4-14 00:00: 00 No TID NovoLOG 100 UNIT/ML NovoLOG 100 UNIT/ML NovoLOG 100 UNIT/ML 2019-0 4-14 00:00: 00 No TID NovoLOG 100 UNIT/ML NovoLOG 100 UNIT/ML NovoLOG 100 UNIT/ML 2019-0 4-14 00:00: 00 No TID NovoLOG 100 UNIT/ML NovoLOG 100 UNIT/ML NovoLOG 100 UNIT/ML 2019-0 4-14 00:00: 00 No TID NovoLOG 100 UNIT/ML NovoLOG 100 UNIT/ML NovoLOG 100 UNIT/ML 2019-0 4-14 00:00: 00 No TID NovoLOG 100 UNIT/ML NovoLOG 100 UNIT/ML NovoLOG 100 UNIT/ML 2019-0 4-14 00:00: 00 No TID NovoLOG 100 UNIT/ML NovoLOG 100 UNIT/ML NovoLOG 100 UNIT/ML 2019-0 4-14 00:00: 00 No TID NovoLOG 100 [...] NovoLOG 100 UNIT/ML 11-10 00:00: 00 No NovoLOG 100 UNIT/ML NovoLOG 100 UNIT/ML NovoLOG 100 UNIT/ML 11-10 00:00: 00 No TID NovoLOG 100 UNIT/ML NovoLOG 100 UNIT/ML NovoLOG 100 UNIT/ML 11-10 00:00: 00 No TID NovoLOG 100 UNIT/ML NovoLOG 100 UNIT/ML NovoLOG 100 UNIT/ML 11-10 00:00: 00 No TID NovoLOG 100 UNIT/ML Tresiba FlexTouch Tresiba FlexTouch Yes [place]ine [place] inject 40 units under the skin qam [facility] Simvastatin Simvastatin Yes [place]ie [place] 1 tablet in the evening [facility] Metformin HCl Metformin HCl Yes Winnie [place] 1 tablet with a meal [facility] BD Pen Needle Gina U/F [...] QD Victoza 18 MG/3ML OneTouch Delica Plus Tjaegm57T - OneTouch Delica Plus Mrywlh73U - No OneTouch Delica Plus Olmapy73M - Lipitor 40 MG Lipitor 40 MG [...] Lisinopril 30 MG No Lisinopril 30 MG Levothyroxi ne Sodium 25 MCG Levothyroxi ne Sodium 25 MCG No QD Levothyrox ine Sodium 25 MCG Gabapentin 300 MG Gabapentin 300 MG No 2{capsu le} QD Gabapentin 300 MG Niharika Niharika No Niharika OneTouch Delica Lancets 33G - OneTouch Delica Lancets 33G - No OneTouch Delica Lancets 33G - Clopidogrel Bisulfate 75 MG Clopidogrel Bisulfate 75 MG No 1{table t} QD Clopidogre l Bisulfate 75 MG OneTouch Ultra - OneTouch Ultra - No OneTouch Ultra - Lipitor 40 MG Lipitor 40 MG No 1{table t} QD Lipitor 40 MG Clopidogrel Bisulfate 75 MG Clopidogrel Bisulfate 75 MG No Clopidogre l Bisulfate 75 MG One A Day Women 50 Plus - One A Day Women 50 Plus - No One A Day Women 50 Plus - Ozempic (1 MG/DOSE) 4 MG/3ML Ozempic (1 MG/DOSE) 4 MG/3ML No Ozempic (1 MG/DOSE) 4 MG/3ML FreeStyle Ganga 14 Day Sensor - FreeStyle Ganga 14 Day Sensor - No FreeStyle Ganga 14 Day Sensor - Aspirin 81 MG Aspirin 81 MG No 1{capsu le} QD Aspirin 81 MG BD Pen Needle Gina 2nd Gen 32G X 4 MM BD Pen Needle Gina 2nd Gen 32G X 4 MM No BD Pen Needle Gina 2nd Gen 32G X 4 MM Tresiba FlexTouch 100 UNIT/ML Tresiba FlexTouch 100 UNIT/ML No Tresiba FlexTouch 100 UNIT/ML Insulin Lispro (1 Unit Dial) 100 UNIT/ML Insulin Lispro (1 Unit Dial) 100 UNIT/ML No Insulin Lispro (1 Unit Dial) 100 UNIT/ML OneTouch Delica Plus Ldgcbs53O - OneTouch Delica Plus Hlcxqv98C - No OneTouch Delica Plus Srkmnx29H - OneTouch Delica Plus Viakwu65N - OneTouch Delica Plus Rnuorb34C - No OneTouch Delica Plus Ulutcv62D - Montelukast Sodium 10 MG Montelukast Sodium 10 MG No 1{table t} QD Montelukas t Sodium 10 MG metFORMIN HCl 500 MG metFORMIN HCl 500 MG No metFORMIN HCl 500 MG HYDROcodone -Acetaminop hen 7.5-325 MG HYDROcodone -Acetaminop hen 7.5-325 MG No 1{table t_as_ne eded} QID HYDROcodon e-Acetamin ophen 7.5-325 MG Lisinopril 30 MG Lisinopril 30 MG No 1{table t} QD Lisinopril 30 MG Microlet Lancets - Microlet Lancets - No Microlet Lancets - Lisinopril 30 MG Lisinopril 30 MG No Lisinopril 30 MG Levothyroxi ne Sodium 25 MCG Levothyroxi ne Sodium 25 MCG No QD Levothyrox ine Sodium 25 MCG Gabapentin 300 MG Gabapentin 300 MG No 2{capsu le} QD Gabapentin 300 MG Niharika Niharika No Niharika OneTouch Delica Lancets 33G - OneTouch Delica Lancets 33G - No OneTouch Delica Lancets 33G - metFORMIN HCl 500 MG metFORMIN HCl 500 MG No 1{table t_with_ a_meal} BID metFORMIN HCl 500 MG OneTouch Ultra - OneTouch Ultra - No OneTouch Ultra - Lipitor 40 MG Lipitor 40 MG No 1{table t} QD Lipitor 40 MG Clopidogrel Bisulfate 75 MG Clopidogrel Bisulfate 75 MG No Clopidogre l Bisulfate 75 MG One A Day Women 50 Plus - One A Day Women 50 Plus - No One A Day Women 50 Plus - Ozempic (1 MG/DOSE) 4 MG/3ML Ozempic (1 MG/DOSE) 4 MG/3ML No Ozempic (1 MG/DOSE) 4 MG/3ML FreeStyle Ganga 14 Day Sensor - FreeStyle Ganga 14 Day Sensor - No FreeStyle Ganga 14 Day Sensor - Aspirin 81 MG Aspirin 81 MG No 1{capsu le} QD Aspirin 81 MG BD Pen Needle Gina 2nd Gen 32G X 4 MM BD Pen Needle Gina 2nd Gen 32G X 4 MM No BD Pen Needle Gina 2nd Gen 32G X 4 MM Tresiba FlexTouch 100 UNIT/ML Tresiba FlexTouch 100 UNIT/ML No Tresiba FlexTouch 100 UNIT/ML Insulin Lispro (1 Unit Dial) 100 UNIT/ML Insulin Lispro (1 Unit Dial) 100 UNIT/ML No Insulin Lispro (1 Unit Dial) 100 UNIT/ML Simvastatin 40 MG Simvastatin 40 MG No Simvastati n 40 MG OneTouch Delica Plus Maohgz14F - OneTouch Delica Plus Jphrnn78O - No OneTouch Delica Plus Ohwugt48L - Montelukast Sodium 10 MG Montelukast Sodium 10 MG No 1{table t} QD Montelukas t Sodium 10 MG metFORMIN HCl 500 MG metFORMIN HCl 500 MG No metFORMIN HCl 500 MG HYDROcodone -Acetaminop hen 7.5-325 MG HYDROcodone -Acetaminop hen 7.5-325 MG No 1{table t_as_ne eded} QID HYDROcodon e-Acetamin ophen 7.5-325 MG BD Pen Needle Gina U/F 32G [...] l Bisulfate 75 MG OneTouch Delica Plus Mjfrjn48H - OneTouch Delica Plus Lropnu45Y - No OneTouch Delica Plus Tspuhp63J - Tresiba FlexTouch 100 UNIT/ML Tresiba FlexTouch 100 UNIT/ML No QD Tresiba FlexTouch 100 UNIT/ML Lisinopril 30 MG Lisinopril 30 MG No Lisinopril 30 MG Simvastatin 40 MG Simvastatin 40 MG No Simvastati n 40 MG OneTouch Delica Plus Zcevtg73J - OneTouch Delica Plus Uwyglm23O - No OneTouch Delica Plus Edeiwv83B - BD Pen Needle Gina U/F 32G [...] l Bisulfate 75 MG OneTouch Delica Plus Pzvemu98P - OneTouch Delica Plus Ayympz80F - No OneTouch Delica Plus Zfsvlt64A - Lisinopril 30 MG Lisinopril 30 MG No QD Lisinopril 30 MG Clopidogrel Bisulfate 75 MG Clopidogrel Bisulfate 75 MG No 1{table t} QD Clopidogre l Bisulfate 75 MG Simvastatin 40 MG Simvastatin 40 MG No QD Simvastati n 40 MG OneTouch Delica Plus Tkplke84V - OneTouch Delica Plus Jcpocn85F - No BID OneTouch Delica Plus Rcxdem41S - BD Pen Needle Gina U/F 32G [...] OneTouch Ultra Test - OneTouch Delica Plus Jtfgpe52W - OneTouch Delica Plus Lgiovg09R - No OneTouch Delica Plus Umtapm55C - OneTouch Delica Lancets 33G - OneTouch Delica Lancets 33G - No OneTouch Delica Lancets 33G - Victoza 18 MG/3ML Victoza 18 MG/3ML No Victoza 18 MG/3ML OneTouch Delica Plus Qtlwjl53T - OneTouch Delica Plus Maqoby94V - No OneTouch Delica Plus Hagjkh56C - Tresiba FlexTouch 100 UNIT/ML Tresiba FlexTouch [...] No OneTouch Ultra - OneTouch Delica Plus Edulqe88S - OneTouch Delica Plus Zmbyeu99O - No OneTouch Delica Plus Hnumbk01R - BD Pen Needle Gina 2nd Gen [...] No Microlet Lancets - OneTouch Delica Plus Owdktp15M - OneTouch Delica Plus Qzgowe25Z - No OneTouch Delica Plus Podqze41I - metFORMIN HCl 500 MG metFORMIN HCl [...] 32G X 4 MM OneTouch Delica Plus Ikloxy03N - OneTouch Delica Plus Mbsulp07Y - No OneTouch Delica Plus Bcfzyd09J - Lisinopril 30 MG Lisinopril 30 MG [...] No Lisinopril 30 MG OneTouch Delica Plus Kiycnw61Y - OneTouch Delica Plus Hjxvis21G - No OneTouch Delica Plus Igfybo48J - Microlet Lancets - Microlet Lancets - [...] No OneTouch Ultra - OneTouch Delica Plus Bjmukg78I - OneTouch Delica Plus Atbjqk64F - No OneTouch Delica Plus Hnfeol38F - OneTouch Delica Lancets 33G - OneTouch [...] No OneTouch Ultra - OneTouch Delica Plus Swzxmu74K - OneTouch Delica Plus Obvcbc24N - No OneTouch Delica Plus Bkrghs59C - OneTouch Delica Lancets 33G - OneTouch [...] No OneTouch Ultra - OneTouch Delica Plus Vclobs16D - OneTouch Delica Plus Awdjmb74F - No OneTouch Delica Plus Mllthb00M - OneTouch Delica Lancets 33G - OneTouch Delica Lancets 33G - No OneTouch Delica Lancets 33G - metFORMIN HCl 500 MG metFORMIN HCl 500 MG No metFORMIN HCl 500 MG Tresiba FlexTouch 100 UNIT/ML Tresiba FlexTouch 100 UNIT/ML No Tresiba FlexTouch 100 UNIT/ML Lisinopril 30 MG Lisinopril 30 MG No Lisinopril 30 MG Simvastatin 40 MG Simvastatin 40 MG No 1{table t_ e_eveni ng} QD Simvastati n 40 MG [...] No Lisinopril 30 MG OneTouch Delica Plus Qlycso05N - OneTouch Delica Plus Jpzkfy02F - No OneTouch Delica Plus Nwdnim57E - Clopidogrel Bisulfate 75 MG Clopidogrel Bisulfate [...] No Lisinopril 30 MG OneTouch Delica Plus Skplfm65J - OneTouch Delica Plus Uqpbqt46E - No OneTouch Delica Plus Rfguwt46I - Clopidogrel Bisulfate 75 MG Clopidogrel Bisulfate [...] Simvastati n 40 MG OneTouch Delica Plus Vyihdw23L - OneTouch Delica Plus Xygosh30S - No OneTouch Delica Plus Gamrkn33K - Clopidogrel Bisulfate 75 MG Clopidogrel Bisulfate [...] Simvastati n 40 MG OneTouch Delica Plus Qxnodr12T - OneTouch Delica Plus Lblvtf66T - No OneTouch Delica Plus Ihaymt72C - Clopidogrel Bisulfate 75 MG Clopidogrel Bisulfate [...] 32G X 4 MM OneTouch Delica Plus Puscnh57P - OneTouch Delica Plus Dhnrem77L - No OneTouch Delica Plus Ocbaig69S - Tresiba FlexTouch 100 UNIT/ML Tresiba FlexTouch 100 UNIT/ML No Tresiba FlexTouch 100 UNIT/ML Levothyroxi ne Sodium 25 MCG Levothyroxi ne Sodium 25 MCG No Levothyrox ine Sodium 25 MCG OneTouch Delica Lancets 33G - OneTouch Delica Lancets 33G - No OneTouch Delica Lancets 33G - Microlet Lancets - Microlet Lancets - No Microlet Lancets - OneTouch Delica Plus Rgcdvq05W - OneTouch Delica Plus Dcukfo28A - No OneTouch Delica Plus Gxspsp58G - Lisinopril 30 MG Lisinopril 30 MG [...] No Microlet Lancets - OneTouch Delica Plus Eueapl32V - OneTouch Delica Plus Bbpoee39H - No OneTouch Delica Plus Hzrvim37X - Clopidogrel Bisulfate 75 MG Clopidogrel Bisulfate [...] No Microlet Lancets - OneTouch Delica Plus Jmmlcv99Q - OneTouch Delica Plus Dxiuab62Q - No OneTouch Delica Plus Whiixj59M - Clopidogrel Bisulfate 75 MG Clopidogrel Bisulfate [...] No Microlet Lancets - OneTouch Delica Plus Qbioiu99A - OneTouch Delica Plus Idpqhk50L - No OneTouch Delica Plus Lkjreb34B - Clopidogrel Bisulfate 75 MG Clopidogrel Bisulfate [...] No Microlet Lancets - OneTouch Delica Plus Atsuon66B - OneTouch Delica Plus Tnochc49N - No OneTouch Delica Plus Whxjaj37J - Clopidogrel Bisulfate 75 MG Clopidogrel Bisulfate [...] Women 50 Plus - OneTouch Delica Plus Mcvrdl41Z - OneTouch Delica Plus Phmvht54X - No OneTouch Delica Plus Sivlrz55A - Niharika Niharika No Niharika Lisinopril 30 [...] No OneTouch Ultra - OneTouch Delica Plus Cvmwkw93S - OneTouch Delica Plus Kupbfp86M - No OneTouch Delica Plus Tzzdhr86L - FreeStyle Ganga 14 Day Sensor - [...] No OneTouch Ultra - OneTouch Delica Plus Lsqllv26S - OneTouch Delica Plus Wxkgau60O - No OneTouch Delica Plus Remvzd17B - FreeStyle Ganga 14 Day Sensor - [...] No OneTouch Ultra - OneTouch Delica Plus Bstmca40X - OneTouch Delica Plus Fcrvgm70H - No OneTouch Delica Plus Qmokwh59J - FreeStyle Ganga 14 Day Sensor - [...] 14 Day Sensor - OneTouch Delica Plus Yhdzps08B - OneTouch Delica Plus Qpgtoq82P - No OneTouch Delica Plus Uraaue71D - Lipitor 40 MG Lipitor 40 MG [...] 14 Day Sensor - OneTouch Delica Plus Gbmjge87S - OneTouch Delica Plus Hztshp25Z - No OneTouch Delica Plus Mxbyvx90B - Lipitor 40 MG Lipitor 40 MG [...] No Microlet Lancets - OneTouch Delica Plus Twpedc62N - OneTouch Delica Plus Vweikc48D - No OneTouch Delica Plus Mrlerx44D - Niharika Niharika No Niharika BD Pen [...] 14 Day Sensor - OneTouch Delica Plus Pzonxw50I - OneTouch Delica Plus Rbtssj81U - No OneTouch Delica Plus Haawyi72G - Lipitor 40 MG Lipitor 40 MG [...] X 4 MM No BD Pen Needle Gnia 2nd Gen 32G X 4 MM Gabapentin [...] 14 Day Sensor - OneTouch Delica Plus Gpasju19V - OneTouch Delica Plus Dxeuix64A - No OneTouch Delica Plus Hdietf37N - Lipitor 40 MG Lipitor 40 MG [...] 14 Day Sensor - OneTouch Delica Plus Rkkbfj29O - OneTouch Delica Plus Vwhwqo49X - No OneTouch Delica Plus Ioynsz63P - metFORMIN HCl 500 MG metFORMIN HCl [...] Vaccine (Low Dose Booster) 2021-07-07 10:30:00 Completed [facility] Moderna COVID-19 Vaccine (Low Dose Booster) Moderna COVID-19 Vaccine (Low Dose Booster) 2021-07-07 10:30:00 Completed [facility] Moderna COVID-19 Vaccine (Low Dose Booster) Moderna COVID-19 Vaccine (Low Dose Booster) 2021-07-07 10:30:00 Completed [facility] Moderna COVID-19 Vaccine (Low Dose Booster) Moderna COVID-19 Vaccine (Low Dose Booster) 2021-07-07 10:30:00 Completed [facility] Moderna COVID-19 Vaccine (Low Dose Booster) Moderna COVID-19 Vaccine (Low Dose Booster) 2021-07-07 10:30:00 Completed [facility] Moderna COVID-19 Vaccine (Low Dose Booster) Moderna COVID-19 Vaccine (Low Dose Booster) 2021-07-07 10:30:00 Completed [facility] Moderna COVID-19 Vaccine (Low Dose Booster) Moderna COVID-19 Vaccine (Low Dose Booster) 2021-07-07 10:30:00 Completed [facility] Moderna COVID-19 Vaccine (Low Dose Booster) Moderna COVID-19 Vaccine (Low Dose Booster) 2021-07-07 10:30:00 Completed [facility] Moderna COVID-19 Vaccine (Low Dose Booster) Moderna COVID-19 Vaccine (Low Dose Booster) 2021-07-07 10:30:00 Completed [facility] Moderna COVID-19 Vaccine (Low Dose Booster) Moderna COVID-19 Vaccine (Low Dose Booster) 2021-07-07 10:30:00 Completed [facility] Moderna COVID-19 Vaccine (Low Dose Booster) Moderna COVID-19 Vaccine (Low Dose Booster) 2021-07-07 10:30:00 Completed [facility] Moderna COVID-19 Vaccine (Low Dose Booster) Moderna COVID-19 Vaccine (Low Dose Booster) 2021-07-07 10:30:00 Completed [facility] Moderna COVID-19 Vaccine (Low Dose Booster) Moderna COVID-19 Vaccine (Low Dose Booster) 2021-07-07 10:30:00 Completed [facility] Moderna COVID-19 Vaccine (Low Dose Booster) Moderna COVID-19 Vaccine (Low Dose Booster) 2021-07-07 10:30:00 Completed [facility] FLUZONE HIGH DOSE OVER 65 FLUZONE HIGH DOSE OVER 65 2021-06-13 10:28:00 Completed [facility] Prevnar 13 (PCV13) Prevnar 13 (PCV13) 2021-06-13 10:28:00 Completed [facility] FLUZONE HIGH DOSE OVER 65 FLUZONE HIGH DOSE OVER 65 2021-06-13 10:28:00 Completed [facility] Prevnar 13 (PCV13) Prevnar 13 (PCV13) 2021-06-13 10:28:00 Completed [facility] FLUZONE HIGH DOSE OVER 65 FLUZONE HIGH DOSE OVER 65 2021-06-13 10:28:00 Completed [facility] Prevnar 13 (PCV13) Prevnar 13 (PCV13) 2021-06-13 10:28:00 Completed [facility] FLUZONE HIGH DOSE OVER 65 FLUZONE HIGH DOSE OVER 65 2021-06-13 10:28:00 Completed [facility] Prevnar 13 (PCV13) Prevnar 13 (PCV13) 2021-06-13 10:28:00 Completed [facility] FLUZONE HIGH DOSE OVER 65 FLUZONE HIGH DOSE OVER 65 2021-06-13 10:28:00 Completed [facility] Prevnar 13 (PCV13) Prevnar 13 (PCV13) 2021-06-13 10:28:00 Completed [facility] FLUZONE HIGH DOSE OVER 65 FLUZONE HIGH DOSE OVER 65 2021-06-13 10:28:00 Completed [facility] Prevnar 13 (PCV13) Prevnar 13 (PCV13) 2021-06-13 10:28:00 Completed [facility] FLUZONE HIGH DOSE OVER 65 FLUZONE HIGH DOSE OVER 65 2021-06-13 10:28:00 Completed [facility] Prevnar 13 (PCV13) Prevnar 13 (PCV13) 2021-06-13 10:28:00 Completed [facility] FLUZONE HIGH DOSE OVER 65 FLUZONE HIGH DOSE OVER 65 2021-06-13 10:28:00 Completed [facility] Prevnar 13 (PCV13) Prevnar 13 (PCV13) 2021-06-13 10:28:00 Completed [facility] FLUZONE HIGH DOSE OVER 65 FLUZONE HIGH DOSE OVER 65 2021-06-13 10:28:00 Completed [facility] Prevnar 13 (PCV13) Prevnar 13 (PCV13) 2021-06-13 10:28:00 Completed [facility] FLUZONE HIGH DOSE OVER 65 FLUZONE HIGH DOSE OVER 65 2021-06-13 10:28:00 Completed [facility] Prevnar 13 (PCV13) Prevnar 13 (PCV13) 2021-06-13 10:28:00 Completed [facility] FLUZONE HIGH DOSE OVER 65 FLUZONE HIGH DOSE OVER 65 2021-06-13 10:28:00 Completed [facility] Prevnar 13 (PCV13) Prevnar 13 (PCV13) 2021-06-13 10:28:00 Completed [facility] FLUZONE HIGH DOSE OVER 65 FLUZONE HIGH DOSE OVER 65 2021-06-13 10:28:00 Completed [facility] Prevnar 13 (PCV13) Prevnar 13 (PCV13) 2021-06-13 10:28:00 Completed [facility] FLUZONE HIGH DOSE OVER 65 FLUZONE HIGH DOSE OVER 65 2021-06-13 10:28:00 Completed [facility] Prevnar 13 (PCV13) Prevnar 13 (PCV13) 2021-06-13 10:28:00 Completed [facility] FLUZONE HIGH DOSE OVER 65 FLUZONE HIGH DOSE OVER 65 2021-06-13 10:28:00 Completed [facility] Prevnar 13 (PCV13) Prevnar 13 (PCV13) 2021-06-13 10:28:00 Completed [facility] Moderna COVID-19 Vaccine Moderna COVID-19 Vaccine 2020-09-20 10:32:00 Completed [facility] Moderna COVID-19 Vaccine Moderna COVID-19 Vaccine 2020-09-20 10:32:00 Completed [facility] Moderna COVID-19 Vaccine Moderna COVID-19 Vaccine 2020-09-20 10:32:00 Completed [facility] Moderna COVID-19 Vaccine Moderna COVID-19 Vaccine 2020-09-20 10:32:00 Completed [facility] Moderna COVID-19 Vaccine Moderna COVID-19 Vaccine 2020-09-20 10:32:00 Completed [facility] Moderna COVID-19 Vaccine Moderna COVID-19 Vaccine 2020-09-20 10:32:00 Completed [facility] Moderna COVID-19 Vaccine Moderna COVID-19 Vaccine 2020-09-20 10:32:00 Completed [facility] Moderna COVID-19 Vaccine Moderna COVID-19 Vaccine 2020-09-20 10:32:00 Completed [facility] Moderna COVID-19 Vaccine Moderna COVID-19 Vaccine 2020-09-20 10:32:00 Completed [facility] Moderna COVID-19 Vaccine Moderna COVID-19 Vaccine 2020-09-20 10:32:00 Completed [facility] Moderna COVID-19 Vaccine Moderna COVID-19 Vaccine 2020-09-20 10:32:00 Completed [facility] Moderna COVID-19 Vaccine Moderna COVID-19 Vaccine 2020-09-20 10:32:00 Completed [facility] Moderna COVID-19 Vaccine Moderna COVID-19 Vaccine 2020-09-20 10:32:00 Completed [facility] Moderna COVID-19 Vaccine Moderna COVID-19 Vaccine 2020-09-20 10:32:00 Completed [facility] Moderna COVID-19 Vaccine Moderna COVID-19 Vaccine 2020-08-30 10:31:00 Completed [facility] Moderna COVID-19 Vaccine Moderna COVID-19 Vaccine 2020-08-30 10:31:00 Completed [facility] Moderna COVID-19 Vaccine Moderna COVID-19 Vaccine 2020-08-30 10:31:00 Completed [facility] Moderna COVID-19 Vaccine Moderna COVID-19 Vaccine 2020-08-30 10:31:00 Completed [facility] Moderna COVID-19 Vaccine Moderna COVID-19 Vaccine 2020-08-30 10:31:00 Completed [facility] Moderna COVID-19 Vaccine Moderna COVID-19 Vaccine 2020-08-30 10:31:00 Completed [facility] Moderna COVID-19 Vaccine Moderna COVID-19 Vaccine 2020-08-30 10:31:00 Completed [facility] Moderna COVID-19 Vaccine Moderna COVID-19 Vaccine 2020-08-30 10:31:00 Completed [facility] Moderna COVID-19 Vaccine Moderna COVID-19 Vaccine 2020-08-30 10:31:00 Completed [facility] Moderna COVID-19 Vaccine Moderna COVID-19 Vaccine 2020-08-30 10:31:00 Completed [facility] Moderna COVID-19 Vaccine Moderna COVID-19 Vaccine 2020-08-30 10:31:00 Completed [facility] Moderna COVID-19 Vaccine Moderna COVID-19 Vaccine 2020-08-30 10:31:00 Completed [facility] Moderna COVID-19 Vaccine Moderna COVID-19 Vaccine 2020-08-30 10:31:00 Completed [facility] Moderna COVID-19 Vaccine Moderna COVID-19 Vaccine 2020-08-30 10:31:00 Completed [facility] Afluria single dose Afluria single dose 17:57:00 Completed [facility] Afluria single dose Afluria single dose 17:57:00 Completed [facility] Afluria single dose Afluria single dose 17:57:00 Completed [facility] Afluria single dose Afluria single dose 17:57:00 Completed [facility] Afluria single dose Afluria single dose 17:57:00 Completed [facility] Afluria single dose Afluria single dose 17:57:00 Completed [facility] Afluria single dose Afluria single dose 17:57:00 Completed [facility] Afluria single dose Afluria single dose 17:57:00 Completed [facility] Afluria single dose Afluria single dose 17:57:00 Completed [facility] Afluria single dose Afluria single dose 17:57:00 Completed [facility] Afluria single dose Afluria single dose 17:57:00 Completed [facility] Afluria single dose Afluria single dose 17:57:00 Completed [facility] Afluria single dose Afluria single dose 17:57:00 Completed [facility] Afluria single dose Afluria single dose 17:57:00 Completed [facility] Afluria single dose Afluria single dose 17:57:00 Completed [facility] Afluria single dose Afluria single dose 17:57:00 Completed [facility] Afluria single dose Afluria single dose 17:57:00 Completed [facility] Afluria single dose Afluria single dose 17:57:00 Completed [facility] Afluria single dose Afluria single dose 17:57:00 Completed [facility] Afluria single dose Afluria single dose 17:57:00 Completed [facility] Afluria single dose Afluria single dose 17:57:00 Completed [facility] Prevnar 13 (PCV13) Prevnar 13 (PCV13) Unknown Completed [facility] Moderna COVID-19 Vaccine (Low Dose Booster) Moderna COVID-19 Vaccine (Low Dose Booster) Unknown Completed [facility] Moderna COVID-19 Vaccine Moderna COVID-19 Vaccine Unknown Completed [facility] Moderna COVID-19 Vaccine Moderna COVID-19 Vaccine Unknown Completed [facility] Afluria (IIV4) - 3 years and older - SDS - 0.5mL Afluria (IIV4) - 3 years and older - SDS - 0.5mL Unknown Completed [facility] FLUZONE HIGH DOSE OVER 65 FLUZONE HIGH DOSE OVER 65 Unknown Completed [facility] Prevnar 13 (PCV13) Prevnar 13 (PCV13) Unknown Completed [facility] Moderna COVID-19 Vaccine (Low Dose Booster) Moderna COVID-19 Vaccine (Low Dose Booster) Unknown Completed [facility] Moderna COVID-19 Vaccine Moderna COVID-19 Vaccine Unknown Completed [facility] Moderna COVID-19 Vaccine Moderna COVID-19 Vaccine Unknown Completed [facility] Afluria (IIV4) - 3 years and older - SDS - 0.5mL Afluria (IIV4) - 3 years and older - SDS - 0.5mL Unknown Completed [facility] FLUZONE HIGH DOSE OVER 65 FLUZONE HIGH DOSE OVER 65 Unknown Completed [facility] Prevnar 13 (PCV13) Prevnar 13 (PCV13) Unknown Completed [facility] Moderna COVID-19 Vaccine (Low Dose Booster) Moderna COVID-19 Vaccine (Low Dose Booster) Unknown Completed [facility] Moderna COVID-19 Vaccine Moderna COVID-19 Vaccine Unknown Completed [facility] Moderna COVID-19 Vaccine Moderna COVID-19 Vaccine Unknown Completed [facility] Afluria (IIV4) - 3 years and older - SDS - 0.5mL Afluria (IIV4) - 3 years and older - SDS - 0.5mL Unknown Completed [facility] FLUZONE HIGH DOSE OVER 65 FLUZONE HIGH DOSE OVER 65 Unknown Completed [facility] Prevnar 13 (PCV13) Prevnar 13 (PCV13) Unknown Completed [facility] Moderna COVID-19 Vaccine (Low Dose Booster) Moderna COVID-19 Vaccine (Low Dose Booster) Unknown Completed [facility] Moderna COVID-19 Vaccine Moderna COVID-19 Vaccine Unknown Completed [facility] Moderna COVID-19 Vaccine Moderna COVID-19 Vaccine Unknown Completed [facility] Afluria single dose Afluria single dose Unknown Completed [facility] FLUZONE HIGH DOSE OVER 65 FLUZONE HIGH DOSE OVER 65 Unknown Completed [facility] Prevnar 13 (PCV13) Prevnar 13 (PCV13) Unknown Completed [facility] Moderna COVID-19 Vaccine (Low Dose Booster) Moderna COVID-19 Vaccine (Low Dose Booster) Unknown Completed [facility] Moderna COVID-19 Vaccine Moderna COVID-19 Vaccine Unknown Completed [facility] Moderna COVID-19 Vaccine Moderna COVID-19 Vaccine Unknown Completed [facility] Afluria single dose Afluria single dose Unknown Completed [facility] FLUZONE HIGH DOSE OVER 65 FLUZONE HIGH DOSE OVER 65 Unknown Completed [facility] Prevnar 13 (PCV13) Prevnar 13 (PCV13) Unknown Completed [facility] Moderna COVID-19 Vaccine (Low Dose Booster) Moderna COVID-19 Vaccine (Low Dose Booster) Unknown Completed [facility] Moderna COVID-19 Vaccine Moderna COVID-19 Vaccine Unknown Completed [facility] Moderna COVID-19 Vaccine Moderna COVID-19 Vaccine Unknown Completed [facility] Afluria single dose Afluria single dose Unknown Completed [facility] FLUZONE HIGH DOSE OVER 65 FLUZONE HIGH DOSE OVER 65 Unknown Completed [facility] Prevnar 13 (PCV13) Prevnar 13 (PCV13) Unknown Completed [facility] Moderna COVID-19 Vaccine (Low Dose Booster) Moderna COVID-19 Vaccine (Low Dose Booster) Unknown Completed [facility] Moderna COVID-19 Vaccine Moderna COVID-19 Vaccine Unknown Completed [facility] Moderna COVID-19 Vaccine Moderna COVID-19 Vaccine Unknown Completed [facility] Afluria single dose Afluria single dose Unknown Completed [facility] FLUZONE HIGH DOSE OVER 65 FLUZONE HIGH DOSE OVER 65 Unknown Completed [facility] Prevnar 13 (PCV13) Prevnar 13 (PCV13) Unknown Completed [facility] Moderna COVID-19 Vaccine (Low Dose Booster) Moderna COVID-19 Vaccine (Low Dose Booster) Unknown Completed [facility] Moderna COVID-19 Vaccine Moderna COVID-19 Vaccine Unknown Completed [facility] Moderna COVID-19 Vaccine Moderna COVID-19 Vaccine Unknown Completed [facility] Afluria single dose Afluria single dose Unknown Completed [facility] FLUZONE HIGH DOSE OVER 65 FLUZONE HIGH DOSE OVER 65 Unknown Completed [facility] Prevnar 13 (PCV13) Prevnar 13 (PCV13) Unknown Completed [facility] Moderna COVID-19 Vaccine (Low Dose Booster) Moderna COVID-19 Vaccine (Low Dose Booster) Unknown Completed [facility] Moderna COVID-19 Vaccine Moderna COVID-19 Vaccine Unknown Completed [facility] Moderna COVID-19 Vaccine Moderna COVID-19 Vaccine Unknown Completed [facility] Afluria single dose Afluria single dose Unknown Completed [facility] FLUZONE HIGH DOSE OVER 65 FLUZONE HIGH DOSE OVER 65 Unknown Completed [facility] Prevnar 13 (PCV13) Prevnar 13 (PCV13) Unknown Completed [facility] Moderna COVID-19 Vaccine (Low Dose Booster) Moderna COVID-19 Vaccine (Low Dose Booster) Unknown Completed [facility] Moderna COVID-19 Vaccine Moderna COVID-19 Vaccine Unknown Completed [facility] Moderna COVID-19 Vaccine Moderna COVID-19 Vaccine Unknown Completed [facility] Afluria single dose Afluria single dose Unknown Completed [facility] FLUZONE HIGH DOSE OVER 65 FLUZONE HIGH DOSE OVER 65 Unknown Completed [facility] Prevnar 13 (PCV13) Prevnar 13 (PCV13) Unknown Completed [facility] Moderna COVID-19 Vaccine (Low Dose Booster) Moderna COVID-19 Vaccine (Low Dose Booster) Unknown Completed [facility] Moderna COVID-19 Vaccine Moderna COVID-19 Vaccine Unknown Completed [facility] Moderna COVID-19 Vaccine Moderna COVID-19 Vaccine Unknown Completed [facility] Afluria single dose Afluria single dose Unknown Completed [facility] FLUZONE HIGH DOSE OVER 65 FLUZONE HIGH DOSE OVER 65 Unknown Completed [facility] Prevnar 13 (PCV13) Prevnar 13 (PCV13) Unknown Completed [facility] Moderna COVID-19 Vaccine (Low Dose Booster) Moderna COVID-19 Vaccine (Low Dose Booster) Unknown Completed [facility] Moderna COVID-19 Vaccine Moderna COVID-19 Vaccine Unknown Completed [facility] Moderna COVID-19 Vaccine Moderna COVID-19 Vaccine Unknown Completed [facility] Afluria (IIV4) - 3 years and older - SDS - 0.5mL Afluria (IIV4) - 3 years and older - SDS - 0.5mL Unknown Completed [facility] FLUZONE HIGH DOSE OVER 65 FLUZONE HIGH DOSE OVER 65 Unknown Completed [facility] Prevnar 13 (PCV13) Prevnar 13 (PCV13) Unknown Completed [facility] Moderna COVID-19 Vaccine (Low Dose Booster) Moderna COVID-19 Vaccine (Low Dose Booster) Unknown Completed [facility] Moderna COVID-19 Vaccine Moderna COVID-19 Vaccine Unknown Completed [facility] Moderna COVID-19 Vaccine Moderna COVID-19 Vaccine Unknown Completed [facility] Afluria (IIV4) - 3 years and older - SDS - 0.5mL Afluria (IIV4) - 3 years and older - SDS - 0.5mL Unknown Completed [facility] FLUZONE HIGH DOSE OVER 65 FLUZONE HIGH DOSE OVER 65 Unknown Completed [facility] Prevnar 13 (PCV13) Prevnar 13 (PCV13) Unknown Completed [facility] Moderna COVID-19 Vaccine (Low Dose Booster) Moderna COVID-19 Vaccine (Low Dose Booster) Unknown Completed [facility] Moderna COVID-19 Vaccine Moderna COVID-19 Vaccine Unknown Completed [facility] Moderna COVID-19 Vaccine Moderna COVID-19 Vaccine Unknown Completed [facility] Afluria (IIV4) - 3 years and older - SDS - 0.5mL Afluria (IIV4) - 3 years and older - SDS - 0.5mL Unknown Completed [facility] FLUZONE HIGH DOSE OVER 65 FLUZONE HIGH DOSE OVER 65 Unknown Completed [facility] Prevnar 13 (PCV13) Prevnar 13 (PCV13) Unknown Completed [facility] Moderna COVID-19 Vaccine (Low Dose Booster) Moderna COVID-19 Vaccine (Low Dose Booster) Unknown Completed [facility] Moderna COVID-19 Vaccine Moderna COVID-19 Vaccine Unknown Completed [facility] Moderna COVID-19 Vaccine Moderna COVID-19 Vaccine Unknown Completed [facility] Afluria (IIV4) - 3 years and older - SDS - 0.5mL Afluria (IIV4) - 3 years and older - SDS - 0.5mL Unknown Completed [facility] FLUZONE HIGH DOSE OVER 65 FLUZONE HIGH DOSE OVER 65 Unknown Completed [facility] Prevnar 13 (PCV13) Prevnar 13 (PCV13) [facility] Moderna COVID-19 Vaccine (Low Dose Booster) Unknown Completed [facility] Moderna COVID-19 Vaccine Moderna COVID-19 Vaccine Unknown Completed [facility] Moderna COVID-19 Vaccine Moderna COVID-19 Vaccine Unknown Completed [facility] Afluria (IIV4) - 3 years and older - SDS - 0.5mL Afluria (IIV4) - 3 years and older - SDS - 0.5mL Unknown Completed [facility] FLUZONE HIGH DOSE OVER 65 FLUZONE HIGH DOSE OVER 65 Unknown Completed [facility] Vital Signs Vital Name Observation Time Observation Value Comments S coleence height 2023-05-04 11:00:00 63.5 [in_i] Comm on [facility] weight 2023-05-04 11:00:00 164.2 [lb_av] Co mmon [facility] temperature 2023-05-04 11:00:00 96.8 [degF] Com mon [facility] bmi 2023-05-04 11:00:00 28.63 kg/m2 Comm on [facility] oximetry 2023-05-04 11:00:00 95 % Commo n [facility] respiratory rate 2023-05-04 11:00:00 18 /min [facility] blood pressure systolic 2023-05-04 11:00:00 130 mm[Hg] [facility] blood pressure diastolic 2023-05-04 11:00:00 84 mm[Hg] [facility] height 2023-03-28 14:40:00 63.5 [in_i] Comm on [facility] weight 2023-03-28 14:40:00 159.6 [lb_av] Co mmon [facility] temperature 2023-03-28 14:40:00 97.2 [degF] Com [facility] bmi 2023-03-28 14:40:00 27.83 kg/m2 Comm on [facility] oximetry 2023-03-28 14:40:00 96 % Commo n [facility] respiratory rate 2023-03-28 14:40:00 16 /min Common [facility] blood pressure systolic 2023-03-28 14:40:00 141 mm[Hg] [facility] blood pressure diastolic 2023-03-28 14:40:00 73 mm[Hg] Common [facility] height 2023-03-28 14:40:00 63.5 [in_i] Comm on [facility] weight 2023-03-28 14:40:00 159.6 [lb_av] Co mmon [facility] temperature 2023-03-28 14:40:00 97.2 [degF] Com [facility] bmi 2023-03-28 14:40:00 27.83 kg/m2 Comm on [facility] oximetry 2023-03-28 14:40:00 96 % Commo n [facility] respiratory rate 2023-03-28 14:40:00 16 /min [facility] blood pressure systolic 2023-03-28 14:40:00 141 mm[Hg] [facility] blood pressure diastolic 2023-03-28 14:40:00 73 mm[Hg] [facility] height 2023-03-12 08:20:00 63.5 [in_i] Comm on [facility] weight 2023-03-12 08:20:00 165.0 [lb_av] Co mmon [facility] temperature 2023-03-12 08:20:00 97.0 [degF] Com [facility] bmi 2023-03-12 08:20:00 28.77 kg/m2 Comm on [facility] oximetry 2023-03-12 08:20:00 96 % Commo n [facility] respiratory rate 2023-03-12 08:20:00 16 /min Common [facility] blood pressure systolic 2023-03-12 08:20:00 136 mm[Hg] Common [facility] blood pressure diastolic 2023-03-12 08:20:00 76 mm[Hg] [facility] height 2023-02-01 16:00:00 63.5 [in_i] Comm on [facility] weight 2023-02-01 16:00:00 168.4 [lb_av] Co mmon [facility] temperature 2023-02-01 16:00:00 97.0 [degF] Com [facility] bmi 2023-02-01 16:00:00 29.36 kg/m2 Comm on [facility] oximetry 2023-02-01 16:00:00 95 % Commo n [facility] respiratory rate 2023-02-01 16:00:00 16 /min Common [facility] blood pressure systolic 2023-02-01 16:00:00 119 mm[Hg] [facility] blood pressure diastolic 2023-02-01 16:00:00 79 mm[Hg] Common [facility] height 2022-10-19 08:40:00 63.5 [in_i] Comm on [facility] weight 2022-10-19 08:40:00 165.2 [lb_av] Co mmon [facility] temperature 2022-10-19 08:40:00 96.8 [degF] Com [facility] bmi 2022-10-19 08:40:00 28.8 kg/m2 Commo n [facility] oximetry 2022-10-19 08:40:00 95 % Commo n [facility] respiratory rate 2022-10-19 08:40:00 18 /min [facility] blood pressure systolic 2022-10-19 08:40:00 138 mm[Hg] [facility] blood pressure diastolic 2022-10-19 08:40:00 78 mm[Hg] [facility] height 2022-06-16 08:40:00 63.5 [in_i] Comm on [facility] weight 2022-06-16 08:40:00 163.2 [lb_av] Co mmon [facility] temperature 2022-06-16 08:40:00 97.6 [degF] Com [facility] bmi 2022-06-16 08:40:00 28.45 kg/m2 Comm on [facility] oximetry 2022-06-16 08:40:00 96 % Commo n [facility] respiratory rate 2022-06-16 08:40:00 16 /min Common [facility] blood pressure systolic 2022-06-16 08:40:00 136 mm[Hg] [facility] blood pressure diastolic 2022-06-16 08:40:00 70 mm[Hg] Common [facility] height 2022-03-10 10:00:00 63.5 [in_i] Comm on [facility] weight 2022-03-10 10:00:00 163.2 [lb_av] Co mmon [facility] temperature 2022-03-10 10:00:00 97.9 [degF] Com [facility] bmi 2022-03-10 10:00:00 28.45 kg/m2 Comm on [facility] oximetry 2022-03-10 10:00:00 95 % Commo n [facility] respiratory rate 2022-03-10 10:00:00 17 /min [facility] blood pressure systolic 2022-03-10 10:00:00 136 mm[Hg] [facility] blood pressure diastolic 2022-03-10 10:00:00 69 mm[Hg] Common [facility] height 2022-03-10 09:00:00 63.5 [in_i] Comm on [facility] weight 2022-03-10 09:00:00 163.2 [lb_av] Co mmon [facility] temperature 2022-03-10 09:00:00 97.9 [degF] Com mon [facility] bmi 2022-03-10 09:00:00 28.45 kg/m2 Comm on [facility] oximetry 2022-03-10 09:00:00 95 % Commo n [facility] respiratory rate 2022-03-10 09:00:00 17 /min [facility] blood pressure systolic 2022-03-10 09:00:00 136 mm[Hg] Common [facility] blood pressure diastolic 2022-03-10 09:00:00 69 mm[Hg] Common [facility] height 2021-12-06 08:40:00 63.5 [in_i] Comm on [facility] weight 2021-12-06 08:40:00 164 [lb_av] Comm on [facility] temperature 2021-12-06 08:40:00 97.4 [degF] Com mon [facility] bmi 2021-12-06 08:40:00 28.59 kg/m2 Comm on [facility] oximetry 2021-12-06 08:40:00 95 % Commo n [facility] respiratory rate 2021-12-06 08:40:00 16 /min Common [facility] blood pressure systolic 2021-12-06 08:40:00 135 mm[Hg] [facility] blood pressure diastolic 2021-12-06 08:40:00 72 mm[Hg] Common [facility] height 2021-07-11 10:20:00 63.5 [in_i] Comm on [facility] weight 2021-07-11 10:20:00 168 [lb_av] Comm on [facility] temperature 2021-07-11 10:20:00 97.3 [degF] Com mon [facility] bmi 2021-07-11 10:20:00 29.29 kg/m2 Comm on [facility] oximetry 2021-07-11 10:20:00 97 % Commo n [facility] respiratory rate 2021-07-11 10:20:00 16 /min [facility] blood pressure systolic 2021-07-11 10:20:00 137 mm[Hg] [facility] blood pressure diastolic 2021-07-11 10:20:00 61 mm[Hg] [facility] height 2021-04-13 15:40:00 63.5 [in_i] Comm on [facility] weight 2021-04-13 15:40:00 167 [lb_av] Comm on [facility] temperature 2021-04-13 15:40:00 97.1 [degF] Com mon [facility] bmi 2021-04-13 15:40:00 29.12 kg/m2 Comm on [facility] oximetry 2021-04-13 15:40:00 98 % Commo n [facility] respiratory rate 2021-04-13 15:40:00 16 /min [facility] blood pressure systolic 2021-04-13 15:40:00 134 mm[Hg] [facility] blood pressure diastolic 2021-04-13 15:40:00 65 mm[Hg] [facility] Encounters Start Date/Time End Date/Time Encounter Type Admission Type Attending [facility] Care Department Encounter ID Source 2022-10-17 11:57:00 Outpatient Paul Winnie [facility] [id number] [facility] 2022-06-14 13:53[place] [facility] [id number] [facility] 2022-03-02 08:15:00 [place] [facility] [id number] [facility] 2021-12-07 10:44:01 Outpatient Winnie Miller [facility] [id number] [facility] 2021-12-02 10:03:02 [place] [facility] [id number] [facility] 2021-10-10 13:33:01 [place] [facility] [id number] [facility] 2021-08-24 14:25:22 Outpatient Winnie Miller [facility] [id number] [facility] 2021-08-24 12:53:57 Outpatient Winnie Miller [facility] [id number] [facility] 2021-08-24 12:22:21 Outpatient Winnie Miller [facility] [id number] [facility] 2021-08-24 11:35:37 Outpatient Winnie Miller [facility] [id number] [facility] 2021-08-24 11:17:39 Outpatient Winnie Miller STLMLC STLMLC [id number] [facility] 2021-08-24 11:01:31 [place] ST[facility] STLMLC [id number] [facility] 2021-08-24 11:00:26 Outpatient Winnie Miller STLMLC STLMLC [id number] [facility] 2021-08-24 10:58:28 [place] STL[facility] STLMLC [id number] [facility] 2023-05-04 00:00:00 2023-05-04 00:00:00 OFFICE VISIT ESTAB PT LEVEL 4 STLMLC STLMLC [id number] [facility] 2023-04-26 09:17:00 2023-04-26 10:57:00 Emergency ER BRITNIADRYANAshtyn HERMES [facility] [id number] [facility] 2023-04-16 00:00:00 2023-04-16 00:00:00 (TEL) STLMLC STLMLC [id number] [facility] 2023-03-28 00:00:00 2023-03-28 00:00:00 OFFICE VISIT ESTAB PT LEVEL 3 STLMLC STLMLC [id number] [facility] 2023-03-28 00:00:00 2023-03-28 00:00:00 (TEL) STLMLC STLMLC [id number] [facility] 2023-03-28 00:00:00 2023-03-28 00:00:00 SUB ANNUAL [facility] WELLNESS VISIT STLMLC STLMLC [id number] [facility] 2023-03-28 00:00:00 2023-03-28 00:00:00 (TEL) STLMLC STLMLC [id number] [facility] 2023-03-26 00:00:00 2023-03-26 00:00:00 (TEL) STLMLC STLMLC [id number] [facility] 2023-03-12 00:00:00 2023-03-12 00:00:00 OFFICE VISIT ESTAB PT LEVEL 3 STLMLC STLMLC [id number] [facility] 2023-02-15 00:00:00 2023-02-15 00:00:00 (TEL) STLMLC STLMLC [id number] [facility] 2023-02-01 00:00:00 2023-02-01 00:00:00 OFFICE VISIT ESTAB PT LEVEL 4 STLMLC STLMLC [id number] [facility] 2022-12-22 00:00:00 2022-12-22 00:00:00 (TEL) STLMLC STLMLC [id number] [facility] 2022-11-28 00:00:00 2022-11-28 00:00:00 (TEL) STLMLC STLMLC [id number] [facility] 2022-10-23 00:00:00 2022-10-23 00:00:00 (TEL) STLMLC STLMLC [id number] [facility] 2022-10-19 00:00:00 2022-10-19 00:00:00 OFFICE VISIT ESTAB PT LEVEL 4 STLMLC STLMLC [id number] [facility] 2022-09-29 00:00:00 2022-09-29 00:00:00 (TEL) STLMLC STLMLC [id number] [facility] 2022-09-13 00:00:00 2022-09-13 00:00:00 (TEL) STLMLC STLMLC [id number] [facility] 2022-06-16 00:00:00 2022-06-16 00:00:00 OFFICE VISIT ESTAB PT LEVEL 4 STLMLC STLMLC [id number] [facility] 2022-05-09 00:00:00 2022-05-09 00:00:00 (TEL) STLMLC STLMLC [id number] [facility] 2022-03-10 00:00:00 2022-03-10 00:00:00 OFFICE VISIT EST PT LEVEL 3 STLMLC STLMLC [id number] [facility] 2022-03-10 00:00:00 2022-03-10 00:00:00 SUB ANNUAL [facility] WELLNESS VISIT STLMLC STLMLC [id number] [facility] 2022-01-25 00:00:00 2022-01-25 00:00:00 (TEL) STLMLC STLMLC [id number] [facility] 2022-01-22 00:00:00 2022-01-22 00:00:00 (TEL) STLMLC STLMLC [id number] [facility] 2022-01-03 00:00:00 2022-01-03 00:00:00 (TEL) STLMLC STLMLC [id number] [facility] 2021-12-14 00:00:00 2021-12-14 00:00:00 (TEL) STLMLC STLMLC [id number] [facility] 2021-12-14 00:00:00 2021-12-14 00:00:00 (TEL) STLMLC STLMLC [id number] [facility] 2021-12-06 00:00:00 2021-12-06 00:00:00 OFFICE VISIT ESTAB PT LEVEL 4 STLMLC STLMLC [id number] [facility] 2021-11-30 00:00:00 2021-11-30 00:00:00 (TEL) STLMLC STLMLC [id number] [facility] 2021-11-02 00:00:00 2021-11-02 00:00:00 (TEL) STLMLC STLMLC [id number] [facility] 2021-09-08 00:00:00 2021-09-08 00:00:00 (TEL) STLMLC STLMLC [id number] [facility] 2021-07-11 00:00:00 2021-07-11 00:00:00 OFFICE VISIT ESTAB PT LEVEL 4 STLMLC STLMLC [id number] [facility] 2021-06-22 04:57:00 2021-06-22 04:57:00 Outpatient JESSI RAINES [facility] [id number] [facility] 2021-06-10 00:00:00 2021-06-10 00:00:00 (TEL) STLMLC STLMLC [id number] [facility] 2021-04-13 00:00:00 2021-04-13 00:00:00 OFFICE VISIT EST PT LEVEL 3 STLMLC STLMLC [id number] [facility] 2021-04-11 00:00:00 2021-04-11 00:00:00 (TEL) STLMLC STLMLC [id number] [facility] 2021-04-05 00:00:00 2021-04-05 00:00:00 (TEL) STLMLC STLMLC [id number] [facility] 2021-03-24 00:00:00 2021-03-24 00:00:00 (TEL) STLMLC STLMLC [id number] [facility] 2021-03-24 00:00:00 2021-03-24 00:00:00 (TEL) STLMLC STLMLC [id number] [facility] 2021-03-07 00:00:00 2021-03-07 00:00:00 (TEL) STLMLC STLMLC [id number] [facility] 2021-01-05 00:00:00 2021-01-05 00:00:00 Outpatient STLMLC STLMLC [id number] [facility] 2020-12-08 00:00:00 2020-12-08 00:00:00 Outpatient STLMLC STLMLC [id number] [facility] 2020-11-18 00:00:00 2020-11-18 00:00:00 Outpatient STLMLC STLMLC [id number] [facility] 2020-11-15 00:00:00 2020-11-15 00:00:00 Outpatient STLMLC STLMLC [id number] [facility] 2020-10-06 00:00:00 2020-10-06 00:00:00 Outpatient STLMLC STLMLC [id number] [facility] 2020-09-29 00:00:00 2020-09-29 00:00:00 Outpatient STLMLC STLMLC [id number] [facility] 2020-09-29 00:00:00 2020-09-29 00:00:00 Outpatient STLMLC STLMLC [id number] [facility] 2020-08-17 00:00:00 2020-08-17 00:00:00 Outpatient STLMLC STLMLC [id number] [facility] 2020-07-01 00:00:00 2020-07-01 00:00:00 Outpatient STLMLC STLMLC [id number] [facility] 2020-06-04 11:01:00 2020-06-04 12:17:00 Emergency [place] [facility] [id number] 2020-05-12 00:00:00 2020-05-12 00:00:00 Outpatient STLMLC STLMLC [id number] [facility] 2020-03-16 14:33:00 2020-03-16 14:33:00 [place] [facility] [address] [facility] [id number] [facility] 2020-03-10 17:01:00 2020-03-10 17:01:00 [facility] [id number] [facility] 2020-02-10 10:40:00 2020-02-10 10:40:00 [place] [address] [facility] [id number] [facility] 2019-11-11 10:40:00 2019-11-11 10:40:00 [address] [facility] [address] [facility] [place] [facility] [id number] [facility] 2019-08-12 13:00:00 2019-08-12 13:00:00 [place] [facility] [address] [facility] [id number] [facility] 2019-07-01 10:00:00 2019-07-01 10:00:00 Out[facility] [address] [facility] [id number] [facility] 2019-06-17 14:40:00 2019-06-17 14:40:00 [place] [id number] [facility] 2019-06-13 15:24:00 2019-06-13 15:24:00 [facility] [id number] [facility] 2019-05-29 10:00:00 2019-05-29 10:00:00 [facility] Medicine [id number] [facility] 2019-05-26 10:48:00 2019-05-26 10:48:00 Outpatient BIENVENIDO CHANDRA [facility] [id number] [facility] 2019-05-22 13:45:00 2019-05-22 13:45:00 [facility] Medicine [id number] [facility] 2019-03-20 10:00:00 2019-03-20 10:00:00 [facility] Medicine [id number] [facility] 2019-02-02 15:18:00 2019-02-02 16:17:00 Emergency ER GISELLE CLEANING [facility] [id number] [facility] 2018-10-16 07:22:00 2018-10-16 09:24:00 Emergency ER MANDY CARTER [facility] [id number] [facility] 2017-11-18 22:35:00 2017-11-19 01:58:00 Emergency ER RAJINDER MELISSA [facility] [id number] [facility] 2017-11-17 10:17:00 2017-11-17 12:53:00 Emergency ER SONI WERNER [facility] [id number] [facility] 2017-08-23 08:13:00 2017-08-23 08:13:00 Outpatient JESSICA SALAZAR [facility] [id number] [facility] 2017-06-10 19:24:00 2017-06-10 22:30:00 Emergency ER SONI WERNER [facility] [id number] [facility] 2017-04-24 09:09:00 2017-04-24 10:18:00 Emergency ER ROBIN MENDOZA [facility] [id number] [facility] 2017-04-02 11:25:00 2017-04-02 13:51:00 Emergency ER ART SAAVEDRA [facility] [id number] [facility] 2017-03-22 09:14:00 2017-03-22 09:14:00 Outpatient JESSICA SALAZAR [facility] [id number] [facility] 2017-03-13 23:23:00 2017-03-14 01:18:00 Emergency ER DENAE RAY [facility] [id number] [facility] 2014-02-18 15:47:00 2014-02-18 15:47:00 Outpatient Jeronimo Farmer [facility] [id number] [facility] 2014-01-22 11:52:00 2014-01-22 11:52:00 Outpatient HINA TURCIOS [facility] [id number] [facility] 2013-10-07 15:57:00 2013-10-07 15:57:00 Outpatient Jeronimo Farmer [facility] [id number] [facility] 2011-01-27 01:41:00 2011-01-27 04:05:00 Emergency ER ART SAAVEDRA [facility] [id number] [facility] 2010-11-28 10:24:00 2010-11-28 10:24:00 Outpatient HINA TURCIOS [facility] [id number] [facility] 2009-08-14 03:34:00 2009-08-14 06:22:00 Emergency ER IMMARARolly, PREMSWARUP [facility] [id number] [facility] 2008-05-09 18:28:00 2008-05-09 20:38:00 Emergency ER ART SAAVEDRA [facility] [id number] [facility] 2007-12-08 16:46:00 2007-12-08 18:33:00 Emergency ER SADIE, OVI [facility] [id number] [facility] 2007-09-18 04:36:00 2007-09-18 07:40:00 Emergency ER IMMSAURABH, PREMTRUEARUP [facility] [id number] [facility] 2007-04-04 00:17:00 2007-04-04 02:15:00 Emergency ER ART SAAVEDRA [facility] [id number] [facility] 2007-01-31 23:15:00 2007-02-01 01:06:00 Emergency ER GEOFFREY-ABBE HYMANCHIP [facility] [id number] [facility] 2007-01-15 18:42:00 2007-01-15 22:50:00 Emergency ER LILIANE HYMAN CHIP [facility] [id number] [facility] 2006-11-25 05:35:00 2006-11-25 10:15:00 Emergency ER SIENNA DAVILA [facility] [id number] [facility] 2006-11-05 08:14:00 2006-11-05 08:14:00 Outpatient PRIYANKA VALLE [facility] [id number] [facility] 2006-07-13 20:48:00 2006-07-13 23:05:00 Emergency ER OVI NOEL [facility] [id number] [facility] 2006-06-13 13:46:00 2006-06-13 17:38:00 Emergency ER CHIP METZ [facility] [id number] [facility] 2006-05-25 11:34:00 2006-05-25 11:34:00 Outpatient SANTI NORMAN "HUANG" [facility] [id number] [facility] 2006-05-24 11:50:00 2006-05-24 15:20:00 Emergency ER OVI NOEL [facility] [id number] [facility] 2006-05-16 11:19:00 2006-05-16 13:25:00 Emergency ER OVI NOEL [facility] [id number] [facility] 2006-05-01 04:41:00 2006-05-01 13:15:00 Emergency ER SIENNA DAVILA [facility] [id number] [facility] 2005-07-04 22:43:00 2005-07-05 00:18:00 Emergency ER RHEA KENT [facility] [id number] [facility] 2004-01-18 17:24:00 2004-01-18 18:23:00 Emergency ER RADHA ANDERSON [facility] [id number] [facility] 2003-01-31 22:36:00 2003-02-01 02:05:00 Emergency ER RHIANNONYAHAIRA [facility] [id number] [facility] 2002-11-15 21:10:00 2002-11-15 23:10:00 Emergency ER LETITIA PARRA [facility] [id number] [facility] 2001-11-15 02:08:00 2001-11-15 05:10:00 Emergency ER QUENTIN ART [facility] [id number] [facility] Results Test Description Test Time Test Comments Results Result Co mments Source Hemoglobin [id number] 00:00:00* Test Item Value Reference Range Interpretation Comme nts Hemoglobin A1c (test code = 4548-4) 6.6 % See_Comment H [Automated [employer] ge] The system which generated this result transmitted reference range: 4.2-6.3 %. The reference range was not used to interpret this result as normal/abnormal. HEMOGLOBIN [id number] 00:00:00* Test Item Value Reference Range Interpretation Comme nts A1C (test code = 4548-4) 6.7 HEMOGLOBIN [id number] 00:00:00* Test Item Value Reference Range Interpretation Comme nts A1C (test code = 4548-4) 6.6 HEMOGLOBIN [id number] 00:00:00* Test Item Value Reference Range Interpretation Comme nts A1C (test code = 4548-4) 7.0 HEMOGLOBIN [id number] 00:00:00* Test Item Value Reference Range Interpretation Comme nts A1C (test code = 4548-4) 7.4 [id number] 22:42:00* Test Item Value Reference Range Interpretation Comme nts NT ProBnp (test code = PBNP) SEE COMMENT pg/mL 0-124 N PBNP=5.00 <Test..../OG Lipid [id number] 22:40:00* Test Item Value Reference Range Interpretation Comme nts Cholesterol (test code = CHOL) 124 mg/dL 0-200 N Triglycerides (test code = TRIG) 100 mg/dL 9-200 N HDL (test code = HDL) 46 mg/dL 50-60 L Chol/HDL (test code = CHOLPHDL) 2.7 Ratio 0.0-4.4 N LDL, Calculated (test code = LDLC) 58 mg/dL 0-130 N (NOTE)RISK OF HEART DISEASEPublished by [place] Heart AssociationAnalyte Optimal Boderline Increased RiskCHOL <200 200-239 >240TRIG <150 150-199 >200HDL Male: >60 <40HDL Female: >60 <50LDL <100 130-159 >160LDL NEAR OPTIMAL IS 100-129 VLDL (test code = VLDL) 20 mg/dL 5-40 N LDL/HDL (test code = LDLPHDL) 1 Comprehensive Metabolic [id number] 22:40:00* Test Item Value Reference Range Interpretation [...] race is not provided, and the patient isAfrican-Malian, multiply by 1.212. If sex is not [...] by the National Kidney Foundation,http://nkdep .nih.gov Glycosylated [id number] 22:38:00* Test Item Value Reference Range Interpretation Comme nts HBA1c (test code = HBA1C) 7.0 % 4.8-5.9 H CBC with [id number] 22:17:00* Test Item Value Reference Range Interpretation [...] code = ALYMPH) 3.2 K/cumm 0.5-4.6 N [place] Abs (test code = AMONO) 0.4 K/cumm 0.0-1.2 N Eos Abs (test code = AEOS) 0.22 K/cumm 0.00-0.74 N Baso Abs (test code = ABASO) 0.1 K/cumm 0.00-0.21 N
[2023-08-08 11:14] LABS: Urine Bacteria None Seen /HPF (<20); Urine Mucus Slight /HPF (None Seen); Urine RBC <5 /HPF (None Seen)
[2023-08-08 11:15] LABS: Specific Gravity 1.023 (1.005-1.030); Urine Bilirubin NEGATIVE (Negative); Urine Blood Negative (Negative); Urine Clarity Clear (Clear); Urine Color Light-Yellow (Yellow); Urine Glucose NEGATIVE (Negative); Urine Protein TRACE (Negative); Urine Urobilinogen Normal (Normal)
[2023-08-08 11:28] LABS: SARS-CoV-2 Antigen Rapid Res Negative (Negative)
[2023-08-08 11:41] LABS: Absolute Lymphocytes (CBC) 2.5 K/uL (0.7-4.9); Hematocrit 36.2 % (36.0-45.0); Lymphocytes % 35.2 % (15.3-44.8); MCV 91.4 fL (80-100); MPV 8.1 fL (7.6-11.3); Platelets 304 thou/uL (152-406); RBC Red Blood Cell Count 3.96 M/uL (3.86-4.86)
[2023-08-08 11:57] LABS: Albumin 3.4 g/dL (3.4-5.0); Bilirubin Total 0.7 mg/dL (0.2-1.0); Potassium 4.1 mEq/L (3.5-5.1); Protein, Total 7.1 g/dL (6.4-8.2)
--- NOTE | 2023-08-08 12:22 | RAD REPORT ---
EXAM DESCRIPTION: CT - Abdomen Pelvis W Contrast - 08/08/2023 12:10 pm CLINICAL HISTORY: left flank pain COMPARISON: No comparisons TECHNIQUE: Thin cut axial CT imaging of the abdomen and pelvis was performed following intravenous a dministration of 100 mL Isovue 300. Multiplanar reformats were generated and reviewed. All CT scans are performed using dose optimization technique as appropriate and may include automated exposure control or mA/KV adjustment according to patient size. FINDINGS: No suspicious findings in the lung bases. The liver shows few fluid density lesions, the largest measuring 1.5 cm near the hilum. Adrenal gland s, spleen, and pancreas show no suspicious findings. Gallbladder is contracted limiting evaluation. Symmetric renal function is seen with no hydronephrosis or suspicious renal mass. No dilated bowel loops or bowel wall thickening. No free air, free fluid or inflammatory stranding. N o hernia, mass or bulky lymphadenopathy. The urinary bladder is without significant finding. No suspicious bony findings. IMPRESSION: No acute intra-abdominal process.
--- NOTE | 2023-08-08 13:26 | EDPHYS ---
Physician Documentation [facility] Name: Christa Sparks Age: 68 yrs Sex: Female : 1955 Arrival Date: 08/08/2023 Time: 10:39 Bed 6 Private MD: ED Physician Nicho Enriquez HPI: 08/08 11:14 This 68 yrs old Female presents to ER via Ambulatory with complaints of Low rn Back Pain. 11:14 The patient presents with pain that is acute, with no known mechanism of injury. The rn symptoms are located in the left low back and left mid back. Onset: The symptoms/episode began/occurred last night. Onset: The symptoms/episode began/occurred last night. Modifying factors: The patient symptoms are alleviated by nothing, the patient symptoms are aggravated by any movement. Associated signs and symptoms: Pertinent negatives: chest pain, fever, hematuria, incontinence, nausea, numbness, tingling, urinary retention. Severity of symptoms: At their worst the symptoms were moderate, in the emergency department the symptoms are unchanged. The patient has not experienced similar symptoms in the past. Patient reports left flank and left lower back pain that began last night. No injury or fall. Patient reports sister recently of kidney failure and was concerned when her kidney region started hurting that she was going to suffer the same fate. No fever or chills. No dysuria or urinary symptoms. Patient denies previous urinary infections. No chest pain or shortness of breath.. Historical: - Allergies: 10:45 Toradol; ll1 10:45 tramadol; ll1 - PMHx: 10:45 Anxiety; CHF; Diabetes - IDDM; High Cholesterol; CVA; Hypertension; ll1 - Immunization history:: Adult Immunizations up to date. - Social history:: Smoking status: Patient denies any tobacco usage or history of. Patient/guardian denies using alcohol. - Family history:: not pertinent. - Hospitalizations: : No recent hospitalization is reported. ROS: 11:14 Constitutional: Negative for fever, chills, and weight loss, Neck: Negative for injury, rn pain, and swelling, Cardiovascular: Negative for chest pain, palpitations, and edema, Respiratory: Negative for shortness of breath, cough, wheezing, and pleuritic chest pain, Abdomen/GI: Negative for abdominal pain, nausea, vomiting, diarrhea, and constipation, Back: Positive for left-sided back pain : Negative for injury, bleeding, discharge, and swelling, MS/Extremity: Negative for injury and deformity, Skin: Negative for injury, rash, and discoloration, Neuro: Negative for headache, weakness, numbness, tingling, and seizure, Exam: 11:14 Constitutional: This is a well developed, well nourished patient who is awake, alert, rn and in no acute distress. Patient ambulatory to room without difficulty or assistance Head/Face: Normocephalic, atraumatic. Cardiovascular: Regular rate and rhythm. No pulse deficits. Respiratory: No increased work of breathing, no retractions or nasal flaring. Abdomen/GI: Soft, non-tender Back: No spinal tenderness. No costovertebral tenderness. Painful range of motion with twisting and bending MS/ Extremity: Pulses equal, no cyanosis. Neuro: Awake and alert, GCS 15. Motor strength 5/5 in all extremities. Sensory grossly intact. Cerebellar exam normal. Normal gait. Vital Signs: 10:47 Temp 97.3; ll1 11:09 BP 159 / 73; Pulse 77; Resp 18; Pulse Ox 100% on R/A; ld1 12:33 BP 156 / 72; Pulse 75; Resp 18; Pulse Ox 98% on R/A; ld1 13:38 BP 154 / 71; Pulse 73; Resp 18; Pulse Ox 97% on R/A; ld1 MDM: 10:45 Patient medically screened. rn 13:25 Differential diagnosis: arthritis, strain, sciatica, UTI, Muscle spasm, pyelonephritis, weed burner kidney failure. Data reviewed: vital signs, nurses notes, lab test result(s), radiologic studies, CT scan, and as a result, I will discharge patient. Counseling: I had a detailed discussion with the patient and/or guardian regarding the historical points, exam findings, and any diagnostic results supporting the discharge/admit diagnosis, lab results, radiology results, the need for outpatient follow up, to return to the emergency department if symptoms worsen or persist or if there are any questions or concerns that arise at home. Special discussion: I discussed with the patient/guardian in detail that at this point there is no indication for admission to the hospital. It is understood, however, that if the symptoms persist or worsen the patient needs to return immediately for re-evaluation. ED course: No acute findings and workup here. Will discharge home with muscle relaxer as possible external cause of her back pain. Normal renal function found. No acute findings on CT scan. Patient afebrile without trauma.. 08/08 10:52 Order name: CBC with Diff; Complete Time: 11:58 rn 08/08 10:52 Order name: CMP; Complete Time: 12:29 rn 08/08 10:52 Order name: Lipase; Complete Time: 12:29 rn 08/08 10:52 Order name: Urinalysis w/ reflexes; Complete Time: 11:58 rn 08/08 10:52 Order name: Flu; Complete Time: 12:29 rn 08/08 10:52 Order name: SARS RAPID; Complete Time: 11:58 rn 08/08 10:52 Order name: CT Abd/Pelvis - IV Contrast Only; Complete Time: 12:29 rn 08/08 10:52 Order name: IV Saline Lock; Complete Time: 11:31 rn 08/08 10:52 Order name: Labs collected and sent; Complete Time: 11:31 rn Administered Medications: No medications were administered Disposition Summary: 08/08/23 13:26 Discharge Ordered Notes: Location: Home rn Problem: new rn Symptoms: have improved rn Condition: Stable rn Diagnosis - Low back pain rn Followup: rn - With: Private Physician - When: As needed - Reason: Recheck today's complaints, Re-evaluation by your physician Discharge Instructions: - Discharge Summary Sheet rn - Acute Back Pain, Adult rn - Musculoskeletal Pain rn Forms: - Medication Reconciliation Form rn - Thank You Letter rn - Antibiotic ethernet network architect - Prescription Opioid Use rn - Patient Portal Instructions rn - Leadership Thank You Letter rn Prescriptions: - Cyclobenzaprine 10 mg Oral tablet - take 1 tablet ORAL route 2 times per day As needed; 12 tablet; Refills: 0, rn Product Selection Permitted Signatures: Dispatcher [employer] Nicho Rivera MD MD rn Lewis, Lynsay, RN RN ll1 Tiffanie Roy RN RN ld1
--- NOTE | 2023-08-08 13:26 | ER ---
Nurse's Notes [facility] Name: Christa Sparks Age: 68 yrs Sex: Female : 1955 Arrival Date: 08/08/2023 Time: 10:39 Bed 6 Private MD: Diagnosis: Low back pain Presentation: 08/08 10:49 Chief complaint: Patient states: Left flank pain since last night. Coronavirus screen: ld1 At this time, the client does not indicate any symptoms associated with coronavirus-19. Ebola Screen: No symptoms or risks identified at this time. Risk Assessment: Do you want to hurt yourself or someone else? Patient reports no desire to harm self or others. Onset of symptoms was August 08, 2023. 10:49 Method Of Arrival: Ambulatory ld1 10:49 Acuity: NICK 3 ld1 13:39 Initial Sepsis Screen: Does the patient meet any 2 criteria? No. Patient's initial cm10 sepsis screen is negative. Does the patient have a suspected source of infection? No. Patient's initial sepsis screen is negative. Triage Assessment: 10:49 General: Appears in no apparent distress. uncomfortable, Behavior is calm, cooperative, ld1 appropriate for age. Pain: Complains of pain in left low back Pain does not radiate. Pain currently is 7 out of 10 on a pain scale. Quality of pain is described as throbbing, Pain began suddenly, Is continuous. EENT: No signs and/or symptoms were reported regarding the EENT system. Neuro: Level of Consciousness is awake, alert, obeys commands, Oriented to person, place, time, situation. Cardiovascular: Capillary refill is > 3 seconds Patient's skin is warm and dry. Respiratory: Airway is patent Respiratory effort is even, unlabored. GI: Abdomen is round non-distended. : No signs and/or symptoms were reported regarding the genitourinary system. Derm: No signs and/or symptoms reported regarding the dermatologic system. Musculoskeletal: No signs and/or symptoms reported regarding the musculoskeletal system. Historical: - Allergies: 10:45 Toradol; ll1 10:45 tramadol; ll1 - PMHx: 10:45 Anxiety; CHF; Diabetes - IDDM; High Cholesterol; CVA; Hypertension; ll1 - Immunization history:: Adult Immunizations up to date. - Social history:: Smoking status: Patient denies any tobacco usage or history of. Patient/guardian denies using alcohol. - Family history:: not pertinent. - Hospitalizations: : No recent hospitalization is reported. Screenin:51 [facility] ED Fall Risk Assessment (Adult) History of falling in the last 3 months, ld1 including since admission No falls in past 3 months (0 pts). Abuse screen: Denies threats or abuse. Denies injuries from another. Nutritional screening: No deficits noted. Tuberculosis screening: No symptoms or risk factors identified. Assessment: 10:51 Reassessment: See triage assessment. ERP at bedside with patient. ld1 Vital Signs: 10:47 Temp 97.3; ll1 11:09 BP 159 / 73; Pulse 77; Resp 18; Pulse Ox 100% on R/A; ld1 12:33 BP 156 / 72; Pulse 75; Resp 18; Pulse Ox 98% on R/A; ld1 13:38 BP 154 / 71; Pulse 73; Resp 18; Pulse Ox 97% on R/A; ld1 ED Course: 10:43 Patient arrived in ED. mg5 10:45 Nicho Enriquez MD is Attending Physician. rn 10:45 Arm band placed on Patient placed in an exam room, on a stretcher. ll1 10:49 Tiffanie Roy, RN is Primary Nurse. ld1 10:49 Triage completed. ld1 10:51 Patient has correct armband on for positive identification. Placed in gown. Bed in low ld1 position. Call light in reach. Side rails up X2. bus monitor on. Pulse ox on. NIBP on. Door closed. Noise minimized. Warm blanket given. 10:51 No provider procedures requiring assistance completed. ld1 11:04 SARS RAPID Sent. ko1 11:04 Flu Sent. ko1 11:04 Urinalysis w/ reflexes Sent. ko1 11:08 Missed attempt(s): 20 gauge in left antecubital area. ld1 11:08 Missed attempt(s): 20 gauge in right antecubital area. ld1 11:31 Inserted saline lock: 22 gauge in left forearm, using aseptic technique. Blood ds4 collected. 11:33 CBC with Diff Sent. ko1 11:33 CMP Sent. ko1 11:33 Lipase Sent. ko1 12:11 CT Abd/Pelvis - IV Contrast Only In Process Unspecified. EDMS 13:39 Provided Education on: Follow-up instructions. . cm10 13:39 IV discontinued, intact, bleeding controlled, No redness/swelling at site. Pressure cm10 dressing applied. Administered Medications: No medications were administered Medication: 10:51 VIS not applicable for this client. ld1 Outcome: 13:26 Discharge ordered by . rn 13:39 Discharged to home ambulatory, with significant other, cm10 13:39 Condition: good 13:39 Discharge instructions given to patient, Instructed on discharge instructions, follow up and referral plans. medication usage, Demonstrated understanding of instructions, follow-up care, medications, Prescriptions given X 1, 13:40 Patient left the ED. cm10 Signatures: Dispatcher [employer] EDMS Nicho Enriquez MD MD rn Swanson, Donovan ds4 Jeff Danielle RN RN ll1 Tiffanie Roy RN RN ld1 Dodie Hatfield RN RN Karlee Orantes RN RN cm10 Nadia Ceja mg5
[2023-08-08 13:59] VITALS: TEMP 97.3
[2023-08-08 14:11] VITALS: BP 154/71; O2SAT 97
== END ==
LOC: ER 10:39
DX: M54.50 Low back pain, unspecified (principal); E11.9 Type 2 diabetes mellitus without complications; I10 Essential (primary) hypertension; Z11.52 Encounter for screening for COVID-19; Z88.5 Allergy status to narcotic agent
CPT/HCPCS: 85025; 81001; 36415; 83690; 80053; 87804 ×2; 74177; 87811; Q9967

== ENCOUNTER 2024-05-04 04:29 | Emergency (ER) | payer OTHER ==
--- OUTSIDE RECORDS SUMMARY | 2024-05-04 04:36 | XMS REPORT | Continuity of Care Document ---
Author Name Unknown Address [address] [facility] [address] [place] [address] [facility] [address] [facility] [address] [place] [address] Care Team Providers Care Torpedo Man Name Role Phone DOUG HINA Primary Care Physician Unavailab Milagro Whitfield Attending Clinician Unavail Winnie Mckeon Attending Clinician Unavailable LIT ESTRADA Attending Clinician Unavailable Sean FRAIRE, Lit Attending Clinician [phone] Jessica Arauz MD Attending Clinician + [phone] JESSICA ARAUZ Attending Clinician Unajean Estrada MD, Lit Attending Clinician [phone], [facility] Attending Clinician Unavailable Doctor Unassigned, [place] Attending Clinician U HERMES De La Torre Attending Clinician Katelynn Verona Holt MA Attending Clinician Unavailailyn DE LEON Attending Clinician Unavailable Pob, [facility] Main Attending Clinician UnavailElvis Garvin Attending Clinician [phone] ELVIS LUCERO Attending Clinician Unavailable BIENVENIDO LUCAS Attending Clinician Unavailable GISELLE CLEANING Attending Clinician Unavailable MANDY CARTER Attending Clinician Unavailable RAJINDER MELISSA Attending Clinician Unavailable SONI WERNER Attending Clinician Unavailable JESSICA OLIVO Attending Clinician Unavailable HINA CAMACHO Attending Clinician Unavailable ROBIN MENDOZA Attending Clinician Unavail able ART SAAVEDRA Attending Clinician UnavailDENAE Smyth Attending Clinician Unavailable Jeronimo Kitchen I. Attending Clinician UnavailHINA Ty Attending Clinician Unavailable NORA BESS Attending Clinician OVI Light BA Attending Clinician Unavailable CHIP HERNANDEZ Attending Clinician Un available SIENNA DAVILA Attending Clinician UnavailPRIYANKA Drew Attending Clinician Unavailable SANTI CASTILLO "HUANG" Attending Clinician UnaRHEA Pond Attending Clinician Unavailable RADHA ANDERSON Attending Clinician Unavailable YAHAIRA JURADO Attending Clinician Unavailable LETITIA PARRA Attending Clinician UnavailJESSICA Andrade Admitting Clinician Jessica Bucio MD Admitting Clinician [phone] LIT ESTRADA Admitting Clinician Unavailable HALEY Admitting Clinician Unavailable HINA CAMACHO Admitting Clinician Unavailable Payers Payer Name Policy Type Policy Number Effective Date Expirati on Date Source [facility] STAR PLUS [id number] 2015 00:00:00 [facility] PLUS 53 [id number] 2020 00:00:00 [facility] MEDICARE NOVITAS MB [id number] [facility] MEDICARE NOVITAS MB [id number] [facility] MEDICARE [facility]OVITAS MB [id number] [facility] MEDICARE [facility]OVITAS MB [id number] [facility] MEDICARE NOVITAS MB [id number] [facility] MEDICARE NOVITAS MB [id number] [facility] MEDICARE NOVITAS [id number] C [facility] Problems Condition Name Condition Details Condition Category Status Onset Date Resolution Date Last Treatment Date Treating Clinician Comments Source Cigarette smoker Cigarette smoker Disease Active 11-14 00:00: 00 [facility] PVC (premature ventricula r contractio n) PVC (premature ventricula r contractio n) Disease Active 2022-07 00:00: 00 [facility] Cerebrovas cular accident (CVA), unspecifie d mechanism Cerebrovas cular accident (CVA), unspecifie d mechanism Disease Active 01-17 00:00: 00 [facility] Hyperlipid emia, unspecifie d hyperlipid emia type Hyperlipid emia, unspecifie d hyperlipid emia type Disease Active 01-17 00:00: 00 [facility] Primary hypertensi on Primary hypertensi on Disease Active 01-17 00:00: 00 [facility] Bilateral carotid artery stenosis Bilateral carotid artery stenosis Disease Active 01-17 00:00: 00 [facility] Right arm pain Right arm pain Disease Active 11-16 00:00: 00 [facility] Right ankle pain Right ankle pain Disease Active 11-16 00:00: 00 [facility] [id number] Polyneurop athy Problem [facility] [id number] Hypoglycem ia Problem [facility] [id number] Urinary incontinen ce, unspecifie d type Problem [facility] [id number] Chronic fatigue Problem [facility] [id number] 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 Problem [facility] [id number] Mixed hyperlipid emia Problem [facility] 40612982 Vitamin D deficiency Problem [facility] [id number] Current moderate episode of major depressive disorder without prior episode Problem [facility] [id number] Memory loss Problem [facility] Acquired hypothyroi dism Acquired hypothyroi dism Problem [facility] [id number] Vertigo Problem [facility] [id number] Neuropathy Problem [facility] Microalbum inuria Microalbum inuria Problem [facility] [id number] Diabetic polyneurop athy associated with type 2 diabetes mellitus Problem [facility] [id number] Headache, unspecifie d Problem [facility] [id number] Decreased muscle strength Problem [facility] 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 Hemiparesi s affecting right side as late effect of stroke Problem [facility] [id number] Intractabl e episodic cluster headache Problem [facility] [id number] Injury of right shoulder, initial encounter Problem [facility] [id number] Anticoagul ant long-term use Problem [facility] [id number] 9[address] shelter (current) use of oral hypoglycem ic drugs Problem [facility] [id number] Long-term (current) use of injectable non-insuli n antidiabet ic drugs Problem [facility] Anxiety Anxiety Problem [facility] [id number] Other chronic pain Problem [facility] 329863206 Seasonal allergies Problem [facility] 21713146 Unsteady gait Problem [facility] 77892032 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 Problem [facility] [id number] History of CVA with residual deficit Problem [facility] [id number] Insomnia, unspecifie d type Problem [facility] 17952504 Palpitatio ns Problem [facility] 45251622 Reflux gastritis Problem [facility] [id number] shelter (current) use of insulin Problem [facility] Allergies, Adverse Reactions, Alerts Allergy Name Allergy Type Status Severity Reaction(s) Onset Date Inactive Date Treating Clinician Comments Source cycloben zaprine cycloben zaprine Active Unknown [facility] acetamin ophen acetamin ophen Active Unknown [facility] amitript yline amitript yline Active hallucinatio ns [facility] NO KNOWN ALLERGIE S Drug Class Active [facility] Social History Social Habit Start Date Stop Date Quantity Comments Source History of tobacco use Cigarette Smoker [facility] Exposure to SARS-CoV-2 (event) Not sure [facility] Gender identity [facility] Sexual orientation [facility] Sex Assigned At [facility] Alcoholic beverage intake 2023-12-28 00:00:00 2023-12-28 00:00:00 0 /d [facility] Alcohol intake 2023-05-17 00:00:00 2023-05-17 00:00:00 0 /d [facility] History of Social function 2023-05-17 00:00:00 2023-05-17 00:00:00 [facility] Smoking Status Start Date Stop Date Source Former Smoker 2024-04-24 00:00:00 2024-04-24 00:00:00 [facility] Current Smoker 2023-12-17 00:00:00 [facility] Never Smoker [facility] Occasional tobacco smoker 2023-01-17 00:00:00 [facility] Medications Ordered Medication Name Filled Medication Name Start Date Stop Date Current Medication? Ordering Clinician Indication Dosage Frequency Signature (SIG) Comments Components Source atorvastati n 40 mg tablet 2023-07 0-04 00:00: 00 Yes [id number] 40mg Take 1 tablet by mouth at bedtime. Labs needed for refills. [facility] Accu-Chek Guide - Accu-Chek Guide - 04-24 00:00: 00 No Accu-Chek Guide - Accu-Chek Guide w/Device Accu-Chek Guide w/Device 04-24 00:00: 00 No Accu-Chek Guide w/Device Promethazin e-Phenyleph rine 6.25-5 MG/5ML Promethazin e-Phenyleph rine 6.25-5 MG/5ML 2024-0 9-10 00:00: 00 No 5{ml_as _needed } QID Promethazi ne-Phenyle phrine 6.25-5 MG/5ML Paxlovid (300/100) 20 x 150 MG & 10 x 100MG Paxlovid (300/100) 20 x 150 MG & 10 x 100MG 2023-0 9-10 00:00: 00 No 3{table ts} BID Paxlovid (300/100) 20 x 150 MG & 10 x 100MG FLUoxetine HCl 20 MG FLUoxetine HCl 20 MG 8-16 00:00: 00 No 1{capsu le} QD FLUoxetine HCl 20 MG One Touch Ultra Test Strips 1 One Touch Ultra Test Strips 1 8-05 00:00: 00 No TID One Touch Ultra Test Strips 1 Flonase Allergy Relief 50 MCG/ACT Flonase Allergy Relief 50 MCG/ACT 6-12 00:00: 00 No 1{spray _in_eac h_nostr il} QD Flonase Allergy Relief 50 MCG/ACT lactated ringers IV infusion 1,000 mL 12-26 14:15: 00 12-26 18:04 :35 No 1000mL at 50 mL/hr, 1,000 mL, IV Infusion, CONTINUOUS , Starting on Tori 12/27/23 at 0915, Until Tori 12/27/23 at 1304, Routine, PACU [facility] ondansetron (ZOFRAN (PF)) injection 4 mg 12-26 14:09: 55 12-26 18:04 :35 No 4mg 4 mg, Slow IV Push, PRN, 1 dose, Starting on Tori 12/27/23 at 0909, Until Tori 12/27/23 at 1304, Routine, Nausea and Vomiting (N/V), PACU [facility] neomycin-po lymyxin-dex amethasone (MAXITROL) 3.5 mg/g-10,000 unit/g-0.1 % ophthalmic ointment 12-26 13:50: 00 12-26 18:04 :35 No PRN, Starting on Tori 12/27/23 at 0850, Until Tori 12/27/23 at 1304, Routine, Intra-op [facility] gentamicin injection 12-26 13:48: 00 12-26 18:04 :35 No PRN, Starting on Tori 12/27/23 at 0848, Until Tori 12/27/23 at 1304, MINERVA, Intra-op [facility] dexamethaso ne (DECADRON PHOSPHATE) injection 12-26 13:48: 00 12-26 18:04 :35 No PRN, Starting on Tori 12/27/23 at 0848, Until Tori 12/27/23 at 1304, Routine, Intra-op [facility] ceFAZolin (ANCEF) injection 12-26 13:48: 00 12-26 18:04 :35 No PRN, Starting on Tori 12/27/23 at 0848, Until Tori 12/27/23 at 1304, MINERVA, Intra-op [facility] lidocaine-e pinephrine (XYLOCAINE W/EPINEPHRI NE) 2 %-1:200,000 injection 12-26 13:37: 00 12-26 18:04 :35 No PRN, Starting on Tori 12/27/23 at 0837, Until Tori 12/27/23 at 1304, Routine, Intra-op [facility] balanced salt soln no.2 irrig. (BSS) ophthalmic solution 12-26 13:36: 00 12-26 18:04 :35 No PRN, Starting on Tori 12/27/23 at 0836, Until Tori 12/27/23 at 1304, Routine, Intra-op [facility] water for irrigation irrigation solution 12-26 13:34: 00 12-26 18:04 :35 No PRN, Starting on Tori 12/27/23 at 0834, Until Tori 12/27/23 at 1304, Routine, Intra-op [facility] tetracaine (PONTOCAINE ) 0.5 % ophthalmic drops 12-26 13:32: 00 12-26 18:04 :35 No PRN, Starting on Tori 12/27/23 at 0832, Until Tori 12/27/23 at 1304, Routine, Intra-op [facility] lactated ringers IV infusion 1,000 mL 12-26 13:00: 00 12-26 13:03 :00 No 1000mL at 42 mL/hr, 1,000 mL, IV Infusion, ONCE, 1 dose, On Tori 12/27/23 at 0800, Routine, DSU Pre-op [facility] gabapentin 600 mg tablet 12-26 11:04: 34 Yes 600mg Take 1 tablet by mouth in the morning and 1 tablet in the evening. [facility] aspirin 81 mg chewable tablet 12-26 11:04: 34 Yes 81mg Take 1 tablet by mouth in the morning. [facility] levothyroxi ne 25 mcg tablet 12-26 11:04: 34 Yes 25ug Take 1 tablet by mouth every morning. [facility] semaglutide (OZEMPIC) 1 mg/dose (4 mg/3 mL) PnIj 12-26 11:04: 34 Yes 1mg inject 1 mg under the skin weekly. Sunday [facility] insulin degludec (TRESIBA FLEXTOUCH U-200) 200 unit/mL (3 mL) InPn 12-26 11:04: 34 Yes 35U inject 35 Units under the skin in the morning. [facility] montelukast 10 mg tablet 12-26 11:04: 34 Yes 10mg Take 1 tablet by mouth in the morning. [facility] Vitamin B-12 1,000 mcg tablet 12-26 11:04: 34 Yes 1000ug Take 1 tablet by mouth in the morning. [facility] Kenalog (Triamcinol one) Kenalog (Triamcinol one) 12-16 00:00: 00 No 40mg [facility] Vitamin D3 75 MCG (3000 UT) Vitamin D3 75 MCG (3000 UT) 12-10 00:00: 00 No 1{table t} QD Vitamin D3 75 MCG (3000 UT) MYRBETRIQ 25 mg tablet 11-18 00:00: 00 Yes 25mg Take 1 tablet by mouth every morning. [facility] Tresiba FlexTouch 200 UNIT/ML Tresiba FlexTouch 200 UNIT/ML 11-18 00:00: 00 No QD Tresiba FlexTouch 200 UNIT/ML Myrbetriq 25 MG Myrbetriq 25 MG 11-18 00:00: 00 No 1{table t} QD Myrbetriq 25 MG atorvastati n 40 mg tablet 2022-07 00:00: 00 05-02 00:00 :00 No [id number] 40mg Take 1 tablet by mouth at bedtime. [facility] NaCl 0.9% (NS) IV infusion 250 mL 2022-07 14:15: 00 Yes [id number] 250mL at 20 mL/hr, IV Infusion, CONTINUOUS , Starting on Tori 05/31/23 at 0915, Until Discontinu ed, Routine
To keep vein open
[facility] sulfur hexafluorid e microsphr (LUMASON) injection 5 mL 2022-07 14:15: 00 05-31 15:03 :00 No [id number] 5mL 5 mL, Slow IV Push, ONCE, 1 dose, On Tori 05/31/23 at 0915, Routine
delivery crew member approving Restricted medication : JAMES FALL [facility] atropine injection 1 mg 2022-07 14:15: 00 05-31 15:11 :00 No [id number] 1mg 1 mg, Slow IV Push, ONCE, 1 dose, On Tori 05/31/23 at 0915, Routine [facility] DOBUTamine (DOBUTREX) 250 mg/250 mL RTU infusion 2022-07 14:13: 17 Yes [id number] 5ug/kg/ min 5 mcg/kg/min , IV Infusion, TITRATE, MAP Goal > or = 65 mmHg, Titrate per admin instructio ns, Starting on Tori 05/31/23 at 0913
No te and document the precise time that this is 3. ac complished . Begin the count with the EKG system's DSE applicatio n program. This is time zero.&nbsp ; At 2 minutes and 30 seconds after beginning the initial dosing, acquire parasterna l long axis and parasterna l short axis view at papillary level, apical 4 chamber, 2 chamber and apical long axis view, and BP At the 3 minute interval, simultaneo usly obtain a 12 lead EKG, heart rate and 02 saturation and increase the Dobutamine infusion to 10 mcg/kg/min . At the 5 minutes and 30 second interval, acquire parasterna l long axis and parasterna l short&nbsp ;axis view at papillary level, apical 4 chamber, 2 chamber and apical long axis view and measure BP. At the 6 minute interval, simultaneo usly obtain a 12 lead EKG, heart rate and 02saturati on an d increase the Dobutamine infusion to 20 mcg/kg/min . At the 8 minutes and 30 second interval, acquire parasterna l long axis and parasterna l short& nbsp;axis view at papillary level, apical 4 chamber, 2 chamber and apical long axis view and measure BP. At the 9 minute interval, simultaneo usly obtain a 12 lead EKG, heart rate and 02 saturation and increase the Dobutamine infusion to 30 mcg/kg/min . (see Adjunctive Therapy)&n bsp; At the 11 minutes and 30 second interval, acquire parasterna l long axis and parasterna l short&nbsp ;axis view at papillary level, apical 4 chamber, 2 chamber and apical long axis view and m easure BP. At the 12 minute interval, simultaneo usly obtain a 12 lead EKG, heart rate and 02 saturation and increase the Dobutamine infusion to 40 mcg/kg/min . (see Adjunctive Therapy&nb sp; At the 14 minutes and 30 second interval, acquire parasterna l long axis and parasterna l short&nbsp ;axis view at papillary level, apical 4 chamber, 2 chamber and apical long axis view and m easure BP. At the 15 minute interval, simultaneo usly obtain a 12 lead EKG, heart rate and 02 saturation and terminate the Dobutamine infusion. (see Adjunctive Therapy)<b r> [facility] FreeStyle Ganga 3 Sensor - FreeStyle Ganga 3 Sensor - 2022- 011 00:00: 00 No FreeStyle Ganga 3 Sensor - atorvastati n 40 mg tablet 04-18 00:00: 00 07-10 00:00 :00 No 40mg Take 1 tablet by mouth at bedtime. [facility] atorvastati n 40 mg tablet 01-18 00:00: 00 04-18 00:00 :00 No 40mg Take 1 tablet by mouth at bedtime. [facility] gabapentin 600 mg tablet 01-17 10:41: 49 Yes 600mg Take 1 tablet by mouth in the morning and 1 tablet in the evening. [facility] aspirin 81 mg chewable tablet 01-17 10:41: 49 Yes 81mg Take 1 tablet by mouth in the morning. [facility] levothyroxi ne 25 mcg tablet 01-17 10:41: 49 Yes 25ug Take 1 tablet by mouth every morning. [facility] semaglutide (OZEMPIC) 1 mg/dose (4 mg/3 mL) PnIj 01-17 10:41: 49 Yes 1mg inject 1 mg under the skin weekly. [facility] acetaminoph en-codeine (TYLENOL #3) 300-30 mg tablet 1 tablet 2019-07 19:00: 00 06-04 18:04 :00 No 1{tbl} 1 tablet, Oral, ONCE, 1 dose, Sun06/04/20 at 1300, MINERVA [facility] cephALEXin (KEFLEX) capsule 500 mg 2019-07 19:00: 00 06-04 18:04 :00 No 500mg 500 mg, Oral, ONCE NOW, 1 dose, Sun06/04/20 at 1300, MINERVA
Re ason for Anti-Infec tive: Empiric Therapy for Suspected Infection< br>Empiric Therapy Site: Skin / Soft tissue
Duration of therapy: 7 days [facility] acetaminoph en-codeine 300-30 mg tablet 2019-07 00:00: 00 06-12 05:59 :00 No [id number] 1{tbl} Take 1 tablet by mouth every 6 (six) hours as needed for Pain (scale 4-6) for up to 7 days. Indication s: acute pain [facility] cephALEXin (KEFLEX) 500 mg capsule 2019-07 00:00: 00 06-10 05:59 :00 No [id number] 500mg Take 1 capsule by mouth 4 (four) times daily for 5 days. [facility] JANUVIA 100 mg tablet 11-07 00:00: 00 Yes [facility] HYDROcodone -acetaminop hen (NORCO) 10-325 mg tablet 10-31 00:00: 00 Yes 1{tbl} Take 1 tablet by mouth every 6 (six) hours as needed. [facility] naproxen (NAPROSYN) 500 mg tablet 10-31 00:00: 00 Yes [facility] fluticasone 50 mcg/actuati on nasal spray 10-28 00:00: 00 Yes [facility] amitriptyli ne (ELAVIL) 50 mg tablet 10-27 00:00: 00 Yes [facility] lisinopril- hydrochloro thiazide (PRINZIDE,Z ESTORETIC) 20-25 mg per tablet 10-27 00:00: 00 Yes 1{tbl} Take 1 tablet by mouth in the morning. [facility] clopidogrel (PLAVIX) 75 mg tablet 10-27 00:00: 00 11-14 00:00 :00 No [facility] simvastatin (ZOCOR) 40 mg tablet 10-27 00:00: 00 01-18 00:00 :00 No [facility] metFORMIN (GLUCOPHAGE ) 500 mg tablet 10-01 00:00: 00 Yes 2 (two) times daily with meals. [facility] NOVOLOG FLEXPEN 100 unit/mL injection 08-31 00:00: 00 Yes [facility] LEVEMIR FLEXTOUCH 100 unit/mL (3 mL) injection 08-31 00:00: 00 12-17 00:00 :00 No [facility] Lisinopril 30 MG Lisinopril 30 MG No 1{table t} QD Lisinopril 30 MG HYDROcodone -Acetaminop hen 7.5-325 MG HYDROcodone -Acetaminop hen 7.5-325 MG No 1{table t_as_ne eded} QID HYDROcodon e-Acetamin ophen 7.5-325 MG OneTouch Ultra - OneTouch Ultra - No OneTouch Ultra - Gabapentin 400 MG Gabapentin 400 MG No 1{capsu le} BID Gabapentin 400 MG Atorvastati n Calcium 10 MG Atorvastati n Calcium 10 MG No 1{table t} QD Atorvastat in Calcium 10 MG Myrbetriq 50 MG Myrbetriq 50 MG No 1{table t} QD Myrbetriq 50 MG Ozempic (2 MG/DOSE) 8 MG/3ML Ozempic (2 MG/DOSE) 8 MG/3ML No Ozempic (2 MG/DOSE) 8 MG/3ML Immunizations Ordered Immunization Name Filled Immunization Name Date Status Comments Source Influenza Virus Vaccine,quad Im,preserve Free 65+ (FLUAD) 2023-05-17 00:00:00 Completed [facility] Hepa/Hepb Combo 2022-09-14 00:00:00 Completed Influenza High Dose Quad 2022-09-14 00:00:00 Completed Pneumococcal Polysaccharide, PPSV23 (PNEUMOVAX) 2022-09-14 00:00:00 Completed Zoster Vaccine Recombinant 2022-09-14 00:00:00 Completed Hepa/Hepb Combo 2022-09-14 00:00:00 Completed [facility] Influenza High Dose Quad 2022-09-14 00:00:00 Completed [facility] Pneumococcal Polysaccharide, PPSV23 (PNEUMOVAX) 2022-09-14 00:00:00 Completed [facility] Zoster Vaccine Recombinant 2022-09-14 00:00:00 Completed [facility] Moderna COVID-19 Vaccine (Low Dose Booster) Moderna COVID-19 Vaccine (Low Dose Booster) 2021-07-07 10:30:00 Completed [facility] Moderna COVID-19 Vaccine (Low Dose Booster) Moderna COVID-19 Vaccine (Low Dose Booster) 2021-07-07 10:30:00 Completed [facility] Moderna COVID-19 Vaccine (Low Dose Booster) Moderna COVID-19 Vaccine (Low Dose Booster) 2021-07-07 10:30:00 Completed [facility] Moderna COVID-19 Vaccine (Low Dose Booster) Moderna COVID-19 Vaccine (Low Dose Booster) 2021-07-07 10:30:00 Completed [facility] SARS-COV-2 COVID-19 VACCINE - (MODERNA) 2021-07-07 00:00:00 Completed [facility] SARS-COV-2 COVID-19 VACCINE - (MODERNA) 2021-07-07 00:00:00 Completed [facility] FLUZONE HIGH DOSE OVER 65 FLUZONE HIGH DOSE OVER 65 2021-06-13 10:28:00 Completed [facility] Prevnar 13 (PCV13) Prevnar 13 (PCV13) 2021-06-13 10:28:00 Completed [facility] FLUZONE HIGH DOSE OVER 65 FLUZONE HIGH DOSE OVER 65 2021-06-13 10:28:00 Completed [facility] Prevnar 13 (PCV13) Prevnar 13 (PCV13) 2021-06-13 10:28:00 Completed [facility] FLUZONE HIGH DOSE OVER 65 FLUZONE HIGH DOSE OVER 65 2021-06-13 10:28:00 Completed [facility] Prevnar 13 (PCV13) Prevnar 13 (PCV13) 2021-06-13 10:28:00 Completed [facility] FLUZONE HIGH DOSE OVER 65 FLUZONE HIGH DOSE OVER 65 2021-06-13 10:28:00 Completed [facility] Prevnar 13 (PCV13) Prevnar 13 (PCV13) 2021-06-13 10:28:00 Completed [facility] SARS-COV-2 COVID-19 MODERNA 12+ YRS VACCINE 2020-10-24 00:00:00 Completed [facility] SARS-COV-2 COVID-19 MODERNA 12+ YRS VACCINE 2020-10-24 00:00:00 Completed [facility] SARS-COV-2 COVID-19 MODERNA 12+ YRS VACCINE 2020-10-24 00:00:00 Completed [facility] SARS-COV-2 COVID-19 MODERNA 12+ YRS VACCINE 2020-10-24 00:00:00 Completed [facility] SARS-COV-2 COVID-19 MODERNA 12+ YRS VACCINE 2020-10-24 00:00:00 Completed [facility] SARS-COV-2 COVID-19 MODERNA 12+ YRS VACCINE 2020-10-24 00:00:00 Completed [facility] SARS-COV-2 COVID-19 MODERNA 12+ YRS VACCINE 2020-10-24 00:00:00 Completed [facility] SARS-COV-2 COVID-19 MODERNA VACCINE 2020-10-24 00:00:00 Completed [facility] SARS-COV-2 COVID-19 MODERNA VACCINE 2020-10-24 00:00:00 Completed [facility] SARS-COV-2 COVID-19 MODERNA 12+ YRS VACCINE 2020-09-26 00:00:00 Completed [facility] SARS-COV-2 COVID-19 MODERNA 12+ YRS VACCINE 2020-09-26 00:00:00 Completed [facility] SARS-COV-2 COVID-19 MODERNA 12+ YRS VACCINE 2020-09-26 00:00:00 Completed [facility] SARS-COV-2 COVID-19 MODERNA 12+ YRS VACCINE 2020-09-26 00:00:00 Completed [facility] SARS-COV-2 COVID-19 MODERNA 12+ YRS VACCINE 2020-09-26 00:00:00 Completed [facility] SARS-COV-2 COVID-19 MODERNA 12+ YRS VACCINE 2020-09-26 00:00:00 Completed [facility] SARS-COV-2 COVID-19 MODERNA 12+ YRS VACCINE 2020-09-26 00:00:00 Completed [facility] SARS-COV-2 COVID-19 MODERNA VACCINE 2020-09-26 00:00:00 Completed [facility] SARS-COV-2 COVID-19 MODERNA VACCINE 2020-09-26 00:00:00 Completed [facility] Moderna COVID-19 Vaccine Moderna COVID-19 Vaccine 2020-09-20 10:32:00 Completed [facility] Moderna COVID-19 Vaccine Moderna COVID-19 Vaccine 2020-09-20 10:32:00 Completed [facility] Moderna COVID-19 Vaccine Moderna COVID-19 Vaccine 2020-09-20 10:32:00 Completed [facility] Moderna COVID-19 Vaccine Moderna COVID-19 Vaccine 2020-09-20 10:32:00 Completed [facility] Moderna COVID-19 Vaccine Moderna COVID-19 Vaccine 2020-08-30 10:31:00 Completed [facility] Moderna COVID-19 Vaccine Moderna COVID-19 Vaccine 2020-08-30 10:31:00 Completed [facility] Moderna COVID-19 Vaccine Moderna COVID-19 Vaccine 2020-08-30 10:31:00 Completed [facility] Moderna COVID-19 Vaccine Moderna COVID-19 Vaccine 2020-08-30 10:31:00 Completed [facility] SARS-COV-2 COVID-19 VACCINE - (MODERNA) 2020-08-30 00:00:00 Completed SARS-COV-2 COVID-19 VACCINE - (MODERNA) 2020-08-30 00:00:00 Completed [facility] Afluria single dose Afluria single dose 2020-03-31 17:57:00 Completed [facility] Afluria single dose Afluria single dose 2020-03-31 17:57:00 Completed [facility] Afluria single dose Afluria single dose 2020-03-31 17:57:00 Completed [facility] Afluria single dose Afluria single dose 2020-03-31 17:57:00 Completed [facility] Afluria single dose Afluria single dose 2020-03-31 17:57:00 Completed [facility] Prevnar 13 (PCV13) Prevnar 13 (PCV13) Unknown Completed [facility] Moderna COVID-19 Vaccine (Low Dose Booster) Moderna COVID-19 Vaccine (Low Dose Booster) Unknown Completed [facility] Moderna COVID-19 Vaccine Moderna COVID-19 Vaccine Unknown Completed [facility] Afluria (IIV4) - 3 years and older - SDS - 0.5mL Afluria (IIV4) - 3 years and older - SDS - 0.5mL Unknown Completed [facility] FLUZONE HIGH DOSE OVER 65 FLUZONE HIGH DOSE OVER 65 Unknown Completed [facility] SARS-COV-2 COVID-19 MODERNA 12+ YRS VACCINE Unknown Completed [facility] Hepa/Hepb Combo Unknown Completed [facility] Influenza High Dose Quad Unknown Completed [facility] Pneumococcal Polysaccharide, PPSV23 (PNEUMOVAX) Unknown Completed [facility] Zoster Vaccine Recombinant Unknown Completed [facility] Influenza Virus Vaccine,quad Im,preserve Free 65+ (FLUAD) Unknown Completed [facility] SARS-COV-2 COVID-19 MODERNA 12+ YRS VACCINE Unknown Completed [facility] Hepa/Hepb Combo Unknown Completed [facility] Influenza High Dose Quad Unknown Completed [facility] Pneumococcal Polysaccharide, PPSV23 (PNEUMOVAX) Unknown Completed [facility] Zoster Vaccine Recombinant Unknown Completed [facility] Influenza Virus Vaccine,quad Im,preserve Free 65+ (FLUAD) Unknown Completed [facility] Hepa/Hepb Combo Unknown Completed [facility] Influenza High Dose Quad Unknown Completed [facility] Pneumococcal Polysaccharide, PPSV23 (PNEUMOVAX) Unknown Completed [facility] Zoster Vaccine Recombinant Unknown Completed [facility] Influenza Virus Vaccine,quad Im,preserve Free 65+ (FLUAD) Unknown Completed [facility] SARS-COV-2 COVID-19 MODERNA 12+ YRS VACCINE Unknown Completed [facility] SARS-COV-2 COVID-19 MODERNA 12+ YRS VACCINE Unknown Completed [facility] Hepa/Hepb Combo Unknown Completed [facility] Influenza High Dose Quad Unknown Completed [facility] Pneumococcal Polysaccharide, PPSV23 (PNEUMOVAX) Unknown Completed [facility] Zoster Vaccine Recombinant Unknown Completed [facility] Influenza Virus Vaccine,quad Im,preserve Free 65+ (FLUAD) Unknown Completed [facility] SARS-COV-2 COVID-19 MODERNA 12+ YRS VACCINE Unknown Completed [facility] Hepa/Hepb Combo Unknown Completed [facility] Influenza High Dose Quad Unknown Completed [facility] Pneumococcal Polysaccharide, PPSV23 (PNEUMOVAX) Unknown Completed [facility] Zoster Vaccine Recombinant Unknown Completed [facility] Influenza Virus Vaccine,quad Im,preserve Free 65+ (FLUAD) Unknown Completed [facility] Hepa/Hepb Combo Unknown Completed [facility] Influenza High Dose Quad Unknown Completed [facility] Pneumococcal Polysaccharide, PPSV23 (PNEUMOVAX) Unknown Completed [facility] Zoster Vaccine Recombinant Unknown Completed [facility] Influenza Virus Vaccine,quad Im,preserve Free 65+ (FLUAD) Unknown Completed [facility] SARS-COV-2 COVID-19 MODERNA 12+ YRS VACCINE Unknown Completed [facility] SARS-COV-2 COVID-19 MODERNA 12+ YRS VACCINE Unknown Completed [facility] Hepa/Hepb Combo Unknown Completed [facility] Influenza High Dose Quad Unknown Completed [facility] Pneumococcal Polysaccharide, PPSV23 (PNEUMOVAX) Unknown Completed [facility] Zoster Vaccine Recombinant Unknown Completed [facility] Influenza Virus Vaccine,quad Im,preserve Free 65+ (FLUAD) Unknown Completed [facility] SARS-COV-2 COVID-19 MODERNA 12+ YRS VACCINE Unknown Completed [facility] Hepa/Hepb Combo Unknown Completed [facility] Influenza High Dose Quad Unknown Completed [facility] Pneumococcal Polysaccharide, PPSV23 (PNEUMOVAX) Unknown Completed [facility] Zoster Vaccine Recombinant Unknown Completed [facility] Influenza Virus Vaccine,quad Im,preserve Free 65+ (FLUAD) Unknown Completed [facility] SARS-COV-2 COVID-19 MODERNA 12+ YRS VACCINE Unknown Completed [facility] Hepa/Hepb Combo Unknown Completed [facility] Influenza High Dose Quad Unknown Completed [facility] Pneumococcal Polysaccharide, PPSV23 (PNEUMOVAX) Unknown Completed [facility] Zoster Vaccine Recombinant Unknown Completed [facility] SARS-COV-2 COVID-19 MODERNA 12+ YRS VACCINE Unknown Completed [facility] Hepa/Hepb Combo Unknown Completed [facility] Influenza High Dose Quad Unknown Completed [facility] Pneumococcal Polysaccharide, PPSV23 (PNEUMOVAX) Unknown Completed [facility] Zoster Vaccine Recombinant Unknown Completed [facility] Influenza Virus Vaccine,quad Im,preserve Free 65+ (FLUAD) Unknown Completed [facility] SARS-COV-2 COVID-19 MODERNA 12+ YRS VACCINE Unknown Completed [facility] Hepa/Hepb Combo Unknown Completed [facility] Influenza High Dose Quad Unknown Completed [facility] Pneumococcal Polysaccharide, PPSV23 (PNEUMOVAX) Unknown Completed [facility] Zoster Vaccine Recombinant Unknown Completed [facility] Influenza Virus Vaccine,quad Im,preserve Free 65+ (FLUAD) Unknown Completed [facility] SARS-COV-2 COVID-19 MODERNA 12+ YRS VACCINE Unknown Completed [facility] Hepa/Hepb Combo Unknown Completed [facility] Influenza High Dose Quad Unknown Completed [facility] Pneumococcal Polysaccharide, PPSV23 (PNEUMOVAX) Unknown Completed [facility] Zoster Vaccine Recombinant Unknown Completed [facility] Influenza Virus Vaccine,quad Im,preserve Free 65+ (FLUAD) Unknown Completed [facility] SARS-COV-2 COVID-19 MODERNA 12+ YRS VACCINE Unknown Completed [facility] Hepa/Hepb Combo Unknown Completed [facility] Influenza High Dose Quad Unknown Completed [facility] Pneumococcal Polysaccharide, PPSV23 (PNEUMOVAX) Unknown Completed [facility] Zoster Vaccine Recombinant Unknown Completed [facility] Influenza Virus Vaccine,quad Im,preserve Free 65+ (FLUAD) Unknown Completed [facility] SARS-COV-2 COVID-19 MODERNA 12+ YRS VACCINE Unknown Completed [facility] Hepa/Hepb Combo Unknown Completed [facility] Influenza High Dose Quad Unknown Completed [facility] Pneumococcal Polysaccharide, PPSV23 (PNEUMOVAX) Unknown Completed [facility] Zoster Vaccine Recombinant Unknown Completed [facility] Influenza Virus Vaccine,quad Im,preserve Free 65+ (FLUAD) Unknown Completed [facility] SARS-COV-2 COVID-19 MODERNA 12+ YRS VACCINE Unknown Completed [facility] Hepa/Hepb Combo Unknown Completed [facility] Influenza High Dose Quad Unknown Completed [facility] Pneumococcal Polysaccharide, PPSV23 (PNEUMOVAX) Unknown Completed [facility] Zoster Vaccine Recombinant Unknown Completed [facility] Influenza Virus Vaccine,quad Im,preserve Free 65+ (FLUAD) Unknown Completed [facility] SARS-COV-2 COVID-19 MODERNA 12+ YRS VACCINE Unknown Completed [facility] Hepa/Hepb Combo Unknown Completed [facility] Influenza High Dose Quad Unknown Completed [facility] Pneumococcal Polysaccharide, PPSV23 (PNEUMOVAX) Unknown Completed [facility] Zoster Vaccine Recombinant Unknown Completed [facility] Influenza Virus Vaccine,quad Im,preserve Free 65+ (FLUAD) Unknown Completed [facility] Hepa/Hepb Combo Unknown Completed [facility] Influenza High Dose Quad Unknown Completed [facility] Pneumococcal Polysaccharide, PPSV23 (PNEUMOVAX) Unknown Completed [facility] Zoster Vaccine Recombinant Unknown Completed [facility] Influenza Virus Vaccine,quad Im,preserve Free 65+ (FLUAD) Unknown Completed [facility] SARS-COV-2 COVID-19 MODERNA 12+ YRS VACCINE Unknown Completed [facility] SARS-COV-2 COVID-19 MODERNA 12+ YRS VACCINE Unknown Completed [facility] Hepa/Hepb Combo Unknown Completed [facility] Influenza High Dose Quad Unknown Completed [facility] Pneumococcal Polysaccharide, PPSV23 (PNEUMOVAX) Unknown Completed [facility] Zoster Vaccine Recombinant Unknown Completed [facility] Influenza Virus Vaccine,quad Im,preserve Free 65+ (FLUAD) Unknown Completed [facility] SARS-COV-2 COVID-19 MODERNA 12+ YRS VACCINE Unknown Completed [facility] Hepa/Hepb Combo Unknown Completed [facility] Influenza High Dose Quad Unknown Completed [facility] Pneumococcal Polysaccharide, PPSV23 (PNEUMOVAX) Unknown Completed [facility] Zoster Vaccine Recombinant Unknown Completed [facility] Influenza Virus Vaccine,quad Im,preserve Free 65+ (FLUAD) Unknown Completed [facility] SARS-COV-2 COVID-19 MODERNA 12+ YRS VACCINE Unknown Completed [facility] Hepa/Hepb Combo Unknown Completed [facility] Influenza High Dose Quad Unknown Completed [facility] Pneumococcal Polysaccharide, PPSV23 (PNEUMOVAX) Unknown Completed [facility] Zoster Vaccine Recombinant Unknown Completed [facility] Influenza Virus Vaccine,quad Im,preserve Free 65+ (FLUAD) Unknown Completed [facility] SARS-COV-2 COVID-19 MODERNA 12+ YRS VACCINE Unknown Completed [facility] Hepa/Hepb Combo Unknown Completed [facility] Influenza High Dose Quad Unknown Completed [facility] Pneumococcal Polysaccharide, PPSV23 (PNEUMOVAX) Unknown Completed [facility] Zoster Vaccine Recombinant Unknown Completed [facility] Influenza Virus Vaccine,quad Im,preserve Free 65+ (FLUAD) Unknown Completed [facility] SARS-COV-2 COVID-19 MODERNA 12+ YRS VACCINE Unknown Completed [facility] Hepa/Hepb Combo Unknown Completed [facility] Influenza High Dose Quad Unknown Completed [facility] Pneumococcal Polysaccharide, PPSV23 (PNEUMOVAX) Unknown Completed [facility] Zoster Vaccine Recombinant Unknown Completed [facility] Influenza Virus Vaccine,quad Im,preserve Free 65+ (FLUAD) Unknown Completed [facility] SARS-COV-2 COVID-19 MODERNA 12+ YRS VACCINE Unknown Completed [facility] Hepa/Hepb Combo Unknown Completed [facility] Influenza High Dose Quad Unknown Completed [facility] Pneumococcal Polysaccharide, PPSV23 (PNEUMOVAX) Unknown Completed [facility] Zoster Vaccine Recombinant Unknown Completed [facility] Influenza Virus Vaccine,quad Im,preserve Free 65+ (FLUAD) Unknown Completed [facility] Hepa/Hepb Combo Unknown Completed [facility] Influenza High Dose Quad Unknown Completed [facility] Pneumococcal Polysaccharide, PPSV23 (PNEUMOVAX) Unknown Completed [facility] Zoster Vaccine Recombinant Unknown Completed [facility] Influenza Virus Vaccine,quad Im,preserve Free 65+ (FLUAD) Unknown Completed [facility] SARS-COV-2 COVID-19 MODERNA 12+ YRS VACCINE Unknown Completed [facility] Prevnar 13 (PCV13) Prevnar 13 (PCV13) Unknown Completed [facility] Moderna COVID-19 Vaccine (Low Dose Booster) Moderna COVID-19 Vaccine (Low Dose Booster) Unknown Completed [facility] Moderna COVID-19 Vaccine Moderna COVID-19 Vaccine Unknown Completed [facility] Afluria (IIV4) - 3 years and older - SDS - 0.5mL Afluria (IIV4) - 3 years and older - SDS - 0.5mL Unknown Completed [facility] FLUZONE HIGH DOSE OVER 65 FLUZONE HIGH DOSE OVER 65 Unknown Completed [facility] Prevnar 13 (PCV13) Prevnar 13 (PCV13) Unknown Completed [facility] Moderna COVID-19 Vaccine (Low Dose Booster) Moderna COVID-19 Vaccine (Low Dose Booster) Unknown Completed [facility] Moderna COVID-19 Vaccine Moderna COVID-19 Vaccine Unknown Completed [facility] Afluria (IIV4) - 3 years and older - SDS - 0.5mL Afluria (IIV4) - 3 years and older - SDS - 0.5mL Unknown Completed [facility] FLUZONE HIGH DOSE OVER 65 FLUZONE HIGH DOSE OVER 65 Unknown Completed [facility] Prevnar 13 (PCV13) Prevnar 13 (PCV13) Unknown Completed [facility] Moderna COVID-19 Vaccine (Low Dose Booster) Moderna COVID-19 Vaccine (Low Dose Booster) Unknown Completed [facility] Moderna COVID-19 Vaccine Moderna COVID-19 Vaccine Unknown Completed [facility] Afluria (IIV4) - 3 years and older - SDS - 0.5mL Afluria (IIV4) - 3 years and older - SDS - 0.5mL Unknown Completed [facility] FLUZONE HIGH DOSE OVER 65 FLUZONE HIGH DOSE OVER 65 Unknown Completed [facility] Prevnar 13 (PCV13) Prevnar 13 (PCV13) Unknown Completed [facility] Moderna COVID-19 Vaccine (Low Dose Booster) Moderna COVID-19 Vaccine (Low Dose Booster) Unknown Completed [facility] Moderna COVID-19 Vaccine Moderna COVID-19 Vaccine Unknown Completed [facility] Afluria (IIV4) - 3 years and older - SDS - 0.5mL Afluria (IIV4) - 3 years and older - SDS - 0.5mL Unknown Completed [facility] FLUZONE HIGH DOSE OVER 65 FLUZONE HIGH DOSE OVER 65 Unknown Completed [facility] Prevnar 13 (PCV13) Prevnar 13 (PCV13) Unknown Completed [facility] Moderna COVID-19 Vaccine (Low Dose Booster) Moderna COVID-19 Vaccine (Low Dose Booster) Unknown Completed [facility] Moderna COVID-19 Vaccine Moderna COVID-19 Vaccine Unknown Completed [facility] Afluria (IIV4) - 3 years and older - SDS - 0.5mL Afluria (IIV4) - 3 years and older - SDS - 0.5mL Unknown Completed [facility] FLUZONE HIGH DOSE OVER 65 FLUZONE HIGH DOSE OVER 65 Unknown Completed [facility] Prevnar 13 (PCV13) Prevnar 13 (PCV13) Unknown Completed [facility] MODERNA COVID-19 VACCINE (LOW DOSE BOOSTER) MODERNA COVID-19 VACCINE (LOW DOSE BOOSTER) Unknown Completed [facility] Moderna COVID-19 Vaccine Moderna COVID-19 Vaccine Unknown Completed [facility] Afluria (IIV4) - 3 years and older - SDS - 0.5mL Afluria (IIV4) - 3 years and older - SDS - 0.5mL Unknown Completed [facility] FLUZONE HIGH DOSE OVER 65 FLUZONE HIGH DOSE OVER 65 Unknown Completed [facility] Prevnar 13 (PCV13) Prevnar 13 (PCV13) Unknown Completed [facility] MODERNA COVID-19 VACCINE (LOW DOSE BOOSTER) MODERNA COVID-19 VACCINE (LOW DOSE BOOSTER) Unknown Completed [facility] Moderna COVID-19 Vaccine Moderna COVID-19 Vaccine Unknown Completed [facility] Afluria (IIV4) - 3 years and older - SDS - 0.5mL Afluria (IIV4) - 3 years and older - SDS - 0.5mL Unknown Completed [facility] FLUZONE HIGH DOSE OVER 65 FLUZONE HIGH DOSE OVER 65 Unknown Completed [facility] Prevnar 13 (PCV13) Prevnar 13 (PCV13) Unknown Completed [facility] MODERNA COVID-19 VACCINE (LOW DOSE BOOSTER) MODERNA COVID-19 VACCINE (LOW DOSE BOOSTER) Unknown Completed [facility] Moderna COVID-19 Vaccine Moderna COVID-19 Vaccine Unknown Completed [facility] Afluria (IIV4) - 3 years and older - SDS - 0.5mL Afluria (IIV4) - 3 years and older - SDS - 0.5mL Unknown Completed [facility] FLUZONE HIGH DOSE OVER 65 FLUZONE HIGH DOSE OVER 65 Unknown Completed [facility] Prevnar 13 (PCV13) Prevnar 13 (PCV13) Unknown Completed [facility] MODERNA COVID-19 VACCINE (LOW DOSE BOOSTER) MODERNA COVID-19 VACCINE (LOW DOSE BOOSTER) Unknown Completed [facility] Moderna COVID-19 Vaccine Moderna COVID-19 Vaccine Unknown Completed [facility] Afluria (IIV4) - 3 years and older - SDS - 0.5mL Afluria (IIV4) - 3 years and older - SDS - 0.5mL Unknown Completed [facility] FLUZONE HIGH DOSE OVER 65 FLUZONE HIGH DOSE OVER 65 Unknown Completed [facility] Prevnar 13 (PCV13) Prevnar 13 (PCV13) Unknown Completed [facility] MODERNA COVID-19 VACCINE (LOW DOSE BOOSTER) MODERNA COVID-19 VACCINE (LOW DOSE BOOSTER) Unknown Completed [facility] Moderna COVID-19 Vaccine Moderna COVID-19 Vaccine Unknown Completed [facility] Afluria (IIV4) - 3 years and older - SDS - 0.5mL Afluria (IIV4) - 3 years and older - SDS - 0.5mL Unknown Completed [facility] FLUZONE HIGH DOSE OVER 65 FLUZONE HIGH DOSE OVER 65 Unknown Completed [facility] Prevnar 13 (PCV13) Prevnar 13 (PCV13) Unknown Completed [facility] Moderna COVID-19 Vaccine (Low Dose Booster) Moderna COVID-19 Vaccine (Low Dose Booster) Unknown Completed [facility] Moderna COVID-19 Vaccine Moderna COVID-19 Vaccine Unknown Completed [facility] Afluria single dose Afluria single dose Unknown Completed [facility] FLUZONE HIGH DOSE OVER 65 FLUZONE HIGH DOSE OVER 65 Unknown Completed [facility] Prevnar 13 (PCV13) Prevnar 13 (PCV13) Unknown Completed [facility] Moderna COVID-19 Vaccine (Low Dose Booster) Moderna COVID-19 Vaccine (Low Dose Booster) Unknown Completed [facility] Moderna COVID-19 Vaccine Moderna COVID-19 Vaccine Unknown Completed [facility] Afluria single dose Afluria single dose Unknown Completed [facility] FLUZONE HIGH DOSE OVER 65 FLUZONE HIGH DOSE OVER 65 Unknown Completed [facility] Prevnar 13 (PCV13) Prevnar 13 (PCV13) Unknown Completed [facility] Moderna COVID-19 Vaccine (Low Dose Booster) Moderna COVID-19 Vaccine (Low Dose Booster) Unknown Completed [facility] Moderna COVID-19 Vaccine Moderna COVID-19 Vaccine Unknown Completed [facility] Afluria single dose Afluria single dose Unknown Completed [facility] FLUZONE HIGH DOSE OVER 65 FLUZONE HIGH DOSE OVER 65 Unknown Completed [facility] Prevnar 13 (PCV13) Prevnar 13 (PCV13) Unknown Completed [facility] Moderna COVID-19 Vaccine (Low Dose Booster) Moderna COVID-19 Vaccine (Low Dose Booster) Unknown Completed [facility] Moderna COVID-19 Vaccine Moderna COVID-19 Vaccine Unknown Completed [facility] Afluria single dose Afluria single dose Unknown Completed [facility] FLUZONE HIGH DOSE OVER 65 FLUZONE HIGH DOSE OVER 65 Unknown Completed [facility] Prevnar 13 (PCV13) Prevnar 13 (PCV13) Unknown Completed [facility] Moderna COVID-19 Vaccine (Low Dose Booster) Moderna COVID-19 Vaccine (Low Dose Booster) Unknown Completed [facility] Moderna COVID-19 Vaccine Moderna COVID-19 Vaccine Unknown Completed [facility] Afluria single dose Afluria single dose Unknown Completed [facility] FLUZONE HIGH DOSE OVER 65 FLUZONE HIGH DOSE OVER 65 Unknown Completed [facility] Prevnar 13 (PCV13) Prevnar 13 (PCV13) Unknown Completed [facility] Moderna COVID-19 Vaccine (Low Dose Booster) Moderna COVID-19 Vaccine (Low Dose Booster) Unknown Completed [facility] Moderna COVID-19 Vaccine Moderna COVID-19 Vaccine Unknown Completed [facility] Afluria single dose Afluria single dose Unknown Completed [facility] FLUZONE HIGH DOSE OVER 65 FLUZONE HIGH DOSE OVER 65 Unknown Completed [facility] Prevnar 13 (PCV13) Prevnar 13 (PCV13) Unknown Completed [facility] Moderna COVID-19 Vaccine (Low Dose Booster) Moderna COVID-19 Vaccine (Low Dose Booster) Unknown Completed [facility] Moderna COVID-19 Vaccine Moderna COVID-19 Vaccine Unknown Completed [facility] Afluria single dose Afluria single dose Unknown Completed [facility] FLUZONE HIGH DOSE OVER 65 FLUZONE HIGH DOSE OVER 65 Unknown Completed [facility] Prevnar 13 (PCV13) Prevnar 13 (PCV13) Unknown Completed [facility] Moderna COVID-19 Vaccine (Low Dose Booster) Moderna COVID-19 Vaccine (Low Dose Booster) Unknown Completed [facility] Moderna COVID-19 Vaccine Moderna COVID-19 Vaccine Unknown Completed [facility] Afluria single dose Afluria single dose Unknown Completed [facility] FLUZONE HIGH DOSE OVER 65 FLUZONE HIGH DOSE OVER 65 Unknown Completed [facility] Prevnar 13 (PCV13) Prevnar 13 (PCV13) Unknown Completed [facility] Moderna COVID-19 Vaccine (Low Dose Booster) Moderna COVID-19 Vaccine (Low Dose Booster) Unknown Completed [facility] Moderna COVID-19 Vaccine Moderna COVID-19 Vaccine Unknown Completed [facility] Afluria (IIV4) - 3 years and older - SDS - 0.5mL Afluria (IIV4) - 3 years and older - SDS - 0.5mL Unknown Completed [facility] FLUZONE HIGH DOSE OVER 65 FLUZONE HIGH DOSE OVER 65 Unknown Completed [facility] Prevnar 13 (PCV13) Prevnar 13 (PCV13) Unknown Completed [facility] Moderna COVID-19 Vaccine (Low Dose Booster) Moderna COVID-19 Vaccine (Low Dose Booster) Unknown Completed [facility] Moderna COVID-19 Vaccine Moderna COVID-19 Vaccine Unknown Completed [facility] Afluria (IIV4) - 3 years and older - SDS - 0.5mL Afluria (IIV4) - 3 years and older - SDS - 0.5mL Unknown Completed [facility] FLUZONE HIGH DOSE OVER 65 FLUZONE HIGH DOSE OVER 65 Unknown Completed [facility] Prevnar 13 (PCV13) Prevnar 13 (PCV13) Unknown Completed [facility] Moderna COVID-19 Vaccine (Low Dose Booster) Moderna COVID-19 Vaccine (Low Dose Booster) Unknown Completed [facility] Moderna COVID-19 Vaccine Moderna COVID-19 Vaccine Unknown Completed [facility] Afluria (IIV4) - 3 years and older - SDS - 0.5mL Afluria (IIV4) - 3 years and older - SDS - 0.5mL Unknown Completed [facility] FLUZONE HIGH DOSE OVER 65 FLUZONE HIGH DOSE OVER 65 Unknown Completed [facility] Prevnar 13 (PCV13) Prevnar 13 (PCV13) Unknown Completed [facility] Moderna COVID-19 Vaccine (Low Dose Booster) Moderna COVID-19 Vaccine (Low Dose Booster) Unknown Completed [facility] Moderna COVID-19 Vaccine Moderna COVID-19 Vaccine Unknown Completed [facility] Afluria (IIV4) - 3 years and older - SDS - 0.5mL Afluria (IIV4) - 3 years and older - SDS - 0.5mL Unknown Completed [facility] FLUZONE HIGH DOSE OVER 65 FLUZONE HIGH DOSE OVER 65 Unknown Completed [facility] Vital Signs Vital Name Observation Time Observation Value Comments S ource height 2024-04-24 11:20:00 64 [in_i] Commo n [facility] weight 2024-04-24 11:20:00 155.2 [lb_av] Co mmon [facility] temperature 2024-04-24 11:20:00 98 [degF] Comm on [facility] bmi 2024-04-24 11:20:00 26.64 kg/m2 Comm on [facility] oximetry 2024-04-24 11:20:00 98 % Commo n [facility] respiratory rate 2024-04-24 11:20:00 15 /min Common [facility] blood pressure systolic 2024-04-24 11:20:00 122 mm[Hg] [facility] blood pressure diastolic 2024-04-24 11:20:00 60 mm[Hg] [facility] height 2024-04-16 10:00:00 64 [in_i] Commo n [facility] weight 2024-04-16 10:00:00 152.2 [lb_av] Co mmon [facility] temperature 2024-04-16 10:00:00 97.2 [degF] Com mon [facility] bmi 2024-04-16 10:00:00 26.12 kg/m2 Comm on [facility] oximetry 2024-04-16 10:00:00 98 % Commo n [facility] respiratory rate 2024-04-16 10:00:00 16 /min [facility] blood pressure systolic 2024-04-16 10:00:00 130 mm[Hg] [facility] blood pressure diastolic 2024-04-16 10:00:00 60 mm[Hg] [facility] height 2024-04-16 10:00:00 64 [in_i] Commo n [facility] weight 2024-04-16 10:00:00 152.2 [lb_av] Co mmon [facility] temperature 2024-04-16 10:00:00 97.2 [degF] Com mon [facility] bmi 2024-04-16 10:00:00 26.12 kg/m2 Comm on [facility] oximetry 2024-04-16 10:00:00 98 % Commo n [facility] respiratory rate 2024-04-16 10:00:00 16 /min [facility] blood pressure systolic 2024-04-16 10:00:00 130 mm[Hg] [facility] blood pressure diastolic 2024-04-16 10:00:00 60 mm[Hg] [facility] height 2024-04-08 09:40:00 64 [in_i] Commo n [facility] weight 2024-04-08 09:40:00 156.0 [lb_av] Co [facility] temperature 2024-04-08 09:40:00 97.0 [degF] Com [facility] bmi 2024-04-08 09:40:00 26.77 kg/m2 Comm on [facility] oximetry 2024-04-08 09:40:00 98 % Commo n [facility] respiratory rate 2024-04-08 09:40:00 16 /min [facility] blood pressure systolic 2024-04-08 09:40:00 128 mm[Hg] Common [facility] blood pressure diastolic 2024-04-08 09:40:00 64 mm[Hg] Common [facility] height 2024-03-14 09:40:00 64 [in_i] Commo n [facility] weight 2024-03-14 09:40:00 158.6 [lb_av] Co [facility] temperature 2024-03-14 09:40:00 96.2 [degF] Com [facility] bmi 2024-03-14 09:40:00 27.22 kg/m2 Comm on [facility] oximetry 2024-03-14 09:40:00 98 % Commo n [facility] respiratory rate 2024-03-14 09:40:00 17 /min [facility] blood pressure systolic 2024-03-14 09:40:00 138 mm[Hg] [facility] blood pressure diastolic 2024-03-14 09:40:00 60 mm[Hg] [facility] Respiratory rate 2023-12-27 14:19:00 17 /min [facility] Heart rate 2023-12-27 14:18:00 71 /min Unive [facility] Oxygen saturation in Arterial blood by Pulse oximetry 2023-12-27 14:18:00 96 /min [facility] Systolic blood pressure 2023-12-27 14:16:00 126 mm[Hg] [facility] Diastolic blood pressure 2023-12-27 14:16:00 60 mm[Hg] [facility] Body temperature 2023-12-27 13:55:00 36.44 Apple [facility] Body height 2023-12-27 13:00:00 160 cm [facility] Body weight 2023-12-27 13:00:00 72.576 kg [facility] BMI 2023-12-27 13:00:00 28.34 kg/m2 [facility] Respiratory rate 2023-12-27 14:19:00 17 /min [facility] Heart rate 2023-12-27 14:18:00 71 /[facility]terial blood by Pulse oximetry 2023-12-27 14:18:00 96 /min [facility] Systolic blood pressure 2023-12-27 14:16:00 126 mm[Hg] [facility] Diastolic blood pressure 2023-12-27 14:16:00 60 mm[Hg] [facility] Body temperature 2023-12-27 13:55:00 36.44 Apple [facility] Body height 2023-12-27 13:00:00 160 cm [facility] Body weight 2023-12-27 13:00:00 72.576 kg [facility] BMI 2023-12-27 13:00:00 28.34 kg/m2 [facility] height 2023-12-17 10:00:00 64 [in_i] Commo n [facility] weight 2023-12-17 10:00:00 160 [lb_av] Comm on [facility] temperature 2023-12-17 10:00:00 97.9 [degF] Com [facility] bmi 2023-12-17 10:00:00 27.46 kg/m2 Comm on [facility] oximetry 2023-12-17 10:00:00 96 % Commo n [facility] respiratory rate 2023-12-17 10:00:00 17 /min [facility] blood pressure systolic 2023-12-17 10:00:00 177 mm[Hg] [facility] blood pressure diastolic 2023-12-17 10:00:00 77 mm[Hg] [facility] height 2023-11-19 10:00:00 64 [in_i] Commo n [facility] weight 2023-11-19 10:00:00 163 [lb_av] Comm on [facility] temperature 2023-11-19 10:00:00 98.1 [degF] Com [facility] bmi 2023-11-19 10:00:00 27.98 kg/m2 Comm on [facility] oximetry 2023-11-19 10:00:00 97 % Commo n [facility] respiratory rate 2023-11-19 10:00:00 17 /min Common [facility] blood pressure systolic 2023-11-19 10:00:00 130 mm[Hg] [facility] blood pressure diastolic 2023-11-19 10:00:00 60 mm[Hg] [facility] Systolic blood pressure 2023-11-15 15:13:00 144 mm[Hg] [facility] Diastolic blood pressure 2023-11-15 15:13:00 71 mm[Hg] [facility] Heart rate 2023-11-15 15:13:00 70 /min Unive [facility] Body temperature 2023-11-15 15:13:00 36.56 Apple [facility] Respiratory rate 2023-11-15 15:13:00 18 /min [facility] Oxygen saturation in Arterial blood by Pulse oximetry 2023-11-15 15:13:00 95 /min [facility] Body height 2023-11-15 15:11:00 160 cm [facility] Body weight 2023-11-15 15:11:00 74.118 kg [facility] BMI 2023-11-15 15:11:00 28.95 kg/m2 [facility] height 2023-08-07 09:40:00 63.5 [in_i] Comm on [facility] weight 2023-08-07 09:40:00 168.2 [lb_av] Co mmon [facility] temperature 2023-08-07 09:40:00 97.0 [degF] Com mon [facility] bmi 2023-08-07 09:40:00 29.32 kg/m2 Comm on [facility] oximetry 2023-08-07 09:40:00 97 % Commo n [facility] respiratory rate 2023-08-07 09:40:00 16 /min [facility] blood pressure systolic 2023-08-07 09:40:00 136 mm[Hg] [facility] blood pressure diastolic 2023-08-07 09:40:00 78 mm[Hg] [facility] Systolic blood pressure 2023-06-25 19:10:00 126 mm[Hg] [facility] Diastolic blood pressure 2023-06-25 19:10:00 79 mm[Hg] [facility] Heart rate 2023-06-25 19:10:00 82 /min Unive [facility] Respiratory rate 2023-06-25 19:10:00 18 /min [facility] Body height 2023-06-25 19:10:00 160 [facility] 2023-06-25 19:10:00 75.07 kg Univ [facility] BMI 2023-06-25 19:10:00 29.32 kg/m2 Univ [facility] Oxygen saturation in Arterial blood by Pulse oximetry 2023-06-25 19:10:00 95 /min [facility] Systolic blood pressure 2023-05-31 15:00:00 152 mm[Hg] [facility] Diastolic blood pressure 2023-05-31 15:00:00 72 mm[Hg] [facility] Heart rate 2023-05-31 15:00:00 76 /min Unive [facility] Body height 2023-05-31 15:00:00 157.5 cm Univ [facility] Body weight 2023-05-31 15:00:00 73.936 kg Univ [facility] BMI 2023-05-31 15:00:00 29.81 kg/m2 Univ [facility] Oxygen saturation in Arterial blood by Pulse oximetry 2023-05-31 15:00:00 98 /min [facility] Systolic blood pressure 2023-05-17 19:40:00 138 mm[Hg] [facility] Diastolic blood pressure 2023-05-17 19:40:00 64 mm[Hg] [facility] Heart rate 2023-05-17 19:40:00 90 /min Unive [facility] Body temperature 2023-05-17 19:40:00 37 Apple [facility] Respiratory rate 2023-05-17 19:40:00 20 /min [facility] Body height 2023-05-17 19:40:00 157.5 cm Univ [facility] Body weight 2023-05-17 19:40:00 73.846 kg Univ [facility] BMI 2023-05-17 19:40:00 29.78 kg/m2 [facility] O[facility] saturation in Arterial blood by Pulse oximetry 2023-05-17 19:40:00 97 /min [facility] height 2023-05-04 11:00:00 63.5 [in_i] Comm on [facility] weight 2023-05-04 11:00:00 164.2 [lb_av] Co mmon [facility] temperature 2023-05-04 11:00:00 96.8 [degF] Com mon [facility] bmi 2023-05-04 11:00:00 28.63 kg/m2 Comm on [facility] oximetry 2023-05-04 11:00:00 95 % Commo n [facility] respiratory rate 2023-05-04 11:00:00 18 /min Common [facility] blood pressure systolic 2023-05-04 11:00:00 130 mm[Hg] Common [facility] blood pressure diastolic 2023-05-04 11:00:00 84 mm[Hg] Common [facility] height 2023-03-28 14:40:00 63.5 [in_i] Comm on [facility] weight 2023-03-28 14:40:00 159.6 [lb_av] Co mmon [facility] temperature 2023-03-28 14:40:00 97.2 [degF] Com [facility] bmi 2023-03-28 14:40:00 27.83 kg/m2 Comm on [facility] oximetry 2023-03-28 14:40:00 96 % Commo n [facility] respiratory rate 2023-03-28 14:40:00 16 /min Common [facility] blood pressure systolic 2023-03-28 14:40:00 141 mm[Hg] Common [facility] blood pressure diastolic 2023-03-28 14:40:00 73 mm[Hg] Common [facility] height 2023-03-28 14:40:00 63.5 [in_i] Comm on [facility] weight 2023-03-28 14:40:00 159.6 [lb_av] Co mmon [facility] temperature 2023-03-28 14:40:00 97.2 [degF] Com [facility] bmi 2023-03-28 14:40:00 27.83 kg/m2 Comm on [facility] oximetry 2023-03-28 14:40:00 96 % Commo n [facility] respiratory rate 2023-03-28 14:40:00 16 /min Common [facility] blood pressure systolic 2023-03-28 14:40:00 141 mm[Hg] [facility] blood pressure diastolic 2023-03-28 14:40:00 73 mm[Hg] Common [facility] height 2023-03-12 08:20:00 63.5 [in_i] Comm on [facility] weight 2023-03-12 08:20:00 165.0 [lb_av] Co mmon [facility] temperature 2023-03-12 08:20:00 97.0 [degF] Com [facility] bmi 2023-03-12 08:20:00 28.77 kg/m2 Comm on [facility] oximetry 2023-03-12 08:20:00 96 % Commo n [facility] respiratory rate 2023-03-12 08:20:00 16 /min Common [facility] blood pressure systolic 2023-03-12 08:20:00 136 mm[Hg] [facility] blood pressure diastolic 2023-03-12 08:20:00 76 mm[Hg] Common [facility] height 2023-02-01 16:00:00 63.5 [in_i] Comm on [facility] weight 2023-02-01 16:00:00 168.4 [lb_av] Co mmon [facility] temperature 2023-02-01 16:00:00 97.0 [degF] Com [facility] bmi 2023-02-01 16:00:00 29.36 kg/m2 Comm on [facility] oximetry 2023-02-01 16:00:00 95 % Commo n [facility] respiratory rate 2023-02-01 16:00:00 16 /min Common [facility] blood pressure systolic 2023-02-01 16:00:00 119 mm[Hg] Common [facility] blood pressure diastolic 2023-02-01 16:00:00 79 mm[Hg] [facility] Systolic blood pressure 2023-01-17 15:47:00 161 mm[Hg] [facility] Diastolic blood pressure 2023-01-17 15:47:00 86 mm[Hg] [facility] Heart rate 2023-01-17 15:47:00 70 /min [facility] Oxygen saturation in Arterial blood by Pulse oximetry 2023-01-17 15:47:00 97 /min [facility] Body temperature 2023-01-17 15:44:00 36.78 Apple [facility] Respiratory rate 2023-01-17 15:44:00 18 /min [facility] Body height 2023-01-17 15:44:00 160 cm [facility] Body weight 2023-01-17 15:44:00 75.887 kg [facility] BMI 2023-01-17 15:44:00 29.64 kg/m2 [facility] height 2022-10-19 08:40:00 63.5 [in_i] Comm on [facility] weight 2022-10-19 08:40:00 165.2 [lb_av] Co mmon [facility] temperature 2022-10-19 08:40:00 96.8 [degF] Com mon [facility] bmi 2022-10-19 08:40:00 28.8 kg/m2 Commo n [facility] oximetry 2022-10-19 08:40:00 95 % Commo n [facility] respiratory rate 2022-10-19 08:40:00 18 /min Common [facility] blood pressure systolic 2022-10-19 08:40:00 138 mm[Hg] Common [facility] blood pressure diastolic 2022-10-19 08:40:00 78 mm[Hg] [facility] height 2022-06-16 08:40:00 63.5 [in_i] Comm on [facility] weight 2022-06-16 08:40:00 163.2 [lb_av] Co mmon [facility] temperature 2022-06-16 08:40:00 97.6 [degF] Com [facility] bmi 2022-06-16 08:40:00 28.45 kg/m2 Comm on [facility] oximetry 2022-06-16 08:40:00 96 % Commo n [facility] respiratory rate 2022-06-16 08:40:00 16 /min Common [facility] blood pressure systolic 2022-06-16 08:40:00 136 mm[Hg] [facility] blood pressure diastolic 2022-06-16 08:40:00 70 mm[Hg] Common [facility] height 2022-03-10 10:00:00 63.5 [in_i] Comm on [facility] weight 2022-03-10 10:00:00 163.2 [lb_av] Co mmon [facility] temperature 2022-03-10 10:00:00 97.9 [degF] Com [facility] bmi 2022-03-10 10:00:00 28.45 kg/m2 Comm on [facility] oximetry 2022-03-10 10:00:00 95 % Commo n [facility] respiratory rate 2022-03-10 10:00:00 17 /min [facility] blood pressure systolic 2022-03-10 10:00:00 136 mm[Hg] Common [facility] blood pressure diastolic 2022-03-10 10:00:00 69 mm[Hg] [facility] height 2022-03-10 09:00:00 63.5 [in_i] Comm on [facility] weight 2022-03-10 09:00:00 163.2 [lb_av] Co mmon [facility] temperature 2022-03-10 09:00:00 97.9 [degF] Com [facility] bmi 2022-03-10 09:00:00 28.45 kg/m2 Comm on [facility] oximetry 2022-03-10 09:00:00 95 % Commo n [facility] respiratory rate 2022-03-10 09:00:00 17 /min [facility] blood pressure systolic 2022-03-10 09:00:00 136 mm[Hg] [facility] blood pressure diastolic 2022-03-10 09:00:00 69 mm[Hg] Common [facility] height 2021-12-06 08:40:00 63.5 [in_i] Comm on [facility] weight 2021-12-06 08:40:00 164 [lb_av] Comm on [facility] temperature 2021-12-06 08:40:00 97.4 [degF] Com mon [facility] bmi 2021-12-06 08:40:00 28.59 kg/m2 Comm on [facility] oximetry 2021-12-06 08:40:00 95 % Commo n [facility] respiratory rate 2021-12-06 08:40:00 16 /min Common [facility] blood pressure systolic 2021-12-06 08:40:00 135 mm[Hg] [facility] blood pressure diastolic 2021-12-06 08:40:00 72 mm[Hg] [facility] height 2021-07-11 10:20:00 63.5 [in_i] Comm on [facility] weight 2021-07-11 10:20:00 168 [lb_av] Comm on [facility] temperature 2021-07-11 10:20:00 97.3 [degF] Com mon [facility] bmi 2021-07-11 10:20:00 29.29 kg/m2 Comm on [facility] oximetry 2021-07-11 10:20:00 97 % Commo n [facility] respiratory rate 2021-07-11 10:20:00 16 /min Common [facility] blood pressure systolic 2021-07-11 10:20:00 137 mm[Hg] Common [facility] blood pressure diastolic 2021-07-11 10:20:00 61 mm[Hg] Common [facility] height 2021-04-13 15:40:00 63.5 [in_i] Comm on [facility] weight 2021-04-13 15:40:00 167 [lb_av] Comm on [facility] temperature 2021-04-13 15:40:00 97.1 [degF] Com mon [facility] bmi 2021-04-13 15:40:00 29.12 kg/m2 Comm on [facility] oximetry 2021-04-13 15:40:00 98 % Commo n [facility] respiratory rate 2021-04-13 15:40:00 16 /min Common [facility] blood pressure systolic 2021-04-13 15:40:00 134 mm[Hg] Common [facility] blood pressure diastolic 2021-04-13 15:40:00 65 mm[Hg] [facility] Systolic blood pressure 2020-06-04 16:58:00 170 mm[Hg] [facility] Diastolic blood pressure 2020-06-04 16:58:00 87 mm[Hg] [facility] Heart rate 2020-06-04 16:58:00 73 /min Unive [facility] Body temperature 2020-06-04 16:58:00 36.94 Apple [facility] Respiratory rate 2020-06-04 16:58:00 18 /min [facility] Body weight 2020-06-04 16:58:00 74.39 kg [facility] BMI 2020-06-04 16:58:00 30.00 kg/m2 [facility] Oxygen saturation in Arterial blood by Pulse oximetry 2020-06-04 16:58:00 98 /min [facility] Systolic blood pressure 2020-06-04 16:58:00 170 mm[Hg] [facility] Diastolic blood pressure 2020-06-04 16:58:00 87 mm[Hg] [facility] Heart rate 2020-06-04 16:58:00 73 /min Unive [facility] Body temperature 2020-06-04 16:58:00 36.94 Apple [facility] Respiratory rate 2020-06-04 16:58:00 18 /min [facility] Body weight 2020-06-04 16:58:00 74.39 kg [facility] BMI 2020-06-04 16:58:00 30.00 kg/m2 [facility] Oxygen saturation in Arterial blood by Pulse oximetry 2020-06-04 16:58:00 98 /min [facility] Procedures Procedure Date / Time Performed Performing Clinician Source [id number] - [place] EXCISION/TRANSPOSITION PTERYGIUM W/GRAFG 2023-12-27 13:19:00 Jessica Arauz [facility] POCT GLUCOSE (AUTOMATED) 2023-12-27 13:02:00 Jessica Pelaez [facility] POCT GLUCOSE (AUTOMATED) 2023-12-27 13:02:00 Jessica Pelaez [facility] AUTHORIZATION TO RELEASE PHI TO [facility] 2023-06-25 06:01:00 Doctor Unassigned, [place] [facility] CAROTID DUPLEX BILATERAL - BY VASCULAR LAB 2023-06-08 17:28:56 Lit Estrada [facility] COMPLETE ECHOCARDIOGRAM DOBUTAMINE STRESS TEST W CONTRAST 2023-05-31 16:52:51 Lit Estrada [facility] NOTICE OF BILLING PRACTICES FOR MEDICARE PATIENTS 2023-05-31 14:06:16 Doctor Unassigned, [place] [facility] INSURANCE CORRESPONDENCE 2023-05-29 05:01:00 Sina cueto Unassigned, [place] [facility] FLU VACC(),65+YR,0.5 ML,IM,ADJUVANTED,QUAD(FLU AD) 2023-05-17 20:59:04 Lit Estrada [facility] ASSIGNMENT OF BENEFITS 2023-01-17 15:22:51 Docmehul r Unassigned, [place] [facility] ASSIGNMENT OF BENEFITS 2021-01-07 17:37:08 Trish champion Unassigned, [place] [facility] XR SHOULDER <2 VW LEFT 2020-06-04 17:40:36 Chioma Lucero [facility] XR ELBOW >3 VW LEFT 2020-06-04 17:26:57 Patti Lucero [facility] XR FOREARM 2 VW LEFT 2020-06-04 17:26:57 Renee Lucero [facility] Encounters Start Date/Time End Date/Time Encounter Type Admission Type [facility]ending [facility] Care Department Encounter ID Source 2024-03-12 09:06[id number] 2023-11-06 16:05:00 Outpatient Milagro Terrazas [facility] [id number] [facility] 2023-10-01 09:55:00 Outpatient Winnie Miller [facility] [id number] [facility] 2022-10-17 11:57:00 Outpatient Winnie Miller [facility] [id number] [facility] 2022-06-14 13:53:00 Outpatient Winnie MillerMEENA [facility] [id number] [facility] 2022-03-02 08:15:00 Outpatient Winnie MillerLMLC [facility] [id number] [facility] 2021-12-07 10:44:01 Outpatient Winnie Miller [facility] [id number] [facility] 2021-12-02 10:03:02 Outpatient Winnie Miller [facility] [id number] [facility] 2021-10-10 13:33:01 Outpatient DixieWinnie lorenzo [facility] [id number] [facility] 2021-08-24 14:25:22 Outpatient DixieWinnie lorenzo STLMLC ST[facility] [id number] [facility] 2021-08-24 12:53:57 Outpatient Winnie Miller [facility] [id number] [facility] 2021-08-24 12:22:21 Outpatient Winnie Miller STONE[facility] [id number] [facility] 2021-08-24 11:35:37 Outpatient Winnie Miller [facility] [id number] [facility] 2021-08-24 11:17:39 Outpatient Winnie Miller [facility] [id number] [facility] 2021-08-24 11:01:31 Outpatient Winnie Miller [facility] [id number] [facility] 2021-08-24 11:00:26 Outpatient DixieWinnie lorenzo [facility] ST[facility] [id number] [facility] 2021-08-24 10:58:28 Outpatient DixieWinnie lorenzo STLMLC ST[facility] [id number] [facility] 2024-05-01 00:00:00 2024-05-02 09:34:56 Telephone Lit Estrada [facility] [id number] [facility] 2024-04-24 00:00:00 2024-04-24 00:00:00 OFFICE VISIT ESTAB PT LEVEL 3 STLMLC STL[facility]C [id number] [facility] 2024-04-22 00:00:00 2024-04-22 00:00:00 (TEL) STLMLC STLMLC [id number] [facility] 2024-04-22 00:00:00 2024-04-22 00:00:00 (TEL) STLMLC STLMLC [id number] [facility] 2024-04-16 00:00:00 2024-04-16 00:00:00 OFFICE VISIT ESTAB PT LEVEL 4 STLMLC STLMLC [id number] [facility] 2024-04-16 00:00:00 2024-04-16 00:00:00 SUB ANNUAL [facility] VISIT STLMLC STLMLC [id number] [facility] 2024-04-15 00:00:00 2024-04-15 00:00:00 OFFICE VISIT ESTAB PT LEVEL 1 STLMLC STLMLC [id number] [facility] 2024-04-14 00:00:00 2024-04-14 00:00:00 (TEL) STLMLC STLMLC [id number] [facility] 2024-04-08 00:00:00 2024-04-08 00:00:00 OFFICE VISIT ESTAB PT LEVEL 3 STLMLC STLMLC [id number] [facility] 2024-03-14 00:00:00 2024-03-14 00:00:00 OFFICE VISIT ESTAB PT LEVEL 4 STLMLC STLMLC [id number] [facility] 2024-02-29 00:00:00 2024-02-29 00:00:00 (TEL) STLMLC STLMLC [id number] [facility] 2024-02-17 00:00:00 2024-02-17 00:00:00 (TEL) STLMLC STLMLC [id number] [facility] 2024-01-18 00:00:00 2024-01-18 00:00:00 (TEL) STLMLC STLMLC [id number] [facility] 2024-01-08 00:00:00 2024-01-08 00:00:00 (TEL) STLMLC STLMLC [id number] [facility] 2023-12-27 09:07:00 2023-12-27 09:46:00 Surgery Jessica Arauz [facility] 1.2.840.114 350.1.13.10 4.2.7.2.686 [id number] [facility] 2023-12-27 07:52:00 2023-12-27 09:28:00 Outpatient [facility] [id number] [facility] 2023-12-27 07:52:00 2023-12-27 09:28:00 Hospital Encounter Jessica Arauz [facility] 1.2.840.114 350.1.13.10 4.2.7.2.686 [id number] [facility] 2023-12-17 00:00:00 2023-12-17 00:00:00 OFFICE VISIT ESTAB PT LEVEL 4 STLMLC STLMLC [id number] [facility] 2023-12-04 00:00:00 2023-12-04 00:00:00 (TEL) STLMLC STLMLC [id number] [facility] 2023-11-20 00:00:00 2023-11-20 00:00:00 Telephone Lit Estrada [facility] 1.2.840.114 350.1.13.10 4.2.7.2.686 [id number] [facility] 2023-11-19 00:00:00 2023-11-19 00:00:00 OFFICE VISIT NEW PT LEVEL 4 STLMLC STLMLC [id number] [facility] 2023-11-16 00:00:00 2023-11-16 00:00:00 [facility] 1.2.840.114 350.1.13.10 4.2.7.2.686 [id number] [facility] 2023-11-15 11:00:00 2023-11-15 11:00:00 [facility] 1.2.840.114 350.1.13.10 4.2.7.2.686 [id number] [facility] 2023-11-15 10:45:00 2023-11-15 11:00:00 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 2, Adc Lab [facility] 1.2.840.114 350.1.13.10 4.2.7.2.686 [id number] [facility] 2023-11-15 11:00:00 2023-11-15 10:41:40 Outpatient [facility] [id number] [facility] 2023-11-15 00:00:00 2023-11-15 00:00:00 Patient Secure Msg [facility] 1.2.840.114 350.1.13.10 4.2.7.2.686 [id number] [facility] 2023-08-07 00:00:00 2023-08-07 00:00:00 OFFICE VISIT ESTAB PT LEVEL 4 STLMLC [facility] [id number] [facility] 2023-07-31 00:00:00 2023-07-31 00:00:00 [facility] 1.2.840.114 350.1.13.10 4.2.7.2.686 [id number] [facility] 2023-07-19 10:20:00 2023-07-19 10:20:00 Outpatient R LIT ESTRADA [facility] [id number] [facility] 2023-07-10 00:00:00 2023-07-10 00:00:00 [facility] 1.2.840.114 350.1.13.10 4.2.7.2.686 [id number] [facility] 2023-07-04 00:00:00 2023-07-04 00:00:00 [facility] 1.2.840.114 350.1.13.10 4.2.7.2.686 [id number] [facility] 2023-07-01 00:00:00 2023-07-01 00:00:00 Patient Secure M[facility] 1.2.840.114 350.1.13.10 4.2.7.2.686 [id number] [facility] 2023-06-28 00:00:00 2023-06-28 00:00:00 [facility] 1.2.840.114 350.1.13.10 4.2.7.2.686 [id number] [id number] [facility] 2023-06-25 13:40:00 2023-06-25 13:40:00 [facility] 1.2.840.114 350.1.13.10 4.2.7.2.686 [id number] [facility] 2023-06-25 13:40:00 2023-06-25 13:26:59 [facility] [id number] [facility] 2023-06-25 00:00:00 2023-06-25 00:00:00 Orders Only Doctor Unassigned, [place] [facility] 1.2.840.114 350.1.13.10 4.2.7.2.686 [id number] [facility] 2023-06-20 00:00:00 2023-06-20 00:00:00 (TEL) [facility] [id number] [facility] 2023-06-12 00:00:00 2023-06-12 00:00:00 Patient Secure Msg [facility] 1.2.840.114 350.1.13.10 4.2.7.2.686 [id number] 059 [id number] [facility] 2023-06-11 00:00:00 2023-06-11 00:00:00 [facility] 1.2.840.114 350.1.13.10 4.2.7.2.686 [id number] [id number] [facility] 2023-06-11 00:00:00 2023-06-11 00:00:00 (TEL) [facility] [id number] [facility] 2023-06-10 00:00:00 2023-06-10 00:00:00 Patient Secure Msg [facility] 1.2.840.114 350.1.13.10 4.2.7.2.686 [id number] [id number] [facility] 2023-06-08 10:51:10 2023-06-08 23:59:00 Outpatient R [facility]ADAFORMERLY [facility] [id number] [facility] 2023-06-08 10:51:10 2023-06-08 23:59:00 [facility] 1.2.840.114 350.1.13.10 4.2.7.2.686 [id number] [facility] 2023-05-31 09:07:03 2023-05-31 23:59:00 [facility] 1.2.840.114 350.1.13.10 4.2.7.2.686 [id number] [facility] 2023-05-31 08:30:00 2023-05-31 09:06:00 Outpatient [facility] [id number] [facility] 2023-05-31 08:30:00 2023-05-31 09:06:00 Hospital Encounter Sean [facility] 1.2.840.114 350.1.13.10 4.2.7.2.686 [id number] [facility] 2023-05-31 00:00:00 2023-05-31 00:00:00 Patient Secure Msg Sean [facility] BUILD[facility] 1.2.840.114 350.1.13.10 4.2.7.2.686 [id number] [facility] 2023-05-29 00:00:00 2023-05-29 00:00:00 Orders Only Doctor Unassigned, Westervelt [facility] 1.2.840.114 350.1.13.10 4.2.7.2.686 [id number] [facility] 2023-05-17 15:00:00 2023-05-17 15:12:39 Outpatient R [facility] [id number] [facility] 2023-05-17 15:00:00 2023-05-17 15:12:39 [facility] 1.2.840.114 350.1.13.10 4.2.7.2.686 [id number] [facility] 2023-05-04 00:00:00 2023-05-04 00:00:00 OFFICE VISIT ESTAB PT LEVEL 4 STLMLC STLMLC [id number] [facility] 2023-04-26 09:17:00 2023-04-26 10:57:00 Emergency ER HERMES BAEZ [facility] [id number] [facility] 2023-04-20 09:20:00 2023-04-20 09:20:00 Outpatient R [facility]LY [facility] [id number] [facility] 2023-04-18 00:00:00 2023-04-18 00:00:00 [facility] 1.2.840.114 350.1.13.10 4.2.7.2.686 [id number] [facility] 2023-04-16 00:00:00 2023-04-16 00:00:00 (TEL) STLMLC STLMLC [id number] [facility] 2023-04-11 00:00:00 2023-04-11 00:00:00 Telephone Verona Polo 1.2.840.114 350.1.13.10 4.2.7.2.686 [id number] [facility] 2023-03-28 00:00:00 2023-03-28 00:00:00 OFFICE VISIT ESTAB PT LEVEL 3 STLMLC STLMLC [id number] [facility] 2023-03-28 00:00:00 2023-03-28 00:00:00 (TEL) STLMLC STLMLC [id number] [facility] 2023-03-28 00:00:00 2023-03-28 00:00:00 SUB ANNUAL [facility] WELL[facility] VISIT STLMLC STLMLC [id number] [facility] 2023-03-28 00:00:00 2023-03-28 00:00:00 (TEL) STLMLC STLMLC [id number] [facility] 2023-03-26 00:00:00 2023-03-26 00:00:00 (TEL) STLMLC STLMLC [id number] [facility] 2023-03-12 00:00:00 2023-03-12 00:00:00 OFFICE VISIT ESTAB PT LEVEL 3 STLMLC STLMLC [id number] [facility] 2023-02-15 00:00:00 2023-02-15 00:00:00 (TEL) STLMLC STLMLC [id number] [facility] 2023-02-01 00:00:00 2023-02-01 00:00:00 OFFICE VISIT ESTAB PT LEVEL 4 STLMLC STLMLC [id number] [facility] 2023-01-18 00:00:00 2023-01-18 00:00:00 [place] [address].2.840.114 350.1.13.10 4.2.7.2.686 [id number] 059 [id number] [facility] 2023-01-17 11:45:00 2023-01-17 12:00:00 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 2, Adc Lab [place] [address].2.840.114 350.1.13.10 4.2.7.2.686 [id number] [facility] 2023-01-17 11:20:00 2023-01-17 11:20:00 [facility] 1.2.840.114 350.1.13.10 4.2.7.2.686 [id number] [facility] 2023-01-17 11:20:00 2023-01-17 11:18:02 Outpatient R SEAN ASHUVIKY [facility] [id number] [facility] 2023-01-17 00:00:00 2023-01-17 00:00:00 Orders Only Doctor Unassigned, [place]velt [facility] 1.2.840.114 350.1.13.10 4.2.7.2.686 [id number] [facility] 2022-12-22 00:00:00 2022-12-22 00:00:00 (TEL) STLMLC STLMLC [id number] [facility] 2022-12-05 00:00:00 2022-12-05 00:00:00 Telephone Sean Lit [facility] 1.2.840.114 350.1.13.10 4.2.7.2.686 [id number] [facility] 2022-11-28 00:00:00 2022-11-28 00:00:00 (TEL) STLMLC STLMLC [id number] [facility] 2022-10-23 00:00:00 2022-10-23 00:00:00 (TEL) STLMLC STLMLC [id number] [facility] 2022-10-19 00:00:00 2022-10-19 00:00:00 OFFICE VISIT ESTAB PT LEVEL 4 STLMLC STLMLC [id number] [facility] 2022-09-29 00:00:00 2022-09-29 00:00:00 (TEL) STLMLC STLMLC [id number] [facility] 2022-09-13 00:00:00 2022-09-13 00:00:00 (TEL) STLMLC STLMLC [id number] [facility] 2022-06-16 00:00:00 2022-06-16 00:00:00 OFFICE VISIT ESTAB PT LEVEL 4 STLMLC STLMLC [id number] [facility] 2022-05-09 00:00:00 2022-05-09 00:00:00 (TEL) STLMLC STLMLC [id number] [facility] 2022-03-10 00:00:00 2022-03-10 00:00:00 OFFICE VISIT EST PT LEVEL 3 STLMLC STLMLC [id number] [facility] 2022-03-10 00:00:00 2022-03-10 00:00:00 SUB ANNUAL [facility] VISIT STLMLC STLMLC [id number] [facility] 2022-01-25 00:00:00 2022-01-25 00:00:00 (TEL) STLMLC STLMLC [id number] [facility] 2022-01-22 00:00:00 2022-01-22 00:00:00 (TEL) STLMLC STLMLC [id number] [facility] 2022-01-03 00:00:00 2022-01-03 00:00:00 (TEL) STLMLC STLMLC [id number] [facility] 2021-12-14 00:00:00 2021-12-14 00:00:00 (TEL) STLMLC STLMLC [id number] [facility] 2021-12-14 00:00:00 2021-12-14 00:00:00 (TEL) STLMLC STLMLC [id number] [facility] 2021-12-06 00:00:00 2021-12-06 00:00:00 OFFICE VISIT ESTAB PT LEVEL 4 STLMLC STLMLC [id number] [facility] 2021-11-30 00:00:00 2021-11-30 00:00:00 (TEL) STLMLC STLMLC [id number] [facility] 2021-11-02 00:00:00 2021-11-02 00:00:00 (TEL) STLMLC STLMLC [id number] [facility] 2021-09-08 00:00:00 2021-09-08 00:00:00 (TEL) STLMLC STLMLC [id number] [facility] 2021-07-11 00:00:00 2021-07-11 00:00:00 OFFICE VISIT ESTAB PT LEVEL 4 STLMLC STLMLC [id number] [facility] 2021-06-22 04:57:00 2021-06-22 04:57:[address] [facility] [id number] [facility] 2021-06-10 00:00:00 2021-06-10 00:00:00 (TEL) STLMLC STLMLC [id number] [facility] 2021-04-13 00:00:00 2021-04-13 00:00:00 OFFICE VISIT EST PT LEVEL 3 STLMLC STLMLC [id number] [facility] 2021-04-11 00:00:00 2021-04-11 00:00:00 (TEL) STLMLC STLMLC [id number] [facility] 2021-04-05 00:00:00 2021-04-05 00:00:00 (TEL) STLMLC STLMLC [id number] [facility] 2021-03-24 00:00:00 2021-03-24 00:00:00 (TEL) STLMLC STLMLC [id number] [facility] 2021-03-24 00:00:00 2021-03-24 00:00:00 (TEL) STLMLC STLMLC [id number] [facility] 2021-03-07 00:00:00 2021-03-07 00:00:00 (TEL) STLMLC STLMLC [id number] [facility] 2021-01-07 14:00:00 2021-01-07 14:00:00 Outpatient JESSICA SCHMITT [facility] [id number] [facility] 2021-01-07 12:44:37 2021-01-07 12:59:37 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 Pob, Adc Lab Main Jessica [facility]uz [facility] 1..840.114 350.1.13.10 4.2.7.2.686 [id number] [facility] 2021-01-07 00:00:00 2021-01-07 00:00:00 Orders Only Doctor Unassigned, [place]velt [facility] 1..840.114 350.1.13.10 4.2.7.2.686 [id number] [facility] 2021-01-05 00:00:00 2021-01-05 00:00:00 Outpatient STLMLC STLMLC [id number] [facility] 2020-12-08 00:00:00 2020-12-08 00:00:00 Outpatient STLMLC STLMLC [id number] [facility] 2020-11-18 00:00:00 2020-11-18 00:00:00 Outpatient STLMLC STLMLC [id number] [facility] 2020-11-15 00:00:00 2020-11-15 00:00:00 Outpatient STLMLC STLMLC [id number] [facility] 2020-10-06 00:00:00 2020-10-06 00:00:00 Outpatient STLMLC STLMLC [id number] [facility] 2020-09-29 00:00:00 2020-09-29 00:00:00 Outpatient STLMLC STLMLC [id number] [facility] 2020-09-29 00:00:00 2020-09-29 00:00:00 Outpatient STLMLC STLMLC [id number] [facility] 2020-08-17 00:00:00 2020-08-17 00:00:00 Outpatient STLMLC STLMLC [id number] [facility] 2020-07-01 00:00:00 2020-07-01 00:00:00 Outpatient STLMLC STLMLC [id number] [facility] 2020-06-04 11:01:00 2020-06-04 12:17:00 Emergency Nic [facility] 1.2.840.114 350.1.13.10 4.2.7.2.686 [id number] 2020-06-04 11:01:00 2020-06-04 12:17:[facility] 1.2.840.114 350.1.13.10 4.2.7.2.686 [id number] [facility] 2020-06-04 11:01:00 2020-06-04 11:01:00 Emergency X [facility] ERT [id number] [facility] 2020-05-12 00:00:00 2020-05-12 00:00:00 Outpatient STLMLC STLMLC [id number] [facility] 2020-03-16 14:33:00 2020-03-16 14:33:[address] [facility] [facility] [id number] [facility] 2020-03-10 17:01:00 2020-03-10 17:01:00 [facility] [id number] [facility] 2020-02-10 10:40:00 2020-02-10 10:40:[address] [facility] [address] [facility] [id number] [facility] 2019-11-11 10:40:00 2019-11-11 10:40:00 [facility] [facility] [facility] [address] [facility] [id number] [facility] 2019-08-12 13:00:00 2019-08-12 13:00:00 [facility] [facility] [facility] [address] [facility] [id number] [facility] 2019-07-01 10:00:00 2019-07-01 10:00:[address] [facility] [facility] [address] [facility] [id number] [facility] 2019-06-17 14:40:00 2019-06-17 14:40:[address] [facility] [facility] [address] [facility] [id number] [facility] 2019-06-13 15:24:00 2019-06-13 15:24:[address] [facility] [facility] [address] [facility] [facility] [id number] [facility] 2019-05-29 10:00:00 2019-05-29 10:00:[address] [facility] [facility] [address] [facility] [id number] [facility] 2019-05-26 10:48:00 2019-05-26 10:48:00 Outpatient LEXI SHAYY BIENVENIDO [facility] [id number] [facility] 2019-05-22 13:45:00 2019-05-22 13:45:[address] [facility] [facility] [id number] [facility] 2019-03-20 10:00:00 2019-03-20 10:00:00 [facility] [id number] [facility] 2019-02-02 15:18:00 2019-02-02 16:17:00 Emergency ER GISELLE CLEANING [facility] [id number] [facility] 2018-10-16 07:22:00 2018-10-16 09:24:00 Emergency ER MANDY CARTER [facility] [id number] [facility] 2017-11-18 22:35:00 2017-11-19 01:58:00 Emergency ER RAJINDER MELISSA [facility] [id number] [facility] 2017-11-17 10:17:00 2017-11-17 12:53:00 Emergency ER SONI WERNER [facility] [id number] [facility] 2017-08-23 08:13:00 2017-08-23 08:13:00 Outpatient JESSICA SALAZAR [facility] [id number] [facility] 2017-06-10 19:24:00 2017-06-10 22:30:00 Emergency ER SONI WERNER [facility] [id number] [facility] 2017-04-24 09:09:00 2017-04-24 10:18:00 Emergency ER ROBIN MENDOZA [facility] [id number] [facility] 2017-04-02 11:25:00 2017-04-02 13:51:00 Emergency ER ART SAAVEDRA [facility] [id number] [facility] 2017-03-22 09:14:00 2017-03-22 09:14:00 Outpatient JESSICA SALAZAR [facility] [id number] [facility] 2017-03-13 23:23:00 2017-03-14 01:18:00 Emergency ER DENAE RAY [facility] [id number] [facility] 2014-02-18 15:47:00 2014-02-18 15:47:00 Outpatient Jeronimo Farmer [facility] [id number] [facility] 2014-01-22 11:52:00 2014-01-22 11:52:00 Outpatient HINA TURCIOS [facility] [id number] [facility] 2013-10-07 15:57:00 2013-10-07 15:57:00 Outpatient Jeronimo Farmer [facility] [id number] [facility] 2011-01-27 01:41:00 2011-01-27 04:05:00 Emergency ER ART SAAVEDRA [facility] [id number] [facility] 2010-11-28 10:24:00 2010-11-28 10:24:00 Outpatient HINA TURCIOS [facility] [id number] [facility] 2009-08-14 03:34:00 2009-08-14 06:22:00 Emergency ER SHAHRIAR, NORA [facility] [id number] [facility] 2008-05-09 18:28:00 2008-05-09 20:38:00 Emergency ER ART SAAVEDRA [facility] [id number] [facility] 2007-12-08 16:46:00 2007-12-08 18:33:00 Emergency ER OVI NOEL [facility] [id number] [facility] 2007-09-18 04:36:00 2007-09-18 07:40:00 Emergency ER LUCIO BESSSARAH BETH [facility] [id number] [facility] 2007-04-04 00:17:00 2007-04-04 02:15:00 Emergency ER ART SAAVEDRA [facility] [id number] [facility] 2007-01-31 23:15:00 2007-02-01 01:06:00 Emergency ER CHIP METZ [facility] [id number] [facility] 2007-01-15 18:42:00 2007-01-15 22:50:00 Emergency ER CHIP METZ [facility] [id number] [facility] 2006-11-25 05:35:00 2006-11-25 10:15:00 Emergency ER SIENNA DAVILA [facility] [id number] [facility] 2006-11-05 08:14:00 2006-11-05 08:14:00 Outpatient LEXI PRIYANKA TRISTAN [facility] [id number] [facility] 2006-07-13 20:48:00 2006-07-13 23:05:00 Emergency ER OVI NOEL [facility] [id number] [facility] 2006-06-13 13:46:00 2006-06-13 17:38:00 Emergency ER CHIP METZ [facility] [id number] [facility] 2006-05-25 11:34:00 2006-05-25 11:34:00 Outpatient SANTI NORMAN "HUANG" [facility] [id number] [facility] 2006-05-24 11:50:00 2006-05-24 15:20:00 Emergency ER SADIE, OVI [facility] [id number] [facility] 2006-05-16 11:19:00 2006-05-16 13:25:00 Emergency ER BA, OVI [facility] [id number] [facility] 2006-05-01 04:41:00 2006-05-01 13:15:00 Emergency ER SIENNA DAVILA [facility] [id number] [facility] 2005-07-04 22:43:00 2005-07-05 00:18:00 Emergency ER RHEA KENT [facility] [id number] [facility] 2004-01-18 17:24:00 2004-01-18 18:23:00 Emergency ER RADHA ANDERSON [facility] [id number] [facility] 2003-01-31 22:36:00 2003-02-01 02:05:00 Emergency ER YAHAIRA JURADO [facility] [id number] [facility] 2002-11-15 21:10:00 2002-11-15 23:10:00 Emergency ER NARDA PARRAASCHA [facility] [id number] [facility] 2001-11-15 02:08:00 2001-11-15 05:10:00 Emergency ER ART SAAVEDRA [facility] [id number] [facility] Results Test Description Test Time Test Comments Results Result Co mments Source STREP A RAPID 2024-04-24 00:00:00 Result POCT GLUCOSE (AUTOMATED)2023-12-27 13:04:15* Test Item Value Reference Range Interpretation Comme nts POCT GLU (test code = 8450854446) 104 mg/dL 70-110 Lab Interpretation (test cod e = 06076-0) [facility] 13:04:15* Test Item Value Reference Range Interpretation Comme nts POCT GLU (test code = 8882920779) 104 mg/dL 70-110 Lab Interpretation (test cod e = 13319-9) [facility] 2023-05-31 17:46:54* Test Item Value Reference Range Interpretation Comme nts Height (test code = 4857689666) 62 in Weight (test code = 5483131627) 163 lbs Systolic BP (test code = 8343357453) 154 mmHg Diastolic BP (test code = 7880843821) 72 mmHg Heart Rate (test code = 8641188038) 78 bpm BSA (test code = 1630790392) 1.[address] Depresion (mm) (test code = 7171346391) 0 mm Radiology Study observation (narrative) (test code = 81231-2) GABRIEL (test code = GABRIEL) Table formatting from the original result was not included. ?Post-stress?Impression: Adequate hemodynamic response, adequate chronotropic response and negative stress echocardiography study for inducible ischemia. ?Post-stress: The post-stress echo shows appropriate increased thickness to all myocardial segments, increased ejection fraction 70-75 and no wall motion abnormalities noted. ?Stress?ECG: Arrhythmias during stress: frequent PVCs. Arrhythmias during recovery: frequent PVCs. The ECG was negative for ischemia. ?Stress: The patient reported chest pain during the stress test. ?Left?Ventricle: Left ventricle is normal in size and function. Mildly increased wall thickness. Normal systolic function with a visually estimated EF of 55 - 60%. There is impaired relaxation. ?Tricuspid?Valve: Trace transvalvular regurgitation. Right ventricular systolic pressure is 30-35 mmHg. ?RA pressure is 5-10 mmHg. ?Left?Atrium: Left atrium is mildly dilated. ?Aorta: Borderline enlarged ascending aorta 3.0cm. I, James Fall MD was immediately available for ?the entire procedure(s). Stress ResultsProtocol: DSE Maximum Predicted HR: 153 Target HR: 130 % Maximum Predicted HR: 89 Stage Duration (mm:ss) Heart Rate (bpm) BP Dose Comment Baseline ?76 152/72 ?Lumason Peak 09:26 136 172/78 20 0.25 Atropine Recovery 4 4:00 107 154/64 ? ?Recovery 10 10:00 84 147/82 ? ?Add'l Recovery ?Stress Duration: : Recovery Time: 10:00 Maximum Stress HR: 136 ? Left VentricleLeft ventricle is normal in size and function. Mildly increased wall thickness. Normal systolic function with a visually estimated EF of 55 - 60%. There is impaired relaxation.Right VentricleRight ventricle is normal in size and function.Left AtriumLeft atrium is mildly dilated.Right AtriumRight atrium size is normal.Mitral ValveMitral valve is grossly normal in structure and function. Trace transvalvular regurgitation. No stenosis.Tricuspid ValveTricuspid valve is grossly normal size and function. Trace transvalvular regurgitation. Right ventricular systolic pressure is 30-35 mmHg. RA pressure is 5-10 mmHg. No stenosis.Aortic ValveAortic valve opens well.Pulmonic ValveNot well visualized.Ascending AortaBorderline enlarged ascending aorta 3.0cm.PericardiumNo pericardial effusion.Study DetailsStudy quality was adequate. A Dobutamine stress echocardiogram was performed using color flow Doppler and spectral Doppler. 5 mL of Lumason ultrasound enhancing agent used. Feli Lamas, RNResting ECGNormal sinus rhythm. Resting ECG shows no ST-segment deviation.Stress FindingsA pharmacological stress test was performed using dobutamine. The patient reported chest pain during the stress test. Blood pressure demonstrated a normal response and heart rate demonstrated a normal response to stress. The patient's heart rate recovery was normal.Stress ECGSinus tachycardia. No significant ST depression.Arrhythmias during stress: frequent PVCs. Arrhythmias during recovery: frequent PVCs. The ECG was negative for ischemia.Echo Post StressThe post-stress echo shows appropriate increased thickness to all myocardial segments, increased ejection fraction 70-75 and no wall motion abnormalities noted.Study ImpressionAdequate hemodynamic response, adequate chronotropic response and negative stress echocardiography study for inducible ischemia. [facility] [id number] 00:00:00* Test Item Value Reference Range Interpretation Comme nts A1C (test code = 4548-4) 6.7 HEMOGLOBIN [id number] 00:00:00* Test Item Value Reference Range Interpretation Comme nts A1C (test code = 4548-4) 6.6 HEMOGLOBIN [id number] 00:00:00* Test Item Value Reference Range Interpretation Comme nts A1C (test code = 4548-4) 7.0 HEMOGLOBIN [id number] 00:00:00* Test Item Value Reference Range Interpretation Comme nts A1C (test code = 4548-4) 7.4 XR ELBOW >3 VW [id number] 17:55:25No acute bony abnormality is present. EXAM: XR [...] LEFTHISTORY:pain COMPARISON:NoneFINDINGS: Imaging of the shoulder, forearm and elbow demonstrates maintenance ofalignment. Joint spaces are preserved. A remote triquetral fracture causescortical irregularity over the dorsal proximal carpus.Osteopenia ispresent.IMPRESSIONNoacute bony abnormality is present. [facility] CenterXR FOREARM 2 VW [id number] 17:55:25No acute bony abnormality is present. EXAM: XR [...] LEFTHISTORY:pain COMPARISON:NoneFINDINGS: Imaging of the shoulder, forearm and elbow demonstrates maintenance ofalignment. Joint spaces are preserved. A remote triquetral fracture causescortical irregularity over the dorsal proximal carpus.Osteopenia ispresent.IMPRESSIONNoacute bony abnormality is present. [facility] <2 VW [id number] 17:55:25No acute bony abnormality is present. EXAM: XR SHOULDER <2 VW LEFT, EXAM: XR FOREARM 2 VW LEFT, EXAM: XR ELBOW >3 VW LEFT HISTORY: pain COMPARISON: None FINDINGS: Imaging of the shoulder, forearm and elbow demonstrates maintenance ofalignment. Joint spaces are preserved. A remote triquetral fracture causescortical irregularity over the dorsal proximal carpus.Osteopenia ispresent. [facility], Radiant Results Inft User - 06/04/2020 11:56 AM CSTEXAM:XR SHOULDER <2 VW LEFT,EXAM:XR FOREARM 2 VW LEFT,EXAM:XR ELBOW >3 VW LEFTHISTORY:pain COMPARISON:NoneFINDINGS: Imaging of the shoulder, forearm and elbow demonstrates maintenance ofalignment. Joint spaces are preserved. A remote triquetral fracture causescortical irregularity over the dorsal proximal carpus.Osteopenia ispresent.IMPRESSIONNoacute bony abnormality is present. [facility] CenterPro-[id number] 22:42:00* Test Item Value Reference Range Interpretation Comme nts NT ProBnp (test code = PBNP) SEE COMMENT pg/mL 0-124 N PBNP=5.00 <Test..../OG Lipid [id number] 22:40:00* Test Item Value Reference Range Interpretation Comme nts Cholesterol (test code = CHOL) 124 mg/dL 0-200 N Triglycerides (test code = TRIG) 100 mg/dL 9-200 N HDL (test code = HDL) 46 mg/dL 50-60 L Chol/HDL (test code = CHOLPHDL) 2.7 Ratio 0.0-4.4 N LDL, Calculated (test code = LDLC) 58 mg/dL 0-130 N (NOTE)RISK OF HEART DISEASEPublished by [place] Heart AssociationAnalyte Optimal Boderline Increased RiskCHOL <200 200-239 >240TRIG <150 150-199 >200HDL Male: >60 <40HDL Female: >60 <50LDL <100 130-159 >160LDL NEAR OPTIMAL IS 100-129 VLDL (test code = VLDL) 20 mg/dL 5-40 N LDL/HDL (test code = LDLPHDL) 1 Comprehensive Metabolic [id number] 22:40:00* Test Item Value Reference Range Interpretation [...] race is not provided, and the patient isAfrican-Montserratian, multiply by 1.212. If sex is not [...] by the National Kidney Foundation,http://nkdep .nih.gov Glycosylated [id number] 22:38:00* Test Item Value Reference Range Interpretation Comme nts HBA1c (test code = HBA1C) 7.0 % 4.8-5.9 H CBC with [id number] 22:17:00* Test Item Value Reference Range Interpretation [...] code = ALYMPH) 3.2 K/cumm 0.5-4.6 N Woods Abs (test code = AMONO) 0.4 K/cumm 0.0-1.2 N Eos Abs (test code = AEOS) 0.22 K/cumm 0.00-0.74 N Baso Abs (test code = ABASO) 0.1 K/cumm 0.00-0.21 N POC, COVID 19 Antigen + Flu by SofiaPOC, COVID 19 Antigen + Flu by SofiaSARS-COV 2 AntigenSARS-COV 2 AntigenPOC, COVID 19 Antigen + Flu by SofiaPOC, COVID 19 Antigen + Flu by SofiaSTREP A+ RAPIDSTREP A+ RAPID History and Physical Notes Date/Time Note Provider Source 2023-12-27 08:20:13 H&P was reviewed and patient was examined and there was no change in patients condition. [facility] Procedure Notes Date/Time Note Provider Source 2023-12-27 08:21:44 PROCEDURE: pterygium excision DATE OF SURGERY:12/27/2023 SURGEON: Jessica Arauz MD PROCEDURE: pterygium excision Right eye. PREOPERATIVE DIAGNOSIS: pterygium Right eye. POSTOPERATIVE DIAGNOSIS: pterygiumRight eye. ANESTHESIA: Local MAC ESTIMATED BLOOD LOSS: None PROCEDURE IN DETAIL: The patient was brought to the operating room where they were given IV sedation. . They were then prepped and draped in the usual sterile manner. A lid speculum was placed in the Right eye. BSS was placed on the cornea. Lidocaine with 2% epi was injected under the base of the pterygium. A 15 blade was used to trace around the head of the pterygium which was then undermined with a crescent blade. A weescott scissors was used to excise the base of the pterygium and the scleral bed was cauterized. A combination of dexamethasone and antibiotics was injected into the conjunctiva adjacent to the original corneal scleral wound. The lid speculum was removed from the eye. Tobradex was placed on the conjunctiva. The eye was patched and shielded. The patient was discharged in the operating room in good condition. INTRAOPERATIVE COMPLICATIONS: None PATIENT NAME: Tami Bernal [facility] REC#: [id number] VISIT #: ROOM #: [facility] [address] [place] [id number] T [facility] 2023-12-27 08:20:43 Brief Operative Note Date Of Operation: 12/27/2023 Surgeons Name: JESSICA ARAUZ MD Pre Operative Diagnosis: pterygium RIGHT EYE Post Operative Diagnosis:pterygium RIGHT EYE Operation Performed: UNDER LOCAL ANESTHESIA THE EYE WAS/WERE EXPOSED USING A LID SPECULUM. ENTRY INTO THE EYE THROUGH A MINIMAL INCISION WAS MADE FOR THE SURGICAL REMOVAL OF THE pterygium WITHOUT COMPLICATION. EBL: NONE Patient's Condition: PATIENT WAS DISCHARGED FROM THE FACILITY IN STABLE CONDITION. PLEASE SEE THE PATIENT DISCHARGE INSTRUCTIONS. Please see dictated operative report for additional detail. T [facility] Notes Date/Time Note Provider Source 2024-05-02 09:28:10 Refill request for atorvastatin WILL 11/15/23 Labs, patient due for more current labs. LVM for patient to notify that she is in need of labs. Will send 30 days with 0 refills. [facility] 2024-05-01 16:26:35 Tami Bernal is a 69 year old female Pharmacy sent in for refill request of RX atorvastatin 40 mg tablet . Please advise. [id number] - [place], [place] - [address] AT [facility] Nicole Marcano [facility] 2023-12-26 15:54:53 Patient called and reported she has been having pain under her ribs at times "comes and goes". Thinks it is anxiety. Advised patient to follow-up with MD and /or make a PCP appointment. Encouraged patient to make surgeon and anesthesia aware in the morning. [facility] 2023-12-26 11:30:46 Patient called back, verified information about Ozempic. Reinforced other medication and NPO instructions. Verbalized understanding. [facility] 2023-12-26 09:25:22 Called patient to update that, per anesthesia, okay to proceed. No answer, left VM and callback number. [facility] 2023-12-25 14:51:43 Called patient back per MD office request to add new medications and review medication instructions. Med profile updated. Patient states she forgot to hold Ozempic on 12/22/23. Will notify anesthesia. [facility] 2023-12-20 10:53:31 Images from the original note were not included. Your procedure is at [facility] on 12/27/23. The address is [address] [place] [address], [id number]. [facility] nursing staff will call you the workday before your procedure to let you know what time to arrive.On the day of your procedure, please go inside that door and check in at the desk. Please note: You may not travel home alone and that includes in a taxi or by bus. We must speak to your Responsible Adult (who will be picking you up) the morning of your procedure, before the start of your procedure. This person must be an adult over the age of 18 years of age. Do not eat any solid food after midnight the night before surgery. You may have sips of clear liquids such as water, gatorade, and sprite up until two hours before your scheduled procedure. You may take your medications with a sip of water as directed by physician. Anticoagulants will be per physician guidance. Medication Note(s)/Instructions:Will hold ASA if okay with neurology. Instructed to hold insulin and metformin morning of surgery and hold Ozempic dose on 12/23/23. Pending screening, we may test for COVID. If a patient tests positive, their cases are cancelled and/or rescheduled. COVID SCREENING NOTE: Denies COVID symptoms, no testing required. Additional requests, questions, concerns:CB number and availability provided. Patient verbalized understanding of pre-op instructions and voiced no further questions at this time. [facility] 2023-11-22 08:54:[address] Dr Estrada and faxed back to [facility]. Forms scanned into chart along with fax confirmation. T [facility] 2023-11-20 16:18:18 Received preop clearance and anticoagulation guidance request for Cataract Surgery from [facility]. Medical clearance form placed in nurse basket at [facility]. Turn around time for forms is typically 5-7 business days. Once completed will be faxed to the requesting office. WILL: 11/15/2023 NOV: 11/13/2024 Anticoagulation: Date of last echocardiogram: 05/31/2023 Date of last stress test:05/31/2023 Date of last EK01/17/2023 T [facility] 2023-11-16 16:43:43 Patient notified and verbal understanding. [facility] 2023-11-16 16:42:59 Images from the original note were not included. Notified patient per Dr Estrada: November 15, 2023 Lit Estrada MD to Tami Bernal 11/15/23 4:26 PM Jesse Goodwin, Your A1c is 7.3. It is slightly elevated. Please share this with your primary care. Lit Estrada MD, [facility], [place] Quality Specialist Division of Cardiovascular Medicine [facility] Patient verbal understanding. [facility] 2023-11-16 16:37:01 Mychart sent yesterday [facility] 2023-11-16 16:33:17 Routed to for review. T [facility] 2023-11-16 13:15:22 Copied from [facility] #[id number]. 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 Pt requesting clinical staff go over labs with her. Please advise. Soni Chapman [facility] 2023-11-15 10:45:00 Images from the original note were not included. Venipuncture collection performed by clean technique on the left anticubitus. Total of 1 attempts were made. Slight pressure and a bandage/dressing were applied to the site(s). The patient experienced no complications. The following specimens were processed according to instructions and sent to [facility] laboratories per lab order on 11/15/2023 : LT BLUE SST RED LAV 1 PPT DK GREEN (LiHep) DK GREEN (SodH) FIERRO DK BLUE (K2) DK BLUE (S) ACD Blood Culture NIPT/NTD Pt only here for HA1C [facility] 2023-08-01 12:03:19 Notified patient daughter in law of recommendations. She verbalized understanding and advised she will follow up with the patient. RONMENTAL HEALTH PHYSICIAN Esther Schneider RN [facility] 2023-08-01 10:44:16 Spoke to patient and advised fo Dr. Estrada message regarding record review and plan of care. She requested that I contact her daughter in law, Lashell Bonilla [phone]. Pending callback from Lashell. RONMENTAL HEALTH PHYSICIAN Esther Schneider RN [facility] 2023-07-31 14:26:26 Images from the original note were not included. Attempted to contact patient to ensure she had the below information per Dr. Estrada request. [facility] for callback to [phone]. FW: Unread Message Notification Received: 3 weeks ago Lit Estrada MD P Cardiology Nurse Patient did not read [employer] message. Please call. Previous Messages ----- Message ----- From: Lit Estrada MD Sent: 07/01/2023 To: Tami Bernal Subject: Unread Message Notification Wa Tami, I reviewed your records from the hospital. MRI of the spine showed moderate to severe narrowing of the spine. There is no moderate to severe narrowing of the arteries on the MRI. The CT scan showed 50 to 70% blockage of the left carotid artery. However, the ultrasound we did in April this year showed less than 50% blockage. Different testing will show some difference in measurements. This is common. I recommend we get yearly carotid ultrasound to watch it. Please continue your medications. Try to work on smoking. Let me know if you have any questions. Lit Estrada MD, FACC, [place] Quality Specialist Division of Cardiovascular Medicine [facility] RONMENTAL HEALTH PHYSICIAN [facility] 2023-04-11 11:02:34 Formatting of this n ote is different from the original. Tami Bernal [id number] 04/11/23 Incoming call from patient after receiving a text message from [facility] regarding overdue colon screening. Patient has a PCP outside of [facility]. Will get in contact with her PCP regarding the overdue colonoscopy. Current overdue topics are as follows Health Maintenance Due Topic Date Due Depression Screening Never done HEPATITIS C (HCV) SCREEN Never done DTaP,Tdap,and Td Vaccines (1 - Tdap) Never done Breast Cancer Screening (MAMMOGRAM) Never done Colorectal Cancer Screening Never done Osteoporosis Screening Never done SARS-CoV-2 (COVID-19) Vaccine (5 - Moderna series) 09/01/2021 Zoster Recombinant Vaccine (SHINGRIX) (2 of 2) 11/09/2022 INFLUENZA VACCINE (1) 03/30/2023 [facility]
[2024-05-04 05:06] LABS: Absolute Basophils 0.1 K/uL (0-0.5); Absolute Eosinophils 0.1 K/uL (0-0.5); Absolute Lymphocytes (CBC) 1.9 K/uL (0.7-4.9); Absolute Monocytes 0.7 K/uL (0.1-1.3); Absolute Neutrophil 8.8 K/uL (1.8-8.0); Basophils % 0.7 % (0-1.3); Eosinophils % 0.8 % (0-4.4); Hematocrit 33.6 % (36.0-45.0); Hemoglobin 11.6 g/dL (12.0-15.0); Lymphocytes % 16.5 % (15.3-44.8); MCH 31.6 pg (27.0-35.0); MCHC 34.5 g/dL (32.0-36.0); MCV 91.3 fL (80-100); MPV 7.8 fL (7.6-11.3); Monocytes % 6.2 % (3.3-12.3); Neutrophils % 75.8 % (41.7-73.7); Nucleated Red Blood Cells % 0.1 % (0-0); Platelets 270 thou/uL (152-406); RBC Red Blood Cell Count 3.68 M/uL (3.86-4.86); Red Cell Distribution Width 13.7 % (12.1-15.2)
[2024-05-04 05:09] LABS: PT Prothrombin Time 11.3 SECONDS (9.4-12.5); Protime INR 1.01
[2024-05-04] MEDS ORDERED: MORPHINE 4 MG/ML SYR ONE (05:16)
[2024-05-04 05:22] LABS: Anion Gap 10.5 mEq/L (5.0-15.0); Potassium 3.5 mEq/L (3.5-5.1); Troponin High Sensitivity 3.7 pg/mL (<58.9)
--- NOTE | 2024-05-04 06:34 | RAD REPORT ---
EXAM: XR Chest, 1 View CLINICAL HISTORY: The patient is 69 years old and is Female; Chest pain. TECHNIQUE: Single view of the chest. COMPARISON: No relevant prior studies available. FINDINGS: Lungs: No pulmonary vascular congestion or consolidation. Pleural space: Unremarkable. No pneumothorax. Heart: Unremarkable. No cardiomegaly. Mediastinum: Unremarkable. Bones/joints: No acute fracture. Upper abdomen: No free air in the visualized upper abdomen. IMPRESSION: No acute cardiopulmonary process identified. Electronically signed by: Seble See MD 05/04/2024 06:30 AM CDT RP Due to temporary technical issues with the [employer] reporting system, reports are being jarrett d by the in-house radiologist without review as a courtesy to ensure prompt reporting the interpreting radiologist is fully responsible for the content of the report. Transcribed Date/Time: 05/04/2024 6:34 AM
--- NOTE | 2024-05-04 07:45 | ER ---
Nurse's Notes [facility] Name: Christa Sparks Age: 69 yrs Sex: Female : 1955 Arrival Date: 05/04/2024 Time: 04:29 Bed 18 Private MD: Diagnosis: Chest pain, unspecified Presentation: 05/04 04:34 Chief complaint: Patient states: CHEST PAIN AND NECK PAIN THAT STARTED 30 MINUTES AGO. ha1 04:34 Coronavirus screen: Vaccine status: Patient reports receiving the 2nd dose of the covid ha1 vaccine. Ebola Screen: No symptoms or risks identified at this time. Initial Sepsis Screen: Does the patient meet any 2 criteria? No. Patient's initial sepsis screen is negative. Does the patient have a suspected source of infection? No. Patient's initial sepsis screen is negative. Risk Assessment: Do you want to hurt yourself or someone else? Patient reports no desire to harm self or others. Onset of symptoms was May 04, 2024. 04:34 Method Of Arrival: Wheelchair ha1 04:34 Acuity: NICK 2 ha1 Triage Assessment: 04:34 General: Appears uncomfortable, Behavior is cooperative. Pain: Complains of pain in ha1 CHEST PAIN, NECK PAIN, Pain does not radiate. Pain currently is 10 out of 10 on a pain scale. Quality of pain is described as heavy, pressure. Neuro: Level of Consciousness is awake, alert, obeys commands, Oriented to person, place, time, situation. Cardiovascular: Capillary refill < 3 seconds Patient's skin is warm and dry. Cardiovascular: Reports chest pain. Respiratory: Airway is patent Respiratory effort is even, unlabored, Respiratory pattern is symmetrical. Historical: - Allergies: 04:34 Toradol; ha1 - Home Meds: 04:34 amitriptyline 50 mg Oral tab 1 tab once daily [Active]; aspirin 81 mg Oral TbEC 1 tab ha1 once daily [Active]; Furosemide Oral [Active]; levamir insulin [Active]; Plavix Oral [Active]; Novolog 100 unit/mL Sub-Q soln after meals and before bedtime [Active]; lisinopril-hydrochlorothiazide 20-25 mg Oral tab 1 tab once daily [Active]; simvastatin 40 mg Oral tab 1 tab once daily [Active]; - PMHx: 04:34 Anxiety; CHF; CVA; Diabetes - IDDM; High Cholesterol; Hypertension; ha1 - Immunization history:: Adult Immunizations up to date, Client reports receiving the 2nd dose of the Covid vaccine, Last tetanus immunization: up to date Flu vaccine is up to date. - Infectious Disease History:: Denies. - Social history:: Smoking status: Patient reports the use of cigarette tobacco products, denies chronic smoking, but will smoke occasionally. Screenin:11 [facility] ED Fall Risk Assessment (Adult) History of falling in the last 3 months, kc6 including since admission No falls in past 3 months (0 pts) Confusion or Disorientation No (0 pts) Intoxicated or Sedated No (0 pts) Impaired Gait No (0 pts) Mobility Assist Device Used No (0 pt) Altered Elimination No (0 pt) Score/Fall Risk Level 0 - 2 = Low Risk Oriented to surroundings. Abuse screen: Denies threats or abuse. Denies injuries from another. Nutritional screening: No deficits noted. Tuberculosis screening: No symptoms or risk factors identified. Assessment: 05:00 Reassessment: Patient and/or family updated on plan of care and expected duration. Pain br2 level reassessed. Patient is alert, oriented x 3, equal unlabored respirations, skin warm/dry/pink. General: Appears uncomfortable, Behavior is anxious. Pain: Complains of pain in chest Pain does not radiate. Pain currently is 10 out of 10 on a pain scale. Pain began 1 hour ago. 06:00 Reassessment: Patient and/or family updated on plan of care and expected duration. Pain br2 level reassessed. Patient is alert, oriented x 3, equal unlabored respirations, skin warm/dry/pink. Patient denies pain at this time. 06:55 Reassessment: Patient and/or family updated on plan of care and expected duration. Pain br2 level reassessed. Patient is alert, oriented x 3, equal unlabored respirations, skin warm/dry/pink. Patient states feeling better. Patient states symptoms have improved. 07:12 Reassessment: Patient appears in no apparent distress at this time. No changes from kc6 previously documented assessment. Patient and/or family updated on plan of care and expected duration. Pain level reassessed. Patient is alert, oriented x 3, equal unlabored respirations, skin warm/dry/pink. Vital Signs: 04:34 BP 152 / 70; Pulse 94; Resp 17 S; Temp 99.5(O); Pulse Ox 100% on R/A; Weight 69.4 kg; ha1 Height 5 ft. 1 in. ; Pain 10/10; 04:40 BP 152 / 70; Pulse 93; Resp 18 S; Pulse Ox 96% on R/A; ty 05:30 BP 179 / 68; Pulse 98; Resp 20 S; Pulse Ox 96% on R/A; ty 06:56 BP 167 / 63; Pulse 110; Resp 18 S; Temp 98.2(O); Pulse Ox 98% on R/A; br2 07:11 BP 178 / 62; Pulse 82; Resp 18 S; Pulse Ox 100% on R/A; kc6 07:39 BP 153 / 61; Pulse 84; Resp 16 S; Pulse Ox 96% on R/A; kc6 04:34 Body Mass Index 28.91 (69.40 kg, 154.94 cm) ha1 04:34 Pain Scale: Adult ha1 ED Course: 04:32 Patient arrived in ED. jj6 04:34 Leonidas Donahue MD is Attending Physician. ec2 04:34 Arm band placed on right wrist. EKG completed in triage. Results shown to MD. ha1 04:34 Patient has correct armband on for positive identification. Placed in gown. Bed in low ha1 position. Call light in reach. Side rails up X 1. Adult w/ patient. 04:34 Provided Education on: PLAN OF CARE . Client placed on continuous cardiac and pulse ha1 oximetry monitoring. NIBP monitoring applied. director institution on. 04:34 EKG done, by ED staff, reviewed by Leonidas Donahue MD. ty 04:58 Mariana Mejia, ZBIGNIEW is Primary Nurse. br2 05:02 Triage completed. ha1 05:22 XRAY Chest (1 view) In Process Unspecified. EDMS 07:02 Attending Physician role handed off by Leonidas Donahue MD ec2 07:02 Macho Macias MD is Attending Physician. ec2 07:05 Report received from Mariana Mejia RN. kc6 07:05 director institution on. Pulse ox on. NIBP on. Door closed. Noise minimized. Lights dimmed. kc6 Warm blanket given. Pillow given. 07:11 Patient maintains SpO2 saturation greater than 95% on room air. kc6 07:23 Troponin High Sensitivity Sent. kc6 07:58 No provider procedures requiring assistance completed. IV discontinued, intact, kc6 bleeding controlled, No redness/swelling at site. Pressure dressing applied. Administered Medications: 05:22 Drug: morphine IVP or IV 4 mg IVP once over 4 mins Route: IVP; Infused Over: 4 mins; br2 Site: left antecubital; 05:55 Follow up: Response: No adverse reaction; Marked relief of symptoms; Pain is decreased; ha1 RASS: Alert and Calm (0) 06:00 Follow up: Response: No adverse reaction; Pain is decreased br2 Medication: 07:59 VIS not applicable for this client. kc6 Outcome: 07:45 Discharge ordered by . sp3 07:58 Discharged to home ambulatory, with family, kc6 07:58 Condition: improved 07:58 Discharge instructions given to patient, family, Instructed on discharge instructions, follow up and referral plans. Demonstrated understanding of instructions, follow-up care, 07:59 Patient left the ED. kc6 Signatures: Dispatcher [employer] EDMS Macho Macias MD MD sp3 Nery Sandersonj6 Alley Yanez RN RN ha1 Geraldine Castro RN RN kc6 Leonidas Donahue MD MD ec2 David Estrada Belinda RN RN br2 Corrections: (The following items were deleted from the chart) 06:39 06:37 EKG done, by ED staff, reviewed by Leonidas Donahue MD ty ty
--- NOTE | 2024-05-04 07:46 | EDPHYS ---
Physician Documentation [facility] Name: Christa Sparks Age: 69 yrs Sex: Female : 1955 Arrival Date: 05/04/2024 Time: 04:29 Bed 18 Private MD: ED Physician Macho Macias HPI: 05/04 04:57 This 69 yrs old Female presents to ER via Unassigned with complaints of Chest ec2 Pain. 04:57 Patient arrives today for evaluation of mid chest pain. Patient reports pain onset ec2 approximately 30 minutes prior to arrival. No specific alleviating or assessment factors. No vomiting, no shortness of breath, no leg swelling. History of previous stroke, hypertension, hyperlipidemia, diabetes.. Historical: - Allergies: 04:34 Toradol; ha1 - Home Meds: 04:34 amitriptyline 50 mg Oral tab 1 tab once daily [Active]; aspirin 81 mg Oral TbEC 1 tab ha1 once daily [Active]; Furosemide Oral [Active]; levamir insulin [Active]; Plavix Oral [Active]; Novolog 100 unit/mL Sub-Q soln after meals and before bedtime [Active]; lisinopril-hydrochlorothiazide 20-25 mg Oral tab 1 tab once daily [Active]; simvastatin 40 mg Oral tab 1 tab once daily [Active]; - PMHx: 04:34 Anxiety; CHF; CVA; Diabetes - IDDM; High Cholesterol; Hypertension; ha1 - Immunization history:: Adult Immunizations up to date, Client reports receiving the 2nd dose of the Covid vaccine, Last tetanus immunization: up to date Flu vaccine is up to date. - Infectious Disease History:: Denies. - Social history:: Smoking status: Patient reports the use of cigarette tobacco products, denies chronic smoking, but will smoke occasionally. ROS: 04:57 Constitutional: as per hpi ec2 Exam: 04:57 Constitutional: GEN: NAD Head: atraumatic Eyes: EOMI Ears: External ears are ec2 normal. CV: regular rate LUNGS: no respiratory distress ABD: non-distended SKIN: no evidence of rashes MSK: no evidence of trauma, reproducible chest wall TTP without deformities or crepitus appreciated. 07:38 ECG was reviewed by the Attending Physician. EKG performed at 7:14 AM demonstrates sp3 normal sinus rhythm at 90 bpm with normal intervals, normal QRS, normal axis with mild sinus arrhythmia and nonspecific diffuse ST's ST changes without evidence of acute ischemia. Vital Signs: 04:34 BP 152 / 70; Pulse 94; Resp 17 S; Temp 99.5(O); Pulse Ox 100% on R/A; Weight 69.4 kg; ha1 Height 5 ft. 1 in. ; Pain 10/10; 04:40 BP 152 / 70; Pulse 93; Resp 18 S; Pulse Ox 96% on R/A; ty 05:30 BP 179 / 68; Pulse 98; Resp 20 S; Pulse Ox 96% on R/A; ty 06:56 BP 167 / 63; Pulse 110; Resp 18 S; Temp 98.2(O); Pulse Ox 98% on R/A; br2 07:11 BP 178 / 62; Pulse 82; Resp 18 S; Pulse Ox 100% on R/A; kc6 07:39 BP 153 / 61; Pulse 84; Resp 16 S; Pulse Ox 96% on R/A; kc6 04:34 Body Mass Index 28.91 (69.40 kg, 154.94 cm) ha1 04:34 Pain Scale: Adult ha1 MDM: 04:34 Patient medically screened. ec2 04:48 ED course: EKG independently reviewed and interpreted by me, shows normal sinus rhythm, ec2 rate of 97, no acute ST segment elevations, intervals are nonactionable.. 04:57 Data reviewed: vital signs. ED course: Patient arrives today for evaluation of chest ec2 pain. Examination remarkable for well-appearing nontoxic individuals otherwise in no acute distress with a reassuring examination. Will obtain lab work, chest x-ray. Differential occludes ACS, costochondritis, additionally considered other processes such as PE, dissection. . 05:25 ED course: Metabolic profile reassuring. CBC reassuring, slight anemia noted. BNP ec2 within normal ranges, troponin within normal ranges. . 06:19 ED course: Will obtain repeat EKG and troponin at 715. Will sign out to oncoming ec2 physician with pending repeat EKG and troponin. On reassessment patient is well-appearing, no recurrence of pain.. 07:33 ED course: Patient signed out to me by night physician. Patient is a 69-year-old female sp3 with PMH above now with chest pain. Chest pain is resolved and second troponin and EKG are pending. If this is negative patient will be discharged safely home with follow-up to PCP. Patient understands need for follow-up with cardiology.. 05/04 04:34 Order name: Basic Metabolic Panel; Complete Time: 05:25 ec2 05/04 04:34 Order name: CBC with Diff; Complete Time: 05:25 ec2 05/04 04:34 Order name: NT PRO-BNP; Complete Time: 05:25 ec2 05/04 04:34 Order name: PT-INR; Complete Time: 05:25 ec2 05/04 04:34 Order name: Troponin HS; Complete Time: 05:25 ec2 05/04 07:10 Order name: Troponin High Sensitivity; Complete Time: 07:45 kc6 05/04 04:34 Order name: XRAY Chest (1 view); Complete Time: 07:56 ec2 05/04 04:34 Order name: EKG; Complete Time: 04:34 ec2 05/04 04:34 Order name: Cardiac monitoring; Complete Time: 04:59 ec2 05/04 04:34 Order name: EKG - Nurse/Tech; Complete Time: 04:59 ec2 05/04 04:34 Order name: IV Saline Lock; Complete Time: 04:59 ec2 05/04 04:34 Order name: Labs collected and sent; Complete Time: 04:59 ec2 05/04 04:34 Order name: O2 Per Protocol; Complete Time: 04:59 ec2 05/04 04:34 Order name: O2 Sat Monitoring; Complete Time: 04:59 ec2 05/04 05:47 Order name: Misc. Order: repeat ekg/trop at 0715; Complete Time: 07:16 ec2 Administered Medications: 05:22 Drug: morphine IVP or IV 4 mg IVP once over 4 mins Route: IVP; Infused Over: 4 mins; br2 Site: left antecubital; 05:55 Follow up: Response: No adverse reaction; Marked relief of symptoms; Pain is decreased; ha1 RASS: Alert and Calm (0) 06:00 Follow up: Response: No adverse reaction; Pain is decreased br2 Disposition Summary: 05/04/24 07:45 Discharge Ordered Notes: Location: Home sp3 Condition: Stable sp3 Diagnosis - Chest pain, unspecified sp3 Followup: ec2 - With: Private Physician - When: - Reason: Re-evaluation by your physician Discharge Instructions: - Discharge Summary Sheet ec2 - Nonspecific Chest Pain, Adult ec2 Forms: - Medication Reconciliation Form sp3 - Antibiotic Education sp3 - Prescription Opioid Use sp3 - Patient Portal Instructions sp3 - Leadership Thank You Letter sp3 Signatures: Dispatcher [employer] EDMS Macho Macias MD MD sp3 Alley Yanez RN RN ha1 Leonidas Donahue MD MD ec2 Mariana Mejia RN RN br2 Corrections: (The following items were deleted from the chart) 04:34 04:34 BASIC METABOLIC PANEL+C.LAB.BRZ ordered. EDMS EDMS 04:34 04:34 CBC+H.LAB.BRZ ordered. EDMS EDMS 04:34 04:34 PROBNP+C.LAB.BRZ ordered. EDMS EDMS 04:34 04:34 PROTIME (+INR)+COAG.LAB.BRZ ordered. EDMS EDMS 04:34 04:34 Troponin High Sensitivity+C.LAB.BRZ ordered. EDMS EDMS
[2024-05-04 08:08] VITALS: TEMP 98.2
[2024-05-04 08:11] VITALS: BP 153/61; O2SAT 96
--- NOTE | 2024-05-05 11:54 | EKG ---
Test Date: 2024-05-04 Test Time: 07:14:20 Hotel Administrative Assistant: JAIDEN MEASUREMENT RESULTS: Intervals: Rate: 90 OK: 146 QRSD: 82 QT: 354 QTc: [address]: P: 41 OK: 146 QRS: 88 T: 48 INTERPRETIVE STATEMENTS: Sinus rhythm with marked sinus arrhythmia Otherwise normal ECG Compared to ECG 05/04/2024 04:45:08 Myocardial infarct finding no longer present Electronically Signed On 05-05-24 11:52:15 CDT by Mohinder Mendoza
--- NOTE | 2024-05-05 11:55 | EKG ---
Test Date: 2024-05-04 Test Time: 04:45:08 Electric Spot Welder: MEASUREMENT RESULTS: Intervals: Rate: 97 WI: 130 QRSD: 80 QT: 366 QTc: [address]: P: 60 WI: 130 QRS: 87 T: 42 INTERPRETIVE STATEMENTS: Normal sinus rhythm Septal infarct, age undetermined Abnormal ECG Compared to ECG 11/21/2022 15:17:44 Myocardial infarct finding now present Electronically Signed On 05-05-24 11:52:24 CDT by Mohinder Mendoza
== END 2024-05-04 07:59 | disposition home or self-care (01) ==
LOC: ER 04:29
DX: R07.9 Chest pain, unspecified (principal); I10 Essential (primary) hypertension; I50.9 Heart failure, unspecified; F17.210 Nicotine dependence, cigarettes, uncomplicated; Z86.73 Personal history of transient ischemic attack (TIA), and cerebral infarction without residual deficits; Z79.01 Long term (current) use of anticoagulants; Z79.82 Long term (current) use of aspirin; Z79.4 Long term (current) use of insulin
CPT/HCPCS: 36415; 71045; 80048; 83880; 84484; 85025; 85610; 93005; 96374; 99285